=== PATIENT | female | born 1970 | race Caucasian/White ===

== ENCOUNTER 2019-01-13 19:22 | Observation (INO) | payer OTHER ==
--- OUTSIDE RECORDS SUMMARY | 2019-01-13 19:50 | XMS REPORT | Continuity of Care Document ---
:1970 Author Organization [facility] Address [address] [place] [address] Phone Unavailable Care Team Providers Name Role Phone KENNY DUPREE Primary Care Physician Insurance Providers Guarantor Gina Guevara Address [address] [address] Email [email or web address] Payer [facility] Policy Number [id number] Subscriber's Name Gina Guevara Relationship Self / Same As Patient Group Number NA Group Name NA Advance Directives Directive Response Recorded Date/Time Advance Directives No 06/20/15 3:05pm Advance Directive on File No 05/19/18 4:34am Directive to Physicians/Living Will No 06/20/15 3:05pm Health Care Proxy No 06/20/15 3:05pm Name of Surrogate/Decision Maker N/A 05/19/18 4:48am Organ Donor Yes 06/20/15 3:05pm Medical Power of Crisis Specialist No 06/20/15 3:05pm Patient/Family Given Education Material Y - SIGNED 05/19/18...AG 05/19/18 4 :48am R/T Directives? Chief Complaint and Reason for Visit Chief Complaint General Complaint Reason for Visit Muscle spasm Muscle spasm of both lower legs Chronic back pain Problems Medical Problem Onset Date Status Acute low back pain due to trauma Unknown Acute Acute pain of right shoulder Unknown Acute Anemia Unknown Chronic Anxiety Unknown Chronic Chronic back pain Unknown Acute Chronic low back pain Unknown Acute Contusion of knee Unknown Acute Fall at home Unknown Acute Headache Unknown Acute Hematuria Unknown Acute Influenza due to influenza A virus Unknown Acute Internal derangement of knee Unknown Acute Internal derangement of knee Unknown Acute Morbid obesity Unknown Chronic Nausea & vomiting Unknown Acute UTI (lower urinary tract infection) Unknown Acute Upper respiratory infection Unknown Acute Upper respiratory infection Unknown Acute Past Problems Medical Problem Onset Date Status Acute hyperglycemia Unknown Acute Acute pharyngitis Unknown Acute Chest wall pain Unknown Acute Contusion of right hip Unknown Acute Contusion of right knee Unknown Acute Contusion of right knee Unknown Acute Diabetes mellitus Unknown Acute Diarrhea Unknown Acute Fall Unknown Acute Gastroenteritis Unknown Acute Infectious diarrhea Unknown Acute Lumbar contusion Unknown Acute Malaise and fatigue Unknown Acute Microcytic hypochromic anemia Unknown Acute Mixed anxiety and depressive disorder Unknown Acute Muscle spasm Unknown Acute Muscle spasm of both lower legs Unknown Acute Myalgia Unknown Acute Obesity Unknown Acute Syncope Unknown Acute Tachycardia Unknown Acute Type II diabetes mellitus Unknown Acute URI (upper respiratory infection) Unknown Acute UTI (urinary tract infection) Unknown Acute Viral syndrome Unknown Acute Medications Current Home Medications Medication Dose Units Route Directions Days Qty Instructions Start Date Alprazolam 1 Tab ORAL Three Times 30 Days 30 Tablet 02/11/17 (Alprazolam*) 2 Daily As Mg Tab Needed as needed for Anxiety Butalbital/Aspir 1 Cap ORAL Twice A Day as in/Caff needed for 50/325/40 Mg * Headache (Fiorinal 50/325/40 *) Cap Carisoprodol 350 Mg ORAL Three Times A 30 Days 30 Tablet 02/11/17 (Soma 350 Mg*) Day for Muscle 350 Mg Tab Spasm Ferrous Sulfate 1 Tab ORAL Daily 30 Tablet (Kp Ferrous Sulfate 325 Mg) 325 Mg Tab Hydrocodone/Acet 1 Tab ORAL Every 4 Hrs As 30 Days 20 Tablet 02/11/17 aminophen 1 Tab Needed as Tab needed for Pain Protocol Ibuprofen 1 Tab ORAL Twice A Day 90 Tablet (Motrin *) 800 Mg Tab Omeprazole 40 Mg Daily 1 Cap (Bulk) (Omeprazole) Pow Ondansetron Hcl 1 Tab ORAL Every 6 Hours 5 Days 20 Tablet 03/23/18 (Zofran *) 4 Mg (4-10-16-22) Tab for Nausea Oxybutynin 5 Mg ORAL Twice A Day Chloride (Ditropan *) 5 Mg Tab Promethazine Hcl 50 Mg ORAL Twice A Day as 1 Tablet (Phenergan *) 25 needed for Mg Tab Nausea Tramadol/Apap * 1 Tab ORAL Every 4 Hours 30 Days 15 Tablet 03/23/18 (Ultracet As Needed for 37.5/325 Mg *) 1 Pain Tab Tab Past Home Medications Medication Directions Ordered Status Alprazolam (Alprazolam*) 2 Mg Three Times Daily As Needed as Discontinued Tab, 1 Tab Oral needed for Anxiety Alprazolam (Xanax 2 Mg*) 2 Mg Twice A Day Discontinued Tab, 2 Mg Oral Carisoprodol (Soma 350 Mg*) 350 Three Times A Day Discontinued Mg Tab, 350 Mg Oral Esomeprazole Mag * (Nexium 40 Mg Daily Discontinued *) 40 Mg Cap, 1 Cap Oral Ferrous Sulfate (Kp Ferrous Twice A Day for Iron 11/16/16 Discontinued Sulfate 325 Mg) 325 Mg Tab, 1 Tab Deficiency Oral Hydrocodone-Acetaminophen (Lorcet Three Times A Day Discontinued 10/650 Mg) 1 Tab Tab, 1 Tab Oral Hydrocodone-Acetaminophen Four Times Daily As Needed as Discontinued 10/325MG* ([place] 10/325 Mg *) 1 needed for Pain Scale 1-3 Tab Tab, 1 Tab Oral Morphine Sulfate (Morphine Three Times A Day Discontinued Sulfate Er 30 Mg) 30 Mg Cap, 1 Oral Morphine Sulfate (Morphine Three Times A Day for Pain Discontinued Sulfate 30 Mg) 30 Mg Sup, 30 Mg Scale 4-6 Oral Morphine Sulfate (Morphine Three Times A Day Discontinued Sulfate 15 Mg) 15 Mg Tab, 15 Mg Oral Omeprazole (Prilosec 40 Mg) 40 Mg Twice A Day Discontinued Cap, 40 Mg Oral Promethazine Hcl (Phenergan *) 25 Every 4 Hours As Needed Discontinued Mg Tab, 25 Mg Oral Social History Social History Problem Response Recorded Date/Time Onset Date Status Hx Physical Abuse No 05/19/2018 4:34am Not Applicable Not Applicable Smoking Status Start Date Stop Date Never smoker Hospital Discharge Instructions No hospital discharge instruction information available. Plan of Care Discharge Date 05/19/18 6:46am Instructions/Education Provided Muscle Cramps and Spasms Chronic Back Pain Forms Provided Prescription Opioid Use Portal Welcome Letter Prescriptions See Medication Section Referrals KENNY DUPREE Address: [address] [place] [address] [id number] Functional Status No functional status information available. Allergies, Adverse Reactions, Alerts Allergen Type Severity Reaction Status Last Updated Amoxicillin ([id number]) Allergy Severe rash Active 02/08/17 Codeine ([id number]) Allergy Unknown Hives Active 03/10/17 Immunizations No immunization information available. Vital Signs Acute Vital Signs Vital Response Date/Time Blood Pressure 150/55 mm Hg 05/19/2018 6:46am Pulse Pulse Rate (adult) 90 beats per minute (60 - 100) 05/19/2018 6:46am Respiratory Rate 20 breaths per minute (10 - 24) 05/19/2018 6:46am Temperature Source Oral 05/19/2018 6:46am Height 5 ft 7 in 05/19/2018 4:34am Weight 400 lb 05/19/2018 4:34am Body Mass Index 62.6 kg/m^2 05/19/2018 4:34am Results Laboratory Results Test Name Result Units Flags Reference Collection Result Comments Date/Time Date/Time White Blood Count 10.9 K/ul 4.0-11.5 03/22/2018 03/22/2018 11:26pm 11:38pm Red Blood Count 4.96 M/ul 3.80-5.20 03/22/2018 03/22/2018 11:26pm 11:38pm Hemoglobin 11.5 g/dl 10.5-15.7 03/22/2018 03/22/2018 11:26pm 11:38pm Hematocrit 37.9 % 34.0-50.0 03/22/2018 03/22/2018 11:26pm 11:38pm Mean Corpuscular 76.3 fl L 78-98 03/22/2018 03/22/2018 Volume 11:26pm 11:38pm Mean Corpuscular 23.1 pg L 26.2-33.4 03/22/2018 03/22/2018 Hemoglobin 11:26pm 11:38pm Mean Corpuscular 30.3 g/dl L 31.5-36.2 03/22/2018 03/22/2018 Hemoglobin Concent 11:26pm 11:38pm Red Cell 14.2 % 11.5-15.5 03/22/2018 03/22/2018 Distribution Width 11:26pm 11:38pm Platelet Count 362 K/ul H 137-338 03/22/2018 03/22/2018 11:26pm 11:38pm Mean Platelet 8.2 fl L 8.4-11.8 03/22/2018 03/22/2018 Volume 11:26pm 11:38pm Neutrophils (%) 72.4 % 44.4-80.1 03/22/2018 03/22/2018 (Auto) 11:26pm 11:38pm Lymphocytes (%) 20.2 % 10.0-50.0 03/22/2018 03/22/2018 (Auto) 11:26pm 11:38pm Monocytes (%) 5.9 % 3.6-12.04 03/22/2018 03/22/2018 (Auto) 11:26pm 11:38pm Eosinophils (%) 1.0 % 0.0-5.41 03/22/2018 03/22/2018 (Auto) 11:26pm 11:38pm Basophils (%) 0.6 % 0.0-0.79 03/22/2018 03/22/2018 (Auto) 11:26pm 11:38pm D-Dimer 607 ng/mL H* <500 03/22/2018 03/23/2018 Results have been broadcasted to patient's location and 12:00am 12:19am called to (LETTY). By HORTENSIA DE LA CRUZ 03/23/18 @0018 Urine Color YELLOW 03/22/2018 03/22/2018 10:50pm 11:11pm Urine Appearance CLEAR CLEAR 03/22/2018 03/22/2018 10:50pm 11:11pm Urine Glucose NEGATIVE NEGATIVE 03/22/2018 03/22/2018 10:50pm 11:11pm Urine Bilirubin NEGATIVE NEGATIVE 03/22/2018 03/22/2018 10:50pm 11:11pm Urine Ketones TRACE NEGATIVE 03/22/2018 03/22/2018 10:50pm 11:11pm Urine Specific 1.034 H 1.003-1.03 03/22/2018 03/22/2018 [place] 0 10:50pm 11:11pm Urine Blood NEGATIVE NEGATIVE 03/22/2018 03/22/2018 10:50pm 11:11pm Urine pH 6.000 5-9 03/22/2018 03/22/2018 10:50pm 11:11pm Urine Protein 1+ (30 H NEGATIVE 03/22/2018 03/22/2018 mg/dL) 10:50pm 11:11pm Urine Urobilinogen NORMAL mg/dL 0.2-1.0 03/22/2018 03/22/2018 10:50pm 11:11pm Urine Nitrate NEGATIVE NEGATIVE 03/22/2018 03/22/2018 10:50pm 11:11pm Urine Leukocyte NEGATIVE NEGATIVE 03/22/2018 03/22/2018 Esterase 10:50pm 11:11pm Urine RBC 1-5 /hpf 0-5 03/22/2018 03/22/2018 10:50pm 11:11pm Urine WBC 1-5 /hpf 0-5 03/22/2018 03/22/2018 10:50pm 11:11pm Urine Epithelial 6-10 /hpf 0-5 03/22/2018 03/22/2018 Cells 10:50pm 11:11pm Urine Bacteria SMALL(1+) /hpf None 03/22/2018 03/22/2018 Detect 10:50pm 11:11pm Urine Casts 2-5 /lpf None 03/22/2018 03/22/2018 Detect 10:50pm 11:11pm Urine Culture NO 03/22/2018 03/22/2018 Reflexed 10:50pm 11:11pm Lactic Acid Level 2.33 mmoL/L H 0.5-2.2 03/22/2018 03/22/2018 11:26pm 11:53pm Random Glucose 179 mg/dL H 74-106 03/22/2018 03/22/2018 11:26pm 11:53pm Blood Urea 23 mg/dL H 6-20 03/22/2018 03/22/2018 Nitrogen 11:26pm 11:53pm Serum Osmolality 286 280-300 03/22/2018 03/22/2018 11:26pm 11:53pm Creatinine 0.7 mg/dL 0.50-0.90 03/22/2018 03/22/2018 11:26pm 11:53pm Glomerular > 60.00 03/22/2018 03/22/2018 GFR RESULTS ARE REPORTED IN mL/min/1.73m2. Filtration Rate 11:26pm 11:53pm Calc Normal GFR: >60mL/min Moderately decreased GFR: 30-59 mL/min Severely decreased GFR: 15-29 mL/min Kidney Failure (or Dialysis): <15 mL/min The calculated eGFR is not valid for patients younger than 18 years or older than 75 years. BUN/Creatinine 32.9 H 12-20 03/22/2018 03/22/2018 Ratio 11:26pm 11:53pm Sodium Level 139 mmol/L 135-145 03/22/2018 03/22/2018 11:26pm 11:53pm Potassium Level 4.7 mmol/L 3.5-5.2 03/22/2018 03/22/2018 11:26pm 11:53pm Chloride Level 101 mmol/L 98-108 03/22/2018 03/22/2018 11:26pm 11:53pm Carbon Dioxide 23 mmol/L 21-32 03/22/2018 03/22/2018 Level 11:26pm 11:53pm Anion Gap 19.7 mEq/L 12-20 03/22/2018 03/22/2018 11:26pm 11:53pm Calcium Level 9.3 mg/dL 8.6-10.0 03/22/2018 03/22/2018 11:26pm 11:53pm Total Protein 7.8 g/dL 6.6-8.7 03/22/2018 03/22/2018 11:26pm 11:53pm Albumin 4.1 g/dL 3.5-5.2 03/22/2018 03/22/2018 11:26pm 11:53pm Globulin 3.7 gm/dL 03/22/2018 03/22/2018 11:26pm 11:53pm Albumin/Globulin 1.1 >1.0 03/22/2018 03/22/2018 Ratio 11:26pm 11:53pm Total Bilirubin < 0.3 mg/dL 0.0-1.2 03/22/2018 03/22/2018 11:26pm 11:53pm Aspartate Amino 13 U/L L 15-32 03/22/2018 03/22/2018 Transf (AST/SGOT) 11:26pm 11:53pm Alanine 16 U/L 0-33 03/22/2018 03/22/2018 Aminotransferase 11:26pm 11:53pm (ALT/SGPT) RA-Ebx-A-Type 79 pg/mL 0-125 03/22/2018 03/23/2018 Natriuretic 11:26pm 12:06am Peptide Total Alkaline 188 U/L H 35-105 03/22/2018 03/22/2018 Phosphatase 11:26pm 11:53pm Thyroid 2.81 uIU/mL 0.36-3.74 03/22/2018 03/23/2018 Stimulating 11:26pm 12:05am Hormone (TSH) Creatine Kinase 37 U/L 20-180 03/22/2018 03/22/2018 11:26pm 11:53pm Troponin I < 0.30 ng/mL 0.0-0.5 03/22/2018 03/23/2018 Published clinical studies have shown elevations of cTnI in 11:26pm 12:05am patients with myocardial injury, as seen in unstable angina pectoris, cardiac contusions, and heart transplants. Elevations have also been seen in patients with rhabdomyolysis and polymyositis. Elevated troponin levels point to myocardial injury, but are not necessarily indicative of an ischemic mechanism. The term AL should be used when there is evidence of cardiac damage, as detected by marker proteins in a clinical setting consistent with myocardial ischemia. If the clinical circumstance suggests that an ischemic mechanism is unlikely, other causes of cardiac injury should be considered. For diagnostic purposes, the results should always be assessed in conjunction with the patient's medical history, clinical examination and other findings. Creatine Kinase MB 1.2 ng/ml 0.0-3.6 03/22/2018 03/23/2018 11:26pm 12:06am DIAGNOSTIC CITERIA: CKMB CKMB RELATIVE INDEX SUGGESTIVE OF NON-AMI < or=5 N/A WEATHERS ZONE (INCONCLUSIVE) > 5 < or=4 SUGGESTIVE OF AMI >5 > 4 Procedures Procedure Status Date Provider(s) EMERGENCY DEPT VISIT Completed 03/22/18 THER/PROPH/DIAG INJ IV PUSH Completed 03/22/18 X-RAY EXAM CHEST 1 VIEW Completed 03/22/18 HYDRATE IV INFUSION ADD-ON Completed 03/22/18 COMPLETE CBC W/AUTO DIFF WBC Completed 03/22/18 CREATINE MB FRACTION Completed 03/22/18 ASSAY OF CK (CPK) Completed 03/22/18 ASSAY OF LACTIC ACID Completed 03/22/18 ASSAY THYROID STIM HORMONE Completed 03/22/18 URINALYSIS AUTO W/SCOPE Completed 03/22/18 ROUTINE VENIPUNCTURE Completed 03/22/18 ASSAY OF TROPONIN QUANT Completed 03/22/18 COMPREHEN METABOLIC PANEL Completed 03/22/18 FIBRIN DEGRADJ D-DIMER Completed 03/22/18 ASSAY OF NATRIURETIC PEPTIDE Completed 03/22/18 ELECTROCARDIOGRAM TRACING Completed 03/22/18 THER/PROPH/DIAG INJ SC/IM Completed 03/22/18 CT ANGIOGRAPHY CHEST Completed 03/22/18 ELECTROCARDIOGRAM TRACING Completed 03/22/18 X-ray of chest, single view Completed 03/22/18 KATHE GUEVARA MD Computed tomography angiography of chest for Completed 03/23/18 KATHE GUEVARA MD pulmonary embolism Encounters Encounter Location Arrival/Admit Date Discharge/Depart Date Attending Provider Departed [place] 05/19/18 4:34am 05/19/18 6:46am RHETT Emergency Room [facility] Departed [place] 03/22/18 9:30pm 03/23/18 3:04am KATHE GUEVARA Emergency [facility] Recent Diagnosis
--- OUTSIDE RECORDS SUMMARY | 2019-01-13 19:50 | XMS REPORT | Continuity of Care Document ---
:1970 Author Organization [facility] Address [address] [place] [address] Phone Unavailable Care Team Providers Name Role Phone KENNY DUPREE Primary Care Physician Insurance Providers Guarantor Gina Guevara Jessica Address [address] [address] Email [email or web address] [facility] Policy Number [id number] Subscriber's Name Gina Guevara Relationship Self / Same As Patient Group Number NA Group Name NA Advance Directives Directive Response Recorded Date/Time Advance Directives No 06/20/15 3:05pm Advance Directive on File No 03/22/18 9:40pm Directive to Physicians/Living Will No 06/20/15 3:05pm Health Care Proxy No 06/20/15 3:05pm Organ Donor Yes 06/20/15 3:05pm Medical Power of Spinning Bath Person No 06/20/15 3:05pm Patient/Family Given Education Material R/T Y - 03/22/18...MK 03/22/18 10: 23pm Directives? Chief Complaint and Reason for Visit Chief Complaint Extremity Pain/Injury Reason for Visit Diabetes mellitus Chest wall pain Problems Medical Problem Onset Date Status [...] Mixed anxiety and depressive disorder Unknown Acute Myalgia Unknown Acute Obesity Unknown [...] Times Daily As Needed as Discontinued 10/325MG* ([place] 10/325 Mg *) 1 needed for Pain [...] Onset Date Status Hx Physical Abuse No 03/22/2018 9:40pm Not Applicable Not Applicable Smoking Status Start Date Stop Date Never smoker Hospital Discharge Instructions No hospital discharge instruction information available. Plan of Care Discharge Date 03/23/18 3:04am Instructions/Education Provided Chest Wall Pain, Cmzi-[id number] Type 2 Diabetes Mellitus, Self Care, Adult, [id number] Prescriptions See Medication Section Referrals KENNY DUPREE Address: [address] [place] [phone] Additional Instructions/Education Recommend that you take the Ultracet as needed for pain, also take the Zofran 4 mg as needed for nausea. Follow up with your primary doctor in 2 days for re check of your condition, or otherwise return to the ED if your condition worsens. Functional Status No functional status information available. Allergies, Adverse Reactions, Alerts Allergen Type Severity Reaction Status Last Updated Amoxicillin ([id number]) Allergy Severe rash Active 02/08/17 Codeine ([id number]) Allergy Unknown Hives Active 03/10/17 Immunizations No immunization information available. Vital Signs Acute Vital Signs Vital Response Date/Time Blood Pressure 149/66 mm Hg 03/23/2018 3:03am Pulse Pulse Rate (adult) 92 beats per minute (60 - 100) 03/23/2018 3:03am Respiratory Rate 18 breaths per minute (10 - 24) 03/23/2018 3:03am Temperature Source Oral 03/22/2018 11:56pm Height 5 ft 7 in 03/22/2018 9:40pm Weight 380 lb 03/22/2018 9:40pm Body Mass Index 59.5 kg/m^2 03/22/2018 9:40pm Results Laboratory Results Test Name Result Units [...] Urine Specific 1.034 H 1.003-1.03 03/22/2018 03/22/2018 [employer] 0 10:50pm 11:11pm Urine Blood NEGATIVE NEGATIVE [...] 0-33 03/22/2018 03/22/2018 Aminotransferase 11:26pm 11:53pm (ALT/SGPT) OA-Yfh-Y-Type 79 pg/mL 0-125 03/22/2018 03/23/2018 Natriuretic 11:26pm [...] indicative of an ischemic mechanism. The term KS should be used when there is evidence [...] > 4 Procedures Procedure Status Date Provider(s) X-ray of chest, single view Completed 03/22/18 KATHE GUEVARA MD Computed tomography angiography of chest for Completed 03/23/18 KATHE GUEVARA MD pulmonary embolism Encounters Encounter Location Arrival/Admit Date Discharge/Depart Date Attending Provider Departed [place] 03/22/18 9:30pm 03/23/18 3:04am KATHE GUEVARA Emergency Room [facility] Recent Diagnosis
--- OUTSIDE RECORDS SUMMARY | 2019-01-13 19:50 | XMS REPORT | Continuity of Care Document ---
:1970 Author Organization [facility] Address [address] [place] [address] Phone Unavailable Care Team Providers Name Role Phone KENNY DUPREE Primary Care Physician Insurance Providers Guarantor Gina Guevara Address [address] [facility] [place] [facility] [address] [place] [address] Email [email or web address] [facility] Policy Number [id number] Subscriber's Name Gina Guevara Relationship Self / Same As Patient Group Number NA Group Name NA Advance Directives Directive Response Recorded Date/Time Advance Directives No 06/20/15 3:05pm Advance Directive on File No 06/06/18 11:30am Directive to Physicians/Living Will No 06/20/15 3:05pm Health Care Proxy No 06/20/15 3:05pm Organ Donor Yes 06/20/15 3:05pm Medical Power of Stile Ripsaw Operator No 06/20/15 3:05pm Patient/Family Given Education Material R/T Y - [id number]....SBM 06/06/18 12: 56pm Directives? Chief Complaint and Reason for Visit Chief Complaint Back Pain or Injury Reason for Visit Muscle strain Problems Medical Problem Onset Date Status Acute [...] spasm of both lower legs Unknown Acute Muscle strain Unknown Acute Myalgia Unknown Acute Obesity Unknown Acute Syncope Unknown Acute Tachycardia Unknown Acute Type II diabetes mellitus Unknown Acute URI (upper respiratory infection) Unknown Acute UTI (urinary tract infection) Unknown Acute Viral syndrome Unknown Acute Medications Current Home Medications Medication Dose Units Route Directions Days Qty Instructions Start Date Alprazolam 1 Tab ORAL Three Times 30 30 (Alprazolam*) 2 Mg Daily As Days Tablet 7 Tab Needed as needed for Anxiety Butalbital/Aspirin 1 Cap ORAL Twice A Day /Caff 50/325/40 Mg as needed for * (Fiorinal Headache 50/325/40 *) Cap Carisoprodol (Soma 350 Mg ORAL Three Times A 30 30 350 Mg*) 350 Mg Day for Days Tablet 7 Tab Muscle Spasm Cyclobenzaprine 1 Tab ORAL Three Times A 5 Days 15 Hcl (Flexeril *) Day for Tablet 9 10 Mg Tab Muscle Spasms Ferrous Sulfate 1 Tab ORAL Daily 30 ( Ferrous Tablet Sulfate 325 Mg) 325 Mg Tab Hydrocodone/Acetam 1 Tab ORAL Every 4 Hrs 30 20 inophen 1 Tab Tab As Needed as Days Tablet 7 needed for Pain Protocol Ibuprofen (Motrin 1 Tab ORAL Twice A Day 90 *) 800 Mg Tab Tablet Lidocaine 1 Patch TOPICAL Daily for 10 10 Patch may wear up to (Lidoderm) 1 Ea Pain Days 12 hours 9 Tdsy Omeprazole (Bulk) 40 Mg Daily 1 Cap (Omeprazole) Pow Ondansetron Hcl 1 Tab ORAL Every 6 Hours 5 Days 20 (Zofran *) 4 Mg (4-10-16-22) Tablet 9 Tab for Nausea Oxybutynin 5 Mg ORAL Twice A Day Chloride (Ditropan *) 5 Mg Tab Promethazine Hcl 50 Mg ORAL Twice A Day 1 Tablet (Phenergan *) 25 as needed for Mg Tab Nausea Tramadol/Apap * 1 Tab ORAL Every 4 Hours 30 15 (Ultracet 37.5/325 As Needed for Days Tablet 9 Mg *) 1 Tab Tab Pain Past Home Medications Medication Directions Ordered Status [...] Times Daily As Needed as Discontinued 10/325MG* ([place] 10/325 Mg *) 1 needed for Pain [...] Onset Date Status Hx Physical Abuse No 06/06/2018 11:30am Not Applicable Not Applicable Smoking Status Start Date Stop Date Never smoker Hospital Discharge Instructions No hospital discharge instruction information available. Plan of Care Discharge Date 06/06/18 2:10pm Instructions/Education Provided Muscle Strain, Ycxm-eq-Nooz Forms Provided Portal Welcome Letter Prescriptions See Medication Section Referrals KENNY DUPREE Address: [address] [place] [phone] Additional Instructions/Education CONTINUE WITH YOUR TRAMADOL DIRECTED MAY ALSO USE LIDODERM PATCH APPLY DIRECTED. FLEXERIL 10MG TAB 1 BY MOUTH EVERY 8 HOURS NEEDED FOR MUSCLE SPASMS #15. FOLLOW UP WITH YOUR PRIMARY CARE PROVIDER IN 2-3 DAYS RETURN TO THE ER IF YOUR SYMPTOMS WORSEN Functional Status No functional status information available. Allergies, Adverse Reactions, Alerts Allergen Type Severity Reaction Status Last Updated Amoxicillin ([id number]) Allergy Severe rash Active 02/08/17 Codeine ([id number]) Allergy Unknown Hives Active 03/10/17 Immunizations No immunization information available. Vital Signs Acute Vital Signs Vital Response Date/Time Blood Pressure 155/69 mm Hg 06/06/2018 2:13pm Pulse Pulse Rate (adult) 92 beats per minute (60 - 100) 06/06/2018 2:13pm Respiratory Rate 20 breaths per minute (10 - 24) 06/06/2018 2:13pm Temperature Source Oral 06/06/2018 11:30am Height 5 ft 7 in 06/06/2018 11:30am Weight 400 lb 06/06/2018 11:30am Body Mass Index 62.6 kg/m^2 06/06/2018 11:30am Results Laboratory Results Test Name Result Units Flags Reference Collection Result Comments Date/Time Date/Time Urine Color LIGHT 06/06/2018 06/06/2018 YELLOW 11:44am 12:07pm Urine Appearance CLEAR CLEAR 06/06/2018 06/06/2018 11:44am 12:07pm Urine Glucose NEGATIVE NEGATIVE 06/06/2018 06/06/2018 11:44am 12:07pm Urine Bilirubin NEGATIVE NEGATIVE 06/06/2018 06/06/2018 11:44am 12:07pm Urine Ketones NEGATIVE NEGATIVE 06/06/2018 06/06/2018 11:44am 12:07pm Urine Specific 1.026 1.003-1.030 06/06/2018 06/06/2018 [place] 11:44am 12:07pm Urine Blood NEGATIVE NEGATIVE 06/06/2018 06/06/2018 11:44am 12:07pm Urine pH 6.000 5-9 06/06/2018 06/06/2018 11:44am 12:07pm Urine Protein NEGATIVE NEGATIVE 06/06/2018 06/06/2018 11:44am 12:07pm Urine NORMAL mg/dL 0.2-1.0 06/06/2018 06/06/2018 Urobilinogen 11:44am 12:07pm Urine Nitrate NEGATIVE NEGATIVE 06/06/2018 06/06/2018 11:44am 12:07pm Urine Leukocyte NEGATIVE NEGATIVE 06/06/2018 06/06/2018 Esterase 11:44am 12:07pm Urine RBC <1 /hpf 0-5 06/06/2018 06/06/2018 11:44am 12:07pm Urine WBC 1-5 /hpf 0-5 06/06/2018 06/06/2018 11:44am 12:07pm Urine Epithelial 1-5 /hpf 0-5 06/06/2018 06/06/2018 Cells 11:44am 12:07pm Urine Bacteria TRACE /hpf None Detect 06/06/2018 06/06/2018 11:44am 12:07pm Urine Casts None /lpf None Detect 06/06/2018 06/06/2018 Detected 11:44am 12:07pm Urine Culture NO 06/06/2018 06/06/2018 Reflexed 11:44am 12:07pm Procedures Procedure Status Date Provider(s) EMERGENCY DEPT VISIT Completed 05/19/18 THER/PROPH/DIAG INJ SC/IM Completed 05/19/18 Encounters Encounter Location Arrival/Admit Date Discharge/Depart Date Attending Provider Departed [place] 06/06/18 11:26am 06/06/18 2:10pm ANDRES MENSAH MD Emergency Room [facility] Departed [place] 05/19/18 4:34am 05/19/18 6:46am RHETT Emergency Room [facility] Recent Diagnosis
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
--- OUTSIDE RECORDS SUMMARY | 2019-01-13 19:51 | XMS REPORT | Continuity of Care Document ---
:1970 Author Organization [facility] Address [address] [place] [address] Allergies, Adverse Reactions, Alerts Allergen Type Severity Reaction Last Updated Verified Status Amoxicillin Allergy Severe rash February 08, 2017 Yes Active ([id number]) Codeine ([id number]) Allergy Unknown Hives March 10, 2017 No Active Medications Medication Status Dose Units Route Sig Qty Days Start End Instructions Date Date Alprazolam Discontin 1 ORAL Three 30 January ued Times , Daily 2016 2017 As 2:07pm Needed as needed for Anxiet y Butalbital/Asp Active 1 ORAL Twice irin/Caff A Day 50/325/40 Mg * as needed for Headac he Carisoprodol Discontin 350 ORAL Three 30 January ued Times , A Day 2016 2017 for 2:07pm Muscle Spasm Clindamycin Discontin 300 ORAL Every August Hcl ued 8 30th, 6th, Hours 2018 2019 As 7:03pm Needed for Infect ion Cyclobenzaprin Discontin 1 ORAL Three 15 May e Hcl ued Times , A Day 2018 2018 for 1:40pm Muscle Spasms Diclofenac Discontin 1 ORAL Daily 10 November ued for r 24, 4th, Knee 2018 2018 Pain 1:45am Ferrous Active 1 ORAL Daily 30 Sulfate Hydrocodone/Ac Discontin 1 ORAL Every 20 January etaminophen ued 4 Hrs , , As 2016 2017 Needed 2:07pm as needed for Pain Protoc ol Ibuprofen Active 1 ORAL Twice 90 A Day Lidocaine Discontin 1 TOPICAL Daily May wear up ued for , , to 12 hours Pain 2018 2019 1:41pm Methylpredniso Discontin 1 ORAL As 1 FOLLOW INSTRUCTIONS ON THE PACK FOR EACH DAY. THE DOSEPAK IS FOR 6 lone ued Direct r 24, er ed for 2018 30, DAYS TOTAL. Knee 1:45am 2019 Arthri tis Naproxen Discontin 1 ORAL Twice 60 21 December Novembe ued A Day 5th, r 4th, for 2018 2018 Pain 10:09pm Omeprazole Active 40 Daily 1 (Bulk) Ondansetron Discontin 1 ORAL Every 20 Februaryuar Hcl ued 6 30th, y 4th, Hours 2018 2018 (4-10- 2:37am 16-22) for Nausea Oxybutynin Active 5 ORAL Twice Chloride A Day Promethazine Active 50 ORAL Twice 1 Hcl A Day as needed for Nausea Tramadol Hcl Discontin 1 ORAL Every 15 November ued 6 5th, 10th, Hours 2018 2018 As 10:09pm Needed as needed for Pain Tramadol/Apap Discontin 1 ORAL Every 15 February * ued 4 30th, 1st, Hours 2018 2018 As 2:37am Needed for Pain Tramadol/Apap Discontin 1 ORAL Every 15 30 November * ued 4 r 24th, 24th, Hours 2018 2018 As 1:45am Needed for Pain Alprazolam Discontin 1 ORAL Three 90 Decembe ued Times r , Daily 2016 As Needed as needed for Anxiet y Alprazolam Discontin 2 ORAL Twice Septemb ued A Day er 2016 Carisoprodol Discontin 350 ORAL Three Decembe ued Times r , A Day 2016 Esomeprazole Discontin 1 ORAL Daily 30 Decembe Mag * ued r , 2016 Ferrous Discontin 1 ORAL Twice 60 Septembe Decembe Sulfate ued A Day r , r 17th, for 2016 2016 Iron 4:20pm Defici ency Hydrocodone-Ac Discontin 1 ORAL Three Septemb etaminophen ued Times er A Day 2016 Hydrocodone-Ac Discontin 1 ORAL Four 120 Decembe etaminophen ued Times r 17, 10/325MG* Daily 2017 As Needed as needed for Pain Scale 1-3 Morphine Discontin 1 ORAL Three Decembe Sulfate ued Times r 17, A Day 2016 Morphine Discontin 30 ORAL Three Septemb Sulfate ued Times er A Day 24, for 2016 Pain Scale 4-6 Morphine Discontin 15 ORAL Three Septemb Sulfate ued Times er A Day 2013 Omeprazole Discontin 40 ORAL Twice Septemb ued A Day er , 2013 Promethazine Discontin 25 ORAL Every Decembe Hcl ued 4 r 17th, Hours 2016 As Needed Problems Active Problems Medical Problem Onset Date Status Acute low back pain due to trauma Active Acute pain of right shoulder Active Anemia Active Anxiety Active Chronic back pain Active Chronic low back pain Active Contusion of knee Active Fall at home Active Headache Active Hematuria Active Influenza due to influenza A virus Active 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 Morbid obesity Active Nausea & vomiting Active UTI (lower urinary tract infection) Active Upper respiratory infection Active Upper respiratory infection Active Inactive/Resolved Problems Medical Problem Onset Date Status Acute hyperglycemia Resolved Acute pain of left shoulder Resolved Acute pharyngitis Resolved Atypical chest pain Resolved Cervical radiculopathy Resolved Chest pain Resolved Chest wall pain Resolved Contusion of left knee Resolved Contusion of right hip Resolved Contusion of right knee Resolved Contusion of right knee Resolved Degenerative joint disease of knee, left Resolved Diabetes mellitus Resolved Diarrhea Resolved Fall Resolved Gastroenteritis Resolved Infectious diarrhea Resolved Lumbar contusion Resolved Malaise and fatigue Resolved Microcytic hypochromic anemia Resolved Mixed anxiety and depressive disorder Resolved Muscle spasm Resolved Muscle spasm of both lower legs Resolved Muscle strain Resolved Myalgia Resolved Obesity Resolved Pain, dental Resolved Syncope Resolved Tachycardia Resolved Type II diabetes mellitus Resolved URI (upper respiratory infection) Resolved UTI (urinary tract infection) Resolved Viral syndrome Resolved Procedures Procedure Date Performed Status ASSAY THYROID STIM HORMONE October 05, 2018 completed LIPID PANEL October 05, 2018 completed COMPREHEN METABOLIC PANEL October 05, 2018 completed GLYCOSYLATED HEMOGLOBIN TEST October 05, 2018 completed ASSAY OF FREE THYROXINE October 05, 2018 completed COMPLETE CBC W/AUTO DIFF WBC October 05, 2018 completed ROUTINE VENIPUNCTURE October 05, 2018 completed EMERGENCY DEPT VISIT November 14, 2018 completed X-RAY EXAM OF KNEE 1 OR 2 November 14, 2018 completed THER/PROPH/DIAG INJ SC/IM November 14, 2018 completed ELECTROCARDIOGRAM TRACING November 14, 2018 completed MORPHINE SULFATE INJECTION November 14, 2018 completed X-ray left knee, AP/lateral November 14, 2018 completed X-ray of chest, single view November 26, 2018 completed X-ray of left knee, three views November 26, 2018 completed Relevant Diagnostic Tests and/or Laboratory Data Laboratory Results Test Date/Time Result Interpretation Reference Result Comment Performing Range Site White Blood Count November 9.3 4.0-11.5 [facility], [facility] 2018 9:05pm [facility] [address] Red Blood Count November 4.74 3.80-5.20 [facility], [address] 2018 9:05pm [place] [address] Hemoglobin November 11.4 10.5-15.7 [facility], 104 2018 9:05pm [place] [address] Hematocrit October 39.4 34.0-50.0 [facility], 104 [facility] 2018 9:05pm [place] [address] Mean Corpuscular October 83.1 86-100 [facility], 104 [facility] Volume 2018 9:05pm [place] [address] Mean Corpuscular October 24.1 26.2-33.4 [facility], 104 [facility] Hemoglobin 2018 9:05pm [place] [address] Mean Corpuscular October 28.9 30-34 [facility], 104 [facility] Hemoglobin 2018 Concent 9:05pm [place] [address] Red Cell November 14.7 12.0-15.5 [facility], 104 [facility] Distribution 2018 Width 9:05pm [place] [address] Platelet Count November 330 165-450 [facility], 104 2018 9:05pm [place] [address] Mean Platelet November 10.4 9.4-12.6 [facility], 104 [facility] Volume 2018 9:05pm [place] [address] Neutrophils (%) November 70.4 44.4-80.1 [facility], 104 (Auto) 2018 9:05pm [place] [address] Immature November 0.4 0.0-0.4 [facility], 104 Granulocyte % 2018 (Auto) 9:05pm [place] [address] Lymphocytes (%) November 18.1 10.0-50.0 [facility], 104 (Auto) 2018 9:05pm [place] [address] Monocytes (%) November 9.0 3.6-12.0 [facility], 104 (Auto) 2018 9:05pm [place] [address] Eosinophils (%) November 1.6 0.0-5.4 [facility], 104 [facility] (Auto) 2018 9:05pm [place] [address] Basophils (%) November 0.5 0.1-1.2 [facility], 104 [facility] (Auto) 2018 9:05pm [place] [address] Neutrophils # November 6.51 1.56-6.13 [facility], 104 [facility] (Auto) 2018 9:05pm [facility] [address] Absolute Immature November 0.0 0.0-0.03 [facility], [address] [place] [address] Granulocyte (auto 2018 9:05pm [facility] [address] Lymphocytes # November 1.7 1.18-3.74 [facility], 104 [facility] (Auto) 2018 9:05pm [facility] [address] Monocytes # November 0.83 0.24-0.86 [facility], [address] [place] [address] (Auto) 2018 9:05pm [place] [address] Eosinophils # November 0.15 0.04-0.36 [facility], 104 [facility] (Auto) 2018 9:05pm [facility] [address] Basophils # November 0.05 0.01-0.08 [facility], [address] [place] [address] (Auto) 2018 9:05pm [facility] [address] Nucleated Red November 0 0-0.2 [facility], [address] [place] [address] Blood Cells % 2018 9:05pm [facility] [address] Nucleated Red October 0 0 [facility], [address] [place] [address] Blood Cells # 2018 9:05pm [facility] [address] Prothrombin Time November 10.4 10.3-12.3 THERAPEUTIC [facility], [address] [place] [address] 2018 LEVEL: 1.5 to 9:05pm 1.9 times [place] [address] normal range of PT Prothromb Time November 0.94 Recommended [facility], [address] [place] [address] International 2018 therapeutic Ratio 9:05pm range for [place] [address] patients receiving warfarin (coumadin) therapy: INR is 2.0 to 3.0Recommended range for patients with mechanical prosthetic heart valves: INR is 2.5 to 3.5 Activated Partial November 25.3 22.5-37.0 [facility], 104 [facility] Thromboplast Time 2018 9:05pm [facility] [address] Random Glucose November 157 74-106 [facility], [address] [place] [address] 2018 9:05pm [facility] [address] Blood Urea November 21 6-20 [facility], [address] [place] [address] Nitrogen 2018 9:05pm [place] [id number] Serum Osmolality November 293 280-300 [facility], [address] [place] [address] 2018 9:05pm [place] [id number] Creatinine November 0.7 0.50-0.90 [facility], 104 2018 9:05pm [facility] [address] Glomerular October > 60.00 GFR RESULTS ARE [facility], [facility] Filtration Rate 2018 REPORTED IN Calc 9:05pm mL/min/1.73m2.[place] [address] ormal GFR: >60mL/minModera tely decreased GFR: 30-59 mL/minSeverely decreased GFR: 15-29 mL/minKidney Failure (or Dialysis): <15 mL/minThe calculated eGFR is not valid for patients younger than 18 years or older than 75 years. BUN/Creatinine November 30.0 -20 [facility], 104 Ratio 2018 9:05pm [facility] [address] Sodium Level November 144 135-145 [facility], 104 2018 9:05pm [facility] [address] Potassium Level November 4.2 3.5-5.2 [facility], [facility] 2018 9:05pm [facility] [address] Chloride Level November 102 98-108 [facility], 2018 9:05pm [facility] [address] Carbon Dioxide December 22- [facility], 104 Level 2018 9:05pm [facility] [address] Anion Gap November 15.2 02-10 [facility], 104 2018 9:05pm [facility] [address] Calcium Level November 10.0 8.6-10.0 [facility], [facility] 2018 9:05pm [facility] [address] Total Protein November 7.5 6.6-8.7 [facility], 104 2018 9:05pm [facility] [address] Albumin November 4.0 3.5-5.2 [facility], [facility] 2018 9:05pm [facility] [address] Globulin October 3.5 [facility], 104 2018 9:05pm [facility] [address] Albumin/Globulin November 1.1 >1.0 [facility], [facility] Ratio 2018 9:05pm [facility] [address] Total Bilirubin November < 0.3 0.0-1.2 [facility], 104 2018 9:05pm [facility] [address] Aspartate Amino December 02 15-32 [facility], 104 Transf (AST/SGOT) 2018 9:05pm [facility] [address] Alanine December 12 0-33 [facility], 104 Aminotransferase 2018 (ALT/SGPT) 9:05pm [facility] [address] Hemoglobin A1c September 7.0 4.0-6.0 [facility], 104 [facility] 2018 9:21am [facility] [address] SJ-Sus-V-Type November 55 0-125 [facility], 104 Natriuretic 2018 Peptide 9:05pm [facility] [address] Total Alkaline November 206 35-105 [facility], 104 Phosphatase 2018 9:05pm [facility] [address] Cholesterol Level September 195 150-200 [facility], 104 [facility] 2018 9:21am [facility] [address] Triglycerides September 123 <150 [facility], 104 [facility] Level 2018 9:21am [facility] [address] HDL Cholesterol September 74 >65 HDL EXPECTED [facility], 104 [facility] 2018 VALUES:FEMALES: 9:21am >65 mg/dL NO [place] [id number] RISK 45-65 mg/dL MODERATE RISK <45 mg/dL HIGH RISKMALES: >55 mg/dL NO RISK 35-55 mg/dL MODERATE RISK <35 mg/dL HIGH RISK LDL Cholesterol September 116 <100 LDL Expected [facility], 104 2018 Values:Optimal 9:21am <100 mg/dLNear [facility] [address] optimal/above optimal 100-129 mg/dLBorderline high 130-159 mg/dLHigh 160-189 mg/dLVery high >190 mg/dL Coronary Heart September 2.635 [facility], 104 [facility] Disease Risk 2018 NATIONAL Ratio 9:21am CHOLESTEROL [facility] [address] GUIDELINES NATIONAL [facility] ([facility]) guidelines for classificaton, testing and management of cholesterol levels in adults over 20 years of age. This new classification creates three categories of risk for coronary heart disease, regardless of age or sex, according to total and LDL cholesterols levels: Based on total cholesterol levelDesirable <200 mg/dlBorderline -high 200-239 mg/dlHigh >=240 mg/dl Based on cholesterol ratioCHD RISK CHOL/HDL RATIO ----- MALE FEMALE0.5 x Average 3.4 3.31.0 x Average 5.0 4.42.0 x Average 9.6 7.13.0 x Average 13.5 11.0 Thyroid September 3.68 0.36-3.74 [facility], [address] [place] [address] 2018 Hormone (TSH) 9:21am [place] [id number] Free Thyroxine September 0.99 0.93-1.[address] 2018 9:21am [place] [id number] Creatine Kinase December 19 20-180 [place] [address] 2018 9:05pm [place] [address] Troponin I November < 0.30 0.0-0.5 Published [place] [address] 2018 clinical 9:05pm studies have [place] [address] shown elevations of cTnI in patients with myocardial injury, as seen in unstable angina pectoris, cardiac contusions, and heart transplants. Elevations have also been seen in patients with rhabdomyolysis and polymyositis.El evated troponin levels point to myocardial injury, but are not necessarily indicative of an ischemic mechanism. The term MN should be used when there is evidence of cardiac damage, as detected by marker proteins in a clinical setting consistent with myocardial ischemia. If the clinical circumstance suggests that an ischemic mechanism is unlikely, other causes of cardiac injury should be considered.For diagnostic purposes, the results should always be assessed in conjunction with the patient's medical history, clinical examination and other findings. Creatine Kinase November < 1.0 0.0-3.[address] 2018 CITERIA: 9:05pm [facility] [place] [address] [facility] RELATIVE INDEX -----SUGGESTIVE OF NON-AMI < or=5 N/AGRAY ZONE (INCONCLUSIVE) > 5 < or=4SUGGESTIVE OF AMI >5 > 4 Diagnostic Imaging Reports Report Dictated Date/Time Dictated By Status November 14, 2018 11:19pm NARENDRA ARANDA MD completed Patient: GINA GUEVARA MR#: [id number] : [address] KATHE GUEVARA MD Pt Status: REG ER Pt Location: [facility] Date/Time: 11/14/18 Primary Care Physician: KENNY DUPREE Technologist(s): PRECIOUS GARRISON Procedure(s): [id number] RAD/KNEE LEFT 2V Signed KNEE LEFT 2V - 2 views HISTORY: Pain COMPARISON: None available. FINDINGS: Bones: No acute displaced fracture. Osseous alignment is within normal limits. Joints: Loss of medial compartment joint space. Significant lateral and patellofemoral compartments joint joint space narrowing. Soft tissues: The soft tissues appear unremarkable. IMPRESSION: No acute fracture or dislocation. Severe tricompartmental degenerative changes. Signed by: Dr. Narendra Aranda MD on 11/14/2018 11:19 PM Transcribed By: [employer] SIGNED <electronically signed by NARENDRA ARANDA MD> 18 21 NARENDRA ARANDA MD November 16, 2018 4:55am MICHAELA HERNANDEZ MD completed Patient: GINA GUEVARA MR#: [id number] : 1970 Pt Location: [facility] Date/Time: 11/14/18 Primary Care Physician: KENNY DUPREE Signed [facility] Test Date: 2018-11-14 Pat Name: GINA GUEVARA Department: Room: Gender: F Utility Bill Complaints Investigator: GEORGES : 1970 Requested By: Order Number: Reading MD: Michaela Hernandez M.D. F.A.A.C Measurements Intervals [place] Rate: 102 P: 30 DE: 154 QRS: 4 QRSD: 101 T: 56 QT: 347 QTc: 453 Interpretive Statements Sinus tachycardia Probable left atrial enlargement Low voltage, precordial leads Electronically Signed On 11-16-2018 4:55:53 CDT by Michaela Hernandez M.D. F.A.A.C Transcribed By: [employer] SIGNED <electronically signed by MICHAELA HERNANDEZ MD> 4 MICHAELA HERNANDEZ MD Health Concerns No known health concerns documented Advance Directives Advance Directive Response Recorded Date/Time Advance Directives No June 20, 2015 3:05pm Advance Directive on File No November 26, 2018 8:49pm Directive to Physicians/Living Will No June 20, 2015 3:05pm Health Care Proxy No June 20, 2015 3:05pm Organ Donor Yes June 20, 2015 3:05pm Medical Power of Rn Ostomy No June 20, 2015 3:05pm Chief Complaint and Reason for Visit Chief Complaint Chest Pain Reason for Visit [id number] Encounters Encounter Location(s) Arrival/Admit Date Discharge/Depart Date Provider(s) Departed [place] November 26, 2018 November 26, 2018 KATHE GUEVARA Emergency Room [facility] 8:44pm 10:45pm [facility] Departed [place] November 14, November 15, 2018 KATHE GUEVARA [facility] 2019 9:02pm 2:20am [facility] Registered [place] October 05, 2018 [facility] 8:53am [facility] Assessments No Assessments Information Available Functional Status No Functional Status information available Goals No Goals Information Available Immunizations No Immunization Information Available Mental Status No Mental Status Information Available Medical Equipment No Medical Equipment Information available Insurance Providers Guarantor Gina Guevara Address [address] [facility] [address] [facility] [address] Contact Info. Home Phone: Payer Policy Id Coverage Id Subscriber's Subscriber Id Effective Expiration Name Date Date [place] [id number] Ismael [id number] Jody Lopez [place] Plan of Treatment ULTRAM 50MG 1 TAB. EVERY 6 HOURS NEEDED NAPROXEN 500MG 1 TAB. TWICE A DAY FOLLOW UP WITH PCP IN 2-3 DAYS Future Tests Future scheduled test information is unavailable Pending Tests Pending diagnostic test information is unavailable Future Visits Future appointment information is unavailable Referrals to Other Providers Reason for Referral Start Provider Provider Contact Provider Address Referral Date Information PHYSICIAN, NO Future Procedures Future procedure information is unavailable Future Medications Future medication information is unavailable Patient Instructions Nonspecific Chest Pain Contusion Social History Smoking Status Status Date of Observation Never smoked tobacco (finding) November 26, 2018 8:49pm Observation Status Observation Response Date of Response Hx Physical Abuse No November 26, 2018 8:49pm Assigned Sex Female Vital Signs Vital Reading Result Collection Date/Time
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
--- OUTSIDE RECORDS SUMMARY | 2019-01-13 19:52 | XMS REPORT | Continuity of Care Document ---
:1970 Author Organization [facility] Address [address] [place] [id number] Allergies, Adverse Reactions, Alerts Allergen Type Severity Reaction Last Updated Verified Status Amoxicillin Allergy Severe rash February 08, 2017 Yes Active ([id number]) Codeine ([id number]) Allergy Unknown Hives March 10, 2017 No [...] tis Naproxen Discontin 1 ORAL Twice 60 November ued A Day 5th, r 4th, for 2018 2018 Pain 10:09pm Omeprazole Active 40 Daily 1 (Bulk) Ondansetron Discontin 1 ORAL Every Februaryuar Hcl ued 6 30th, y 4th, [...] Pain Tramadol/Apap Discontin 1 ORAL Every 15 November * ued 4 29th, r 28th, Hours 2018 2018 As 3:46am Needed for Pain Alprazolam Discontin 1 ORAL Three 90 Decembe ued Times r , Daily 2016 As Needed as needed for Anxiet y Alprazolam Discontin 2 ORAL Twice Septemb ued A Day er , 2016 Carisoprodol Discontin 350 ORAL Three Decembe [...] ued Times er A Day 24, for 2017 Pain Scale 4-6 Morphine Discontin 15 ORAL Three Septemb Sulfate ued Times er A Day 2013 Omeprazole Discontin 40 ORAL Twice Septemb ued A Day er , 2013 Promethazine Discontin 25 ORAL Every Decembe Hcl ued 4 r 17th, Hours 2016 As Needed Tramadol/Apap Discontin 1 ORAL Every 15 30 Septembe October * ued 4 r 24th, 29th, Hours 2018 2018 As 1:45am Needed for Pain Problems Active Problems Medical Problem Onset Date [...] chest pain Resolved Cervical radiculopathy Resolved Chest discomfort Resolved Chest pain Resolved Chest wall pain Resolved Contusion of left knee Resolved Contusion of right hip Resolved Contusion of right knee Resolved Contusion of right knee Resolved Degenerative joint disease of knee, left Resolved Diabetes mellitus Resolved Diarrhea Resolved Elevated blood pressure reading Resolved Fall Resolved Gastroenteritis Resolved Infectious diarrhea Resolved Lumbar contusion Resolved Malaise and fatigue Resolved Microcytic hypochromic anemia Resolved Mixed anxiety and depressive disorder Resolved Muscle spasm Resolved Muscle spasm of both lower legs Resolved Muscle strain Resolved Myalgia Resolved Obesity Resolved Obesity Resolved Pain, dental Resolved Syncope Resolved Tachycardia Resolved Type II diabetes mellitus Resolved URI (upper respiratory infection) Resolved UTI (urinary tract infection) Resolved Viral syndrome Resolved Procedures Procedure Date Performed Status EMERGENCY DEPT VISIT November 14, 2018 completed X-RAY EXAM OF KNEE 1 OR 2 November 14, 2018 completed THER/PROPH/DIAG INJ SC/IM November 14, 2018 completed ELECTROCARDIOGRAM TRACING November 14, 2018 completed MORPHINE SULFATE INJECTION November 14, 2018 completed EMERGENCY DEPT VISIT November 26, 2018 completed X-RAY EXAM CHEST 1 VIEW November 26, 2018 completed COMPLETE CBC W/AUTO DIFF WBC November 26, 2018 completed CREATINE MB FRACTION November 26, 2018 completed ASSAY OF CK (CPK) November 26, 2018 completed PROTHROMBIN TIME November 26, 2018 completed THROMBOPLASTIN TIME PARTIAL November 26, 2018 completed ROUTINE VENIPUNCTURE November 26, 2018 completed ASSAY OF TROPONIN QUANT November 26, 2018 completed COMPREHEN METABOLIC PANEL November 26, 2018 completed ASSAY OF NATRIURETIC PEPTIDE November 26, 2018 completed X-RAY EXAM OF KNEE 3 November 26, 2018 completed ELECTROCARDIOGRAM TRACING November 26, 2018 completed X-ray left knee, AP/lateral November 14, 2018 completed X-ray of chest, single view November 26, 2018 completed X-ray of left knee, three views November 26, 2018 completed X-ray of chest, single view December 19, 2018 completed Relevant Diagnostic Tests and/or Laboratory Data Laboratory Results Test Date/Time Result Interpretation Reference Result Comment Performing Range Site White Blood Count November 9.0 4.0-11.5 [facility] [address] [facility] 2018 11:13pm [place] [address] Red Blood Count November 4.74 3.80-5.20 [facility] [address] [facility] 2018 11:13pm [place] [address] Hemoglobin November 11.4 10.5-15.7 [facility] [address] [facility] 2018 11:13pm [place] [address] Hematocrit November 39.6 34.0-50.0 [facility], [address] [facility] 2018 11:13pm [place] [address] Mean Corpuscular October 83.5 86-100 [facility] [address] [facility] Volume 2018 11:13pm [place] [address] Mean Corpuscular October 24.1 26.2-33.4 [facility] [address] [facility] Hemoglobin 2018 11:13pm [place] [address] Mean Corpuscular November 28.8 30-34 [facility] [address] [facility] Hemoglobin 2018 Concent 11:13pm [place] [address] Red Cell November 15.1 12.0-15.5 [facility] [address] [facility] Distribution 2018 Width 11:13pm [place] [address] Platelet Count November 358 165-450 [facility] [address] [facility] 2018 11:13pm [place] [address] Mean Platelet November 10.3 9.4-12.6 [facility] [address] [facility] Volume 2018 11:13pm [place] [address] Neutrophils (%) November 70.8 44.4-80.1 [facility], [address] [facility] (Auto) 2018 11:13pm [place] [address] Immature November 0.3 0.0-0.4 [facility], [address] [facility] Granulocyte % 2018 (Auto) 11:13pm [place] [address] Lymphocytes (%) November 18.2 10.0-50.0 [facility], [address] [facility] (Auto) 2018 11:13pm [place] [address] Monocytes (%) November 8.8 3.6-12.0 [facility], [address] [facility] (Auto) 2018 11:13pm [place] [address] Eosinophils (%) November 1.6 0.0-5.4 [facility], [address] [facility] (Auto) 2018 11:13pm [place] [address] Basophils (%) November 0.3 0.1-1.2 [facility] [address] [facility] (Auto) 2018 11:13pm [place] [address] Neutrophils # November 6.37 1.56-6.13 [facility], [address] [facility] (Auto) 2018 11:13pm [place] [address] Absolute Immature November 0.0 0.0-0.03 [facility], [address] [facility] Granulocyte (auto 2018 11:13pm [place] [address] Lymphocytes # November 1.6 1.18-3.74 [facility], [address] [facility] (Auto) 2018 11:13pm [place] [address] Monocytes # November 0.79 0.24-0.86 [facility] [address] [facility] (Auto) 2018 11:13pm [place] [address] Eosinophils # November 0.14 0.04-0.36 [facility], [address] [facility] (Auto) 2018 11:13pm [place] [address] Basophils # November 0.03 0.01-0.08 [facility], [address] [place] [address] (Auto) 2018 11:13pm [place] [address] Nucleated Red October 0 0-0.2 [facility], [address] [place] [address] Blood Cells % 2018 11:13pm [facility] [address] Nucleated Red October 0 0 [facility], [address] [place] [address] Blood Cells # 2018 11:13pm [place] [address] Prothrombin Time November 10.2 10.3-12.3 THERAPEUTIC [facility], [address] [place] [address] 2018 LEVEL: 1.5 to 11:13pm 1.9 times [place] [address] normal range of PT Prothromb Time November 0.94 Recommended [facility], [address] [place] [address] International 2018 therapeutic Ratio 11:13pm range for [place] [address] patients receiving warfarin (coumadin) therapy: INR is 2.0 to 3.0Recommended range for patients with mechanical prosthetic heart valves: INR is 2.5 to 3.5 Activated Partial November 28.1 22.5-37.0 [facility], [address] [facility] Thromboplast Time 2018 11:13pm [facility] [address] Random Glucose November 169 74-106 [facility], [address] [facility] 2018 11:13pm [facility] [address] Blood Urea November 20 6-20 [facility], [address] [facility] Nitrogen 2018 11:13pm [facility] [address] Serum Osmolality November 280 280-300 [facility], [address] [place] [address] 2018 11:13pm [facility] [address] Creatinine November 0.6 0.50-0.90 [facility], [address] [facility] 2018 11:13pm [facility] [address] Glomerular November > 60.00 GFR RESULTS ARE [address] Filtration Rate 2018 REPORTED IN Calc 11:13pm mL/min/1.73m2.N [facility] [address] ormal GFR: >60mL/minModera tely decreased GFR: 30-59 mL/minSeverely decreased GFR: 15-29 mL/minKidney Failure (or Dialysis): <15 mL/minThe calculated eGFR is not valid for patients younger than 18 years or older than 75 years. BUN/Creatinine November 33.3 - [facility], [address] [facility] Ratio 2018 11:13pm [facility] [address] Sodium Level November 137 135-145 [facility], [address] [place] [address] 2018 11:13pm [facility] [address] Potassium Level November 4.1 3.5-5.2 [facility], [address] [place] [address] 2018 11:13pm [facility] [address] Chloride Level November 96 98-108 [facility], [address] [place] [address] 2018 11:13pm [facility] [address] Carbon Dioxide November 29 21-32 [facility], [address] [facility] Level 2018 11:13pm [facility] [address] Anion Gap November 16.1 02-10 [facility], [address] [place] [address] 2018 11:13pm [facility] [address] Calcium Level November 10.2 8.6-10.0 [facility], [address] [place] [address] 2018 11:13pm [facility] [address] Total Protein November 8.0 6.6-8.7 [facility], [address] [place] [address] 2018 11:13pm [facility] [address] Albumin October 4.4 3.5-5.2 [facility] [address] [facility] 2018 11:13pm [facility] [address] Globulin October 3.6 [facility], [address] [facility] 2018 11:13pm [facility] [address] Albumin/Globulin October 1.2 >1.0 [facility], [address] Ratio 2018 11:13pm [facility] [address] Total Bilirubin October < 0.3 0.0-1.2 [facility], [address] [facility] 2018 11:13pm [facility] [address] Aspartate Amino November 13 15-32 [facility], [address] Transf (AST/SGOT) 2018 11:13pm [facility] [address] Alanine November 26 0-33 [facility], [address] [facility] [address] Aminotransferase 2018 (ALT/SGPT) 11:13pm [place] [id number] XM-Puj-M-Type November 33 0-125 [facility], [address] [facility] Natriuretic 2018 Peptide 11:13[place] [id number] Total Alkaline November 224 35-105 [facility], [address] [facility] Phosphatase 2018 11:13pm [place] [id number] Creatine Kinase November 36 20-180 [facility], [address] [facility] 2018 1:21am [place] [id number] Troponin I October < 0.30 0.0-0.5 Published [facility], [address] [facility] 2018 clinical 1:21am studies have [place] [address] shown elevations of cTnI in patients with myocardial injury, as seen in unstable angina pectoris, cardiac contusions, and heart transplants. Elevations have also been seen in patients with rhabdomyolysis and polymyositis.El evated troponin levels point to myocardial injury, but are not necessarily indicative of an ischemic mechanism. The term CA should be used when there is evidence [...] clinical examination and other findings. Creatine Kinase October 1.3 0.0-3.6 DIAGNOSTIC [facility], [address] [facility] MB 2018 CITERIA: 1:21am CK[facility] [place] [id number] CK RELATIVE INDEX -----SUGGESTIVE OF NON-AMI < or=5 N/AGRAY ZONE (INCONCLUSIVE) > 5 < or=4SUGGESTIVE OF AMI >5 > 4 Diagnostic Imaging Reports Report Dictated Date/Time Dictated By Status November 14, 2018 11:19pm NARENDRA ARANDA MD completed Patient: GINA GUEVARA MR#: [id number] : [address] KATHE GUEVARA MD Pt Status: [facility] Pt Location: [facility] Date/Time: 11/14/18 Primary Care Physician: KENNY DUPREE Technologist(s): PRECIOUS GARRISON Procedure(s): [id number] RAD/KNEE LEFT 2V Signed KNEE LEFT 2V [...] MD on 11/14/2018 11:19 PM Transcribed By: [employer] SIGNED <electronically signed by NARENDRA ARANDA MD> 18 [id number] NARENDRA ARANDA MD November 16, 2018 4:55am MICHAELA MOREIRA MD completed Patient: GINA GUEVARA MR#: [id number] : 1970 Pt Location: [facility] Date/Time: 11/14/18 Primary Care Physician: KENNY DUPREE Signed [facility] Test Date: 2018-11-14 Pat Name: GINA GUEVARA Department: Room: Gender: F Avionics Supervisor: GEORGES : 1970 Requested By: Order Number: [id number] MD: Jennifer Aguila Measurements Intervals [place] Rate: 102 P: 30 [place]: 154 QRS: 4 QRSD: 101 T: 56 QT: 347 QTc: 453 Interpretive Statements Sinus tachycardia Probable left atrial enlargement Low voltage, precordial leads Electronically Signed On 11-16-2018 4:55:53 CDT by Jennifer Aguila Transcribed By: [employer] SIGNED <electronically signed by MICHAELA MOREIRA MD> 4 4 MICHAELA MOREIRA MD November 26, 2018 9:46pm Aba Park DO completed Patient: GINA GUEVARA MR#: [id number] : [address] KATHE GUEVARA MD Pt Status: REG ER Pt Location: [facility] Date/Time: 11/26/182056 Primary Care Physician: . SONJA PHYSICIAN Technologist(s): ALTAGRACIA BUSTILLO Procedure(s): [id number] RAD/CHEST 1 VIEW Signed EXAMINATION: CHEST 1 VIEW INDICATION: Chest pain COMPARISON: chest radiograph 07/30/2018, chest CT 03/23/2018 FINDINGS: AP view Limited exam due to underexposure. TUBES and LINES: None. LUNGS: Lungs are well inflated. Lungs are clear. There is no evidence of pneumonia or pulmonary edema. Prominent central pulmonary vasculature. PLEURA: No pleural effusion or pneumothorax. HEART AND MEDIASTINUM: The cardiomediastinal silhouette is unremarkable. BONES AND SOFT TISSUES: No acute osseous lesion. Soft tissues are unremarkable. UPPER ABDOMEN: No free air under the diaphragm. IMPRESSION: Limited exam due to underexposure. Pulmonary vascular congestion. Signed by: Aba Park DO on 11/26/2018 9:46 PM Transcribed By: [employer] SIGNED <electronically signed by Aba Park DO> 45 48 Aba Park DO November 26, 2018 10:05pm Aba Park DO completed Patient: GINA GUEVARA MR#: [id number] : [address] KATHE GUEVARA MD Pt Status: REG ER Pt Location: [facility] Date/Time: 11/26/182116 Primary Care Physician: . NO PHYSICIAN Technologist(s): ALTAGRACIA BUSTILLO Procedure(s): [id number] RAD/KNEE LEFT 3V Signed X-ray left knee 3 views HISTORY: Pain. COMPARISON: X-ray left knee 11/14/2018 FINDINGS: Bones: No acute displaced fracture. Osseous alignment is within normal limits. Joints: Joint space narrowing in the medial tibiofemoral compartment. Tricompartmental osteophytes. Soft tissues: The soft tissues appear unremarkable. IMPRESSION: No acute radiographic osseous abnormality. Severe degenerative changes in the knee. Signed by: Aba Park DO on 11/26/2018 10:05 PM Transcribed By: [employer] SIGNED <electronically signed by Aba Park DO> 04 08 Aba Park DO November 28, 2018 9:57pm MICHAELA MOREIRA MD completed Patient: GINA GUEVARA MR#: [id number] : 1970 Pt Location: [facility] Date/Time: 11/26/182056 Primary Care Physician: . NO PHYSICIAN Signed [facility] Test Date: 2018-11-26 Pat Name: GINA GUEVARA Department: Room: Gender: Avionics Supervisor: : 1970 Requested By: Frankie GUEVARA MD Order Number: [id number] Reading MD: Jennifer Aguila.A.A.C Measurements Intervals [place] Rate: 93 P: 57 NJ: 190 QRS: 35 QRSD: 87 T: 60 QT: 353 QTc: 440 Interpretive Statements Sinus rhythm Low voltage, precordial leads Electronically Signed On 11-28-2018 21:57:09 CDT by Jennifer Aguila.A.A.C Transcribed By: [employer] SIGNED <electronically signed by MICHAELA MOREIRA MD> 56 56 MICHAELA MOREIRA MD Health Concerns No known health concerns documented Advance Directives Advance Directive Response Recorded Date/Time Advance Directives No June 20, 2015 3:05pm Advance Directive on File No December 19, 2018 10:30pm Directive to Physicians/Living Will No June 20, 2015 3:05pm Health Care Proxy No June 20, 2015 3:05pm Organ Donor Yes June 20, 2015 3:05pm Medical Power of [place] No June 20, 2015 3:05pm Chief Complaint and Reason for Visit Chief Complaint Chest Pain Reason for Visit [id number] Encounters Encounter Location(s) Arrival/Admit Date Discharge/Depart Date Provider(s) Departed Lena December 19, 2018 December 20, 2018 MARIAMA GUNTER MD Emergency Room [facility] 10:25pm 4:03am Ctr Departed Lena November 26, 2018 November 26, 2018 KATHE GUEVARA Emergency Room [facility] 8:44pm 10:45pm Ctr Departed Lena November 14, November 15, 2018 KATHE GUEVARA Emergency Room [facility] 2018 9:02pm 2:20am Ctr Assessments No Assessments Information Available Functional Status No Functional Status information available Goals No Goals Information Available Immunizations No Immunization Information Available Mental Status No Mental Status Information Available Medical Equipment No Medical Equipment Information available Insurance Providers Guarantor Gina Guevara Address [address] [facility] [address] Contact Info. Home Phone: Payer Policy Id Coverage Id Subscriber's Subscriber Id Effective Expiration Name Date Date [place] [id number] Ismael [id number] Jody Lopez [place] Plan of Treatment Future Tests Future scheduled test information is unavailable Pending Tests Pending diagnostic test information is unavailable Future Visits Future appointment information is unavailable Referrals to Other Providers Reason for Referral Start Provider Provider Contact Provider Address Referral Date Information PHYSICIAN, NO Future Procedures Future procedure information is unavailable Future Medications Future medication information is unavailable Patient Instructions How to Take Your Blood Pressure Social History Smoking Status Status Date of Observation Never smoked tobacco (finding) December 19, 2018 10:30pm Observation Status Observation Response Date of Response Hx Physical Abuse No December 19, 2018 10:30pm Assigned Sex Female Vital Signs Vital Reading Result Collection Date/Time
--- OUTSIDE RECORDS SUMMARY | 2019-01-13 19:52 | XMS REPORT | Continuity of Care Document ---
:1970 Author Organization [facility] Address [address] [place] [address] Allergies, Adverse Reactions, Alerts Allergen Type Severity Reaction Last Updated Verified Status Amoxicillin Allergy Severe rash February 08, 2017 Yes Active ([id number]) Codeine ([id number]) Allergy Unknown Hives March 10, 2017 No Active Medications Medication Status Dose Units Route Sig Qty Days Start End Instructions Date Date Alprazolam Discontin 1 ORAL Three 30 January ued Times , Daily 2016 2018 As 2:07pm Needed as needed for Anxiet y Butalbital/Asp Active 1 ORAL Twice irin/Caff A Day 50/325/40 Mg * as needed for Headac he Carisoprodol Discontin 350 ORAL Three January ued Times , A Day 2016 2017 for 2:07pm Muscle Spasm Cephalexin * Discontin 500 ORAL Twice December Dece ued A Day , r , for 2018 2019 Infect 8:35pm ion Clindamycin Discontin 300 ORAL Every August Hcl ued 8 30th, 6th, Hours 2018 2019 As 7:03pm Needed for Infect ion Cyclobenzaprin Discontin 1 ORAL Three 15 May e Hcl ued Times , A Day 2018 2019 for 1:40pm Muscle Spasms Diclofenac Discontin 1 ORAL Daily November ued for r 24th, 4th, Knee 2018 2019 Pain 1:45am Ferrous Active 1 ORAL Daily 30 Sulfate Hydrocodone/Ac Discontin 1 ORAL Every January etaminophen ued 4 Hrs , As 2016 2017 Needed 2:07pm as needed for Pain Protoc ol Ibuprofen Active 1 ORAL Twice 90 A Day Lidocaine Discontin 1 TOPICAL Daily May wear up ued for 15th, 25th, to 12 hours Pain 2018 2018 1:41pm Methylpredniso Discontin 1 ORAL As 1 FOLLOW INSTRUCTIONS ON THE PACK FOR EACH DAY. THE DOSEPAK IS FOR 6 lone ued Direct r 24th, er ed for 2018 30, DAYS TOTAL. Knee 1:45am 2018 Arthri tis Naproxen Discontin 1 ORAL Twice [...] ORAL Every 15 November * ued 4 , r 28th, Hours 2018 2018 As 3:46am [...] Sulfate ued A Day r , r 17, for 2016 2016 Iron 4:20pm Defici ency Hydrocodone-Ac Discontin 1 ORAL Three Septemb etaminophen ued Times er A Day 2016 Hydrocodone-Ac Discontin 1 ORAL Four 120 Decembe etaminophen ued Times r 17, 10/325MG* Daily 2016 As Needed as needed for Pain Scale 1-3 Morphine Discontin 1 ORAL Three Decembe Sulfate ued Times r 17, A Day 2016 Morphine Discontin 30 ORAL Three Septemb Sulfate ued Times er A Day , for 2016 Pain Scale 4-6 Morphine Discontin 15 ORAL Three Septemb Sulfate ued Times er A Day 2013 Omeprazole Discontin 40 ORAL Twice Septemb ued A Day er 2013 Promethazine Discontin 25 ORAL Every Decembe Hcl ued 4 r 17th, Hours 2016 As Needed Tramadol/Apap Discontin 1 ORAL Every 15 30 November ued 4 r 24th, 29th, Hours 2018 2018 As 1:45am Needed for Pain Problems Active Problems Medical Problem Onset Date Status Acute low back pain due to trauma Active Acute pain of right shoulder Active Acute sinusitis Active Anemia Active Anxiety Active Chronic back pain Active Chronic low back pain Active Contusion of knee Active Fall at home Active Headache Active Hematuria Active Hypertension Active Influenza due to influenza A virus [...] completed ELECTROCARDIOGRAM TRACING November 26, 2018 completed EMERGENCY DEPT VISIT December 19, 2018 completed X-RAY EXAM CHEST 1 VIEW December 19, 2018 completed COMPLETE CBC W/AUTO DIFF WBC December 19, 2018 completed CREATINE MB FRACTION December 19, 2018 completed ASSAY OF CK (CPK) December 19, 2018 completed PROTHROMBIN TIME December 19, 2018 completed THROMBOPLASTIN TIME PARTIAL December 19, 2018 completed ROUTINE VENIPUNCTURE December 19, 2018 completed ASSAY OF TROPONIN QUANT December 19, 2018 completed COMPREHEN METABOLIC PANEL December 19, 2018 completed ASSAY OF NATRIURETIC PEPTIDE December 19, 2018 completed THER/PROPH/DIAG INJ SC/IM December 19, 2018 completed ELECTROCARDIOGRAM TRACING December 19, 2018 completed ELECTROCARDIOGRAM TRACING December 19, 2018 completed CREATINE MB FRACTION December 19, 2018 completed ASSAY OF CK (CPK) December 19, 2018 completed ROUTINE VENIPUNCTURE December 19, 2018 completed ASSAY OF TROPONIN QUANT December 19, 2018 completed MORPHINE SULFATE INJECTION December 19, 2018 completed X-ray left knee, AP/lateral November 14, 2018 completed X-ray of chest, single view November 26, 2018 completed X-ray of left knee, three views November 26, 2018 completed X-ray of chest, single view December 19, 2018 completed X-ray of chest, single view January 12, 2019 completed Relevant Diagnostic Tests and/or Laboratory Data Laboratory Results Test Date/Time Result Interpretation Reference Result Comment Performing Range Site White Blood December 8.3 4.0-11.5 --- 01/12/19 [facility], [facility] 2018 ---WBC 7:26pm previously [facility] [id number] reported as: 8.1 K/ul Red Blood Count December 4.34 3.80-5.20 --- 01/12/19 [place] [address] 2018 ---RBC 7:26pm [facility] [address] reported as: 4.33 M/ul Hemoglobin December 10.4 10.5-15.7 --- 01/12/19 [facility], [facility] 2018 ---HGB 7:26pm previously [facility] [address] reported as: 10.5 g/dL Hematocrit December 36.5 34.0-50.0 [place] [address] 2018 7:26pm [place] [address] Mean December 84.1 86-100 --- 01/12/19 [facility], [address] Corpuscular 2018 ---MCV Volume 7:26pm previously [facility] [address] reported as: 84.3 L fl Mean December 24.0 26.2-33.4 --- 01/12/19 [facility], [address] Corpuscular 2018 ---MCH Hemoglobin 7:26pm previously [place] [id number] reported as: 24.2 L pg Mean December 28.5 30-34 --- 01/12/19 [facility], [address] Corpuscular 2018 ---MCHC Hemoglobin 7:26pm previously [place] [address] Concent reported as: 28.8 L g/dL Red Cell December 15.1 12.0-15.5 [facility], [address] [facility] Distribution 2018 Width 7:26pm [place] [address] Platelet Count December 320 165-450 --- 01/12/19 [facility], [address] [facility] 2018 7:26pm ---PLATELET [place] [address] COUNT previously reported as: 322 K/uL Mean Platelet December 9.6 9.4-12.6 --- 01/12/19 [facility], [address] Volume 2018 ---MPV 7:26pm previously [place] [address] reported as: 9.7 fL Neutrophils (%) December 74.6 44.4-80.1 --- 01/12/19 [facility], [address] (Auto) 2018 ---NE% 7:26pm previously [place] [address] reported as: 74.9 % Immature December 0.4 0.0-0.4 --- 01/12/19 [facility], [address] Granulocyte % 2018 ---IG% (Auto) 7:26pm previously [place] [address] reported as: 0.5 H % Lymphocytes (%) December 13.4 10.0-50.0 --- 01/12/19 [facility], [address] (Auto) 2018 ---LY% 7:26pm previously [place] [address] reported as: 13.5 % Monocytes (%) December 9.2 3.6-12.0 --- 01/12/19 [facility], [address] [facility] (Auto) 2018 194 ---MO% 7:26pm previously [facility] [address] reported as: 8.6 % Eosinophils (%) December 1.8 0.0-5.4 --- 01/12/19 [facility], [address] [facility] (Auto) 2018 ---EO% 7:26pm previously [place] [id number] reported as: 2.0 % Basophils (%) December 0.6 0.1-1.2 --- 01/12/19 [facility], [address] [facility] (Auto) 2018 ---BA% 7:26pm previously [place] [id number] reported as: 0.5 % Neutrophils # December 6.17 1.56-6.13 --- 01/12/19 [facility], [address] [place] [address] (Auto) 2018 ---NE# 7:26pm previously [place] [id number] reported as: 6.10 K/uL Absolute December 0.0 0.0-0.03 [facility], [address] [place] [address] Immature 2018 Granulocyte 7:26pm [place] [address] (auto Lymphocytes # December 1.1 1.18-3.74 [facility], [address] [place] [address] (Auto) 2018 7:26pm [place] [id number] Monocytes # December 0.76 0.24-0.86 --- 01/12/19 [facility], [address] [place] [address] (Auto) 2018 ---MO# 7:26pm previously [place] [id number] reported as: 0.70 K/uL Eosinophils # December 0.15 0.04-0.36 --- 01/12/19 [facility], [address] [facility] (Auto) 2018 ---EO# 7:26pm previously [facility] [address] reported as: 0.16 K/uL Basophils # December 0.05 0.01-0.08 --- 01/12/19 [facility], [address] [facility] (Auto) 2018 ---BA# 7:26pm previously [place] [id number] reported as: 0.04 K/uL Nucleated Red December 0 0-0.2 [facility], [address] [place] [address] Blood Cells % 2018 7:26pm [facility] [address] Nucleated Red November 0 0 [facility], [address] [place] [address] Blood Cells # 2018 7:26pm [facility] [address] Prothrombin December 10.3 10.3-12.3 THERAPEUTIC [facility], [address] [place] [address] Time 2018 LEVEL: 1.5 to 7:26pm 1.9 times [place] [address] normal range of PT Prothromb Time December 0.95 Recommended [facility], [address] [place] [address] International 2018 therapeutic Ratio 7:26pm range for [place] [address] patients receiving warfarin (coumadin) therapy: INR is 2.0 to 3.0Recommended range for patients with mechanical prosthetic heart valves: INR is 2.5 to 3.5 Activated December 28.5 22.5-37.0 [facility], [address] [place] [address] Partial 2018 Thromboplast 7:26pm [place] [address] Time Urine Color December YELLOW [facility], [facility] 2018 6:41pm [place] [id number] Urine November CLEAR CLEAR [facility], [address] [place] [address] Appearance 2018 6:41pm [facility] [address] Urine Glucose November NEGATIVE NEGATIVE [facility], [address] [place] [address] (UA) 2018 6:41pm [facility] [address] Urine Bilirubin November NEGATIVE NEGATIVE [facility], [facility] 2018 6:41pm [facility] [address] Urine Ketones December NEGATIVE NEGATIVE [facility] 2018 6:41pm [facility] [address] Urine Specific November 1.010 1.003-1.03 [facility], [address] [place] [address] [place] 2018 0 6:41pm [facility] [address] Urine Blood December NEGATIVE NEGATIVE [facility] 2018 6:41pm [facility] [address] Urine pH November 6.000 5-9 [facility] 2018 6:41pm [facility] [address] Urine Protein December NEGATIVE NEGATIVE [facility] 2018 6:41pm [facility] [address] Urine November 0.2 0.2-1.0 [facility], [address] [place] [address] Urobilinogen 2018 6:41pm [facility] [address] Urine Nitrate December NEGATIVE NEGATIVE [facility], [facility] 2018 6:41pm [facility] [address] Urine Leukocyte December NEGATIVE NEGATIVE [facility], [address] Esterase 2018 6:41pm [facility] [address] Urine RBC December 0-3 0-5 [facility], [address] 2018 6:41pm [place] [address] Urine WBC December 3-4 0-5 [facility], [address] 2018 6:41pm [place] [address] Urine December 11- 0-5 [facility], [address] Epithelial 2018 Cells 6:41pm [facility] [address] Urine Bacteria December None None [facility], [address] 2018 Detected Detect 6:41pm [facility] [address] Urine Culture December NO [facility], [address] [place] [address] Reflexed 2018 6:41pm [facility] [address] Random Glucose December 170 74-106 [facility] 2018 7:26pm [facility] [address] Blood Urea December 15 6-20 [facility], [address] Nitrogen 2018 7:26pm [facility] [address] Serum December 284 280-300 [facility] Osmolality 2018 7:26pm [facility] [address] Creatinine December 0.6 0.50-0.90 [facility] 2018 7:26pm [facility] [address] Glomerular December > 60.00 GFR RESULTS ARE [facility] Filtration Rate 2018 REPORTED IN Calc 7:26pm mL/min/1.73m2.N [facility] [address] ormal GFR: >60mL/minModera tely decreased GFR: 30-59 mL/minSeverely decreased GFR: 15-29 mL/minKidney Failure (or Dialysis): <15 mL/minThe calculated eGFR is not valid for patients younger than 18 years or older than 75 years. BUN/Creatinine December 25.0 12-20 [facility], [address] Ratio 2018 7:26pm [facility] [address] Sodium Level December 140 135-145 [facility], [address] 2018 7:26pm [facility] [address] Potassium Level December 3.9 3.5-5.2 [facility], [address] 2018 7:26pm [facility] [address] Chloride Level December 99 98-108 [facility], [address] 2018 7:26pm [facility] [address] Carbon Dioxide January 20-32 [facility] Level 2018 7:26pm [facility] [address] Anion Gap December 15.9 12-20 [facility], [address] [facility] 2018 7:26pm [facility] [address] Calcium Level December 9.6 8.6-10.0 [facility], [address] [facility] 2018 7:26pm [facility] [address] Total Protein December 7.9 6.6-8.7 [facility], [address] [facility] 2018 7:26pm [place] [id number] Albumin November 4.3 3.5-5.2 [facility], [address] [facility] 2018 7:26pm [facility] [address] Globulin November 3.6 [facility], [address] [facility] 2018 7:26pm [facility] [address] Albumin/Globuli November 1.2 >1.0 [facility], [address] [place] [address] n Ratio 2018 7:26[place] [id number] Total Bilirubin December < 0.3 0.0-1.2 [facility], [address] [place] [address] 2018 7:26[place] [id number] Aspartate Amino December 16 15-32 [facility], [address] [facility] Transf 2018 (AST/SGOT) 7:26[place] [id number] Alanine December 21 0-33 [facility], [address] [facility] Aminotransferas 2018 e (ALT/SGPT) 7:26[place] [id number] OI-Lfl-L-Type December 114 0-125 [facility], [address] [facility] Natriuretic 2018 Peptide 7:26[place] [id number] Total Alkaline December 199 35-105 [facility], [address] [facility] Phosphatase 2018 7:26[place] [id number] Creatine Kinase December 48 20-180 [facility], [address] [facility] 2018 7:26pm [place] [id number] Troponin I November < 0.30 0.0-0.5 Published [facility], [address] [facility] 2018 clinical 7:26pm studies have [place] [id number] shown elevations of cTnI in patients with [...] clinical examination and other findings. Creatine Kinase December 1.8 0.0-3.6 DIAGNOSTIC [facility], [address] MB 2018 CITERIA: 7:26pm CKMB [facility] [address] CKMB RELATIVE INDEX -----SUGGESTIVE OF NON-AMI < or=5 N/AGRAY ZONE (INCONCLUSIVE) > 5 < or=4SUGGESTIVE OF AMI >5 > 4 Diagnostic Imaging Reports Report Dictated Date/Time Dictated By Status November 14, 2018 11:19pm NARENDRA ARANDA MD completed Patient: GINA GUEVARA MR#: [id number] : 1970 Ordering DrSeth: KATHE GUEVARA MD Pt Status: REG Pt Location: [facility] Date/Time: 11/14/18 Primary Care Physician: KENNY DUPREE Technologist(s): PRECIOUS GARRISON Procedure(s): [id number] RAD/KNEE LEFT 2V Signed KNEE LEFT 2V [...] MD on 11/14/2018 11:19 PM Transcribed By: [employer] SIGNED <electronically signed by NARENDRA ARANDA MD> [id number] NARENDRA ARANDA MD November 16, 2018 4:55am MCIHAELA HERNANDEZ MD completed Patient: GINA GUEVARA MR#: [id number] : 1970 Pt Location: [facility] Date/Time: 11/14/18 Primary Care Physician: KENNY DUPREE Signed [facility] Test Date: 2018-11-14 Pat Name: GINA GUEVARA Department: Room: Gender: F [employer] Dr[employer]: GEORGES : 1970 Requested By: Order Number: Reading MD: Jennifer Aguila Measurements Intervals [place]cy Rate: 102 P: 30 LA: 154 QRS: 4 QRSD: 101 T: 56 QT: 347 QTc: 453 Interpretive Statements Sinus tachycardia Probable left atrial enlargement Low voltage, precordial leads Electronically Signed On 11-16-2018 4:55:53 CDT by Jennifer Aguila Transcribed By: [employer] SIGNED <electronically signed by MICHAELA HERNANDEZ MD> 4 4 MICHAELA HERNANDEZ MD November 26, 2018 9:46pm Aba Park DO completed Patient: GINA GUEVARA MR#: [id number] : 1970 Order[address] DrSeth: KATHE GUEVARA MD Pt Status: REG ER Pt Location: [facility] Date/Time: 11/26/182056 Primary Care Physician: Seth CASILLAS PHYSICIAN Technologist(s): ALTAGRACIA BUSTILLO Procedure(s): [id number] RAD/CHEST 1 VIEW Signed EXAMINATION: CHEST 1 [...] DO on 11/26/2018 9:46 PM Transcribed By: [employer] SIGNED <electronically signed by Aba Park DO> 45 48 Aba Park DO November 26, 2018 10:05pm Aba Park DO completed Patient: GINA GUEVARA MR#: [id number] : 1970 Order[address] DrSeth: KATHE GUEVARA MD Pt Status: REG ER Pt Location: [facility] Date/Time: 11/26/182116 Primary Care Physician: . NO PHYSICIAN Technologist(s): ALTAGRACIA BUSTILLO Procedure(s): [id number] RAD/KNEE LEFT 3V Signed X-ray left knee [...] DO on 11/26/2018 10:05 PM Transcribed By: [employer] SIGNED <electronically signed by Aba Park DO> 04 08 Aba Park DO November 28, 2018 9:57pm MICHAELA HERNANDEZ MD completed Patient: GINA GUEVARA MR#: [id number] : 1970 Pt Location: [facility] Date/Time: 11/26/182056 Primary Care Physician: . NO PHYSICIAN Signed [facility] Test Date: 2018-11-26 Pat Name: GINA GUEVARA Department: Room: Gender: F [employer] Dr[employer]: ESTHELA : 1970 Requested By: Frankei GUEVARA MD Order Number: [id number] Reading MD: Michaela Hernandez M.D. F.A.A.C Measurements Intervals Percy Rate: 93 P: 57 LA: 190 QRS: 35 QRSD: 87 T: 60 QT: 353 QTc: 440 Interpretive Statements Sinus rhythm Low voltage, precordial leads Electronically Signed On 11-28-2018 21:57:09 CDT by Jennifer Aguila Transcribed By: [employer] SIGNED <electronically signed by MICHAELA HERNANDEZ MD> 56 56 MICHAELA HERNANDEZ MD December 19, 2018 11:28pm Aba Park DO completed Patient: GINA GUEVARA MR#: [id number] : [address] MARIAMA GUNTER MD Pt Status: REG ER Pt Location: [facility] Date/Time: 12/19/182256 Primary Care Physician: . NO PHYSICIAN Technologist(s): MARKO HAYES Procedure(s): [id number] RAD/CHEST 1 VIEW Signed EXAMINATION: CHEST 1 VIEW INDICATION: Chest pain COMPARISON: Chest radiograph 11/26/2018 FINDINGS: AP view TUBES and LINES: None. LUNGS: Lungs are well inflated. No consolidations. Prominent central pulmonary vasculature. PLEURA: No pleural effusion or pneumothorax. HEART AND MEDIASTINUM: The cardiomediastinal silhouette is mildly enlarged. BONES AND SOFT TISSUES: No acute osseous lesion. Soft tissues are unremarkable. Degenerative changes in the spine. UPPER ABDOMEN: No free air under the diaphragm. IMPRESSION: Mild cardiomegaly and pulmonary vascular congestion. Signed by: Aba Park DO on 12/19/2018 11:28 PM Transcribed By: [employer] SIGNED <electronically signed by Aba Park DO> 27 30 Aba Park DO December 22, 2018 1:26am MICHAELA HERNANDEZ MD completed Patient: GINA GUEVARA MR#: [id number] : 1970 Pt Location: [facility] Date/Time: 12/19/18 Primary Care Physician: . NO PHYSICIAN Signed [facility] Test Date: 2018-12-20 Pat Name: GINA GUEVARA Department: Room: Gender: Female [employer]: GEORGES : 1970 Requested By: MD GUNTER Order Number: [id number] Mikal MD: Jennifer AguilaASethC Measurements Intervals Percy Rate: 104 P: 56 LA: 168 QRS: 51 QRSD: 104 T: 69 QT: 345 QTc: 454 Interpretive Statements Sinus tachycardia LAE, consider biatrial enlargement Electronically Signed On 12-22-2018 1:26:05 CDT by Jennifer AguilaA.C Transcribed By: [employer] SIGNED <electronically signed by MICHAELA HERNANDEZ MD> 5 5 MICHAELA HERNANDEZ MD December 22, 2018 1:27am MICHAELA HERNANDEZ MD completed Patient: GINA GUEVARA MR#: [id number] : 1970 Pt Location: [facility] Date/Time: 12/19/18 Primary Care Physician: . NO PHYSICIAN Signed [facility] Test Date: 2018-12-19 Pat Name: GINA GUEVARA Department: Room: Gender: Female [employer] Dr[employer]: GEORGES : 1970 Requested By: MD GUNTER Order Number: [id number] Reading MD: Jennifer Aguila.ASethC Measurements Intervals Percy Rate: 97 P: 52 LA: 161 QRS: 25 QRSD: 111 T: 57 QT: 368 QTc: 468 Interpretive Statements Sinus rhythm Atrial premature complex Low voltage, precordial leads Electronically Signed On 12-22-2018 1:27:45 CDT by Jennifer Aguila.A.C Transcribed By: [employer] SIGNED <electronically signed by MICHAELA HERNANDEZ MD> 6 6 MICHAELA HERNANDEZ MD Health Concerns No known health concerns documented Advance Directives Advance Directive Response Recorded Date/Time Advance Directives No June 20, 2015 3:05pm Advance Directive on File No January 12, 2019 6:36pm Directive to Physicians/Living Will No June 20, 2015 3:05pm Health Care Proxy No June 20, 2015 3:05pm Organ Donor Yes June 20, 2015 3:05pm Medical Power of Interactive Designer No June 20, 2015 3:05pm Chief Complaint and Reason for Visit Chief Complaint Influenza Reason for Visit [id number] Encounters Encounter Location(s) Arrival/Admit Date Discharge/Depart Date Provider(s) Registered Kathy January 12, JAIME DURAN [facility] 2018 6:26pm Ctr Departed [place] December 19, 2018 December 20, 2018 MARIAMA GUNTER MD Emergency [facility] 10:25pm 4:03am Ctr Departed [place] November 26, 2018 November 26, 2018 KATHE GUEVARA [facility] 8:44pm 10:45pm E Ctr Departed [place] November 14November 15, 2018 KATEH GUEVARA [facility] 2018 9:02pm 2:20am E Ctr Assessments No Assessments Information Available Functional Status No Functional Status information available Goals No Goals Information Available Immunizations No Immunization Information Available Mental Status No Mental Status Information Available Medical Equipment No Medical Equipment Information available Insurance Providers Guarantor Gina Guevara Address [address] [facility] [address] [facility] [address] [facility] [address] Contact Info. Home Phone: Payer Policy Id Coverage Id Subscriber's Subscriber Id Effective Expiration Name Date Date Garibaldi [id number] Ismael [id number] Jody Lopez [place] Plan of Treatment Keflex 500 mg every 12 hours x7 days Take your home prescription at Tylenol #4 for pain Claritin or Latia pvin-hkd-iczlmhs Flonase sfyd-rvo-tdwxyco Warm steamy showers and saline nasal spray Tea with honey follow up with your primary care physician in 3 days if no improvement in symptoms return for new or worsening of symptoms Future Tests Future scheduled test information is unavailable Pending Tests Pending diagnostic test information is unavailable Future Visits Future appointment information is unavailable Referrals to Other Providers Reason for Referral Start Provider Provider Contact Provider Address Referral Date Information PHYSICIAN, NO Future Procedures Future procedure information is unavailable Future Medications Future medication information is unavailable Patient Instructions Sinusitis, Adult Hypertension, Adult Social History Smoking Status Status Date of Observation Never smoked tobacco (finding) January 12, 2019 6:36pm Observation Status Observation Response Date of Response Hx Physical Abuse No January 12, 2019 6:36pm Assigned Sex Female Vital Signs Vital Reading Result Collection Date/Time
[2019-01-13] MEDS ORDERED: NA CHLORIDE 0.9% 1,000 ML ONE (20:28)
[2019-01-13 20:49] LABS: Absolute Lymphocytes (CBC) 1.1 K/uL (0.7-4.9); Basophils % 0.6 % (0-1.3); Lymphocytes % 12.7 % (15.3-44.8); MPV 8.9 fL (7.6-11.3); RBC Red Blood Cell Count 4.13 M/uL (3.86-4.86)
[2019-01-13 20:54] LABS: Protime INR 1.04
[2019-01-13] MEDS ORDERED: ONDANSETRON 4 MG/2 ML VIAL ONE (20:58)
--- NOTE | 2019-01-13 21:01 | RAD REPORT ---
EXAM DESCRIPTION: RAD - Chest Single View - 01/13/2019 8:45 pm CLINICAL HISTORY: Chest pain COMPARISON: None. TECHNIQUE: AP portable chest image was obtained 2036 hours . FINDINGS: Exam is very limited on a large body habitus, rotation and shallow inspiration. As imaged, no peripheral mass or consolidation. Mild failure or volume overload are possible. Cardiac silhouett e is enlarged. No measurable pleural effusion and no pneumothorax. No acute bony abnormality seen. No acute aortic findings suspected. IMPRESSION: Very limited portable imaging. Mild failure or volume overload not excluded.
[2019-01-13] MEDS ORDERED: MORPHINE 4 MG/ML SYR ONE (21:06)
[2019-01-13 21:21] LABS: ALT/SGPT 29 U/L (12-78); AST/SGOT 13 U/L (15-37); Albumin 3.4 g/dL (3.4-5.0); Alkaline Phosphatase 189 U/L (45-117); BUN Blood Urea Nitrogen 15 mg/dL (7-18); Bicarbonate 30 mmol/L (21-32); Bilirubin Direct 0.2 mg/dL (0-0.2); Bilirubin Total 0.3 mg/dL (0.2-1.0); Glucose Level 139 mg/dL (74-106); Lipase 35 U/L (73-393); Magnesium 1.5 mg/dL (1.8-2.4); NT PRO-BNP 202 pg/mL (<125); Potassium 3.8 mmol/L (3.5-5.1); Protein, Total 7.5 g/dL (6.4-8.2); Sodium Level 141 mmol/L (136-145); Troponin (Emerg Dept Use Only) < 0.02 ng/mL (0.0-0.045)
--- NOTE | 2019-01-13 21:40 | ER ---
Nurse's Notes [facility] Name: Deanna Guevara Age: 48 yrs Sex: Female : 1970 Arrival Date: 01/13/2019 Time: 19:30 Bed 30 Private MD: Diagnosis: Chest pain, unspecified;Hypomagnesemia;Obesity, unspecified-morbid;Essential (primary) hypertension;Tachycardia, unspecified Presentation: 01/13 19:49 Presenting complaint: Patient states: Reports she has been having chest pain, chills ea and anxiety for the past two days, reports she has had symptoms like this in the past but this time it feels worse. Transition of care: patient was not received from another setting of care. Onset of symptoms was January 13, 2019. Risk Assessment: Do you want to hurt yourself or someone else? Patient reports no desire to harm self or others. Initial Sepsis Screen: Does the patient meet any 2 criteria? HR > 90 bpm. Does the patient have a suspected source of infection? No. Patient's initial sepsis screen is negative. Care prior to arrival: None. 19:49 Method Of Arrival: Wheelchair ea 19:49 Acuity: STEPH 3 ea [employer] PULP: 20:55 lmp unknown mg2 Historical: - Allergies: 19:52 Amoxicillin; ea - Immunization history:: Flu vaccine status is unknown. - Ebola Screening: : No symptoms or risks identified at this time. - Family history:: not pertinent. - Social history:: Smoking status: unknown. Screenin:51 Abuse screen: Denies threats or abuse. Nutritional screening: No deficits noted. ea Tuberculosis screening: No symptoms or risk factors identified. Fall Risk Gait- Impaired (20 pts.). Assessment: 20:53 General: Appears in no apparent distress. uncomfortable, Behavior is cooperative, mg2 anxious. Pain: Complains of pain in chest Pain does not radiate. Quality of pain is described as aching, Pain began gradually, Is intermittent. Neuro: Level of Consciousness is awake, alert, obeys commands, Oriented to person, place, time, situation. Cardiovascular: Capillary refill < 3 seconds Patient's skin is warm and dry. Respiratory: Airway is patent Respiratory effort is even, unlabored, Respiratory pattern is regular, symmetrical. GI: No signs and/or symptoms were reported involving the gastrointestinal system. : EENT: No signs and/or symptoms were reported regarding the EENT system. Derm: Skin is intact, is healthy with good turgor, Skin is pink, warm \T\ dry. normal. Musculoskeletal: Circulation, motion, and sensation intact. Capillary refill < 3 seconds. Vital Signs: 19:50 BP 194 / 102; Pulse 114; Resp 20; Temp 98.7; Pulse Ox 94% on R/A; Weight 190.51 kg; ea Height 5 ft. 7 in. (170.18 cm); 21:03 BP 170 / 102; Pulse 108; Resp 18; Pulse Ox 98% on R/A; mg2 23:20 BP 187 / 102; Pulse 112; Resp 18; Temp 98.7; Pulse Ox 100% on 3 lpm NC; mg2 23:39 BP 175 / 87; Pulse 97; Resp 18; Temp 98.7; Pulse Ox 100% on 3 lpm NC; mg2 19:50 Body Mass Index 65.78 (190.51 kg, 170.18 cm) ea ED Course: 19:30 Patient arrived in ED. cf2 19:44 Markos Duffy MD is Attending Physician. candelario 19:50 Triage completed. ea 19:51 Arm band placed on right wrist. Patient placed in an exam room, in a wheelchair, on ea pulse oximetry. 19:51 Patient maintains SpO2 saturation greater than 95% on room air. ea 20:01 Noam Koroma, RN is Primary Nurse. mg2 20:38 Noam Koroma, RN is Primary Nurse. mg2 20:46 XRAY Chest (1 view) In Process Unspecified. EDMS 20:55 Patient has correct armband on for positive identification. Pulse ox on. NIBP on. mg2 20:55 No provider procedures requiring assistance completed. Inserted saline lock: 22 gauge mg2 in left forearm, using aseptic technique. Blood collected. 21:01 Notified ED physician of a critical lab result(s). D Dimer 536. tr5 21:38 Gopal Shankar MD is Hospitalizing Provider. candelario 22:13 CT Aorta for Dissection In Process Unspecified. EDMS 22:47 US Extremity Venous W Compression Vincent In Process Unspecified. EDMS 23:20 Patient admitted, IV remains in place. mg2 Administered Medications: 20:39 Drug: NS 0.9% 500 ml Route: IV; Rate: bolus; Site: left forearm; mg2 23:10 Follow up: Response: No adverse reaction; IV Status: Completed infusion; IV Intake: mg2 500ml 21:02 Drug: Zofran 4 mg Route: IVP; Site: left forearm; mg2 23:09 Follow up: Response: No adverse reaction mg2 21:17 Drug: NS 0.9% 1000 ml Route: IV; Rate: 125 ml/hr; Site: left antecubital; tr5 23:11 Follow up: Response: No adverse reaction; IV Status: Infusion continued upon admission; mg2 IV Intake: 250ml 21:18 Drug: morphine 4 mg {Note: RASS:0.} Route: IVP; Site: right antecubital; tr5 23:10 Follow up: Response: No adverse reaction; Marked relief of symptoms; RASS: Alert and mg2 Calm (0) 23:07 Drug: Lovenox 100 mg Route: Sub-Q; Site: right lower abdomen; mg2 23:09 Follow up: Response: No adverse reaction mg2 23:08 Drug: Aspirin 162 mg Route: PO; mg2 23:10 Follow up: Response: No adverse reaction mg2 23:08 Drug: Pepcid 20 mg Route: IVP; Site: left forearm; mg2 23:09 Follow up: Response: No adverse reaction mg2 23:08 Drug: Rocephin 2 grams Route: IV; Rate: per protocol; Site: left forearm; mg2 23:09 Follow up: Response: No adverse reaction; IV Status: Completed infusion mg2 23:09 Drug: Magnesium Sulfate 2 grams Route: IVPB; Infused Over: 2 hrs; Site: left forearm; mg2 23:10 Follow up: Response: No adverse reaction; IV Status: Infusion continued upon admission mg2 23:28 Drug: Lopressor 5 mg Route: IVP; Site: left forearm; mg2 23:30 Follow up: Response: No adverse reaction mg2 23:28 Drug: Lopressor (metoprolol TARTRATE) 50 mg Route: PO; mg2 23:30 Follow up: Response: No adverse reaction mg2 Intake: 23:10 IV: 500ml; Total: 500ml. mg2 23:11 IV: 250ml; Total: 750ml. mg2 Outcome: 21:39 Decision to Hospitalize by Provider. candelario 23:19 Admitted to [facility] accompanied by tech, via stretcher, room 413, with oxygen, with chart, mg2 Report called to YOHANA Thompson 23:19 Condition: stable 23:19 Instructed on the need for admit, Demonstrated understanding of instructions. 23:39 Patient left the ED. mg2 Signatures: Dispatcher [employer] Markos Hicks MD MD cha Antunez, Elena RN Noam Neely ea, RN RN mg2 Joseph Moore RN RN tr5 Nik Kiser [facility]
--- NOTE | 2019-01-13 21:41 | EDPHYS ---
Physician Documentation [facility] Name: Deanna Guevara Age: 48 yrs Sex: Female : 1970 Arrival Date: 01/13/2019 Time: 19:30 Bed 30 Private MD: ED Physician Markos Duffy HPI: 01/13 19:58 This 48 yrs old Female presents to ER via Wheelchair with complaints of Chest candelario Pain, Anxiety, Fever. 19:58 The patient or guardian reports chest pain that is located primarily in the substernal candelario area, anterior chest wall, bilaterally. Onset: today. The pain does not radiate. Associated signs and symptoms: Pertinent positives: dizziness, nausea. The chest pain is described as a pressure. Modifying factors: The symptoms are alleviated by nothing. the symptoms are aggravated by nothing. Severity of pain: At its worst the pain was mild. 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 - Ebola Screening: : No symptoms or risks identified at this time. - Family history:: not pertinent. - Social history:: Smoking status: unknown. ROS: 19:58 Constitutional: Negative for fever, chills, and weight loss, Eyes: Negative for injury, candelario pain, redness, and discharge, ENT: Negative for injury, pain, and discharge, Neck: Negative for injury, pain, and swelling, Abdomen/GI: Negative for abdominal pain, nausea, vomiting, diarrhea, and constipation, Back: Negative for injury and pain, : Negative for injury, bleeding, discharge, and swelling, MS/Extremity: Negative for injury and deformity, Skin: Negative for injury, rash, and discoloration, Neuro: Negative for headache, weakness, numbness, tingling, and seizure, Psych: Negative for depression, anxiety, suicide ideation, homicidal ideation, and hallucinations, Allergy/Immunology: Negative for hives, rash, and allergies, Endocrine: Negative for neck swelling, polydipsia, polyuria, polyphagia, and marked weight changes, Hematologic/Lymphatic: Negative for swollen nodes, abnormal bleeding, and unusual bruising. 19:58 Cardiovascular: Positive for chest pain. 19:58 Respiratory: Positive for cough, shortness of breath, at rest. Exam: 19:58 Constitutional: This is a well developed, well nourished patient who is awake, alert, candelario and in no acute distress. Head/Face: Normocephalic, atraumatic. Eyes: Pupils equal round and reactive to light, extra-ocular motions intact. Lids and lashes normal. Conjunctiva and sclera are non-icteric and not injected. Cornea within normal limits. Periorbital areas with no swelling, redness, or edema. ENT: Nares patent. No nasal discharge, no septal abnormalities noted. Tympanic membranes are normal and external auditory canals are clear. Oropharynx with no redness, swelling, or masses, exudates, or evidence of obstruction, uvula midline. Mucous membranes moist. Neck: Trachea midline, no thyromegaly or masses palpated, and no cervical lymphadenopathy. Supple, full range of motion without nuchal rigidity, or vertebral point tenderness. No Meningismus. Chest/axilla: Normal chest wall appearance and motion. Nontender with no deformity. No lesions are appreciated. Respiratory: Lungs have equal breath sounds bilaterally, clear to auscultation and percussion. No rales, rhonchi or wheezes noted. No increased work of breathing, no retractions or nasal flaring. Abdomen/GI: Soft, non-tender, with normal bowel sounds. No distension or tympany. No guarding or rebound. No evidence of tenderness throughout. Back: No spinal tenderness. No costovertebral tenderness. Full range of motion. Skin: Warm, dry with normal turgor. Normal color with no rashes, no lesions, and no evidence of cellulitis. MS/ Extremity: Pulses equal, no cyanosis. Neurovascular intact. Full, normal range of motion. Neuro: Awake and alert, GCS 15, oriented to person, place, time, and situation. Cranial nerves II-XII grossly intact. Motor strength 5/5 in all extremities. Sensory grossly intact. Cerebellar exam normal. Normal gait. Psych: Awake, alert, with orientation to person, place and time. Behavior, mood, and affect are within normal limits. 19:58 Cardiovascular: Rate: tachycardic, Rhythm: regular, Pulses: Pulses are 4+ in bilateral radial, brachial, femoral, popliteal, posterior tibial and and dorsalis pedis arteries.. Heart sounds: normal, Edema: is not appreciated, JVD: is not appreciated. Vital Signs: 19:50 BP 194 / 102; Pulse 114; Resp 20; Temp 98.7; Pulse Ox 94% on R/A; Weight 190.51 kg; ea Height 5 ft. 7 in. (170.18 cm); 21:03 BP 170 / 102; Pulse 108; Resp 18; Pulse Ox 98% on R/A; mg2 23:20 BP 187 / 102; Pulse 112; Resp 18; Temp 98.7; Pulse Ox 100% on 3 lpm NC; mg2 23:39 BP 175 / 87; Pulse 97; Resp 18; Temp 98.7; Pulse Ox 100% on 3 lpm NC; mg2 19:50 Body Mass Index 65.78 (190.51 kg, 170.18 cm) ea MDM: 19:44 Patient medically screened. [facility] 20:01 Data reviewed: vital signs, nurses notes, lab test result(s), EKG, radiologic studies, candelario plain films. 01/13 19:58 Order name: Basic Metabolic Panel; Complete Time: 21:28 [facility] 01/13 19:58 Order name: CBC with Diff; Complete Time: 21:28 [facility] 01/13 19:58 Order name: LFT's; Complete Time: 21:28 [facility] 01/13 19:58 Order name: Magnesium; Complete Time: 21:28 [facility] 01/13 19:58 Order name: NT PRO-BNP; Complete Time: 21:28 [facility] 01/13 19:58 Order name: PT-INR; Complete Time: 21:28 [facility] 01/13 19:58 Order name: Troponin (emerg Dept Use Only); Complete Time: 21:28 [facility] 01/13 19:58 Order name: D-Dimer; Complete Time: 21:28 [facility] 01/13 19:58 Order name: Blood Culture Adult (2) [facility] 01/13 19:58 Order name: Lipase; Complete Time: 21:28 [facility] 01/13 19:58 Order name: Urine Culture [facility] 01/13 20:24 Order name: Urine Dipstick--Ancillary (enter results) [facility] 01/13 20:24 Order name: Urine --Ancillary (enter results) [facility] 01/13 22:11 Order name: Lipid Profile [facility] 01/13 19:58 Order name: XRAY Chest (1 view); Complete Time: 21:28 [facility] 01/13 21:31 Order name: CT Aorta for Dissection [facility] 01/13 21:31 Order name: US Extremity Venous W Compression Vincent [facility] 01/13 22:11 Order name: Lipid Profile [facility] 01/13 22:11 Order name: Troponin I [facility] 01/13 22:11 Order name: Troponin I [facility] 01/13 22:11 Order name: Troponin I [facility] 01/13 19:58 Order name: EKG; Complete Time: 19:59 [facility] 01/13 19:58 Order name: Cardiac monitoring; Complete Time: 21:17 [facility] 01/13 19:58 Order name: EKG - Nurse/Tech; Complete Time: 21:17 [facility] 01/13 19:58 Order name: IV Saline Lock; Complete Time: 20:29 [facility] 01/13 19:58 Order name: Labs collected and sent; Complete Time: 20:29 [facility] 01/13 19:58 Order name: O2 Per Protocol; Complete Time: 20:28 [facility] 01/13 19:58 Order name: O2 Sat Monitoring; Complete Time: 20:28 [facility] 01/13 19:58 Order name: Urine Dipstick-Ancillary (obtain specimen); Complete Time: 21:46 [facility] 01/13 19:58 Order name: Urine Test (obtain specimen); Complete Time: 21:46 [facility] 01/13 22:11 Order name: CONS Physician Consult [facility] 01/13 22:11 Order name: Heart Healthy [facility] 01/13 22:11 Order name: EKG Electrocardiogram [facility] 01/13 22:11 Order name: EKG Electrocardiogram [facility] Administered Medications: 20:39 Drug: NS 0.9% 500 ml Route: IV; Rate: bolus; Site: left forearm; mg2 23:10 Follow up: Response: No adverse reaction; IV Status: Completed infusion; IV Intake: mg2 500ml 21:02 Drug: Zofran 4 mg Route: IVP; Site: left forearm; mg2 23:09 Follow up: Response: No adverse reaction mg2 21:17 Drug: NS 0.9% 1000 ml Route: IV; Rate: 125 ml/hr; Site: left antecubital; tr5 23:11 Follow up: Response: No adverse reaction; IV Status: Infusion continued upon admission; mg2 IV Intake: 250ml 21:18 Drug: morphine 4 mg {Note: RASS:0.} Route: IVP; Site: right antecubital; tr5 23:10 Follow up: Response: No adverse reaction; Marked relief of symptoms; RASS: Alert and mg2 Calm (0) 23:07 Drug: Lovenox 100 mg Route: Sub-Q; Site: right lower abdomen; mg2 23:09 Follow up: Response: No adverse reaction mg2 23:08 Drug: Aspirin 162 mg Route: PO; mg2 23:10 Follow up: Response: No adverse reaction mg2 23:08 Drug: Pepcid 20 mg Route: IVP; Site: left forearm; mg2 23:09 Follow up: Response: No adverse reaction mg2 23:08 Drug: Rocephin 2 grams Route: IV; Rate: per protocol; Site: left forearm; mg2 23:09 Follow up: Response: No adverse reaction; IV Status: Completed infusion mg2 23:09 Drug: Magnesium Sulfate 2 grams Route: IVPB; Infused Over: 2 hrs; Site: left forearm; mg2 23:10 Follow up: Response: No adverse reaction; IV Status: Infusion continued upon admission mg2 23:28 Drug: Lopressor 5 mg Route: IVP; Site: left forearm; mg2 23:30 Follow up: Response: No adverse reaction mg2 23:28 Drug: Lopressor (metoprolol TARTRATE) 50 mg Route: PO; mg2 23:30 Follow up: Response: No adverse reaction mg2 Disposition: 01/13/19 21:39 Hospitalization ordered by Gopal Shankar for Observation. Preliminary diagnosis are Chest pain, unspecified, Hypomagnesemia, Obesity, unspecified - morbid, Essential (primary) hypertension, Tachycardia, unspecified. - Bed requested for Telemetry/MedSurg (observation). - Status is Observation. mg2 - Condition is Fair. - Problem is new. - Symptoms have improved. UTI on Admission? No Signatures: Dispatcher [employer] EDMS Kaila Caballero RN RN Markos Duffy MD MD cha Antunez, Elena, RN RN ea [place], Michele, RN RN mg2 Joseph Moore RN RN tr5 Corrections: (The following items were deleted from the chart) 22:15 21:39 Hospitalization Ordered by Gopal Shankar MD for Observation. Preliminary diagnosis is Chest pain, unspecified; Hypomagnesemia; Obesity, unspecified - morbid; Essential (primary) hypertension. Bed requested for Telemetry/MedSurg (observation). Status is Observation. Condition is Fair. Problem is new. Symptoms have improved. UTI on Admission? No. candelario 23:21 22:15 01/13/2019 21:39 Hospitalization Ordered by Gopal Shankar MD for Observation. candelario Preliminary diagnosis is Chest pain, unspecified; Hypomagnesemia; Obesity, unspecified - morbid; Essential (primary) hypertension. Bed requested for Telemetry/MedSurg (observation). Status is Observation. Condition is Fair. Problem is new. Symptoms have improved. UTI on Admission? No. mw 23:39 23:21 01/13/2019 21:39 Hospitalization Ordered by Gopal Shankar MD for Observation. mg2 Preliminary diagnosis is Chest pain, unspecified; Hypomagnesemia; Obesity, unspecified - morbid; Essential (primary) hypertension; Tachycardia, unspecified. Bed requested for Telemetry/MedSurg (observation). Status is Observation. Condition is Fair. Problem is new. Symptoms have improved. UTI on Admission? No. candelario
[2019-01-13] MEDS ORDERED: ALPRAZOLAM 0.25 MG TABLET PO PRN (22:08)
[2019-01-13 22:09] LABS: Urine Blood NEGATIVE (NEG); Urine Glucose NEGATIVE (NEG); Urine Protein TRACE (NEG)
[2019-01-13] MEDS ORDERED: FAMOTIDINE 20 MG/2 ML VIAL IV ONE (22:37)
[2019-01-13] MEDS ORDERED: CEFTRIAXONE/SWI 1gm 2 GM/20 ML SYR ONE (22:37)
[2019-01-13] MEDS ORDERED: ENOXAPARIN 100 MG/ML SYR SQ ONE (22:37)
[2019-01-13] MEDS ORDERED: Magnesium Sulfate 2gm IVPB 2 G/50 ML BAG IV ONE (22:38)
[2019-01-13] MEDS ORDERED: METOPROLOL TARTRATE 5 MG/5 ML INJ IV ONE (23:23)
[2019-01-13] MEDS ORDERED: METOPROLOL TAR 25 MG TAB ONE (23:23)
[2019-01-14] MEDS: METOPROLOL TARTRATE 5 MG/5 ML INJ IV SCH ×2 (01:28→01:45)
[2019-01-14] MEDS: MORPHINE 4 MG/ML SYR IV PRN ×3 (02:10→11:08)
[2019-01-14 05:24] VITALS: BMI 72.4
[2019-01-14] MEDS: METOPROLOL TAR 50 MG TAB PO SCH ×3 (05:45→20:12)
[2019-01-14] MEDS: ONDANSETRON 4 MG/2 ML VIAL IV PRN ×2 (06:31→11:10)
[2019-01-14 08:36] LABS: HDL Cholesterol 60 mg/dL (40-60); LDL Cholesterol, Calculated 91 (<130); Troponin I < 0.02 ng/mL (0.0-0.045)
[2019-01-14] MEDS ORDERED: METOPROLOL TAR 50 MG TAB PO SCH (09:00)
[2019-01-14] MEDS: ASPIRIN EC 81 MG TAB PO SCH (09:11)
[2019-01-14] MEDS: ENOXAPARIN 40 MG/0.4 ML SQ SCH (09:12)
--- NOTE | 2019-01-14 09:32 | RAD REPORT ---
EXAM DESCRIPTION: US - Extrem Venous W Compress Vincent - 01/13/2019 10:47 pm CLINICAL HISTORY: PAIN Bilateral leg edema and swelling. COMPARISON: <Comparisons> TECHNIQUE: Real-time sonographic interrogation of the left and right lower extremity deep venous sys tems was performed. FINDINGS: Normal compressibility, flow augmentation, phasic flow and spontaneous flow is identified in both the left and right lower extremity deep venous systems. IMPRESSION: No sonographic evidence of left or right lower extremity deep venous thrombosis.
--- NOTE | 2019-01-14 10:10 | P.HP ---
Certification for Inpatient Patient admitted to: Observation With expected LOS: <2 Midnights Patient will require the following post-hospital care: None Practitioner: I am a practitioner with admitting privileges, knowledge of patient current condition, hospital course, and medical plan of care. Services: Services provided to patient in accordance with Admission requirements found in Title 42 Section 412.3 of the Code of Federal Regulations Patient History Date of Service: 01/14/19 Reason for admission: CHEST PAIN RULE OUT ACUTE CORONARY SYNDROME History of Present Illness: Patient is a 48-year-old female comes to the hospital with uncontrolled hypertension and tachycardia. Her pain was mainly in the sternal area. She was a little short of breath. Patient is morbidly obese with a BMI greater than 70. She only has high blood pressure and has been told in the past she had diabetes but she says well with her diet. Otherwise she also has chronic back pain. She came into the hospital because of the high blood pressure and chest discomfort. She was admitted for rule out for acute coronary syndrome. She will need outpatient cardiac workup if her workup is negative. Allergies amoxicillin Allergy (Verified 01/14/19 00:09) Anaphylaxis Home Medications: Acetaminophen with Codeine [Tylenol with Codeine #4 Tablet] 1 each PO TIDP PRN 01/14/19 Alprazolam 2 mg PO TID 01/14/19 Butalb/Acetaminophen/Caffeine [Ooqqwa-Qpebafxz-Fvjo 50-325-40] 1 each PO BEDTIME 01/14/19 Gabapentin 400 mg PO TID 01/14/19 Loratadine [Claritin] 10 mg PO DAILY 01/14/19 Losartan Potassium [Cozaar] 100 mg PO DAILY #30 tablet 01/14/19 Metformin HCl [Glucophage] 500 mg PO BIDWM 01/14/19 Metoprolol Tartrate [Lopressor*] 50 mg PO BID #60 tab 01/14/19 Montelukast Sodium [Singulair] 10 mg PO DAILY 01/14/19 Promethazine HCl 25 mg PO BIDP PRN 01/14/19 Tizanidine [Zanaflex] 4 mg PO QID 01/14/19 - Past Medical/Surgical History Has patient received pneumonia vaccine in the past: No Diabetic: Yes -: HTN -: NIDDM -: GERD -: Obesity -: fibromyalgia -: chronic back pain -: anxiety -: pneumonia in 2006 -: migraines -: claustrophobia -: seasonal allergies -: muscle spasms -: laminectomy -: tubal ligation - Family History Mother Medical History: Other (see notes) Notes: anxiety. fibromyalgia Father Medical History: Diabetes - Social History Smoking Status: Never smoker Alcohol use: No CD- Drugs: No Caffeine use: Yes Place of Residence: Home Physical Examination - Vital Signs Temperature: 97.7 F Blood Pressure: 163/82 Pulse: 76 Respirations: 20 Pulse Ox (%): 96 - Physical Exam General: Alert, In no apparent distress, Oriented x3 HEENT: Atraumatic, Normocephalic Neck: Supple, 2+ carotid pulse no bruit Respiratory: Clear to auscultation bilaterally, Normal air movement Cardiovascular: No edema, Normal pulses, Regular rate/rhythm, Normal S1 S2, No murmurs Gastrointestinal: Normal bowel sounds, Soft and benign, Non-distended, No tenderness Musculoskeletal: No clubbing, No swelling Integumentary: No rashes Neurological: Normal gait, Normal speech, Normal strength at 5/5 x4 extr, Normal tone, Sensation intact, Cranial nerves 3-12 intact Lymphatics: No axilla or inguinal lymphadenopathy - Studies Laboratory Data (last 24 hrs) 01/13/19 20:25: PT 12.2, INR 1.04 01/13/19 20:25: WBC 8.6, Hgb 10.3 L, Hct 33.0 L, Plt Count 325 01/13/19 20:25: Sodium 141, Potassium 3.8, BUN 15, Creatinine 0.62, Glucose 139 H, Magnesium 1.5 L, Total Bilirubin 0.3, AST 13 L, ALT 29, Alkaline Phosphatase 189 H, Lipase 35 L Assessment & Plan - Problems (Diagnosis) (1) Chest pain, rule out acute myocardial infarction Current Visit: Yes Status: Acute (2) Uncontrolled hypertension Current Visit: Yes Status: Acute (3) Chronic pain syndrome Current Visit: Yes Status: Acute (4) Morbid obesity with BMI of 70 and over, adult Current Visit: Yes Status: Acute - Plan 1. Serial troponins and EKG 2. Cardiology consultation 3. Echocardiogram and stress test as outpatient 4. Anti-platelet therapy, anti coagulation, beta-jenny, statin, and O2 as needed 5. IV morphine for pain 6. Nitro p.r.n. 7. Pain and anxiety control 8. GI and DVT prophylax Discharge Plan: Home Plan to discharge in: Greater than 2 days - Advance Directives Does patient have a Living Will: No Does patient have a Durable POA for Healthcare: No - Code Status/Comfort Care Code Status Assessed: Yes Code Status: Full Code Critical Care: No Time Spent Managing PTS Care (In Minutes): 45 Home Medications: Acetaminophen with Codeine [Tylenol with Codeine #4 Tablet] 1 each PO TIDP PRN 01/14/19 Alprazolam 2 mg PO TID 01/14/19 Butalb/Acetaminophen/Caffeine [Pzoivl-Qikdgwxt-Xorq 50-325-40] 1 each PO BEDTIME 01/14/19 Gabapentin 400 mg PO TID 01/14/19 Loratadine [Claritin] 10 mg PO DAILY 01/14/19 Losartan Potassium [Cozaar] 100 mg PO DAILY #30 tablet 01/14/19 Metformin HCl [Glucophage] 500 mg PO BIDWM 01/14/19 Metoprolol Tartrate [Lopressor*] 50 mg PO BID #60 tab 01/14/19 Montelukast Sodium [Singulair] 10 mg PO DAILY 01/14/19 Promethazine HCl 25 mg PO BIDP PRN 01/14/19 Tizanidine [Zanaflex] 4 mg PO QID 01/14/19 Patient Discharge Instructions: OK TO DC IV AND DC HOME if okay with Cardiology. FOLLOW-UP WITH PRIMARY CARE PROVIDER IN 1-2 WEEKS. FOLLOW-UP WITH CARDIOLOGY IN 1-2 WEEKS to arrange for outpatient echocardiogram and stress testing. RETURN TO THE ER IF symptoms worsen. CALL or TEXT DR. CONKLIN AT IF ANY QUESTIONS REGARDING HOSPITAL STAY. PLEASE CALL THE FLOOR AT IF ANY MEDICATION OR NURSING QUESTIONS. Diet: AHA Activity: Fall precautions Time spent managing pt's care (in minutes): 45
--- NOTE | 2019-01-14 14:21 | EKG ---
Test Date: 2019-01-13 Test Time: 20:02:08 Manager Hvac: SCOTTY MEASUREMENT RESULTS: Intervals: Rate: 97 MA: 184 QRSD: 102 QT: 354 QTc: 449 [place]: P: 64 MA: 184 QRS: 65 T: 70 INTERPRETIVE STATEMENTS: Normal sinus rhythm Normal ECG No previous ECG available for comparison Electronically Signed On 01-14-19 14:19:21 SUPERVISOR TRANSFERRING AND BOXING by Jalen Saenz
[2019-01-14 16:11] VITALS: O2SAT 92
[2019-01-14] MEDS ORDERED: INFLUENZA VACCINE (for 3y+) 0.5 ML DOSE IMVAC ONE (17:00)
[2019-01-14 17:31] LABS: Arterial Blood Carboxyhemoglob 1.5 % (0-1.5); Blood Gas Oxyhemoglobin 86.1 % (94-97); Blood O2 Saturation 88.4 % (92-98.5)
[2019-01-14 17:35] LABS: Absolute Lymphocytes (CBC) 1.2 K/uL (0.7-4.9); Basophils % 0.6 % (0-1.3); Hematocrit 31.9 % (36.0-45.0); Lymphocytes % 13.5 % (15.3-44.8); MPV 8.8 fL (7.6-11.3); RBC Red Blood Cell Count 3.99 M/uL (3.86-4.86)
[2019-01-14 17:50] LABS: Albumin 3.5 g/dL (3.4-5.0); Bilirubin Total 0.3 mg/dL (0.2-1.0); Potassium 4.5 mmol/L (3.5-5.1); Protein, Total 7.6 g/dL (6.4-8.2)
--- NOTE | 2019-01-14 17:50 | RAD REPORT ---
EXAM DESCRIPTION: RAD - Chest Single View - 01/14/2019 5:43 pm CLINICAL HISTORY: desaturation on room air Chest pain. COMPARISON: Chest Single View dated 01/13/2019 FINDINGS: Portable technique limits examination quality. Study is limited by soft tissue artifact. Haziness in the right and left lung base could be from smal l effusions. The heart is quite prominent in size. Mild interstitial pulmonary edema suspected.
[2019-01-14] MEDS: ACETAMINOPHEN 500 MG TAB PO PRN (20:49)
[2019-01-14] MEDS: HYDRALAZINE HCL 20 MG/ML VIAL IV PRN (22:03)
[2019-01-14] MEDS ORDERED: cloNIDine HCL 0.1 MG TAB PO ONE (23:25)
--- NOTE | 2019-01-15 00:07 | CON ---
Date of Consultation: 01/14/[address] Key on 01/13/2019. I saw the patient on 01/14/2019. Reason For Consultation: Chest pain. History Of Present Illness: Ms. Guevara is 48. She weighs 462 pounds, has really no previous cardia c history, but she does have a history of hypertension, morbid obesity, diabetes. She takes Cozaar, Glucophage, metoprolol, and insulin. Came in with chest pain that is all over her chest with no naus ea, vomiting, diaphoresis, PND, orthopnea, pedal edema, palpitations, or syncope, felt very tired and fatigued. Her hemoglobin was 10. Her D-dimer was 536. EKG was unremarkable. She had an elevated D-dimer with an unremarkable EKG. Her EKG was normal. Her chest x-ray was very limited secondary to her weight. Her troponin was negative. Her BNP was negative. I think her symptoms are very atypic al. There is a CT dissection report that is still pending. She had a venous Doppler, which was nega tive. I think her symptoms are more likely to be anxiety related or musculoskeletal and not cardiac. Her weight will not allow us to do a stress test on her. I am comfortable with her going home when ever it is okay with Dr. Key, and she will follow up with Dr. Brown's office with Jose ESTRADA. MISA/FORREST Voice ID: [id number] Report ID: [id number]
[2019-01-15 06:34] LABS: Barbiturates POSITIVE (NEGATIVE); Benzodiazepines POSITIVE (NEGATIVE); Cocaine NEGATIVE (NEGATIVE); METHAMPHETAM NEGATIVE (NEGATIVE); Methadone NEGATIVE (NEGATIVE); Opiates NEGATIVE (NEGATIVE); Phencyclidine NEGATIVE (NEGATIVE); THC Cannibis NEGATIVE (NEGATIVE)
[2019-01-15] MEDS: METOPROLOL TAR 50 MG TAB PO SCH (08:42)
[2019-01-15] MEDS: ASPIRIN EC 81 MG TAB PO SCH (08:43)
[2019-01-15] MEDS: ENOXAPARIN 40 MG/0.4 ML SQ SCH (08:43)
[2019-01-15] MEDS: HYDRALAZINE HCL 20 MG/ML VIAL IV PRN (08:43)
[2019-01-15] MEDS: ACETAMINOPHEN 500 MG TAB PO PRN (08:45)
[2019-01-15 09:11] VITALS: TEMP 97.8
[2019-01-15 10:26] VITALS: BP 140/76
--- NOTE | 2019-01-15 14:14 | EKG ---
Test Date: 2019-01-14 Test Time: 16:58:00 Ear Machine Operator: MARCELLE MEASUREMENT RESULTS: Intervals: Rate: 72 ND: 170 QRSD: 100 QT: 392 QTc: 429 [place]: P: 51 ND: 170 QRS: 33 T: 53 INTERPRETIVE STATEMENTS: Normal sinus rhythm Low voltage QRS Borderline ECG Compared to ECG 01/13/2019 20:02:08 Low QRS voltage now present Electronically Signed On 01-15-19 14:13:43 MANUFACTURING COORDINATOR by Jalen Saenz
--- NOTE | 2019-01-16 14:43 | RAD REPORT ---
EXAM DESCRIPTION: Angio Aorta For Dissection CLINICAL HISTORY: Chest pain, chills, anxiety TECHNIQUE: Contiguous axial images obtained through the chest during angiographic phase following th e uneventful administration of IV contrast. Sagittal and coronal reformatted images were provided. This exam was performed according to our departmental dose-optimization program, which includes autom ated exposure control, adjustment of the mA and/or kV according to patient size and/or use of iterati ve reconstruction technique. COMPARISON: No prior exams provided for comparison. FINDINGS: Diagnostic quality: There is good opacification of the pulmonary arterial tree. Motion art ifact degrades image quality and limits evaluation of segmental and subsegmental vessels. Image degra dation secondary to body habitus. Lungs: No focal consolidation. Airways are patent. Pleura: No effusion. No pneumothorax. Heart and pericardium: The heart is enlarged. No pericardial effusion. Mediastinum and dean: No pathologically enlarged lymph nodes. Lower neck and chest wall: Unremarkable Vessels: No pulmonary arterial filling defects. No thoracic aortic dissection. The ascending aorta me asures 3.5 cm in maximum diameter. Bones: Multilevel spondylosis. No acute fracture. IMPRESSION: 1. Technically limited secondary to body habitus and motion. No identifiable thoracic aortic dissection. 2. Motion artifact degrades image quality and limits evaluation of segmental and subsegmental vesse ls. No central pulmonary embolic disease. EXAM DESCRIPTION: Angio Aorta For Dissection CLINICAL HISTORY: Chest pain, chills, anxiety TECHNIQUE: Contiguous axial images obtained through the abdomen and pelvis during angiographic phase following the uneventful administration of IV contrast. Sagittal and coronal reformatted images were provided. This exam was performed according to our departmental dose-optimization program, which includes autom ated exposure control, adjustment of the mA and/or kV according to patient size and/or use of iterati ve reconstruction technique. COMPARISON: None available for comparison. FINDINGS: Diagnostic quality: Image degradation secondary to body habitus. Abdominal aorta: No aneurysm. No dissection. Celiac trunk: No significant stenosis or occlusion. SMA: No significant stenosis or occlusion. ADELINE: No significant stenosis or occlusion. Renal arteries: No significant stenosis or occlusion. Iliac arteries: No significant stenosis or occlusion. CONTACT LENS EDGE BUFFER: No significant stenosis or occlusion. Liver: Unremarkable Gallbladder and biliary system: Unremarkable Pancreas: Diffuse fatty replacement of the pancreas. Spleen: Unremarkable Adrenal: Unremarkable Kidneys: Normal renal cortical enhancement. No calculi. No hydronephrosis. Bowel: Moderate stool. No obstruction. No appreciable mucosal thickening. Appendix: Normal caliber appendix. No findings to suggest acute appendicitis. Urinary bladder: Unremarkable Reproductive: Unremarkable as visualized Lymph nodes: No pathologically enlarged lymph nodes. Peritoneum: No focal fluid collection. No free air. Abdominal wall: Skin thickening and infiltrative changes at the mid to lower ventral abdominal wall. Small fat-containing periumbilical hernia. Bones: Multilevel spondylosis. Prior left hemilaminectomy at L5. No acute fracture. IMPRESSION: 1. No evidence for abdominal aortic aneurysm or dissection. 2. Skin thickening and infiltrative changes at the mid to lower ventral abdominal wall. Please fernando elate clinically for signs of infection. 3. Other findings as above. Electronically signed by: Arun Wang MD 01/13/2019 11:22 PM SCREEN DOOR MAKER Due to temporary technical issues with the PACS/Fluency reporting system, reports are being signed by the in house radiologist as a courtesy to ensure prompt reporting. The interpreting radiologist is f ully responsible for the content of the report.
== END 2019-01-15 10:18 | disposition home or self-care (01) ==
LOC: ER 19:22 → 4TH 23:24
PROVIDERS: ADMIT Internal Medicine; ATTEND Hospitalist
DX: R07.9 Chest pain, unspecified (principal); I10 Essential (primary) hypertension; E66.01 Morbid (severe) obesity due to excess calories; Z68.45 Body mass index [BMI] 70 or greater, adult; E11.9 Type 2 diabetes mellitus without complications; K21.9 Gastro-esophageal reflux disease without esophagitis; G89.4 Chronic pain syndrome; Z23 Encounter for immunization; Z88.0 Allergy status to penicillin
CPT/HCPCS: 93005 ×2; 87040 ×2; 87088; 85025 ×2; 87086; 80048; 36415; 82140; 83735; 81025; 85610; 80061; 85379 ×2; 80076; 80307 ×8; 81003; 84484 ×3; 83690; 80053; 83880; 71275; 74175; 71045 ×2; 90471; 93970; 82805; 96372; 99285; Q9967; J0360 ×2; Q2035; J1650 ×2; J3475; J0696; J7030; J2405 ×3; G0378 ×3

== ENCOUNTER 2020-08-01 18:46 | Emergency (ER) | payer OTHER ==
--- OUTSIDE RECORDS SUMMARY | 2020-08-01 18:49 | XMS REPORT | Continuity of Care Document ---
:1970 Author Organization [facility] t Address [address] [place] [address] Support Name Relationship Address Phone Jaye Mother [address] [phone] [place] [address] ISMAEL LAGUERRE, E Emergency Provider [address] [facility] [address] [place] [address] DUPREE Primary Care Physician [address] [facility] [address] [place] [address] JAYE Next of Kin [address] [place] [address] DUPREE Primary Care Physician [address] [facility] [address] [place] [address] RHETT LAGUERRE, O Emergency Provider [address] [place] [address] MAKENNA LAGUERRE MD A Emergency Provider [address] [place] [address] Robles ESCALERA Emergency Provider [address] [place] [address] MAYRA NEGRETE Primary Care Physician [address] [facility] [address] [place] [address] KRISTIAN LAGUERRE, L Emergency Provider [address] [employer] [facility] [place] [address] DUPREE Primary Care Physician [address] [place] [address] MD CARMINA S Emergency Provider [address] [place] [address] MD RIANA G Primary Care Physician [address] [place] [address] MD MATTHEW Emergency Provider Unavailable Unavailable MD KRISTIAN L Emergency Provider [address] [phone] 58 [place] [address] MD AIDEN Emergency Provider [address] WANDA [email or web address] [address] MD ANITA Emergency Provider [address] [phone] [place] [address] Care Team Providers Name Role Phone Cesar LAGUERRE Attending Clinician Problems Condition Condition Condition Status Onset Resolution Last Treating Co mments Source Name Details Category Date Date Treatment Clinician Date Anxiety Anxiety Problem Active 2019-02 [facility] disorder Disorder 03-09 [facility] 00:00: [facility] Allergies, Adverse Reactions, Alerts This patient has no known allergies or adverse reactions. Medications Ordered Filled Start Stop Current Ordering Indication Dosage Frequency Signature Comments Components Source Medication Medication Date Date Medication? Clinician (SIG) Name Name furosemide furosemide No furosemide [facility] 20 mg 20 mg 20 mg da tablet TAKE tablet TAKE tablet [facility] 1 TABLET BY 1 TABLET BY TAKE 1 al MOUTH MOUTH TABLET BY Health EVERYDAY AT EVERYDAY AT MOUTH Outreac BEDTIME BEDTIME EVERYDAY h AT BEDTIME Program gabapentin gabapentin No gabapentin [facility] 400 mg 400 mg 400 mg da capsule capsule capsule [facility] gabapentin gabapentin No gabapentin [facility] 600 mg 600 mg 600 mg da tablet TAKE tablet TAKE tablet [facility] 1 TABLET 3 1 TABLET 3 TAKE 1 a l TIMES A DAY TIMES A DAY TABLET 3 Health BY ORAL BY ORAL TIMES A Outrea c ROUTE FOR ROUTE FOR DAY BY h 30 DAYS. 30 DAYS. ORAL ROUTE P rogram FOR 30 DAYS. glyburide 5 glyburide 5 No glyburide [facility] mg tablet mg tablet 5 mg da TAKE 1 TAKE 1 tablet [facility] TABLET BY TABLET BY TAKE 1 al MOUTH TWICE MOUTH TWICE TABLET BY Health A DAY A DAY MOUTH Outreac BEFORE BEFORE TWICE A h MEALS , NO MEALS , NO DAY BEFORE Program MEALS NO MEALS NO MEALS , NO TABLETS TABLETS MEALS NO TABLETS hydrochloro hydrochloro No hydrochlor [facility] thiazide thiazide othiazide da 12.5 mg 12.5 mg 12.5 mg [facility] tablet TAKE tablet TAKE tablet al 1 TABLET BY 1 TABLET BY TAKE 1 Health MOUTH EVERY MOUTH EVERY TABLET BY Outreac MORNING MORNING MOUTH h EVERY Program MORNING hydrochloro hydrochloro No hydrochlor [facility] thiazide 25 thiazide 25 othiazide da mg tablet mg tablet 25 mg [facility] copy coordinator TAKE 1 TAKE 1 tablet al TABLET TABLET TAKE 1 Health EVERY DAY EVERY DAY TABLET Out reac BY ORAL BY ORAL EVERY DAY h ROUTE FOR ROUTE FOR BY ORAL Pr ogram 30 DAYS. 30 DAYS. ROUTE FOR 30 DAYS. ibuprofen ibuprofen No ibuprofen [facility] 600 mg 600 mg 600 mg da tablet tablet tablet [facility] ibuprofen ibuprofen No ibuprofen [facility] 800 mg 800 mg 800 mg da tablet tablet tablet [facility] ketorolac ketorolac No ketorolac [facility] 10 mg 10 mg 10 mg da tablet tablet tablet [facility] Klor-Con 10 Klor-Con 10 No Klor-Con [facility] mEq mEq 10 mEq da tablet,exte tablet,exte tablet,ext [facility] nded nded ended al release release release Health Outreac [facility] Program loratadine loratadine No loratadine [facility] 10 mg 10 mg 10 mg da tablet TAKE tablet TAKE tablet [facility] 1 TABLET BY 1 TABLET BY TAKE 1 al MOUTH EVERY MOUTH EVERY TABLET BY Health DAY DAY MOUTH Outreac EVERY DAY h Program losartan losartan No losartan [facility] 100 mg 100 mg 100 mg da tablet TAKE tablet TAKE tablet [facility] 1 TABLET 1 TABLET TAKE 1 al EVERY DAY EVERY DAY TABLET Hea lth BY ORAL BY ORAL EVERY DAY Outr eac ROUTE FOR ROUTE FOR BY ORAL h 30 DAYS. 30 DAYS. ROUTE FOR Pr ogram 30 DAYS. losartan 25 losartan 25 No losartan [facility] mg tablet mg tablet 25 mg da TAKE 1 TAKE 1 tablet [facility] TABLET BY TABLET BY TAKE 1 al MOUTH EVERY MOUTH EVERY TABLET BY Health DAY DAY MOUTH Outreac EVERY DAY h Program losartan 50 losartan 50 No losartan [facility] mg tablet mg tablet 50 mg da TAKE 1 TAKE 1 tablet [facility] TABLET BY TABLET BY TAKE 1 al MOUTH EVERY MOUTH EVERY TABLET BY Health DAY DAY MOUTH Outreac EVERY DAY h Program metformin metformin No metformin [facility] 1,000 mg 1,000 mg 1,000 mg da tablet TAKE tablet TAKE tablet [facility] 1 TABLET BY 1 TABLET BY TAKE 1 al MOUTH TWICE MOUTH TWICE TABLET BY Health A DAY A DAY MOUTH Outreac TWICE A h DAY Program metformin metformin No metformin [facility] 500 mg 500 mg 500 mg da tablet TAKE tablet TAKE tablet [facility] 1 TABLET BY 1 TABLET BY TAKE 1 al MOUTH TWICE MOUTH TWICE TABLET BY Health A DAY A DAY MOUTH Outreac TWICE A h DAY Program methocarbam methocarbam No methocarba [facility] ol 750 mg ol 750 mg mol 750 mg da tablet tablet tablet [facility] methylpredn methylpredn No methylpred [facility] isolone 4 isolone 4 nisolone 4 da mg tablets mg tablets mg tablets [facility] in a dose in a dose in a dose al pack pack pack Health DIRECTED DIRECTED DIRECTED Out reac h Program metoclopram metoclopram No metoclopra [facility] tacho 10 mg tacho 10 mg mide 10 mg da tablet TAKE tablet TAKE tablet [facility] 1 TABLET 3 1 TABLET 3 TAKE 1 a l TIMES A DAY TIMES A DAY TABLET 3 Health BY ORAL BY ORAL TIMES A Outrea c ROUTE. ROUTE. DAY BY h ORAL Program ROUTE. metoprolol metoprolol No metoprolol [facility] tartrate 50 tartrate 50 tartrate da mg tablet mg tablet 50 mg [facility] copy coordinator tablet al Health Outreac h Program metronidazo metronidazo No metronidaz [facility] le 500 mg le 500 mg ole 500 mg da tablet tablet tablet [facility] montelukast montelukast No montelukas [facility] 10 mg 10 mg t 10 mg da tablet TAKE tablet TAKE tablet [facility] 1 TABLET BY 1 TABLET BY TAKE 1 al MOUTH EVERY MOUTH EVERY TABLET BY Health DAY IN THE DAY IN THE MOUTH Ou treac EVENING EVENING EVERY DAY h IN THE Program EVENING Myrbetriq Myrbetriq No Myrbetriq [facility] 50 mg 50 mg 50 mg da tablet,exte tablet,exte tablet,ext [facility] nded nded ended al release release release Health TAKE 1 TAKE 1 TAKE 1 Outreac TABLET BY TABLET BY TABLET BY h MOUTH EVERY MOUTH EVERY MOUTH Program DAY DAY EVERY DAY nitrofurant nitrofurant No nitrofuran [facility] oin oin toin da monohydrate monohydrate monohydrat [facility] /macrocryst /macrocryst e/macrocry al als 100 mg als 100 mg stals 100 Health capsule capsule mg capsule Out reac h Program nystatin nystatin No nystatin [facility] 100,000 100,000 100,000 da unit/gram unit/gram unit/gram [facility] topical topical topical al cream cream cream Health Outreac h Program omeprazole omeprazole No omeprazole [facility] 20 mg 20 mg 20 mg da capsule,del capsule,del capsule,de [facility] ayed ayed layed al release release release Health Outreac h Program omeprazole omeprazole No omeprazole [facility] 40 mg 40 mg 40 mg da capsule,del capsule,del capsule,de [facility] ayed ayed layed al release release release Health TAKE 1 TAKE 1 TAKE 1 Outreac CAPSULE BY CAPSULE BY CAPSULE BY h MOUTH EVERY MOUTH EVERY MOUTH Program DAY DAY EVERY DAY ondansetron ondansetron No ondansetro [facility] 4 mg 4 mg n 4 mg da disintegrat disintegrat disintegra [facility] ing tablet ing tablet ting al tablet Health Outreac h Program oxybutynin oxybutynin No oxybutynin [facility] chloride ER chloride ER chloride da 10 mg 10 mg ER 10 mg [facility] tablet,exte tablet,exte tablet,ext al nded nded ended Health release 24 release 24 release 24 Outreac hr TAKE 1 hr TAKE 1 hr TAKE 1 h TABLET BY TABLET BY TABLET BY Program MOUTH EVERY MOUTH EVERY MOUTH DAY DAY EVERY DAY oxybutynin oxybutynin No oxybutynin [facility] chloride ER chloride ER chloride da 5 mg 5 mg ER 5 mg [facility] tablet,exte tablet,exte tablet,ext al nded nded ended Health release 24 release 24 release 24 Outreac hr TAKE 1 hr TAKE 1 hr TAKE 1 h TABLET BY TABLET BY TABLET BY Program MOUTH TWICE MOUTH TWICE MOUTH DAILY DAILY TWICE DAILY promethazin promethazin No promethazi [facility] e 25 mg e 25 mg ne 25 mg da tablet TAKE tablet TAKE tablet [facility] 1 TABLET BY 1 TABLET BY TAKE 1 al MOUTH EVERY MOUTH EVERY TABLET BY Health 12 HOURS 12 HOURS MOUTH Outreac NEEDED NEEDED EVERY 12 h HOURS Program NEEDED promethazin promethazin No promethazi [facility] e 50 mg e 50 mg ne 50 mg da tablet TAKE tablet TAKE tablet [facility] 1 TABLET 1 TABLET TAKE 1 al EVERY 12 EVERY 12 TABLET Healt h HOURS BY HOURS BY EVERY 12 Out reac ORAL ROUTE ORAL ROUTE HOURS BY h NEEDED NEEDED ORAL ROUTE Program FOR 15 FOR 15 NEEDED DAYS. DAYS. FOR 15 DAYS. ropinirole ropinirole No ropinirole [facility] 0.5 mg 0.5 mg 0.5 mg da tablet TAKE tablet TAKE tablet [facility] 1 TABLET 1 TABLET TAKE 1 al TWICE A DAY TWICE A DAY TABLET Health BY ORAL BY ORAL TWICE A Outrea c ROUTE FOR ROUTE FOR DAY BY h 30 DAYS. 30 DAYS. ORAL ROUTE P rogram FOR 30 DAYS. sucralfate sucralfate No sucralfate [facility] 1 gram 1 gram 1 gram da tablet tablet tablet [facility] sucralfate sucralfate No sucralfate [facility] 100 mg/mL 100 mg/mL 100 mg/mL da oral oral oral [facility] suspension suspension suspension al Health Outreac h Program tizanidine tizanidine No tizanidine [facility] 4 mg tablet 4 mg tablet 4 mg d a TAKE 1 TAKE 1 tablet [facility] TABLET BY TABLET BY TAKE 1 al MOUTH EVERY MOUTH EVERY TABLET BY [facility] 6 HOURS 6 HOURS MOUTH Outreac EVERY 6 h HOURS Program tramadol tramadol No tramadol [facility] 37.5 37.5 37.5 da mg-acetamin mg-acetamin mg-acetami [facility] ophen 325 ophen 325 nophen 325 al mg tablet mg tablet mg tablet Health TAKE ONE TAKE ONE TAKE ONE Out reac TABLET BY TABLET BY TABLET BY h MOUTH EVERY MOUTH EVERY MOUTH Program FOUR HOURS FOUR HOURS EVERY FOUR NEEDED NEEDED HOURS FOR PAIN FOR PAIN NEEDED FOR PAIN tramadol 50 tramadol 50 No tramadol [facility] mg tablet mg tablet 50 mg da TAKE 1 TAKE 1 tablet [facility] TABLET BY TABLET BY TAKE 1 al MOUTH EVERY MOUTH EVERY TABLET BY [facility] 6 HOURS 6 HOURS MOUTH Outreac EVERY 6 h HOURS Program acetaminoph acetaminoph No acetaminop [facility] en 300 en 300 hen 300 da mg-codeine mg-codeine mg-codeine [facility] 30 mg 30 mg 30 mg al tablet tablet tablet Health Outreac h Program acetaminoph acetaminoph No acetaminop [facility] en 300 en 300 hen 300 da mg-codeine mg-codeine mg-codeine [facility] 60 mg 60 mg 60 mg al tablet TAKE tablet TAKE tablet Health 1 TABLET BY 1 TABLET BY TAKE 1 Outreac MOUTH EVERY MOUTH EVERY TABLET BY h 8 HOURS 8 HOURS MOUTH Pr ogram NEEDED FOR NEEDED FOR EVERY 8 30 DAYS 30 DAYS HOURS NEEDED FOR 30 DAYS acyclovir acyclovir No acyclovir [facility] 400 mg 400 mg 400 mg da tablet TAKE tablet TAKE tablet [facility] 1 TABLET BY 1 TABLET BY TAKE 1 al MOUTH 3 MOUTH 3 TABLET BY Heal th TIMES A DAY TIMES A DAY MOUTH 3 Outreac UNTIL UNTIL TIMES A h FINISHED FINISHED DAY UNTIL Pr ogram FINISHED alprazolam alprazolam No alprazolam [facility] 1 mg tablet 1 mg tablet 1 mg d a tablet [facility] alprazolam alprazolam No alprazolam [facility] 2 mg tablet 2 mg tablet 2 mg d a TAKE 1 TAKE 1 tablet [facility] TABLET 3 TABLET 3 TAKE 1 al TIMES A DAY TIMES A DAY TABLET 3 Health BY ORAL BY ORAL TIMES A Outrea c ROUTE FOR ROUTE FOR DAY BY h 30 DAYS. 30 DAYS. ORAL ROUTE P rogram FOR 30 DAYS. amoxicillin amoxicillin No amoxicilli [facility] 500 mg 500 mg n 500 mg da capsule capsule capsule [facility] amoxicillin amoxicillin No amoxicilli [facility] [phone] 875 da mg-potassiu mg-potassiu mg-potassi [facility] m m um al clavulanate clavulanate clavulanat Health 125 mg 125 mg e 125 mg Outreac tablet tablet tablet h Program azelastine azelastine No azelastine [facility] 0.05 % eye 0.05 % eye 0.05 % eye da drops drops drops [facility] INSTILL 1 INSTILL 1 INSTILL 1 al DROP INTO DROP INTO DROP INTO Health AFFECTED AFFECTED AFFECTED Out reac EYE TWICE A EYE TWICE A EYE TWICE h DAY DAY A DAY Program butalbital- butalbital- No butalbital [facility] acetaminoph acetaminoph -acetamino da en-caffeine en-caffeine phen-caffe [facility] 50 mg-300 50 mg-300 ine 50 al mg-40 mg mg-40 mg mg-300 Healt h capsule capsule mg-40 mg Outre ac capsule h Program butalbital- butalbital- No butalbital [facility] acetaminoph acetaminoph -acetamino da en-caffeine en-caffeine phen-caffe [facility] 50 mg-325 50 mg-325 ine 50 al mg-40 mg mg-40 mg mg-325 Healt h tablet TAKE tablet TAKE mg-40 mg Outreac 1 TABLET 3 1 TABLET 3 tablet h TIMES A DAY TIMES A DAY TAKE 1 Program BY ORAL BY ORAL TABLET 3 ROUTE ROUTE TIMES A NEEDED FOR NEEDED FOR DAY BY 30 DAYS. 30 DAYS. ORAL ROUTE NEEDED FOR 30 DAYS. cefuroxime cefuroxime No cefuroxime [facility] axetil 500 axetil 500 axetil 500 da mg tablet mg tablet mg tablet [facility] cephalexin cephalexin No cephalexin [facility] 500 mg 500 mg 500 mg da capsule capsule capsule [facility] Ciprodex Ciprodex No Ciprodex [facility] 0.3 %-0.1 % 0.3 %-0.1 % 0.3 %-0.1 da ear ear % ear [facility] drops,suspe drops,suspe drops,susp al nsion nsion ension Health INSTILL 4 INSTILL 4 INSTILL 4 Outreac DROPS INTO DROPS INTO DROPS INTO h AFFECTED AFFECTED AFFECTED Pro gram EAR TWICE A EAR TWICE A EAR TWICE DAY FOR 5 DAY FOR 5 A DAY FOR DAYS DAYS 5 DAYS clindamycin clindamycin No clindamyci [facility] HCl 150 mg HCl 150 mg n HCl 150 da capsule capsule mg capsule [facility] clindamycin clindamycin No clindamyci [facility] HCl 300 mg HCl 300 mg n HCl 300 da capsule TK capsule TK mg capsule [facility] 1 C PO Q 8 1 C PO Q 8 TK 1 C PO al H H Q 8 H Health Outreac h Program cromolyn 4 cromolyn 4 No cromolyn 4 [facility] % eye drops % eye drops % eye da INSTILL 1 INSTILL 1 drops [facility] copy coordinator DROP INTO DROP INTO INSTILL 1 al AFFECTED AFFECTED DROP INTO He alth EYE(S) 4 EYE(S) 4 AFFECTED Out reac TIMES A DAY TIMES A DAY EYE(S) 4 h TIMES A Program DAY Dexilant 60 Dexilant 60 No Dexilant [facility] mg capsule, mg capsule, 60 mg da delayed delayed capsule, [facility] release release delayed al TAKE 1 TAKE 1 release Health CAPSULE BY CAPSULE BY TAKE 1 O utreac MOUTH EVERY MOUTH EVERY CAPSULE BY h DAY DAY MOUTH Program EVERY DAY diclofenac diclofenac No diclofenac [facility] 1 % topical 1 % topical 1 % d a gel APPLY gel APPLY topical [facility] SMALL SMALL gel APPLY al AMOUNT TO AMOUNT TO SMALL Heal th AFFECTED AFFECTED AMOUNT TO Ou treac AREA TWICE AREA TWICE AFFECTED h A DAY A DAY AREA TWICE Program A DAY diphenoxyla diphenoxyla No diphenoxyl [facility] te-atropine te-atropine ate-atropi da 2.5 2.5 ne 2.5 [facility] mg-0.025 mg mg-0.025 mg mg-0.025 al tablet tablet mg tablet Health Outreac h Program xiga 10 Farxiga 10 No ga 10 [facility] mg tablet mg tablet mg tablet da TAKE 1 TAKE 1 TAKE 1 [facility] TABLET BY TABLET BY TABLET BY al MOUTH EVERY MOUTH EVERY MOUTH Health DAY DAY EVERY DAY Outreac h Program Procedures This patient has no known procedures. Encounters Start End Encounter Admission Attending Care Care Encounter Source Date/Time Date/Time Type Type Clinicians Facility Department ID 2020-07-29 2020-07-29 June [place] - [id number] [facility] 00:00:00 00:00:00 Bucky Chavez da Valeriy, Sabianist [facility] SLAG EXPANDER: 1700 HOP - JUSTIN Mccullough [facility] [id number] Progr am , Ph. ([phone]) --20072020-07-26 2020-07-26 June [place] - [id number] [facility] 00:00:00 00:00:00 Bucky Kelsey, Sabianist [facility] SLAG EXPANDER: 1700 HOP - [place] [address] Progr am , Ph. ([phone]) --20072020-07-19 2020-07-19 June [place] - [id number] M [facility] 00:00:00 00:00:00 Bucky Kelsey, Sabianist [facility] SLAG EXPANDER: 1700 GERARD[place] - JUSTIN [facility] [place] [phone] Progr am , Ph. ([phone]) --20072020-07-15 2020-07-15 June [place] - [id number] M [facility] 00:00:00 00:00:00 Bucky Chavez da Valeriy, Sabianist [facility] SLAG EXPANDER: 1700 HOP - JUSTIN [facility] [place] [address] Progr am , Ph. ([phone]) --20072020-07-122020-062020-07-12 June [place] - [id number] M [facility] 00:00:00 00:00:00 Lawlervanita VillanuevaMahaska da Valeriy, Sabianist [facility] SLAG EXPANDER: 1700 HOP - HOP al Cornejo [facility] [place] [phone] Progr am , Ph. ([phone]) --20072020-07-08 2020-07-08 June [place] - [id number] M [facility] 00:00:00 00:00:00 Bucky Villanuevaagorda da Valeriy, Sabianist [facility] SLAG EXPANDER: 1700 HOP - JUSTIN murdock Cornejo [facility] [place] [phone] Progr am , Ph. ([phone]) --20072020-07-05 2020-07-05 June [place] - [id number] M [facility] 00:00:00 00:00:00 Lawler Mahaska da Valeriy, Sabianist [facility] SLAG EXPANDER: 1700 HOP - HOP al Cornejo [facility] [place] [address] Progr am , Ph. ([phone]) --20072020-07-01 2020-07-01 June [place] - [id number] M [facility] 00:00:00 00:00:00 Bucky Chavez da Valeriy, Sabianist [facility] SLAG EXPANDER: 1700 GERARDO - JUSTIN Mccullough [facility] [place] [address] Progr am , Ph. ([phone]) --20072020-06-28 2020-06-28 June [place] - [id number] M [facility] 00:00:00 00:00:00 Lawler Mahaska da Valeriy, Sabianist [facility] SLAG EXPANDER: 1700 HOP - HOP mathieu Cornejo [facility] [place] [phone] Progr am , Ph. ([phone]) --20072020-06-21 2020-06-21 June [place] - [id number] M [facility] 00:00:00 00:00:00 Lawlervanita Glassrda da Vaelriy, Sabianist [facility] SLAG EXPANDER: 1700 HOP - MEHOP al Cornejo [facility] [place] [address] Progr am , Ph. ([phone]) -20072020-06-17 2020-06-17 June [place] - [id number] M [facility] 00:00:00 00:00:00 Bucky Glassrda da Valeriy, Sabianist [facility] SLAG EXPANDER: 1700 HOP - MEHOP al Cornejo [facility] [place] [address] Progr am , Ph. ([phone]) -20072020-06-14 2020-06-14 June [place] - [id number] M [facility] 00:00:00 00:00:00 Lawlervanita Glassrda da Valeriy, Sabianist [facility] SLAG EXPANDER: 1700 HOP - TXHOP pa Cornejo [facility] [place] [phone] Progr am , Ph. ([phone]) --20072020-06-10 2020-06-10 June [place] - [id number] M [facility] 00:00:00 00:00:00 Bucky Glassrda da Valeriy, Sabianist [facility] SLAG EXPANDER: 1700 HOP - JUSTIN pa Cornejo [facility] [place] [address] Progr am , Ph. ([phone]) -20072020-05-20 2020-05-20 June [place] - [id number] M [facility] 00:00:00 00:00:00 Bucky Glassrda da Valeriy, Sabianist [facility] SLAG EXPANDER: 1700 HOP - TXHOP pa Cornejo [facility] [place] [address] Progr am , Ph. ([phone]) -20072020-05-03 2020-05-03 June [place] - [id number] M [facility] 00:00:00 00:00:00 Lawler Mahaska da Valeriy, Sabianist [facility] SLAG EXPANDER: 1700 HOP - MEHOP al Cornejo [facility] [place] [address] Progr am , Ph. ([phone]) --20072020-04-19 2020-04-19 June [place] - [id number] M [facility] 00:00:00 00:00:00 Bucky Chavez da Valeriy, Sabianist [facility] SLAG EXPANDER: 1700 HOP - MEHOP al Cornejo [facility] [place] [address] Progr am , Ph. ([phone]) --20072020-04-12 2020-04-12 June [place] - [id number] M [facility] 00:00:00 00:00:00 Bucky Chavez da Valeriy, Sabianist [facility] SLAG EXPANDER: 1700 HOP - MEHOP al [facility] [address] Progr am , Ph. ([phone]) --20072020-04-05 2020-04-05 June [place] - [id number] M [facility] 00:00:00 00:00:00 Bucky Chavez da Valeriy, Sabianist [facility] SLAG EXPANDER: 1700 HOP - MEHOP al Cornejo [facility] [place] [address] Progr am , Ph. ([phone]) --20072020-03-29 2020-03-29 June [place] - [id number] M [facility] 00:00:00 00:00:00 Bucky Chavez da Valeriy, Sabianist [facility] SLAG EXPANDER: 1700 HOP - MEHOP al Cornejo [facility] [place] [phone] Progr am , Ph. ([phone]) -20072020-03-22 2020-03-22 June [place] - [id number] M [facility] 00:00:00 00:00:00 Bucky Chavez da Valeriy, Sabianist [facility] SLAG EXPANDER: 1700 HOP - MEHOP al Cornejo [facility] [address], [facility] [place] [phone] Progr am , Ph. ([phone]) -2020-03-15 2020-03-15 June [place] - [id number] M [facility] 00:00:00 00:00:00 Lawlervanita VillanuevaMahaska da Valeriy, Sabianist [facility] SLAG EXPANDER: 1700 HOP - HOP [facility] [phone] Progr am , Ph. ([phone]) --20072020-03-11 2020-03-11 June [place] - [id number] M [facility] 00:00:00 00:00:00 Lawler Mahaska da Valeriy, Sabianist [facility] SLAG EXPANDER: 1700 HOP - HOP [facility] B.[facility] [place] [address] Progr am , Ph. ([phone]) -20072020-02-09 2020-02-09 June [place] - [id number] M [facility] 00:00:00 00:00:00 Lawler Mahaska da Valeriy, Sabianist [facility] SLAG EXPANDER: 1700 HOP - TXHOP [facility] [phone] Progr am , Ph. ([phone]) 2020-01-08 2020-01-08 June [place] - [id number] M [facility] 00:00:00 00:00:00 Lawler Mahaska da Valeriy, Sabianist [facility] SLAG EXPANDER: 1700 HOP - TXHOP [facility] [place] [address] Progr am , Ph. ([phone]) 2019-10-24 2019-10-24 Emergency [facility] [id number] 19:10:00 21:01:00 Wilbur [place] [id number] [place] [id number] [place] [phone] [id number] Results This patient has no known results.
[2020-08-01 20:05] LABS: Absolute Lymphocytes (CBC) 1.4 K/uL (0.7-4.9); Basophils % 0.4 % (0-1.3); Hematocrit 38.8 % (36.0-45.0); Lymphocytes % 10.3 % (15.3-44.8); MPV 8.5 fL (7.6-11.3); RBC Red Blood Cell Count 4.73 M/uL (3.86-4.86)
[2020-08-01] MEDS ORDERED: NA CHLORIDE 0.9% 1,000 ML ONE (20:07)
[2020-08-01] MEDS ORDERED: ONDANSETRON 4 MG/2 ML VIAL ONE (20:07)
[2020-08-01] MEDS ORDERED: FAMOTIDINE 20 MG/2 ML VIAL IV ONE (20:07)
[2020-08-01] MEDS ORDERED: MORPHINE 4 MG/ML SYR ONE (20:07)
[2020-08-01 20:18] LABS: Protime INR 1.02
[2020-08-01 20:33] LABS: ALT/SGPT 36 U/L (12-78); AST/SGOT 15 U/L (15-37); Albumin 3.5 g/dL (3.4-5.0); Alkaline Phosphatase 214 U/L (45-117); BUN Blood Urea Nitrogen 33 mg/dL (7-18); Bicarbonate 27 mmol/L (21-32); Bilirubin Direct 0.1 mg/dL (0-0.2); Bilirubin Total 0.3 mg/dL (0.2-1.0); Glucose Level 147 mg/dL (74-106); Lipase 40 U/L (73-393); Magnesium 1.9 mg/dL (1.8-2.4); NT PRO-BNP 27 pg/mL (<125); Potassium 3.9 mmol/L (3.5-5.1); Protein, Total 8.1 g/dL (6.4-8.2); Sodium Level 141 mmol/L (136-145); Troponin (Emerg Dept Use Only) < 0.02 ng/mL (0.0-0.045)
[2020-08-01 20:43] LABS: Urine Blood Negative (Negative); Urine Glucose Negative (Negative); Urine Protein Trace (Negative); Urine pH 5.5 (5.0-7.0)
--- NOTE | 2020-08-01 21:01 | RAD REPORT ---
EXAM DESCRIPTION: Shari Single View08/01/2020 8:07 pm CLINICAL HISTORY: Abdominal pain COMPARISON: 2018 FINDINGS: The lungs appear clear of acute infiltrate. The heart is mildly enlarged IMPRESSION: No acute abnormalities displayed
--- NOTE | 2020-08-01 21:01 | RAD REPORT ---
EXAM DESCRIPTION: CT - Abdomen Pelvis W Contrast - 08/01/2020 8:47 pm CLINICAL HISTORY: Abdominal pain COMPARISON: none. TECHNIQUE: Computed axial tomography of the abdomen pelvis was obtained. 100 cc Isovue-300 was admin istered intravenously. Oral contrast was not requested which limits evaluation of bowel. All CT scans are performed using dose optimization technique as appropriate and may include automated exposure control or mA/KV adjustment according to patient size. FINDINGS: The liver, spleen, adrenal and kidneys appear unremarkable. The pancreas is atrophic There is no evidence of diverticulitis. No adnexal mass. A small umbilical hernia. Postsurgical changes involving L5. Vacuum phenomena present IMPRESSION: No acute abnormality is displayed.
--- NOTE | 2020-08-01 21:10 | ER ---
Nurse's Notes [facility] Name: Deanna Guevara Age: 50 yrs Sex: Female : 1970 Arrival Date: 08/01/2020 Time: 18:50 Bed 8 Private MD: Diagnosis: Abdominal tenderness;Functional dyspepsia;Obesity, unspecified Presentation: 08/01 18:59 Chief complaint: Patient states: about 2 hours ago i woke up and i was in the bathroom tw2 and my stomach started hurting, i went to the bathroon and threw up, i have chills, i took my temperature and it was 98.9. Coronavirus screen: nausea, Client presents with at least one sign or symptom that may indicate coronavirus-19. Standard/surgical mask placed on the client. Provider contacted for isolation considerations. Ebola Screen: Patient denies travel to an Ebola-affected area in the 21 days before illness onset. Initial Sepsis Screen: Does the patient meet any 2 criteria? No. Patient's initial sepsis screen is negative. Does the patient have a suspected source of infection? No. Patient's initial sepsis screen is negative. Risk Assessment: Do you want to hurt yourself or someone else? Patient reports no desire to harm self or others. Onset of symptoms was August 01, 2020. 18:59 Method Of Arrival: Wheelchair tw2 18:59 Acuity: STEPH 3 tw2 Triage Assessment: 19:05 General: Appears obese, Behavior is calm, cooperative, appropriate for age. Pain: tw2 Complains of pain in abdomen. GI: Reports lower abdominal pain, upper abdominal pain, nausea, vomiting. 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 - Social history:: Smoking status: . - Family history:: not pertinent. Screenin:03 Abuse screen: Denies threats or abuse. Denies injuries from another. Nutritional rr5 screening: No deficits noted. Tuberculosis screening: No symptoms or risk factors identified. Fall Risk IV access (20 points). Total Conner Fall Scale indicates No Risk (0-24 pts). Assessment: 20:00 General: Appears in no apparent distress. uncomfortable, Behavior is calm, cooperative, rr5 appropriate for age. Pain: Complains of pain in abdomen Pain radiates to back Pain currently is 8 out of 10 on a pain scale. Quality of pain is described as aching, Pain began gradually, Is intermittent. Neuro: Level of Consciousness is awake, alert, Oriented to person, place, time. Cardiovascular: Capillary refill < 3 seconds Patient's skin is warm and dry. Respiratory: Airway is patent Respiratory effort is even, unlabored, Respiratory pattern is regular, symmetrical. GI: Abdomen is round obese, Abd is soft Reports lower abdominal pain, upper abdominal pain, nausea, vomiting. 20:00 : No signs and/or symptoms were reported regarding the genitourinary system. EENT: No rr5 signs and/or symptoms were reported regarding the EENT system. Derm: Skin is intact, is healthy with good turgor, Skin temperature is warm. Musculoskeletal: Capillary refill < 3 seconds. 20:34 Reassessment: assisted patient to restroom VIA wheelchair to obtain urine specimen. ss 20:40 Reassessment: Patient appears in no apparent distress at this time. Patient is alert, rr5 oriented x 3, equal unlabored respirations, skin warm/dry/pink. went to CT scan assisted by CT staff via wheelchair. 20:54 Reassessment: BAck from CT. General:. ss 21:25 Reassessment: Patient appears in no apparent distress at this time. Patient is alert, rr5 oriented x 3, equal unlabored respirations, skin warm/dry/pink. discharge instruction given and explained without complaints made Patient states symptoms have improved. Vital Signs: 18:59 BP 158 / 56; Pulse 84; Resp 17; Temp 98.5(TE); Pulse Ox 99% on R/A; Weight 174.63 kg tw2 (R); Height 5 ft. 7 in. (170.18 cm) (R); Pain 9/10; 20:06 BP 147 / 89; Pulse 80; Resp 16; Pulse Ox 98% ; rr5 20:39 Weight 191.87 kg; rr5 21:12 BP 128 / 54; Pulse 106; Resp 18; Pulse Ox 98% on R/A; ss 20:39 Body Mass Index 66.25 (191.87 kg, 170.18 cm) rr5 ED Course: 18:50 Patient arrived in ED. mr 19:01 Triage completed. tw2 19:04 Arm band placed on. tw2 19:21 Narendra Higginbotham, YOHANA is Primary Nurse. rr5 19:23 Markos Duffy MD is Attending Physician. candelario 19:35 Patient has correct armband on for positive identification. Bed in low position. Call rr5 light in reach. Side rails up X2. Pulse ox on. NIBP on. 19:49 Inserted saline lock: 20 gauge in right wrist, using aseptic technique. Blood collected.rr5 20:03 EKG done, by ED staff, reviewed by Markos Duffy MD. rr5 20:07 XRAY Chest (1 view) In Process Unspecified. EDMS 20:40 Urine collected: clean catch specimen, clear. rr5 20:46 CT Abd/Pelvis - IV Contrast Only In Process Unspecified. EDMS 21:09 Junior Gauthier MD is Referral Physician. candelario 21:24 No provider procedures requiring assistance completed. IV discontinued, intact, rr5 bleeding controlled, No redness/swelling at site. Pressure dressing applied. Administered Medications: 19:50 Drug: NS 0.9% 1000 ml Route: IV; Rate: 1 bolus; Site: right wrist; rr5 20:50 Follow up: Response: No adverse reaction; IV Status: Completed infusion; IV Intake: rr5 1000ml 19:50 Drug: Zofran (Ondansetron) 4 mg Route: IVP; Site: right wrist; rr5 20:50 Follow up: Response: No adverse reaction rr5 19:53 Drug: Pepcid (famotidine) 20 mg Route: IVP; Site: right wrist; rr5 20:55 Follow up: Response: No adverse reaction rr5 19:55 Drug: morphine 4 mg {Note: rass 0.} Route: IVP; Site: right wrist; rr5 20:55 Follow up: Response: No adverse reaction rr5 20:55 Follow up: Response: RASS: Alert and Calm (0) rr5 Intake: 20:50 IV: 1000ml; Total: 1000ml. rr5 Outcome: 21:09 Discharge ordered by . candelario 21:24 Discharged to home via wheelchair, with friend. rr5 21:24 Condition: stable 21:24 Discharge instructions given to patient, Instructed on discharge instructions, follow up and referral plans. medication usage, Demonstrated understanding of instructions, follow-up care, medications, Prescriptions given X 2. 21:27 Patient left the ED. rr5 Signatures: Dispatcher [employer] EDMS Markos Duffy MD MD cha Rivera, Therese Thornton, RN RN Anitra Harris RN RN tw2 Narendra Higginbotham RN RN rr5
--- NOTE | 2020-08-01 21:10 | EDPHYS ---
Physician Documentation [facility] Name: Deanna Guevara Age: 50 yrs Sex: Female : 1970 Arrival Date: 08/01/2020 Time: 18:50 Bed 8 Private MD: GLORIA Physician Markos Duffy HPI: 08/01 21:02 This 50 yrs old Female presents to ER via Wheelchair with complaints of candelario Abdominal Pain. 21:02 The patient presents with abdominal pain abdominal distention in the upper abdomen, in candelario the lower abdomen. Onset: The symptoms/episode began/occurred today. The symptoms radiate to right back. Associated signs and symptoms: none. The symptoms are described as sharp. Modifying factors: The symptoms are alleviated by nothing, the symptoms are aggravated by nothing. Severity of pain: At its worst the pain was mild moderate in the emergency department the pain is unchanged. The patient has experienced similar episodes in the past, a few times. 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 - Social history:: Smoking status: . - Family history:: not pertinent. ROS: 21:02 Constitutional: Negative for fever, chills, and weight loss, Eyes: Negative for injury, candelario pain, redness, and discharge, ENT: Negative for injury, pain, and discharge, Neck: Negative for injury, pain, and swelling, Cardiovascular: Negative for chest pain, palpitations, and edema, Respiratory: Negative for shortness of breath, cough, wheezing, and pleuritic chest pain, Back: Negative for injury and pain, : Negative for injury, bleeding, discharge, and swelling, MS/Extremity: Negative for injury and deformity, Skin: Negative for injury, rash, and discoloration, Neuro: Negative for headache, weakness, numbness, tingling, and seizure, Psych: Negative for depression, anxiety, suicide ideation, homicidal ideation, and hallucinations, Allergy/Immunology: Negative for hives, rash, and allergies, Endocrine: Negative for neck swelling, polydipsia, polyuria, polyphagia, and marked weight changes, Hematologic/Lymphatic: Negative for swollen nodes, abnormal bleeding, and unusual bruising. 21:02 Abdomen/GI: Positive for abdominal pain, of the posterior aspect of right lateral abdomen, anterior aspect of right lateral abdomen, right upper quadrant and right lower quadrant. Exam: 21:02 Constitutional: This is a well developed, well nourished patient who is awake, alert, candelario and in no acute distress. Head/Face: Normocephalic, atraumatic. Eyes: Pupils equal round and reactive to light, extra-ocular motions intact. Lids and lashes normal. Conjunctiva and sclera are non-icteric and not injected. Cornea within normal limits. Periorbital areas with no swelling, redness, or edema. ENT: Nares patent. No nasal discharge, no septal abnormalities noted. Tympanic membranes are normal and external auditory canals are clear. Oropharynx with no redness, swelling, or masses, exudates, or evidence of obstruction, uvula midline. Mucous membranes moist. Neck: Trachea midline, no thyromegaly or masses palpated, and no cervical lymphadenopathy. Supple, full range of motion without nuchal rigidity, or vertebral point tenderness. No Meningismus. Chest/axilla: Normal chest wall appearance and motion. Nontender with no deformity. No lesions are appreciated. Cardiovascular: Regular rate and rhythm with a normal S1 and S2. No gallops, murmurs, or rubs. Normal PMI, no JVD. No pulse deficits. Respiratory: Lungs have equal breath sounds bilaterally, clear to auscultation and percussion. No rales, rhonchi or wheezes noted. No increased work of breathing, no retractions or nasal flaring. Back: No spinal tenderness. No costovertebral tenderness. Full range of motion. Skin: Warm, dry with normal turgor. Normal color with no rashes, no lesions, and no evidence of cellulitis. MS/ Extremity: Pulses equal, no cyanosis. Neurovascular intact. Full, normal range of motion. Neuro: Awake and alert, GCS 15, oriented to person, place, time, and situation. Cranial nerves II-XII grossly intact. Motor strength 5/5 in all extremities. Sensory grossly intact. Cerebellar exam normal. Normal gait. Psych: Awake, alert, with orientation to person, place and time. Behavior, mood, and affect are within normal limits. 21:02 Abdomen/GI: Inspection: distension, that is moderate, Bowel sounds: active, Palpation: mild abdominal tenderness, in the epigastric area, posterior aspect of right lateral abdomen, anterior aspect of right lateral abdomen, right upper quadrant and left upper quadrant. 21:10 ECG was reviewed by the Attending Physician. [facility] Vital Signs: 18:59 BP 158 / 56; Pulse 84; Resp 17; Temp 98.5(TE); Pulse Ox 99% on R/A; Weight 174.63 kg tw2 (R); Height 5 ft. 7 in. (170.18 cm) (R); Pain 9/10; 20:06 BP 147 / 89; Pulse 80; Resp 16; Pulse Ox 98% ; rr5 20:39 Weight 191.87 kg; rr5 21:12 BP 128 / 54; Pulse 106; Resp 18; Pulse Ox 98% on R/A; ss 20:39 Body Mass Index 66.25 (191.87 kg, 170.18 cm) rr5 MDM: 19:23 Patient medically screened. candelario 21:05 Differential diagnosis: bowel obstruction, cholecystitis, Cholelithiasis, candelario diverticulitis, gastritis, gastroesophageal reflux disease, Hepatitis, Irritable bowel syndrome, non-specific abd pain, Pyelonephritis. Data reviewed: vital signs, nurses notes, lab test result(s), EKG, radiologic studies, CT scan, plain films. 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 Test interpretation: by ED physician or midlevel provider: ECG, plain radiologic studies. Counseling: I had a detailed discussion with the patient and/or guardian regarding: the historical points, exam findings, and any diagnostic results supporting the discharge/admit diagnosis, lab results, radiology results. 08/01 19:33 Order name: Basic Metabolic Panel; Complete Time: 20:54 [facility] 08/01 19:33 Order name: CBC with Diff; Complete Time: 20:54 [facility] 08/01 19:33 Order name: Hepatic Function; Complete Time: 20:54 [facility] 08/01 19:33 Order name: Lipase; Complete Time: 20:54 [facility] 08/01 19:33 Order name: Basic Metabolic Panel [facility] 08/01 19:33 Order name: CBC with Diff [facility] 08/01 19:33 Order name: LFT's [facility] 08/01 19:33 Order name: Magnesium; Complete Time: 20:54 [facility] 08/01 19:33 Order name: NT PRO-BNP; Complete Time: 20:54 [facility] 08/01 19:33 Order name: PT-INR; Complete Time: 20:54 [facility] 08/01 19:33 Order name: Troponin (emerg Dept Use Only); Complete Time: 20:54 [facility] 08/01 19:33 Order name: Urine Culture [facility] 08/01 19:33 Order name: IV Saline Lock; Complete Time: 20:04 [facility] 08/01 19:33 Order name: Labs collected and sent; Complete Time: 20:04 [facility] 08/01 19:33 Order name: XRAY Chest (1 view); Complete Time: 21:07 [facility] 08/01 19:33 Order name: EKG; Complete Time: 19:34 [facility] 08/01 19:33 Order name: Cardiac monitoring; Complete Time: 20:02 [facility] 08/01 19:33 Order name: EKG - Nurse/Tech; Complete Time: 20:02 [facility] 08/01 19:33 Order name: IV Saline Lock; Complete Time: 20:02 [facility] 08/01 19:33 Order name: Labs collected and sent; Complete Time: 20:02 [facility] 08/01 19:33 Order name: CT Abd/Pelvis - IV Contrast Only; Complete Time: 21:07 [facility] 08/01 20:43 Order name: Urine Dipstick-Ancillary; Complete Time: 20:54 [facility] 08/01 19:33 Order name: O2 Per Protocol; Complete Time: 20:02 [facility] 08/01 19:33 Order name: O2 Sat Monitoring; Complete Time: 20:02 [facility] 08/01 19:33 Order name: Urine Dipstick-Ancillary (obtain specimen); Complete Time: 20:39 [facility] EC:10 Rate is 110 beats/min. Rhythm is regular. QRS [place] is Normal. CA interval is normal. candelario QRS interval is normal. QT interval is normal. No Q waves. T waves are Normal. No ST changes noted. Clinical impression: Sinus tachycardia and No evidence of ischemia. Interpreted by me. Reviewed by me. Administered Medications: 19:50 Drug: NS 0.9% 1000 ml Route: IV; Rate: 1 bolus; Site: right wrist; rr5 20:50 Follow up: Response: No adverse reaction; IV Status: Completed infusion; IV Intake: rr5 1000ml 19:50 Drug: Zofran (Ondansetron) 4 mg Route: IVP; Site: right wrist; rr5 20:50 Follow up: Response: No adverse reaction rr5 19:53 Drug: Pepcid (famotidine) 20 mg Route: IVP; Site: right wrist; rr5 20:55 Follow up: Response: No adverse reaction rr5 19:55 Drug: morphine 4 mg {Note: rass 0.} Route: IVP; Site: right wrist; rr5 20:55 Follow up: Response: No adverse reaction rr5 20:55 Follow up: Response: RASS: Alert and Calm (0) rr5 Disposition: 08/01/20 21:09 Discharged to Home. Impression: Abdominal tenderness, Functional dyspepsia, Obesity, unspecified. - Condition is Stable. - Discharge Instructions: Abdominal Pain, Adult, Obesity, Adult, Abdominal Pain, Adult, [id number]. - Prescriptions for Bentyl 20 mg Oral Tablet - take 1 tablet by ORAL route every 6 hours As needed; 20 tablet. Pepcid 20 mg Oral Tablet - take 1 tablet by ORAL route every 12 hours for 10 days; 20 tablet. Zofran 4 mg Oral Tablet - take 1 tablet by ORAL route every 12 hours As needed; 20 tablet. - Medication Reconciliation Form, Thank You Letter, Antibiotic Education, Prescription Opioid Use form. - Follow up: Private Physician; When: 2 - 3 days; Reason: Recheck today's complaints, Continuance of care, Re-evaluation by your physician. Follow up: Jnuior Gauthier MD; When: 2 - 3 days; Reason: Recheck today's complaints, Re-evaluation by your physician. - Problem is new. - Symptoms have improved. Signatures: Dispatcher [employer] EDMarkos Winkler MD MD cha Wise, Tara RN RN tw2 Narendra Higginbotham, RN RN rr5 Corrections: (The following items were deleted from the chart) 19:34 19:33 Basic Metabolic Panel ordered. [facility] 19:34 19:33 CBC with Automated Diff ordered. [facility] 19:34 19:33 Liver (Hepatic) Function ordered. [facility] 19:34 19:33 LIPASE+C.LAB.BRZ ordered. [facility] 21:27 21:09 08/01/2020 21:09 Discharged to Home. Impression: Abdominal tenderness; Functional rr5 dyspepsia; Obesity, unspecified. Condition is Stable. Forms are Medication Reconciliation Form, Thank You Letter, Antibiotic Education, Prescription Opioid Use. Follow up: Private Physician; When: 2 - 3 days; Reason: Recheck today's complaints, Continuance of care, Re-evaluation by your physician. Follow up: Junior Gauthier; When: 2 - 3 days; Reason: Recheck today's complaints, Re-evaluation by your physician. Problem is new. Symptoms have improved. candelario
[2020-08-01 21:37] VITALS: TEMP 98.5
[2020-08-01 21:39] VITALS: O2SAT 98
[2020-08-01 21:41] VITALS: BP 128/54
== END 2020-08-01 21:27 | disposition home or self-care (01) ==
LOC: ER 18:46
DX: K30 Functional dyspepsia (principal); E66.9 Obesity, unspecified; I10 Essential (primary) hypertension; E11.9 Type 2 diabetes mellitus without complications
CPT/HCPCS: 96361; 93005; 87088; 85025; 87086; 80048; 36415; 83735; 85610; 80076; 81003; 84484; 83690; 83880; 74177; 71045; 96375; 96374; 99284; Q9967; J7030; J2405

== ENCOUNTER 2020-09-01 22:10 | Emergency (ER) | payer OTHER ==
--- OUTSIDE RECORDS SUMMARY | 2020-09-01 22:13 | XMS REPORT | Continuity of Care Document ---
:1970 Author Organization [facility] t Address [address] [place] [address] Support Name Relationship Address Phone Jaye Mother [address] [facility], [facility] [address] [phone] [place] [address] ISMAEL LAGUERRE, E Emergency Provider [address] [facility] [address] [place] [address] DUPREE Primary Care Physician [address] [facility] [address] [place] [address] JAYE Next of Kin [address] [place] [address] DUPREE Primary Care Physician 201 [facility] [address] [place] [address] RHETT LAGUERRE, O Emergency Provider [address] [place] [address] MAKENNA LAGUERRE MD A Emergency Provider [address] [facility] [place] [address] Robles ESCALERA Emergency Provider [address] [place] [address] MAYRA NEGRETE Primary Care Physician [address] [facility] [address] [place] [address] KRISTIAN LAGUERRE, L Emergency Provider [address] [facility] [place] [address] DUPREE Primary Care Physician [address] [facility] [place] [address] MD CARMINA S Emergency Provider [address] [place] [address] MD RIANA G Primary Care Physician [address] [phone] [place] [address] MD MATTHEW Emergency Provider Unavailable Unavailable MD KRISTIAN L Emergency Provider [address] [place] [address] MD AIDEN Emergency Provider [address] WANDA [email or web address] [address] MD ANITA Emergency Provider [address] [place] [address] MONISHA DUFFY MD E Admitting Provider [address] [place] [address] MD Robles MIKE Emergency Provider [facility] [place] [address] [facility] Unavailable [address] [place] [address] Care Team Providers Name Role Phone Cesar [...] Date Date Medication? Clinician (SIG) Name Name acetaminoph acetaminoph No acetaminop [place] en 300 [...] ORAL ROUTE P rogram FOR 30 DAYS. amitriptyli amitriptyli No amitriptyl [place] ne 25 mg ne 25 mg ine 25 mg da tablet TAKE tablet TAKE tablet [facility] 1 TABLET BY 1 TABLET BY TAKE 1 al MOUTH EVERY MOUTH EVERY TABLET BY Health DAY DAY MOUTH [facility] EVERY DAY h Program amoxicillin amoxicillin No amoxicilli [place] 500 mg [...] TWICE h DAY DAY A DAY Program azithromyci azithromyci No azithromyc [place] n 250 mg n 250 mg in 250 mg da tablet tablet tablet [facility] Program bromphenira bromphenira No bromphenir [place] mine-pseudo mine-pseudo amine-pseu da ephedrine-D ephedrine-D doephedrin [facility] M 2 mg-30 M 2 mg-30 e-DM 2 al mg-10 mg/5 mg-10 mg/5 mg-30 He alth mL oral mL oral mg-10 mg/5 Out reac syrup syrup mL oral h syrup Program butalbital- butalbital- No butalbital [place] acetaminoph [...] da INSTILL 1 INSTILL 1 drops 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 1 al [...] A DAY AREA TWICE Program A DAY dicyclomine dicyclomine No dicyclomin [place] 20 mg 20 mg e 20 mg da tablet tablet tablet [facility] diphenoxyla diphenoxyla No diphenoxyl [place] te-atropine te-atropine ate-atropi da 2.5 2.5 ne 2.5 [facility] mg-0.025 mg mg-0.025 mg mg-0.025 al tablet tablet mg tablet Health Outreac h Program doxycycline doxycycline No doxycyclin [place] hyclate 100 hyclate 100 e hyclate da mg capsule mg capsule 100 mg E piscop capsule al Health Outreac h Program Farxiga 10 Farxiga 10 No Farxiga 10 [place] mg tablet mg tablet mg tablet da TAKE 1 TAKE 1 TAKE 1 [facility] TABLET BY TABLET BY TABLET BY al MOUTH EVERY MOUTH EVERY MOUTH Health DAY DAY EVERY DAY Outreac h Program furosemide furosemide No furosemide [place] 20 mg [...] DAY TIMES A DAY MOUTH 3 Outre[facility] FOR 30 DAYS FOR 30 DAYS TIMES A h DAY FOR 30 Program DAYS glyburide 5 glyburide 5 No glyburide [place] [...] mg tablet mg tablet 25 mg Ep[facility] 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 30 DAYS. ROUTE FOR 30 DAYS. 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 tablet al Health Outre[facility] h Program metronidazo metronidazo No metronidaz [place] le 500 mg le 500 mg ole 500 mg da tablet tablet tablet [facility] Program minocycline minocycline No minocyclin [place] 100 mg 100 mg e 100 mg da capsule capsule capsule [facility] p al Health Outre[facility] h Program montelukast montelukast [...] EVERY MOUTH Program DAY DAY EVERY DAY neomycin neomycin No neomycin [facility] 3.5 3.5 3.5 da mg/g-polymy mg/g-polymy mg/g-polym [facility] winston B winston B yxin B al 10,000 10,000 10,000 Health unit/g-dexa unit/g-dexa unit/g-dex Outre[facility] meth 0.1 % meth 0.1 % ameth 0.1 h eye oint eye oint % eye oint P rogram nitrofurant nitrofurant No nitrofuran [place] oin oin [...] al MOUTH EVERY MOUTH EVERY TABLET BY [facility] 12 HOURS 12 HOURS MOUTH Outre[facility] NEEDED [...] suspension suspension al Health Outre[facility] h Program sulfamethox sulfamethox No sulfametho [place] azole 800 azole 800 xazole 800 da mg-trimetho mg-trimetho mg-trimeth [facility] prim 160 mg prim 160 mg oprim 160 al tablet tablet mg tablet Health Outreac h Program tizanidine tizanidine No tizanidine [place] 4 mg tablet 4 mg tablet 4 mg d a TAKE 1 TAKE 1 tablet [facility] TABLET BY TABLET BY TAKE 1 al MOUTH EVERY MOUTH EVERY TABLET BY [facility] 6 HOURS 6 HOURS MOUTH Outre[facility] [...] MOUTH EVERY MOUTH EVERY TABLET BY Health 6 HOURS 6 HOURS MOUTH Out[facility] EVERY 6 h HOURS Program Procedures This patient has no known procedures. Encounters Start End Encounter Admission Attending Care Care Encounter Source Date/Time Date/Time Type Type Clinicians Facility Department ID 2020-08-28 2020-08-28 June [place] - [id number] [facility] 00:00:00 00:00:00 Bucky Kelsey, [facility] ECD: [address] [place] [address] Progr am , Ph. ([phone]) --20072020-08-19 2020-08-19 June [place] - [id number] [facility] 00:00:00 00:00:00 Bucky Kelsey, [facility] ECD: [address] [place] [address] Progr am , Ph. ([phone]) --20072020-08-16 2020-08-16 June [place] - [id number] [facility] 00:00:00 00:00:00 Bucky Kelsey, [facility] ECD: [address] [place] [address] Progr am , Ph. ([phone]) --20072020-08-12 2020-08-12 June [place] - [id number] [facility] 00:00:00 00:00:00 Bucky Glassrda da Valeriy, [facility] ECD: 1700 HOP - [facility]HOP [facility] [place] [address] Progr am , Ph. ([phone]) --20072020-08-09 2020-08-09 June [place] - [id number] M at[facility]or 00:00:00 00:00:00 Bucky Glassrda da Valeriy, [facility] ECD: 1700 HOP - [facility] [place] [place] [address] Progr am , Ph. ([phone]) --20072020-08-05 2020-08-05 June [place] - [id number] M [facility] 00:00:00 00:00:00 Bucky Glassrda da Valeriy, [facility] ECD: 1700 HOP - [facility] [place] [place] [address] Progr am , Ph. ([phone]) --20072020-08-02 2020-08-02 June [place] - [id number] M [place] 00:00:00 00:00:00 Bucky Wana da Valeriy, [facility] ECD: 1700 HOP - MEHOP [place] [facility] [place] [place] [address] Progr am , Ph. ([phone]) --20072020-07-29 2020-07-29 June [place] - [id number] M [facility] 00:00:00 00:00:00 Bucky Glassrda da Valeriy, [facility] ECD: 1700 HOP - [facility]HOP [facility] [place] [place] [address] Progr am , Ph. ([phone]) --20072020-07-26 2020-07-26 [place] - [id number] M [facility] 00:00:00 00:00:00 Lawlervanita Glassrda da Valeriy, [facility] ECD: 1700 HOP - [facility]HOP [place] [facility] [facility] [place] [address] Progr am , Ph. ([phone]) --20072020-07-19 2020-07-19 June [place] - [id number] M [facility] 00:00:00 00:00:00 Bucky Wana da Valeriy, [facility] ECD: 1700 HOP - MEHOP [place] [facility] [place] [address] Progr am , Ph. ([phone]) --20072020-07-15 2020-07-15 June [place] - [id number] M at[place] 00:00:00 00:00:00 Bucky Wana da Valeriy, [facility] ECD: 1700 [facility] - [facility] [address] Progr am , Ph. ([phone]) --20072020-07-12 2020-07-12 June [place] - [id number] M [facility] 00:00:00 00:00:00 Bucky Chavez da Valeriy, [facility] ECD: 1700 HOP - [facility]HOP al [facility] [address] Progr am , Ph. ([phone]) --20072020-07-08 2020-07-08 June [place] - [id number] M at[facility]or 00:00:00 00:00:00 Bucky Chavez da Valeriy, [facility] ECD: 1700 HOP - MEHOP [place] [facility] [place] [address] Progr am , Ph. ([phone]) --20072020-07-05 2020-07-05 June [place] - [id number] M at[place]or 00:00:00 00:00:00 Bucky Wana da Valeriy, [facility] ECD: 1700 HOP - MEHOP [place] [facility] [place] [address] Progr am , Ph. ([phone]) --20072020-07-01 2020-07-01 June [place] - [id number] M [facility] 00:00:00 00:00:00 Bucky Glassrda da Valeriy, [facility] ECD: 1700 HOP - MEHOP al [facility] [place] [place] [address] Progr am , Ph. ([phone]) --20072020-06-28 2020-06-28 June [place] - [id number] M [facility] 00:00:00 00:00:00 Bucky Glassrda da Valeriy, [facility] ECD: 1700 HOP - MEHOP [place] [facility] [place] [address] Progr am , Ph. ([phone]) --20072020-06-21 2020-06-21 [place] - [id number] M [facility] 00:00:00 00:00:00 Bucky Glassrda da Valeriy, [facility] ECD: 1700 HOP - MEHOP al [facility] [place] [place] [address] Progr am , Ph. ([phone]) -20072020-06-17 2020-06-17 June [place] - [id number] M [facility] 00:00:00 00:00:00 Bucky Villanuevaagorda da Valeriy, [facility] ECD: 1700 HOP - MEHOP [place] [facility] [place] [address] Progr am , Ph. ([phone]) --20072020-06-14 2020-06-14 June [place] - [id number] M [facility] 00:00:00 00:00:00 Bucky Glassrda da Valeriy, [facility] ECD: 1700 HOP - MEHOP al [facility] [place] [place] [address] Progr am , Ph. ([phone]) --20072020-06-10 2020-06-10 June [place] - [id number] M at[place] 00:00:00 00:00:00 Lawler Eaton da Valeriy, [facility] ECD: 1700 HOP - MEHOP al [facility] [place] [place] [address] Progr am , Ph. ([phone]) --20072020-05-20 2020-05-20 June [place] - [id number] M [facility] 00:00:00 00:00:00 Lawler Eaton da Valeriy, [facility] ECD: 1700 HOP - [facility] [address] Progr am , Ph. ([phone]) --20072020-05-03 2020-05-03 June [place] - [id number] M [facility] 00:00:00 00:00:00 Lawler Eaton da Valeriy, [facility] ECD: 1700 HOP - MEHOP al [facility] [place] [place] [address] Progr am , Ph. ([phone]) --20072020-04-19 2020-04-19 June [place] - [id number] M [facility] 00:00:00 00:00:00 Bucky Chavez da Valeriy, [facility] ECD: 1700 HOP - MEHOP al [facility] [place] [address] Progr am , Ph. ([phone]) --20072020-04-12 2020-04-12 June [place] - [id number] M [facility] 00:00:00 00:00:00 Lawler Eaton da Valeriy, [facility] ECD: 1700 HOP - MEHOP al [facility] [facility] [place] [place] [address] Progr am , Ph. ([phone]) --20072020-04-05 2020-04-05 June [place] - [id number] M [facility] 00:00:00 00:00:00 Bucky Villanuevaagorda da Valeriy, [facility] ECD: 1700 HOP - MEHOP al [facility] [facility] [place] [address] Progr am , Ph. ([phone]) --20072020-03-29 2020-03-29 June [place] - [id number] M [facility] 00:00:00 00:00:00 Bucyk Glassrda da Valeriy, [facility] ECD: 1700 HOP - MEHOP al [facility] [facility] [place] [address] Progr am , Ph. ([phone]) --20072020-03-22 2020-03-22 [place] - [id number] M [facility] 00:00:00 00:00:00 Lawler Eaton da Valeriy, [facility] ECD: 1700 HOP - UTHOP [place] [facility] [address] Progr am , Ph. ([phone]) --20072020-03-15 2020-03-15 June [place] - [id number] M [facility] 00:00:00 00:00:00 Bucky Glassrda da Valeriy, [facility] p ECD: 1700 HOP - U[facility]OP [facility] [address] Progr am , Ph. ([phone]) -20072020-03-11 2020-03-11 June [place] - [id number] M [facility] 00:00:00 00:00:00 Lawler Eaton da Valeriy, [facility] ECD: 1700 HOP - MEHOP al [facility] [place] [place] [address] Progr am , Ph. ([phone]) -20072020-02-09 2020-02-09 June [place] - [id number] M [facility] 00:00:00 00:00:00 Bucky Kelsey, [facility] [address] [facility] [address] Yolanda ognzalez , Ph. ([phone]) --20072020-01-08 2020-01-08 June [place] - [id number] M [place] 00:00:00 00:00:00 Bucky Kelsey, [facility]CD: [address] [facility] [address] [facility] lisa , Ph. ([phone]) --20072019-10-24 2019-10-24 Emergency [facility] [phone] [id number] 19:10:00 21:01:00 [place]bur [place] [id number] [place] [id number] [place] [phone] Results This patient has no known results.
[2020-09-01] MEDS ORDERED: HYDROCODONE/APAP 10/325 TAB ONE (23:28)
[2020-09-02] MEDS ORDERED: ONDANSETRON 4 MG/2 ML VIAL ONE (01:06)
[2020-09-02] MEDS ORDERED: MORPHINE 4 MG/ML SYR ONE (01:06)
[2020-09-02 01:20] LABS: Absolute Lymphocytes (CBC) 1.5 K/uL (0.7-4.9); Basophils % 0.8 % (0-1.3); Hematocrit 36.3 % (36.0-45.0); Lymphocytes % 23.7 % (15.3-44.8); MPV 9.1 fL (7.6-11.3); RBC Red Blood Cell Count 4.41 M/uL (3.86-4.86)
[2020-09-02 02:07] LABS: Albumin 3.3 g/dL (3.4-5.0); Bilirubin Total 0.2 mg/dL (0.2-1.0); Potassium 3.7 mmol/L (3.5-5.1)
--- NOTE | 2020-09-02 02:11 | EDPHYS ---
Physician Documentation [facility] Name: Deanna Guveara Age: 50 yrs Sex: Female : 1970 Arrival Date: 09/01/2020 Time: 22:11 Bed 20 Private MD: ED Physician Jah Ellison HPI: 09/01 23:09 This 50 yrs old Female presents to ER via Wheelchair with complaints of Fall pm1 Injury. 23:09 Details of fall: The patient fell from an upright position, while walking. Onset: The pm1 symptoms/episode began/occurred today. Associated injuries: The patient sustained right knee and left knee and left arm. Severity of symptoms: in the emergency department the symptoms are unchanged. The patient has not experienced similar symptoms in the past. The patient has not recently seen a physician. Patient was walking and tripped on a basket on the floor, landed on both knees and the hit her left arm on a floor fan. Negative for head injury, headache, neck pain, LOC. Historical: - Allergies: 22:24 No Known Allergies; em - Home Meds: 22:30 gabapentin 600 mg Oral tab 1 tab 3 times per day [Active]; losartan 100 mg Oral tab 1 ak2 tab once daily [Active]; metformin 500 mg Oral Tb24 1 tab 2 times per day [Active]; omeprazole 40 mg Oral cpDR 1 cap once daily [Active]; Tylenol-Codeine #4 300-60 mg Oral tab 1 tab every 4-6 hours [Active]; Xanax 1 mg Oral tab 1 tab 3 times per day [Active]; Zanaflex 4 mg Oral tab 1 tab every 8 hours [Active]; - PMHx: 22:24 Diabetes - NIDDM; Hypertension; em - PSHx: 22:24 tubal; em - Immunization history:: Adult Immunizations up to date. - Immunization history: Last tetanus immunization: - up to date. - Social history:: Smoking status: Patient denies any tobacco usage or history of. ROS: 23:09 Constitutional: Negative for fever, chills, and weight loss. pm1 23:09 Neck: Negative for injury, pain, and swelling, Cardiovascular: Negative for chest pain, palpitations, and edema, Respiratory: Negative for shortness of breath, cough, wheezing, and pleuritic chest pain, Abdomen/GI: Negative for abdominal pain, nausea, vomiting, diarrhea, and constipation, Back: Negative for injury and pain. 23:09 MS/extremity: Positive for pain, of the left arm and right knee and left knee, Negative for decreased range of motion, deformity. 23:09 All other systems are negative. Exam: 23:09 Constitutional: This is a well developed, well nourished patient who is awake, alert, pm1 and in no acute distress. Head/Face: Normocephalic, atraumatic. 23:09 Neck: Trachea midline, no thyromegaly or masses palpated, and no cervical lymphadenopathy. Supple, full range of motion without nuchal rigidity, or vertebral point tenderness. No Meningismus. Chest/axilla: Normal chest wall appearance and motion. Nontender with no deformity. No lesions are appreciated. 23:09 Back: No spinal tenderness. No costovertebral tenderness. Full range of motion. 23:09 Skin: Warm, dry with normal turgor. Normal color with no rashes, no lesions, and no evidence of cellulitis. 23:09 Eyes: Exam is negative for acute changes, Periorbital structures: appear normal, Pupils: no acute changes, Extraocular movements: no acute changes. 23:09 ENT: Exam is negative for acute changes, Mouth: Lips: normal, Oral mucosa: normal, pink and intact, moist. 23:09 Cardiovascular: Exam negative for acute changes, Rate: normal, Rhythm: regular, Pulses: no pulse deficits are appreciated. 23:09 Respiratory: Exam negative for acute changes, respiratory distress, shortness of breath. 23:09 Abdomen/GI: Inspection: obese Palpation: abdomen is soft and non-tender, in all quadrants. 23:09 Musculoskeletal/extremity: Extremities: grossly normal except: noted in the right knee and left knee: tenderness, There is no evidence of decreased ROM, deformity, noted in the anterior aspect of left shoulder, left antecubital area and left wrist: tenderness, no evidence of decreased ROM, deformity, swelling, ROM: intact in all extremities, Circulation is intact in all extremities. 23:09 Neuro: Orientation: is normal, Mentation: is normal, Motor: is normal, moves all fours. Vital Signs: 22:21 BP 139 / 78; Pulse 81; Resp 16; Temp 97.3; Pulse Ox 99% on R/A; Weight 176.9 kg; Height em 5 ft. 7 in. (170.18 cm); Pain 10/10; 09/02 00:40 BP 146 / 84; Pulse 86; Resp 20; Pulse Ox 98% on R/A; ak2 02:21 BP 137 / 74; Pulse 80; Resp 20; Pulse Ox 98% on R/A; ak2 09/01 22:21 Body Mass Index 61.08 (176.90 kg, 170.18 cm) em [place] Coma Score: 09/01 22:21 Eye Response: spontaneous(4). Verbal Response: oriented(5). Motor Response: obeys em commands(6). Total: 15. Trauma Score (Adult): 22:21 Eye Response: spontaneous(1); Verbal Response: oriented(1); Motor Response: obeys em commands(2); Systolic BP: > 89 mm Hg(4); Respiratory Rate: 10 to 29 per min(4); [place] Score: 15; Trauma Score: 12 MDM: 23:02 Patient medically screened. pm1 09/02 00:41 ED course: Patient with mechanical fall after tripping on basket on the floor. pm1 Patient's friend noticed that right leg is swollen and patient would like the leg to be evaluated further for possible cellulitis. 01:49 Data reviewed: vital signs. Data interpreted: Pulse oximetry: on room air is 98 %. pm1 Interpretation: normal. 01:49 ED course: U/S negative for DVT. pm1 02:08 Counseling: I had a detailed discussion with the patient and/or guardian regarding: the pm1 historical points, exam findings, and any diagnostic results supporting the discharge/admit diagnosis, lab results, radiology results, the need for outpatient follow up, to return to the emergency department if symptoms worsen or persist or if there are any questions or concerns that arise at home. 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 pm1 02:18 ED course: Right leg swelling appears to be early development of lymphedema. No white pm1 count, erythema, pain. I don not feel that cellulitis is present. 09/02 00:41 Order name: CBC with Diff; Complete Time: 01:28 pm1 09/02 00:41 Order name: CMP; Complete Time: 02:07 pm1 09/01 23:01 Order name: Wrist Left (3 View) XRAY; Complete Time: 13:45 pm1 09/01 23:01 Order name: Elbow Left 3 View XRAY; Complete Time: 13:45 pm1 09/01 23:01 Order name: Shoulder Left (2 View) XRAY; Complete Time: 13:45 pm1 09/01 23:01 Order name: Knee Left 3 View XRAY; Complete Time: 13:45 pm1 09/01 23:01 Order name: Knee Right 3 View XRAY; Complete Time: 13:45 pm1 09/02 00:41 Order name: Extremity Venous Uni Ltd US; Complete Time: 13:45 pm1 09/02 00:41 Order name: IV Saline Lock pm1 Administered Medications: 09/01 23:13 Drug: Orma (HYDROcodone-acetaminophen) 10 mg-325 mg 1 tabs Route: PO; ak2 09/02 00:41 Follow up: Response: Pain is decreased ak2 01:07 Drug: morphine 4 mg Route: IVP; Site: left antecubital; ak2 01:07 Drug: Zofran (Ondansetron) 4 mg Route: IVP; Site: left antecubital; ak2 Disposition: 06:09 Co-signature as Attending Physician, Jah Ellison MD. [email or web address] Disposition Summary: 09/02/20 02:10 Discharge Ordered Location: Home pm1 Problem: new pm1 Symptoms: have improved pm1 Condition: Stable pm1 Diagnosis - Fall on same level from slipping, tripping and stumbling with subsequent striking pm1 against furniture, initial encounter - Contusion of left knee pm1 - Contusion of right knee pm1 - Strain of other muscles, fascia and tendons at shoulder and upper arm level, left pm1 arm Followup: pm1 - With: Emergency Department - When: As needed - Reason: Worsening of condition Followup: pm1 - With: Private Physician - When: 2 - 3 days - Reason: Recheck today's complaints, Continuance of care, Re-evaluation by your physician Discharge Instructions: - Discharge Summary Sheet pm1 - Contusion pm1 - Fall Prevention in the Home, Adult pm1 - Muscle Strain pm1 Forms: - Medication Reconciliation Form pm1 - Thank You Letter pm1 - Antibiotic Education pm1 - Prescription Opioid Use pm1 Prescriptions: - Bactrim DS 800-160 mg Oral Tablet - take 1 tablet by ORAL route every 12 hours for 10 days; 20 tablet; Refills: 0, pm1 Product Selection Permitted Signatures: Dispatcher [employer] Geraldo Mejia, RN RN em Andrea Muñoz, BATCH MIXER OPERATOR BATCH MIXER OPERATOR pm1 Jah Ellison MD MD 7 Ishaan Sweet2 Corrections: (The following items were deleted from the chart) 09/01 22:25 22:24 Allergies: Amoxicillin; em em
--- NOTE | 2020-09-02 02:11 | ER ---
Nurse's Notes [facility] Name: Deanna Guevara Age: 50 yrs Sex: Female : 1970 Arrival Date: 09/01/2020 Time: 22:11 Bed 20 Private MD: Diagnosis: Fall on same level from slipping, tripping and stumbling with subsequent striking against furniture, initial encounter;Contusion of left knee;Contusion of right knee;Strain of other muscles, fascia and tendons at shoulder and upper arm level, left arm Presentation: 09/01 22:21 Chief complaint: Patient states: had a mechanical fall after tripping, reports left em shoulder, left wrist, left knee, and sergio. ankles, denies hitting head. Care prior to arrival: None. Mechanism of Injury: Fall from standing position. Trauma event details: Injury occurred in the [facility]. 22:21 Acuity: STEPH 4 em 22:21 Method Of Arrival: Wheelchair em 22:29 Risk Assessment: Do you want to hurt yourself or someone else? Patient reports no ak2 desire to harm self or others. 22:30 Coronavirus screen: Client denies travel out of the [place] in the last 14 days. At this ak2 time, the client does not indicate any symptoms associated with coronavirus-19. Ebola Screen: Patient negative for fever greater than or equal to 101.5 degrees Fahrenheit, and additional compatible Ebola Virus Disease symptoms Patient denies exposure to infectious person. Patient denies travel to an Ebola-affected area in the 21 days before illness onset. No symptoms or risks identified at this time. Initial Sepsis Screen: Does the patient meet any 2 criteria? No. Patient's initial sepsis screen is negative. Does the patient have a suspected source of infection? No. Patient's initial sepsis screen is negative. Onset of symptoms was September 01, 2020. Trauma Activation: Not Applicable Physician: ED Physician; Name: ; Notified At: ; Arrived At: Physician: General Surgeon; Name: ; Notified At: ; Arrived At: Physician: Radiology; Name: ; Notified At: ; Arrived At: Physician: Respiratory; Name: ; Notified At: ; Arrived At: Physician: Lab; Name: ; Notified At: ; Arrived At: Historical: - Allergies: 22:24 No Known Allergies; em - Home Meds: 22:30 gabapentin 600 mg Oral tab 1 tab 3 times per day [Active]; losartan 100 mg Oral tab 1 ak2 tab once daily [Active]; metformin 500 mg Oral Tb24 1 tab 2 times per day [Active]; omeprazole 40 mg Oral cpDR 1 cap once daily [Active]; Tylenol-Codeine #4 300-60 mg Oral tab 1 tab every 4-6 hours [Active]; Xanax 1 mg Oral tab 1 tab 3 times per day [Active]; Zanaflex 4 mg Oral tab 1 tab every 8 hours [Active]; - PMHx: 22:24 Diabetes - NIDDM; Hypertension; em - PSHx: 22:24 tubal; em - Immunization history:: Adult Immunizations up to date. - Immunization history: Last tetanus immunization: - up to date. - Social history:: Smoking status: Patient denies any tobacco usage or history of. Screenin:21 Abuse screen: Denies threats or abuse. Tuberculosis screening: No symptoms or risk em factors identified. 22:30 Nutritional screening: No deficits noted. ak2 Primary Survey: 22:21 NO uncontrolled hemorrhage observed. A: The patient is alert. Airway: patent. em Breathing/Chest: Respiratory pattern:. Circulation: Skin color: pink, Skin temperature: dry. Disability Alert. Exposure/Environment: All clothing and personal items were removed. Forensic evidence collection is not deemed to be indicated at this time. Items placed in patient belonging bag. 22:28 Reassessment Breathing/Chest Respiratory pattern Regular. ak2 Assessment: 22:28 General: Appears in no apparent distress. Behavior is calm, cooperative. Pain: ak2 Complains of pain in left hand, right foot, left foot, left arm and left leg. Neuro: No deficits noted. Cardiovascular: No deficits noted. Respiratory: No deficits noted. 09/02 00:40 Reassessment: Patient and/or family updated on plan of care and expected duration. Pain ak2 level reassessed. Vital Signs: 09/01 22:21 BP 139 / 78; Pulse 81; Resp 16; Temp 97.3; Pulse Ox 99% on R/A; Weight 176.9 kg; Height em 5 ft. 7 in. (170.18 cm); Pain 10/10; 09/02 00:40 BP 146 / 84; Pulse 86; Resp 20; Pulse Ox 98% on R/A; ak2 02:21 BP 137 / 74; Pulse 80; Resp 20; Pulse Ox 98% on R/A; ak2 09/01 22:21 Body Mass Index 61.08 (176.90 kg, 170.18 cm) em [place] Coma Score: 07 22:21 Eye Response: spontaneous(4). Verbal Response: oriented(5). Motor Response: obeys em commands(6). Total: 15. Trauma Score (Adult): 22:21 Eye Response: spontaneous(1); Verbal Response: oriented(1); Motor Response: obeys em commands(2); Systolic BP: > 89 mm Hg(4); Respiratory Rate: 10 to 29 per min(4); Andra Score: 15; Trauma Score: 12 ED Course: 22:11 Patient arrived in ED. am4 22:21 Patient has correct armband on for positive identification. em 22:21 Patient maintains SpO2 saturation greater than 95% on room air. em 22:23 Triage completed. em 22:24 Arm band placed on. em 22:27 Ishaan Sweet is Primary Nurse. ak2 22:29 No provider procedures requiring assistance completed. Patient did not have IV access ak2 during this emergency room visit. 22:31 Thermoregulation: warm blanket given to patient. ak2 22:42 Andrea Muñoz NP is PHCP. pm1 22:42 Jah Ellison MD is Attending Physician. pm1 07/12 00:59 Wrist Left (3 View) XRAY In Process Unspecified. EDMS 00:59 Elbow Left 3 View XRAY In Process Unspecified. EDMS 00:59 Shoulder Left (2 View) XRAY In Process Unspecified. EDMS 00:59 Knee Left 3 View XRAY In Process Unspecified. EDMS 00:59 Knee Right 3 View XRAY In Process Unspecified. EDMS 01:50 Extremity Venous Uni Ltd US In Process Unspecified. EDMS Administered Medications: 09/01 23:13 Drug: [place] (HYDROcodone-acetaminophen) 10 mg-325 mg 1 tabs Route: PO; ak2 09/02 00:41 Follow up: Response: Pain is decreased ak2 01:07 Drug: morphine 4 mg Route: IVP; Site: left antecubital; ak2 01:07 Drug: Zofran (Ondansetron) 4 mg Route: IVP; Site: left antecubital; ak2 Outcome: 02:10 Discharge ordered by . pm1 02:22 Discharged to home ambulatory. ak2 02:22 Condition: good 02:22 Discharge instructions given to patient, Prescriptions given X 02:22 Patient left the ED. ak2 Signatures: Dispatcher [employer] Geraldo Mejia RN RN em Andrea Muñoz NP SALES [employer]RESPONDENCE CLERK pm1 Kirsten Sifuentes [facility] Ishaan Sweet ak2 Corrections: (The following items were deleted from the chart) 09/01 22:25 22:24 Allergies: Amoxicillin; em em
--- NOTE | 2020-09-02 08:27 | RAD REPORT ---
EXAM DESCRIPTION: US - Extremity Venous Uni Ltd - 09/02/2020 1:50 am CLINICAL HISTORY: SWELLING Leg swelling and edema. COMPARISON: Extrem Venous W Compress Vincent dated 01/13/2019 FINDINGS: Right lower extremity venous system was interrogated with Doppler technique. Normal flow, compressibility and augmentation was noted. There is no DVT present. IMPRESSION: No evidence of right lower extremity deep venous thrombosis.
--- NOTE | 2020-09-02 08:39 | RAD REPORT ---
EXAM DESCRIPTION: RAD - Knee Right 3 View - 09/02/2020 12:59 am CLINICAL HISTORY: PAIN Pain and swelling COMPARISON: No comparisons FINDINGS: Tricompartmental osteoarthritis is present. [id number] configuration is noted. No fractu re, dislocation seen. Small joint effusion.
--- NOTE | 2020-09-02 08:40 | RAD REPORT ---
EXAM DESCRIPTION: RAD - Knee Left 3 View - 09/02/2020 12:59 am CLINICAL HISTORY: PAIN Pain and swelling COMPARISON: No comparisons FINDINGS: Advanced tricompartmental osteoarthritis is present. No fracture or dislocation seen. No s ignificant joint effusion.
--- NOTE | 2020-09-02 08:41 | RAD REPORT ---
EXAM DESCRIPTION: RAD - Shoulder Left 2 View - 09/02/2020 12:59 am CLINICAL HISTORY: PAIN COMPARISON: No comparisons FINDINGS: Soft tissue artifact limits bone detail. No acute fracture or dislocation is identified. I f pain persists, recommend CT or MR imaging of the left shoulder for further assessment.
--- NOTE | 2020-09-02 08:43 | RAD REPORT ---
EXAM DESCRIPTION: RAD - Elbow Left 3 View - 09/02/2020 12:59 am CLINICAL HISTORY: PAIN COMPARISON: No comparisons FINDINGS: No acute fracture or dislocation is seen. Small olecranon spur.
--- NOTE | 2020-09-02 08:46 | RAD REPORT ---
EXAM DESCRIPTION: RAD - Wrist Left 3 View - 09/02/2020 12:59 am CLINICAL HISTORY: PAIN Pain COMPARISON: No comparisons FINDINGS: Mild arthritic changes present involving the first carpal/metacarpal joint. No acute frac ture or dislocation seen.
== END 2020-09-02 02:22 | disposition home or self-care (01) ==
LOC: ER 22:10
DX: S46.912A Strain of unspecified muscle, fascia and tendon at shoulder and upper arm level, left arm, initial encounter (principal); S80.02XA Contusion of left knee, initial encounter; S80.01XA Contusion of right knee, initial encounter; W01.190A Fall on same level from slipping, tripping and stumbling with subsequent striking against furniture, initial encounter; I10 Essential (primary) hypertension; E11.9 Type 2 diabetes mellitus without complications
CPT/HCPCS: 85025; 36415; 80053; 73080; 73030; 73110; 73562 ×2; 93971; 96375; 96374; 99284; J2405

== ENCOUNTER 2021-03-25 20:33 | Observation (INO) | payer OTHER ==
--- OUTSIDE RECORDS SUMMARY | 2021-03-25 20:37 | XMS REPORT | Continuity of Care Document ---
:1970 Author Organization [facility] t Address [address] [place] [address] Support Name Relationship Address Phone Jaye Mother [address] [phone] [place] [address] ISMAEL LAGUERRE, E Emergency Provider [address] [facility] [address] [place] [address] DUPREE Primary Care Physician [address] [facility] [address] [place] [address] [facility] Next of Kin [address] [place] [address] DUPREE Primary Care Physician [address] [facility] [address] [place] [address] RHETT LAGUERRE, O Emergency Provider [address] [place] [address] MAKENNA LAGUERRE MD A Emergency Provider [address] [address] Robles ESCALERA Emergency Provider [address] [place] [address] MAYRA NEGRETE Primary Care Physician [address] [facility] [address] [place] [address] KRISTIAN LAGUERRE, L Emergency Provider [address] [place] [address] DUPREE Primary Care Physician [address] [facility] [phone] [place] [address] MD CARMINA S Emergency Provider [address] [phone] 49 [place] [address] MD RIANA G Primary Care Physician [address] [place] [address] MD MATTHEW Emergency Provider Unavailable Unavailable MD KRISTIAN L Emergency Provider [address] [phone] [place] [address] MD AIDEN Emergency Provider [email or web address] [email or web address] [address] MD ANITA Emergency Provider [address] [phone] [place] [address] MONISHA DUFFY MD E Admitting Provider [address] [phone] 49 [place] [address] MD RASHID A Emergency Provider [facility] [phone] [place] [address] JAYE Unavailable [address] [place] [address] MD AMANDA Emergency Provider [address] [place] [address] MD KATERIN MONISHA Admitting Provider [address] [place] [address] Care Team Providers Name Role Phone GRACE Attending Clinician Unavailable Cesar LAGUERRE Attending Clinician CESAR Attending Clinician Unavailable GRACE Admitting Clinician Unavailable Payers Payer Name Policy Type Policy Number Effective Date Expiration Date [facility] [id number] 2019 [facility] 00:00:00 (MEDICAID HMO) Problems Condition Condition Condition Status Onset Resolution Last Treating Co mments Source Name Details Category Date Date Treatment Clinician Date Anxiety Anxiety Problem Active 2019-02 [place] disorder Disorder 1-16 da 00:00: [facility] Allergies, Adverse Reactions, Alerts Allergy Allergy Status Severity Reaction(s) Onset Inactive Treating Comm ents Source Name Type Date Date Clinician Amoxicil Propensi Active Swelling Univ ers [facility] ty to 10-20 ity of adverse 00:00: [place] reaction 00 Medical s Branch AMOXICIL DRUG Active High Swelling Univer s DUKE INGREDI 10-20 ity of 00:00: [place] 00 Medical Branch Social History Social Habit Start Date Stop Date Quantity Comments Source Sex Assigned At [facility] Exposure to Not sure [facility] SARS-CoV-2 (event) Medica l Branch Alcohol intake 2012-04-13 2012-04-13 [facility] 00:00:00 00:00:00 Medical Branch Smoking Status Start Date Stop Date Source Never smoker [facility] Branch Medications Ordered Filled Start Stop Current Ordering Indication Dosage Frequency Signature Comments Components Source Medication Medication Date Date Medication? Clinician (SIG) Name Name ketorolac 2019- No 30mg 30 mg, Unive rs (TORADOL) 10-24 Intramuscu ity of injection 02:45: 01:53 lar, ONCE, [place] 30 mg 00 :00 1 dose, Medical 10/24/19 Branch at 2145, YUAN
Fa culty member approving Restricted medication : DAY GUERRERO HYDROcodone 2020- No 2{tbl} 2 tablet, Univers -acetaminop 10-24 Oral, ity of hen (NORCO 01:30: 00:29 ONCE, 1 Alpesh as 5) 5-325 mg 00 :00 dose, Tue Med ical tablet 2 10/24/19 at [place] tablet 2030, YUAN Diclofenac Yes Apply to sandra Sodium 2-20 area(s) 2 ity of (VOLTAREN) 00:00: (two) [place] 1 % Gel 00 times Medical daily. [place] ibuprofen Yes 800mg Take 1 Tab U nivers (MOTRIN) 2-20 by mouth 3 ity o f 800 mg 00:00: (three) [place] tablet 00 times Medical daily with [place] meals. acetaminoph acetaminoph No acetaminop [place] en 300 en 300 hen 300 da mg-codeine mg-codeine mg-codeine [facility] 30 mg 30 mg 30 mg al tablet tablet tablet Health Outreac h Program acetaminoph acetaminoph No acetaminop [place] en 300 en 300 hen 300 da mg-codeine mg-codeine mg-codeine [facility] 60 mg 60 mg 60 mg al tablet TAKE tablet TAKE tablet Health 1 TABLET 1 TABLET TAKE 1 Outre ac EVERY 8 EVERY 8 TABLET h HOURS BY HOURS BY EVERY 8 Prog rashaad ORAL ROUTE ORAL ROUTE HOURS BY NEEDED NEEDED ORAL ROUTE FOR 30 FOR 30 NEEDED DAYS. DAYS. FOR 30 DAYS. acyclovir acyclovir No acyclovir [place] 400 mg [...] BY TABLET BY TAKE 1 al MOUTH THREE MOUTH THREE TABLET BY Health TIMES A DAY TIMES A DAY MOUTH Outreac THREE h TIMES A Program DAY amitriptyli amitriptyli No amitriptyl [place] ne 25 mg ne 25 mg ine 25 mg da tablet TAKE tablet TAKE tablet [facility] 1 TABLET BY 1 TABLET BY TAKE 1 al MOUTH EVERY MOUTH EVERY TABLET BY Health DAY DAY MOUTH Outreac EVERY DAY h Program amitriptyli amitriptyli No amitriptyl [place] ne 50 mg ne 50 mg ine 50 mg da tablet tablet tablet [facility] amlodipine amlodipine No amlodipine [place] 5 mg tablet 5 mg tablet 5 mg d a TAKE 1 TAKE 1 tablet [facility] TABLET TABLET TAKE 1 al EVERY DAY EVERY DAY TABLET Hea lth BY ORAL BY ORAL EVERY DAY Outr eac ROUTE FOR ROUTE FOR BY ORAL h 30 DAYS. 30 DAYS. ROUTE FOR Pr ogram 30 DAYS. 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 TAKE 1 TAKE 1 tablet al [...] 600 mg da tablet tablet tablet [facility] ibuprofen ibuprofen No ibuprofen [place] 800 mg 800 mg 800 mg da tablet tablet tablet [facility] ketorolac ketorolac No ketorolac [place] 10 mg 10 mg 10 mg da tablet tablet tablet [facility] Outre[facility] Program Klor-Con 10 Klor-Con 10 No Klor-Con [place] mEq mEq 10 mEq da tablet,exte tablet,exte tablet,ext [facility] nded nded ended al release release release Health TAKE 1 TAKE 1 TAKE 1 Outreac TABLET BY TABLET BY TABLET BY h MOUTH EVERY MOUTH EVERY MOUTH Program DAY DAY EVERY DAY loratadine loratadine No loratadine [place] 10 mg [...] MOUTH Outreac EVERY DAY h Program losartan 25 losartan 25 No losartan [place] [...] tablet mg tablet 50 mg 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 tablet al Health Outreac h Program metronidazo metronidazo No metronidaz [place] le 500 mg le 500 mg ole 500 mg da tablet tablet tablet [facility] minocycline minocycline No minocyclin [place] 100 mg 100 mg e 100 mg da capsule capsule capsule [facility] p TAKE ONE TAKE ONE TAKE ONE al CAPSULE BY CAPSULE BY CAPSULE BY Health MOUTH TWICE MOUTH TWICE MOUTH Outreac DAILY FOR DAILY FOR TWICE h CELLULITUS CELLULITUS DAILY FOR Program CELLULITUS montelukast montelukast No montelukas [place] 10 mg [...] Health capsule capsule mg capsule Out reac TAKE 1 TAKE 1 TAKE 1 h CAPSULE BY CAPSULE BY CAPSULE BY Program MOUTH EVERY MOUTH EVERY MOUTH 12 HOURS 12 HOURS EVERY 12 FOR 7 DAYS FOR 7 DAYS HOURS FOR 7 DAYS nystatin nystatin No nystatin [place] 100,000 [...] BY CAPSULE BY CAPSULE BY h MOUTH TWICE MOUTH TWICE MOUTH Program A DAY A DAY TWICE A DAY omeprazole omeprazole No omeprazole [place] 40 mg [...] MOUTH Outreac TWICE A h DAY Program sucralfate sucralfate No sucralfate [place] 1 gram 1 gram 1 gram da tablet tablet tablet [facility] sucralfate sucralfate No sucralfate [place] 100 mg/mL 100 mg/mL 100 mg/mL da oral oral oral [facility] suspension suspension suspension al TAKE 10 ML TAKE 10 ML TAKE 10 ML Health BY MOUTH 4 BY MOUTH 4 BY MOUTH 4 Outreac TIMES A DAY TIMES A DAY TIMES A h DAY Program sulfamethox sulfamethox No sulfametho [place] azole 800 azole 800 xazole 800 da mg-trimetho mg-trimetho mg-trimeth [facility] prim 160 mg prim 160 mg oprim 160 al tablet tablet mg tablet Health Outreac h Program tizanidine tizanidine No tizanidine [place] 4 mg tablet 4 mg tablet 4 mg d a TAKE 1 2 TAKE 1 2 tablet Ep[facility] TABLETS 3X TABLETS 3X TAKE 1 2 al DAILY NOT DAILY NOT TABLETS 3X Health TO EXCEED 6 TO EXCEED 6 DAILY NOT Outreac TABLETS TABLETS TO EXCEED h DAILY DAILY 6 TABLETS Program DAILY tramadol tramadol No tramadol [place] 37.5 [...] MOUTH Outreac EVERY 6 h HOURS Program Vital Signs Vital Name Observation Time Observation Value Comments Source Systolic blood 2019-10-25 00:06:00 121 [facility] Diastolic blood 2019-10-25 00:06:00 76 mm[Hg] [facility] [place] Heart rate 2019-10-25 00:06:00 95 /min [facility] Body temperature 2019-10-25 00:06:00 36.56 [place] Respiratory rate 2019-10-25 00:06:00 20 /min [facility] Body height 2019-10-25 00:06:00 170.2 cm [facility] Body weight 2019-10-25 00:06:00 181.892 kg [facility] BMI 2019-10-25 00:06:00 62.81 kg/m2 [facility] Oxygen saturation in 2019-10-25 00:06:00 100 /min [facility] of Arterial blood by [facility] [place] [facility] Pulse oximetry Branch Systolic blood 2019-10-25 00:06:00 121 mm[Hg] [facility]ity [facility] pressure [facility] Diastolic blood 2019-10-25 00:06:00 76 mm[Hg] Unive rsity of pressure [facility] Heart rate 2019-10-25 00:06:00 95 /min [facility] [place] [facility] Body temperature 2019-10-25 00:06:00 36.56 [facility] Respiratory rate 2019-10-25 00:06:00 20 /min [facility] [place] [facility] [place] Body height 2019-10-25 00:06:00 170.2 cm [facility] Body weight 2019-10-25 00:06:00 181.892 kg [facility] BMI 2019-10-25 00:06:00 62.81 kg/m2 [facility] Oxygen saturation in 2019-10-25 00:06:00 100 /min [facility] of Arterial blood by [facility] [place] [facility] Pulse oximetry Branch Procedures Procedure Date / Time Performed Performing Clinician Sourc e CT CERVICAL SPINE WO 2019-10-25 01:10:21 Day Guerrero [facility] CONTRAST Medical Branch CT LUMBAR SPINE WO 2019-10-25 01:10:21 Day Guerrero [facility] CONTRAST Medical Branch CT THORACIC SPINE WO 2019-10-25 01:10:21 Day Guerrero [facility] CONTRAST Medical Branch NOTICE OF PRIVACY 2019-10-25 00:15:43 Doctor Unassigned, No Univ ersity [facility] Name Medical Branch CONSENT/REFUSAL FOR 2019-10-25 00:15:10 Doctor Unassigned, No [facility] DIAGNOSIS AND Name Medical Branch TREATMENT NOTICE OF PRIVACY 2019-10-24 23:59:03 Doctor Unassigned, No [facility] [place] [facility] Name Medical Branch CONSENT/REFUSAL FOR 2019-10-24 23:57:36 Doctor Unassigned, No Un [facility] DIAGNOSIS AND Name Medical Branch TREATMENT Encounters Start End Encounter Admission Attending Care Care Encounter Source Date/Time Date/Time Type Type Clinicians Facility Department ID 2020-10-18 2020-10-18 Outpatient AMBREEN_FAR [facility] [id number] [place] 01:12:00 01:12:00 HANA 0827 da [facility] 2020-10-18 2020-10-18 June ANDERSON [place] - [id number] M atagor 00:00:00 00:00:00 Bucky Chavez da Valeriy, Hoahaoism [facility] p HOME INSPECTOR: [address] [facility] ga Clemente B.[facility] [address] Progr am , Ph. ([phone]) --20072020-09-18 2020-09-18 Outpatient AMBREEN_FAR [place] [id number] [place] 04:48:00 04:48:00 DARSHAN 0728 da [facility] 2020-09-18 2020-09-18 June MYRICKGERARDO [place] - [id number] M atagor 00:00:00 00:00:00 Bucky Chavez da Valeriy, Hoahaoism [facility] HOME INSPECTOR: [address] [facility] Mccullough B.[facility] [address] Progr am , Ph. ([phone]) --20072020-09-13 2020-09-13 Outpatient AMBREEN_FAR [place] [id number] [place] 11:12:00 11:12:00 HANA 0723 da [facility] 2020-09-13 2020-09-13 June MEGERARDO [place] - [id number] M atagor 00:00:00 00:00:00 Bucky Chavez da Valeriy, Hoahaoism [facility] HOME INSPECTOR: [address] [facility] ga Clemente B.[facility] [address] Progr am , Ph. ([phone]) --20072020-09-05 2020-09-05 Outpatient [facility]BREEN_[facility]AR [facility] [id number] [place] 11:30:00 11:30:00 HANA 0715 da [facility] 2020-09-05 2020-09-05 June ANDERSON [place] - [id number] at[place]or 00:00:00 00:00:00 Bucky Chavez da Valeriy, Hoahaoism [facility] HOME INSPECTOR: [address] [facility] ED Clemente B.[facility] [address] Yolanda am , Ph. ([phone]) --20072020-08-28 2020-08-28 Outpatient AMBREEN_FAR [facility] 91 [place] 03:39:00 03:39:00 HANA 0707 da [facility] 2020-08-28 2020-08-28 June ANDERSON [place] - [id number] [place] 00:00:00 00:00:00 Bucky Chavez da Valeriy, Hoahaoism [facility] HOME INSPECTOR: [address] [facility] ED Clemente B.[facility] [address] Yolanda am , Ph. ([phone]) --20072020-08-22 2020-08-22 Outpatient AMBREEN_FAR [facility] 91 [place] 01:06:00 01:06:00 HANA 0701 da [facility] 2020-08-21 2020-08-21 Outpatient [facility]EN_[facility]AR [facility] 91 [place] 10:33:00 10:33:00 HANA 0630 da [facility] 2020-08-19 2020-08-19 Outpatient AMBREEN_FAR [facility] 91 [place] 05:37:00 05:37:00 HANA 0628 da [facility] 2020-08-19 2020-08-19 June ANDERSON [place] - [id number] M at[place]or 00:00:00 00:00:00 [place] da Valeriy, Hoahaoism [facility] HOME INSPECTOR: [address] [facility] ED Clemente Stewart.[facility] [address] [facility] am , Ph. ([phone]) --20072020-08-16 2020-08-16 Outpatient AMBREEN_FAR [place] [id number] [place] 11:46:00 11:46:00 HANA 0625 da [facility] 2020-08-16 2020-08-16 June ANDERSON [place] - [id number] [place]or 00:00:00 00:00:00 Bucky Chavez da Valeriy, Hoahaoism [facility] HOME INSPECTOR: [address] [facility] [place].[facility] [address] [facility] am , Ph. ([phone]) --20072020-08-13 2020-08-13 Outpatient AMBREEN_FAR [place] [id number] [place] 02:54:00 02:54:00 HANA 0622 da [facility] 2020-08-12 2020-08-12 Outpatient AMBREEN_FAR [place] [id number] [place] 05:25:00 05:25:00 HANA 0621 da [facility] 2020-08-12 2020-08-12 June ANDERSON [place] - [id number] [place]or 00:00:00 00:00:00 Bucky Chavez da Valeriy, Hoahaoism [facility] HOME INSPECTOR: [address] [facility] ED Clemente B.[facility] [address] Progr am , Ph. ([phone]) --20072020-08-09 2020-08-09 Outpatient AMBREEN_FAR [place] [id number] [place] 12:50:00 12:50:00 HANA 0618 da [facility] 2020-08-09 2020-08-09 June ANDERSON [place] [id number] M at[place]or 00:00:00 00:00:00 [place] da Valeriy, Hoahaoism [facility] HOME INSPECTOR: [address] [facility]anes[facility] [address] Progr am , Ph. ([phone]) --20072020-08-05 2020-08-05 Outpatient AMBREEN_FAR [place] [id number] [place] 03:47:00 03:47:00 HANA 0614 da [facility] 2020-08-05 2020-08-05 June ANDERSON [facility] [id number] [place]or 00:00:00 00:00:00 Bucky Chavez da Valeriy, Hoahaoism [facility] HOME INSPECTOR: [address] [facility] MagallanesO[facility] [place] [address] [facility] am , Ph. ([phone]) --20072020-08-03 2020-08-03 Outpatient AMBREEN_FAR [place] [id number] [place] 11:12:00 11:12:00 HANA 0612 da [facility] 2020-08-02 2020-08-02 Outpatient AMBREEN_FAR [place] [id number] [place] 04:07:00 04:07:00 HANA 0611 da [facility] 2020-08-02 2020-08-02 June ANDERSON [place] - [id number] [place] 00:00:00 00:00:00 Bucky Chavez da Valeriy, Hoahaoism [facility] HOME INSPECTOR: [address] [facility] ga Clemente Stewart.[facility] [address] Progr am , Ph. ([phone]) --20072020-07-29 2020-07-29 Outpatient AMBREEN_FAR [place] [id number] [place] 02:43:00 02:43:00 HANA 0607 da [facility] 2020-07-29 2020-07-29 June ANDERSON [place] [id number] M at[place] 00:00:00 00:00:00 Bucky Chavez da Valeriy, Hoahaoism [facility] HOME INSPECTOR: 17[address] GERARDO Escoto [facility] [address] [facility] am , Ph. ([phone]) --20072020-07-26 2020-07-26 Outpatient AMBREEN_FAR [place] [id number] [place] 01:45:00 01:45:00 HANA 0604 da [facility] 2020-07-26 2020-07-26 June ANDERSON [place] - [id number] [place]or 00:00:00 00:00:00 Bucky Chavez da Valeriy, Hoahaoism [facility] HOME INSPECTOR: [address] [facility] [address] [facility] , Ph. ([phone]) -2020-07-25 2020-07-25 Outpatient AMBREEN_FAR [facility] [id number] [place] 11:44:00 11:44:00 HANA 0603 da [facility] 2020-07-24 2020-07-24 Outpatient AMBREEN_FAR [place] [id number] [place] 09:15:00 09:15:00 HANA 0602 da [facility] 2020-07-19 2020-07-19 Outpatient AMBREEN_FAR [place] [id number] [place] 12:50:00 12:50:00 HANA 0528 da [facility] 2020-07-19 2020-07-19 June ANDERSON [place] - [id number] [place]or 00:00:00 00:00:00 Bucky Chavez da Valeriy, Hoahaoism [facility] HOME INSPECTOR: [address] [facility] [address] [facility] , Ph. ([phone]) -20072020-07-17 2020-07-17 Outpatient AMBREEN_FAR [facility] [id number] [place] 10:01:00 10:01:00 HANA 0526 da [facility] 2020-07-16 2020-07-16 Outpatient AMBREEN_FAR MEHOP [facility] [id number] [place] 03:32:00 03:32:00 HANA 0525 da [facility] 2020-07-15 2020-07-15 Outpatient AMBREEN_FAR [facility]OP [facility] [id number] [place] 12:03:00 12:03:00 HANA 0524 da [facility] 2020-07-15 2020-07-15 June ANDERSON [place] - [id number] M [place] 00:00:00 00:00:00 Bucky Chavez da Valeriy, Hoahaoism [facility] HOME INSPECTOR: 1700 HOP - MAGERARDO Mccullough B.[facility] [address] Yolanda am , Ph. ([phone]) --20072020-07-12 2020-07-12 Outpatient AMBREEN_FAR MEHOP MA[facility] [id number] [place] 02:59:00 02:59:00 HANA 0521 da [facility] 2020-07-12 2020-07-12 June ANDERSON [place] - [id number] [place] 00:00:00 00:00:00 Bucky Chavez da Valeriy, Hoahaoism [facility] HOME INSPECTOR: [address] [facility] - MAG[facility]O Mccullough BSethO[facility] [address] Yolanda am , Ph. ([phone]) --20072020-07-08 2020-07-08 Outpatient AMBREEN_FAR MEHOP MA[facility]OP [id number] [place] 03:49:00 03:49:00 HANA 0517 da [facility] 2020-07-08 2020-07-08 June ANDERSON [place] - [id number] M at[place] 00:00:00 00:00:00 Bucky Chavez da Valeriy, Hoahaoism [facility] HOME INSPECTOR: 1700 [facility]OP - [facility] mathieu Cornejo B.[facility] [address] Progr am , Ph. ([phone]) --20072020-07-05 2020-07-05 Outpatient AMBREEN_FAR [facility] [place] [id number] [place] 12:31:00 12:31:00 HANA 0514 da [facility] 2020-07-05 2020-07-05 June ANDERSON [place] - [id number] [place]or 00:00:00 00:00:00 Bucky Wana da Valeriy, Hoahaoism [facility] HOME INSPECTOR: 17[address] [facility] B.[facility] [address] Progr am , Ph. ([phone]) --20072020-07-01 2020-07-01 Outpatient AMBREEN_FAR [facility] [place] [id number] [place] 03:25:00 03:25:00 HANA 0510 da [facility] 2020-07-01 2020-07-01 June ANDERSON [place] - [id number] at[place]or 00:00:00 00:00:00 Bucky Chavez da Valeriy, Hoahaoism [facility] HOME INSPECTOR: [address] [facility] ED Cornejo B.[facility] [address] Progr am , Ph. ([phone]) 2020-06-28 2020-06-28 Outpatient AM[facility]EN_FAR [place] [id number] [place] 04:23:00 04:23:00 HANA 0507 da [facility] 2020-06-28 2020-06-28 June ANDERSON [place] - [id number] [place]or 00:00:00 00:00:00 Bucky Chavez da Valeriy, Hoahaoism [facility] HOME INSPECTOR: 1700 [facility] B.[facility] [address] Progr am , Ph. ([phone]) --20072020-06-21 2020-06-21 Outpatient AMBREEN_FAR [place] [id number] [place] 11:42:00 11:42:00 HANA 0430 da [facility] 2020-06-21 2020-06-21 June ANDERSON [place] - [id number] M at[place] 00:00:00 00:00:00 Bucky Chavez da Valeriy, Hoahaoism [facility] HOME INSPECTOR: [address] [facility] ED Cronejo B.[facility] [address] Progr am , Ph. ([phone]) --20072020-06-17 2020-06-17 Outpatient AMBREEN_FAR [place] [id number] [place] 11:56:00 11:56:00 HANA 0426 da [facility] 2020-06-17 2020-06-17 Outpatient AMBREEN_FAR [place] [id number] [place] 11:56:00 11:56:00 HANA 0429 [facility] 2020-06-17 2020-06-17 June ANDERSON [place] - [id number] M [place] 00:00:00 00:00:00 Bcuky Chavez da Valeriy, Hoahaoism [facility] HOME INSPECTOR: 17[address] [facility] ED Cornejo B.[facility] [address] Progr am , Ph. ([phone]) -20072020-06-14 2020-06-14 Outpatient AM[facility]EN_FAR [place] [id number] [place] 04:12:00 04:12:00 HANA 0423 [facility] 2020-06-14 2020-06-14 June ANDERSON [place] - [id number] M [place] 00:00:00 00:00:00 Bucky Chavez da Valeriy, Hoahaoism [facility] HOME INSPECTOR: [address] [facility] B.[facility] [address] Progr am , Ph. ([phone]) --20072020-06-10 2020-06-10 Outpatient AMBREEN_FAR [place] [id number] [place] 12:04:00 12:04:00 HANA 0419 [facility] 2020-06-10 2020-06-10 June ANDERSON [place] - [id number] M [place] 00:00:00 00:00:00 Bucky Chavez da Valeriy, Hoahaoism [facility] HOME INSPECTOR: [address] [facility] ED Clemente B.[facility] [address] Progr am , Ph. ([phone]) --20072020-05-20 2020-05-20 Outpatient AMBREEN_FAR MEH[facility] 91 [place] 12:20:00 12:20:00 HANA 0329 da [facility] 2020-05-20 2020-05-20 June ANDERSON [place] - [id number] M [place] 00:00:00 00:00:00 Bucky Chavez da Valeriy, Hoahaoism Episco p HOME INSPECTOR: 1700 [facility] mathieu Cornejo B.[facility] [address] Progr am , Ph. [phone] --20072020-05-03 2020-05-03 Outpatient AMBREEN_FAR MEHOP MAHOP 91 [place] 12:58:00 12:58:00 HANA 0312 [facility] 2020-05-03 2020-05-03 Outpatient AMBREEN_FAR MAHOP MAHOP 91 [place] 12:58:00 12:58:00 HANA 0318 [facility] 2020-05-03 2020-05-03 June [place] - [id number] M [place] 00:00:00 00:00:00 Bucky Chavez da Valeriy, Hoahaoism Episco p HOME INSPECTOR: 1700 [facility] ED Clemente B.[facility] [address] Progr am , Ph. [phone]) --[phone] 2020-04-19 Outpatient AMBREEN_FAR MEHOP MAHOP 91 [place] 02:21:00 02:21:00 HANA 0226 [facility] 2020-04-19 2020-04-19 June [place] - [id number] [place] 00:00:00 00:00:00 Bucky Chavez da Valeriy, Hoahaoism Episco p HOME INSPECTOR: 1700 [facility] ED Cornejo B.[facility] [address] Progr am , Ph. [phone] --[phone] 2020-04-12 Outpatient AMBREEN_FAR [place] [id number] [place] 02:06:00 02:06:00 HANA 0219 [facility] 2020-04-12 2020-04-12 June [place] - [id number] M [place] 00:00:00 00:00:00 Bucky Chavez da Valeriy, Hoahaoism Episco p HOME INSPECTOR: 1700 [facility] ED Cornejo B.[facility] [address] Progr am , Ph. [phone] --[phone] 2020-04-05 Outpatient AMBREEN_FAR [place] [id number] [place] 02:37:00 02:37:00 HANA 0212 [facility] 2020-04-05 2020-04-05 June [place] - [id number] [place] 00:00:00 00:00:00 Bucky Chavez da Valeriy, Hoahaoism Episco p HOME INSPECTOR: 1700 [facility] ED Cornejo B.[facility] [address] Progr am , Ph. [phone]) --[phone] 2020-03-29 Outpatient AMBREEN_FAR [place] [id number] [place] 03:40:00 03:40:00 HANA 0205 [facility] 2020-03-29 2020-03-29 June [place] - [id number] M [place] 00:00:00 00:00:00 [place] da Valeriy, Hoahaoism Episco p HOME INSPECTOR: 1700 [facility] - [place] Cornejo B.[facility] [address] Progr am , Ph. ([phone]) -2020-03-22 2020-03-22 Outpatient AMBREEN_FAR MAHOP [place] [id number] [place] 12:52:00 12:52:00 HANA 0129 da [facility] 2020-03-22 2020-03-22 June [place] - [id number] M [place] 00:00:00 00:00:00 Bucky Chavez da Valeriy, Hoahaoism Episco p HOME INSPECTOR: 1700 H[facility] - [place] Cornejo B.[facility] [address] Progr am , Ph. ([phone]) 2020-03-15 2020-03-15 Outpatient AMBREEN_FAR [place] [id number] [place] 04:34:00 04:34:00 HANA 0122 da [facility] 2020-03-15 2020-03-15 June [place] - [id number] M [place] 00:00:00 00:00:00 Bucky Chavez da Valeriy, Hoahaoism Episco p HOME INSPECTOR: 1700 [facility] [place] Cornejo B.[facility] [address] Progr am , Ph. ([phone]) 2020-03-11 2020-03-11 Outpatient AMBREEN_FAR [place] [id number] [place] 05:50:00 05:50:00 HANA 0118 da [facility] 2020-03-11 2020-03-11 June [place] - [id number] M [place] 00:00:00 00:00:00 Bucky Chavez da Valeriy, Hoahaoism Episco p HOME INSPECTOR: 1700 [facility] Cornejo B.[facility] [address] Progr am , Ph. [phone] 2020-02-13 Outpatient AMBREEN_FAR MEHOP [facility] 914 [place] 04:45:00 04:45:00 HANA 1222 [facility] 2020-02-09 2020-02-09 Outpatient AMBREEN_FAR MEHOP MAHOP 914 [place] 02:37:00 02:37:00 HANA 1218 [facility] 2020-02-09 2020-02-09 June [place] - [id number] M [place] 00:00:00 00:00:00 Bucky Chavez da Valeriy, Hoahaoism Episco p HOME INSPECTOR: 1700 [place] [address] [facility] , Ph. [phone]) --[phone] 2020-01-08 Outpatient AMBREEN_FAR MAHOP [facility] 914 [place] 03:29:00 03:29:00 HANA 1116 [facility] 2020-01-08 2020-01-08 June [place] - [id number] M [place] 00:00:00 00:00:00 Bucky Kelsey, Hoahaoism Episco p HOME INSPECTOR: 1700 [facility] [place] [address] [facility] , Ph. ([phone]) --[phone] 2019-10-24 Emergency [facility] [id number] [facility] 19:10:00 21:01:00 [place] [id number] i ty of [place] [id number] [facility] [id number] [facility] [address] [place] 2019-10-24 2019-10-24 Emergency [facility] [id number] 19:10:00 21:01:00 Day [place] [id number] [place] [id number] [place] [id number] 2019-10-24 2019-10-24 Emergency X [facility] [id number] 01 [facility] 19:10:00 19:10:00 DAY raygoza [facility] 2019-08-29 2019-08-29 Outpatient AMBREEN_ABHIJIT [place] 4 [place] 03:18:00 03:18:00 DARSHAN 0707 [facility] Program Results This patient has no known results.
--- NOTE | 2021-03-25 21:31 | RAD REPORT ---
EXAM DESCRIPTION: RAD - Chest Single View - 03/25/2021 9:00 pm CLINICAL HISTORY: CHEST PAIN Chest pain. COMPARISON: Chest Single View dated 08/01/2020; Chest Single View dated 01/14/2019; Chest Single View dated 01/13/2019 FINDINGS: Portable technique limits examination quality. Mild bilateral pulmonary opacities are present likely indicating pulmonary edema. The heart is mildly enlarged. No displaced fractures. IMPRESSION: Mild CHF.
[2021-03-25] MEDS ORDERED: MORPHINE 2 MG/ML SYR ONE (21:39)
[2021-03-25] MEDS ORDERED: ONDANSETRON 4 MG/2 ML VIAL ONE (21:40)
[2021-03-25 22:54] LABS: Protime INR 1.01
[2021-03-25 23:14] LABS: Absolute Lymphocytes (CBC) 2.7 K/uL (0.7-4.9); Hematocrit 42.2 % (36.0-45.0); Lymphocytes % 23.3 % (15.3-44.8); MPV 7.9 fL (7.6-11.3); RBC Red Blood Cell Count 5.06 M/uL (3.86-4.86)
[2021-03-25 23:46] LABS: Albumin 3.9 g/dL (3.4-5.0); Bilirubin Direct 0.1 mg/dL (0-0.2); Bilirubin Total 0.3 mg/dL (0.2-1.0); Potassium 3.9 mmol/L (3.5-5.1); Protein, Total 8.4 g/dL (6.4-8.2); Troponin High Sensitivity 9.2 pg/mL (<58.9)
[2021-03-26] MEDS ORDERED: ACETAMINOPHEN 325 MG TABLET ONE ×2 (00:13→00:15)
--- NOTE | 2021-03-26 01:28 | EDPHYS ---
Physician Documentation [facility] Name: Deanna Guevara Age: 50 yrs Sex: Female : 1970 Arrival Date: 03/25/2021 Time: 20:42 Bed 28 Private MD: ED Physician Darrell Ribera HPI: 03/25 21:22 This 50 yrs old Female presents to ER via Wheelchair with complaints of Chest Pain. jmm 21:22 The patient or guardian reports chest pain that is located primarily in the substernal [facility] area. Onset: this morning. The pain radiates to back. Associated signs and symptoms: Pertinent negatives: abdominal pain, cough, shortness of breath, vomiting. The chest pain is described as aching. This is a 50-year-old female with history of morbid obesity, diabetes mellitus, asthma, hypertension the presents emerged part with substernal chest pain beginning this morning. Episodes of pain will last around 30 to 45 minutes per patient. Will occasionally radiate to the back. Denies radiation to the neck or the arm. Patient states that last week she failed a stress test. Patient was advised by cardiology if she did develop chest pain to go to the ER and take a 81 mg aspirin.. 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 - Social history:: Smoking status: Patient denies any tobacco usage or history of. Patient/guardian denies using alcohol. ROS: 21:22 Constitutional: Negative for fever, chills, and weight loss. jmm 21:22 Cardiovascular: Positive for chest pain. 21:22 Back: Positive for radiated pain. 21:22 All other systems are negative. Exam: 21:22 Constitutional: This is a well developed, well nourished patient who is awake, alert, jmm and in no acute distress. Head/Face: atraumatic. Eyes: EOMI, no conjunctival erythema appreciated ENT: Moist Mucus Membranes Neck: Trachea midline, Supple Chest/axilla: Normal chest wall appearance and motion. Cardiovascular: Regular rate and rhythm. No edema appreciated Respiratory: Normal respirations, no respiratory distress appreciated Abdomen/GI: Non distended, soft 21:22 Back: pain, is absent, ROM is normal. 21:22 Musculoskeletal/extremity: ROM: intact in all extremities. 21:22 Skin: Appearance: Color: normal in color. 21:22 Neuro: Orientation: is normal, Mentation: is normal, Memory: is normal. 21:22 Psych: Behavior/mood is pleasant, cooperative. Vital Signs: 20:42 BP 183 / 95; Pulse 84; Resp 20; Temp 98.6(O); Pulse Ox 100% on R/A; Weight 183.7 kg; ld1 Height 5 ft. 7 in. (170.18 cm); Pain 9/10; 21:45 BP 193 / 103; Pulse 87; Resp 18; Pulse Ox 98% on R/A; mk 22:45 Pulse 93; Resp 18; Pulse Ox 97% on R/A; mk 23:30 BP 159 / 68; Pulse 91; Resp 17; Pulse Ox 98% on R/A; sm5 23:30 BP 174 / 66; Pulse 93; Resp 16; Pulse Ox 98% on R/A; sm5 20:42 Body Mass Index 63.43 (183.70 kg, 170.18 cm) ld1 Alton Coma Score: 21:45 Eye Response: spontaneous(4). Verbal Response: oriented(5). Motor Response: obeys mk commands(6). Total: 15. 22:45 Eye Response: spontaneous(4). Verbal Response: oriented(5). Motor Response: obeys mk commands(6). Total: 15. MDM: 21:16 Patient medically [facility]. [facility] 03/26 01:25 The patient was not given aspirin in the Emergency Department. Patient reports taking [facility] aspirin within the past 24 hours. Data reviewed: vital signs, nurses notes. Counseling: I had a detailed discussion with the patient and/or guardian regarding: the historical points, exam findings, and any diagnostic results supporting the discharge/admit diagnosis, lab results, radiology results, the need for further work-up and treatment in the hospital. ED course: I discussed the patient with Serafin Higgins whom accepted the patient to Dr. Gates's service. . 03/25 20:46 Order name: Basic Metabolic Panel; Complete Time: 15:10 ld1 03/25 20:46 Order name: CBC with Diff; Complete Time: 23:21 ld1 03/25 20:46 Order name: LFT's; Complete Time: 15:10 ld1 03/25 20:46 Order name: Magnesium; Complete Time: 15:10 ld1 03/25 20:46 Order name: NT PRO-BNP; Complete Time: 15:10 ld1 03/25 20:46 Order name: PT-INR; Complete Time: 23:01 ld03/25 20:46 Order name: Troponin HS; Complete Time: 15:10 ld1 03/25 23:02 Order name: COVID-19/FLU A+B (Document "Date of Onset" if Symptomatic); Complete Time: jm 15:10 03/26 05:54 Order name: Troponin High Sensitivity; Complete Time: 15:10 EDMS 03/26 05:54 Order name: Lipid Profile; Complete Time: 15:10 EDMS 03/26 05:54 Order name: T4 Free; Complete Time: 15:10 EDMS 03/26 05:54 Order name: Thyroid Stimulating Hormone; Complete Time: 15:10 EDMS 03/26 09:39 Order name: Glucose, Ancillary Testing; Complete Time: 15:10 EDMS 03/26 11:30 Order name: Glucose, Ancillary Testing; Complete Time: 15:10 EDMS 03/25 20:46 Order name: XRAY Chest (1 view); Complete Time: 21:36 ld03/25 20:46 Order name: EKG; Complete Time: 20:46 ld03/25 20:46 Order name: Cardiac monitoring; Complete Time: 21:33 ld03/25 20:46 Order name: EKG - Nurse/Tech; Complete Time: 20:51 ld03/25 20:46 Order name: IV Saline Lock; Complete Time: 20:51 ld03/25 20:46 Order name: Labs collected and sent; Complete Time: 21:33 ld03/25 20:46 Order name: O2 Per Protocol; Complete Time: 21:17 ld03/25 20:46 Order name: O2 Sat Monitoring; Complete Time: 21:17 ld03/25 22:23 Order name: Labs - recollect needed: all labs needed; Complete Time: 22:57 2 03/26 11:43 Order name: Troponin High Sensitivity; Complete Time: 15:10 EDMS Administered Medications: 03/25 22:13 Drug: Zofran (Ondansetron) 4 mg Route: IVP; Site: right antecubital; 22:14 Drug: morphine 2 mg Route: IVP; Site: right antecubital; mk 03/26 00:14 Drug: Tylenol 650 mg Route: PO; sm5 Disposition: 02:18 Co-signature as Attending Physician, Darrell Ribera MD. pkl Disposition Summary: 03/26/21 01:27 Hospitalization Ordered Hospitalization Status: Observation [facility] Provider: Narendra Gates Condition: Stable jmm Problem: new jmm Symptoms: are unchanged jmm Bed/Room Type: Standard [facility] Location: Telemetry/MedSurg (Inpatient)(03/26/21 13:07) Room Assignment: [facility](03/26/21 13:07) iw Diagnosis - Chest pain, unspecified [facility] Forms: - Medication Reconciliation Form jmm - SBAR form jm Signatures: Dispatcher [employer] EDMS Kaila Caballero, RN Darrell Bales MD MD pkl Alfredo Carias PA PA jmm Lori Beckwith, RN RN iw Pedro Munoz mw2 Elinor He RN RN ld1 Geno Grande RN RN 5 Jen Hernández RN RN mk Corrections: (The following items were deleted from the chart) 01:31 01:27 Telemetry/MedSurg (observation) [facility] 01:31 01:27 [facility] 13: 01:31 [facility] ER HOLD [facility] 13:07 01:31 ERHOLD- [facility]
--- NOTE | 2021-03-26 01:28 | ER ---
Nurse's Notes [facility] Name: Deanna Guevara Age: 50 yrs Sex: Female : 1970 Arrival Date: 03/25/2021 Time: 20:42 Bed 28 Private MD: Diagnosis: Chest pain, unspecified Presentation: 03/25 20:42 Chief complaint: Patient states: Stress test failed last Wednesday - chest pain on and off ld1 all day radiates into back. Coronavirus screen: At this time, the client does not indicate any symptoms associated with coronavirus-19. Ebola Screen: No symptoms or risks identified at this time. Initial Sepsis Screen: Does the patient meet any 2 criteria? No. Patient's initial sepsis screen is negative. Does the patient have a suspected source of infection? No. Patient's initial sepsis screen is negative. Risk Assessment: Do you want to hurt yourself or someone else? Patient reports no desire to harm self or others. Onset of symptoms was March 25, 2021. 20:42 Method Of Arrival: Wheelchair ld1 20:42 Acuity: STEPH 3 ld1 Triage Assessment: 20:44 General: Appears in no apparent distress. comfortable, Behavior is cooperative, ld1 appropriate for age, anxious. Pain: Complains of pain in chest Pain radiates to back Pain currently is 7 out of 10 on a pain scale. Neuro: Level of Consciousness is awake, alert, obeys commands, Oriented to person, place, time, situation. Cardiovascular: Capillary refill < 3 seconds Patient's skin is warm and dry. Respiratory: Airway is patent Respiratory effort is even, unlabored. GI: Abdomen is round non-distended, obese. 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 - Social history:: Smoking status: Patient denies any tobacco usage or history of. Patient/guardian denies using alcohol. Screenin/02 00:01 Abuse screen: Denies threats or abuse. Denies injuries from another. Nutritional sm5 screening: No deficits noted. Tuberculosis screening: No symptoms or risk factors identified. Fall Risk IV access (20 points). Total Conner Fall Scale indicates No Risk (0-24 pts). Assessment: 03/25 23:04 General: Appears in no apparent distress. Pain: Complains of pain in chest Pain does mk not radiate. Pain currently is 9 out of 10 on a pain scale. Quality of pain is described as Pain began gradually, since last time at the hospital Is continuous, Alleviated by medications, rest. Neuro: Level of Consciousness is awake, alert, obeys commands, Oriented to person, place, time, situation, Fourth Hand are equal bilaterally Gait is steady, Speech is normal. Cardiovascular: Reports chest pain, Heart tones S1 S2 present Capillary refill < 3 seconds in bilateral fingers toes Clubbing of nail beds is absent JVD is absent Patient's skin is warm and dry. Rhythm is sinus rhythm. Respiratory: Airway is patent Trachea midline Respiratory effort is even, unlabored, Respiratory pattern is regular, symmetrical, Breath sounds are clear. GI: Abdomen is obese, Bowel sounds present X 4 quads. Derm: Skin is intact, is healthy with good turgor, Skin temperature is warm. Musculoskeletal: Capillary refill < 3 seconds, in bilateral fingers. toes. Range of motion: intact in all extremities. 03/26 00:02 Reassessment: pt complaining of a headache. NATALIE Fuentes made aware. 5 Vital Signs: 03/25 20:42 BP 183 / 95; Pulse 84; Resp 20; Temp 98.6(O); Pulse Ox 100% on R/A; Weight 183.7 kg; ld1 Height 5 ft. 7 in. (170.18 cm); Pain 9/10; 21:45 BP 193 / 103; Pulse 87; Resp 18; Pulse Ox 98% on R/A; mk 22:45 Pulse 93; Resp 18; Pulse Ox 97% on R/A; mk 23:30 BP 159 / 68; Pulse 91; Resp 17; Pulse Ox 98% on R/A; sm5 23:30 BP 174 / 66; Pulse 93; Resp 16; Pulse Ox 98% on R/A; sm5 20:42 Body Mass Index 63.43 (183.70 kg, 170.18 cm) ld1 Andra Coma Score: 21:45 Eye Response: spontaneous(4). Verbal Response: oriented(5). Motor Response: obeys mk commands(6). Total: 15. 22:45 Eye Response: spontaneous(4). Verbal Response: oriented(5). Motor Response: obeys mk commands(6). Total: 15. ED Course: 20:42 Patient arrived in ED. ja2 20:44 Triage completed. ld1 20:44 Arm band placed on right wrist. ld1 20:51 Inserted saline lock: 20 gauge in left wrist, using aseptic technique. ld1 20:57 Geno Grande, RN is Primary Nurse. sm5 20:58 Alfredo Carias PA is PHCP. jmm 20:58 Darrell Ribera MD is Attending Physician. [facility] 21:00 XRAY Chest (1 view) In Process Unspecified. EDMD 21:33 Basic Metabolic Panel Sent. mk 21:33 CBC with Diff Sent. mk 21:33 LFT's Sent. mk 21:33 Magnesium Sent. mk 21:33 NT PRO-BNP Sent. mk 21:33 PT-INR Sent. 21:33 Troponin HS Sent. 03/26 00:02 Patient has correct armband on for positive identification. Placed in gown. Bed in low sm5 position. Call light in reach. Side rails up X2. compliance monitor on. Pulse ox on. Sitter at bedside. 00:02 No provider procedures requiring assistance completed. Patient maintains SpO2 sm5 saturation greater than 95% on room air. 01:26 Narendra Gates MD is Hospitalizing Provider. [facility] Administered Medications: 03/25 22:13 Drug: Zofran (Ondansetron) 4 mg Route: IVP; Site: right antecubital; 22:14 Drug: morphine 2 mg Route: IVP; Site: right antecubital; 03/26 00:14 Drug: Tylenol 650 mg Route: PO; sm5 Outcome: 01:27 Decision to Hospitalize by Provider. [facility] 15:11 Patient left the ED. iw Signatures: Dispatcher [employer] EDMS Alfredo Carias PA PA jmm Williams, Irene, RN RN Elinor He RN RN ld1 Mike Maribel [facility] Harjinder, Geno, RN RN sm5 Kotarski, Jen, RN RN mk
--- NOTE | 2021-03-26 01:56 | P.HP ---
Certification for Inpatient Patient admitted to: Observation With expected LOS: <2 Midnights Patient will require the following post-hospital care: None Practitioner: I am a practitioner with admitting privileges, knowledge of patient current condition, hospital course, and medical plan of care. Services: Services provided to patient in accordance with Admission requirements found in Title 42 Section 412.3 of the Code of Federal Regulations <RonaldoSerafin Segal - Last Filed: 03/26/21 01:53> Patient History Date of Service: 03/26/21 Reason for admission: Chest pain History of Present Illness: 50-year-old female with history of diabetes most type VKitd-omdgrzq-abvjyxiuq, hypertension, asthma presents emergency department for chest pain. Patient reports that she was recently seen at [facility] and had a stress test which she "failed". Patient follow-up with her primary care doctor who recommended she urgency see a rail switch operator. Patient was seen by cardiology in the office and was informed that if her chest pain was to return she should report to the emergency department for further evaluation. Patient was evaluated in the emergency department labs were significant for white blood cell count 11.5 high-sensitivity troponin 9.[address] elevation. Given recent failed stress test and recommendation from cardiology ED provider wishes to admit under observation for ACS rule out. - Past Medical/Surgical History Diabetic: Yes -: HTN -: NIDDM -: GERD -: Obesity -: fibromyalgia -: chronic back pain -: anxiety -: migraines -: claustrophobia -: laminectomy -: tubal ligation Psychosocial/ Personal History: Patient is disabled, lives at home with her children - Family History Mother -: Other (see notes) Notes: anxiety. fibromyalgia Father -: Diabetes - Social History Smoking Status: Never smoker Alcohol use: No CD- Drugs: No Caffeine use: Yes Place of Residence: Home <Serafin Higgins - Last Filed: 03/26/21 01:53> Date of Service: 03/26/21 <Narendra Gates - Last Filed: 03/26/21 12:29> Allergies amoxicillin Allergy (Verified 01/14/19 00:09) Anaphylaxis Home Medications: Alprazolam 2 mg PO TID 01/14/19 Butalb/Acetaminophen/Caffeine [Jnyjlv-Zrastazz-Qztf 50-325-40] 1 each PO PRN 01/14/19 Gabapentin 800 mg PO TID 01/14/19 Losartan Potassium [Cozaar] 100 mg PO DAILY #30 tablet 01/14/19 Metformin HCl [Glucophage] 500 mg PO PRN 01/14/19 Promethazine HCl 25 mg PO BIDP PRN 01/14/19 Tizanidine [Zanaflex] 8 mg PO TID 01/14/19 Dapagliflozin Propanediol [Farxiga] 03/26/21 Furosemide [Lasix] 03/26/21 Hydrocodone Bit/Acetaminophen [[place] 10-325 Tablet] 10 mg TID 03/26/21 Semaglutide [Ozempic] 03/26/21 Review of Systems 10-point ROS is otherwise unremarkable Cardiovascular: Chest Pain, As per HPI <Serafin Higgins - Last Filed: 03/26/21 01:53> Physical Examination - Physical Exam General: Alert, In no apparent distress, Oriented x3, Obese HEENT: Atraumatic, PERRLA, Mucous membr. moist/pink, EOMI, Sclerae nonicteric Neck: Supple, 2+ carotid pulse no bruit, No LAD, Without JVD or thyroid abnormality Respiratory: Clear to auscultation bilaterally, Normal air movement Cardiovascular: Regular rate/rhythm, Normal S1 S2 Capillary refill: <2 Seconds Gastrointestinal: Normal bowel sounds, No tenderness Musculoskeletal: No tenderness Integumentary: No rashes Neurological: Normal speech, Normal strength at 5/5 x4 extr, Normal tone, Normal affect Lymphatics: No axilla or inguinal lymphadenopathy - Studies Laboratory Data (last 24 hrs) 03/25/21 22:29: PT 11.6, INR 1.01 03/25/21 22:29: WBC 11.50 H, Hgb 13.1, Hct 42.2, Plt Count 332 03/25/21 22:29: Sodium 141, Potassium 3.9, BUN 23 H, Creatinine 0.81, Glucose 92, Total Bilirubin 0.3, AST 13 L, ALT 31, Alkaline Phosphatase 169 H <Serafin Higgins - Last Filed: 03/26/21 01:53> - Studies Laboratory Data (last 24 hrs) 03/25/21 22:29: PT 11.6, INR 1.01 03/25/21 22:29: WBC 11.50 H, Hgb 13.1, Hct 42.2, Plt Count 332 03/25/21 22:29: Sodium 141, Potassium 3.9, BUN 23 H, Creatinine 0.81, Glucose 92, Magnesium 1.9, Total Bilirubin 0.3, AST 13 L, ALT 31, Alkaline Phosphatase 169 H <Narendra Gates - Last Filed: 03/26/21 12:29> Assessment and Plan - Plan Assessment: Chest pain rule out ACS Diabetes type 2not insulin-dependent Hypertension Plan: Chest pain rule out ACS: Trend troponins, monitor on telemetry, cardiology consulted. Patient reports that she failed a stress test at [facility] recently. N.p.o. in anticipation of possible heart catheterization. Diabetes type 2not insulin-dependent: [facility] Accu-Chek, sliding scale insulin. Hypertension: Obtain and continue medications. DVT PPX: SCD Code status: Full Discharge Plan: Home Plan to discharge in: 24 Hours - Advance Directives Does patient have a Living Will: No Does patient have a Durable POA for Healthcare: No - Code Status/Comfort Care Code Status Assessed: Yes (Full code) Critical Care: No Time Spent Managing Pts Care (In Minutes): 55 <Serafin Higgins - Last Filed: 03/26/21 01:53> - Plan Patient seen and examined on rounds this morning. Reports some improvement in her chest pain, no new symptoms Troponin remains negative. Discussed with cardiology, patient with recent positive stress test at outside hospital, now with recurrent chest pain Plan for cardiac catheterization tomorrow Confirm/restart home medications, n.p.o. after midnight <Narendra Gates - Last Filed: 03/26/21 12:29>
[2021-03-26] MEDS ORDERED: MORPHINE 2 MG/ML SYR ONE ×2 (03:17→07:47)
[2021-03-26] MEDS: MORPHINE 2 MG/ML SYR IV PRN ×4 (03:31→20:39)
[2021-03-26 05:00] LABS: Thyroid Stimulating Hormone 2.12 uIU/mL (0.360-3.740); Troponin High Sensitivity 11.4 pg/mL (<58.9)
[2021-03-26 05:32] LABS: SARS-COV-2 RT PCR NEGATIVE (NEGATIVE)
[2021-03-26] MEDS: INSULIN -REGULAR HUMAN 50 UNIT/0.5 ML ML SQ SCH ×4 (07:30→21:00)
[2021-03-26] MEDS ORDERED: ONDANSETRON 4 MG/2 ML VIAL ONE (07:47)
[2021-03-26] MEDS: ONDANSETRON 4 MG/2 ML VIAL IV PRN ×2 (07:54→21:57)
[2021-03-26] MEDS ORDERED: INFLUENZA VACCINE (for 6+ mo) 0.5 ML DOSE IMVAC ONE (08:00)
[2021-03-26] MEDS: METOPROLOL TAR 25 MG TAB PO SCH ×2 (08:45→17:30)
[2021-03-26] MEDS ORDERED: ASPIRIN EC 81 MG TAB PO ONE (08:54)
[2021-03-26] MEDS ORDERED: METOPROLOL TAR 25 MG TAB ONE (08:55)
[2021-03-26] MEDS: ASPIRIN EC 81 MG TAB PO SCH (09:00)
[2021-03-26 12:16] LABS: Magnesium 1.9
[2021-03-26] MEDS ORDERED: PROMETHAZINE 25 MG TABLET PO PRN (12:27)
--- NOTE | 2021-03-26 13:04 | EKG ---
Test Date: 2021-03-25 Test Time: 20:46:17 Respiratory Care Instructor: LORNE MEASUREMENT RESULTS: Intervals: Rate: 83 ME: 170 QRSD: 92 QT: 364 QTc: 427 Daggett: P: 45 ME: 170 QRS: 21 T: 25 INTERPRETIVE STATEMENTS: Normal sinus rhythm Normal ECG Compared to ECG 08/01/2020 19:59:40 Sinus tachycardia no longer present Atrial premature complex(es) no longer present Electronically Signed On 03-26-21 13:02:58 VISUAL COORDINATOR by Jalen Saenz
[2021-03-26] MEDS: GABAPENTIN 400 MG CAP PO SCH ×2 (14:00→20:38)
[2021-03-26 16:33] VITALS: BMI 64.2
[2021-03-26] MEDS ORDERED: ATORVASTATIN 40 MG TAB PO SCH (21:00)
[2021-03-27] MEDS: MORPHINE 2 MG/ML SYR IV PRN ×2 (00:42→08:50)
[2021-03-27] MEDS: METOPROLOL TAR 25 MG TAB PO SCH (05:32)
[2021-03-27] MEDS ORDERED: ACETAMINOPHEN 325 MG TABLET PO PRN (05:40)
[2021-03-27 06:05] LABS: Absolute Lymphocytes (CBC) 1.8 K/uL (0.7-4.9); Hematocrit 37.3 % (36.0-45.0); MPV 8.1 fL (7.6-11.3); RBC Red Blood Cell Count 4.49 M/uL (3.86-4.86)
[2021-03-27 06:13] LABS: Albumin 3.1 g/dL (3.4-5.0); Bilirubin Total 0.4 mg/dL (0.2-1.0); Potassium 4.1 mmol/L (3.5-5.1); Protein, Total 7.1 g/dL (6.4-8.2)
--- NOTE | 2021-03-27 06:29 | P.PN ---
Date of Service: 03/27/21
[2021-03-27] MEDS: INSULIN -REGULAR HUMAN 50 UNIT/0.5 ML ML SQ SCH ×2 (07:30→11:30)
[2021-03-27] MEDS: ASPIRIN EC 81 MG TAB PO SCH (08:51)
[2021-03-27] MEDS: GABAPENTIN 400 MG CAP PO SCH ×2 (08:51→14:00)
[2021-03-27] MEDS: ONDANSETRON 4 MG/2 ML VIAL IV PRN (08:58)
[2021-03-27] MEDS ORDERED: NA CHLORIDE 0.9% 500 ML ONE (12:30)
[2021-03-27] MEDS ORDERED: FENTANYL CITR 100 MCG/2 ML ONE (13:08)
[2021-03-27] MEDS ORDERED: HEPA 1000U/500MLS 2,000 UNIT/1,000 ML BAG IV ONE (13:08)
[2021-03-27] MEDS ORDERED: HEPARIN 5000 UNIT/ML 1 ML VIAL ONE (13:09)
[2021-03-27] MEDS ORDERED: LIDOCAINE 1% 20 ML MDV ONE (13:09)
[2021-03-27] MEDS ORDERED: MIDAZOLAM HCL 2 MG/2 ML INJ ONE (13:09)
[2021-03-27] MEDS ORDERED: VERAPAMIL HCL 10 MG/4 ML VIAL IV ONE (13:11)
[2021-03-27] MEDS ORDERED: NITROGLYCERIN 100 MCG/ML SYR (for cath lab use only) IV ONE ×2 (13:11→13:12)
[2021-03-27] MEDS ORDERED: ATROPINE SULF 1 MG/10 ML SYR IV ONE (13:11)
--- NOTE | 2021-03-27 14:41 | P.DS ---
Admission Date: 03/26/21 Discharge Date: 03/27/21 Disposition: ROUTINE DISCHARGE Discharge Condition: GOOD Reason for Admission: Chest pain Consultations: Cardiology - Dr. Cottrell Procedures: Cardiac catheterization (03/27) by Dr. Cottrell - reportedly no significant stenosis / abnormal findings. Problem list Chest pain rule out ACS Diabetes type 2not insulin-dependent Hypertension Brief History of Present Illness: 50-year-old female with history of diabetes most type [id number], hypertension, asthma presents emergency department for chest pain. Patient reports that she was recently seen at [facility] and had a stress test which she "failed". Patient follow-up with her primary care doctor who recommended she urgency see a clin application specialist. Patient was seen by cardiology in the office and was informed that if her chest pain was to return she should report to the emergency department for further evaluation. Patient was evaluated in the emergency department labs were significant for white blood cell count 11.5 high-sensitivity troponin 9.[address] elevation. Given recent failed stress test and recommendation from cardiology ED provider wishes to admit under observation for ACS rule out. Hospital Course: Patient was evaluated by Cardiology and take to cardiac chemical lab supervisor on 03/27. Coronary arteries were found to be normal, no evidence of atherosclerotic disease. Patient was deemed stable for discharge home. Follow up with PCP in ~1 week. Followup with Cardiology in a few weeks. No change in medications. Vital Signs/Physical Exam: Temp Pulse Resp BP Pulse Ox 97.4 F 72 20 168/85 H 96 03/27/21 12:00 03/27/21 12:00 03/27/21 12:00 03/27/21 12:00 03/27/21 12:00 General: Alert, In no apparent distress, Oriented x3, Obese HEENT: Mucous membr. moist/pink, Sclerae nonicteric Respiratory: Clear to auscultation bilaterally, Normal air movement Cardiovascular: No edema, Regular rate/rhythm Gastrointestinal: Soft and benign, Non-distended, No tenderness Musculoskeletal: No tenderness Integumentary: No rashes, No significant lesion Neurological: Normal speech, Normal affect Laboratory Data at Discharge: WBC 7.00 K/uL (4.3-10.9) D 03/27/21 05:32 Hgb 11.4 g/dL (12.0-15.0) L 03/27/21 05:32 Hct 37.3 % (36.0-45.0) 03/27/21 05:32 Plt Count 263 K/uL (152-406) D 03/27/21 05:32 PT 11.6 SECONDS (9.5-12.5) 03/25/21 22:29 INR 1.01 03/25/21 22:29 Sodium 139 mmol/L (136-145) 03/27/21 05:32 Potassium 4.1 mmol/L (3.5-5.1) 03/27/21 05:32 BUN 25 mg/dL (7-18) H 03/27/21 05:32 Creatinine 0.83 mg/dL (0.55-1.3) 03/27/21 05:32 Glucose 126 mg/dL (74-106) H 03/27/21 05:32 Magnesium 1.9 03/25/21 22:29 Total Bilirubin 0.4 mg/dL (0.2-1.0) 03/27/21 05:32 AST 12 U/L (15-37) L 03/27/21 05:32 ALT 30 U/L (12-78) 03/27/21 05:32 Alkaline Phosphatase 148 U/L (45-117) H 03/27/21 05:32 Triglycerides 107 mg/dL (<150) 03/26/21 04:10 Cholesterol 149 mg/dL (<200) 03/26/21 04:10 HDL Cholesterol 41 mg/dL (40-60) 03/26/21 04:10 Cholesterol/HDL Ratio 3.63 03/26/21 04:10 Home Medications: Alprazolam 2 mg PO TID 01/14/19 Butalb/Acetaminophen/Caffeine [Nntsqb-Mduapfpi-Wkkk 50-325-40] 1 each PO PRN 01/14/19 Gabapentin 800 mg PO TID 01/14/19 Losartan Potassium [Cozaar] 100 mg PO DAILY #30 tablet 01/14/19 Metformin HCl [Glucophage*] 500 mg PO PRN 01/14/19 Promethazine HCl 25 mg PO BIDP PRN 01/14/19 Tizanidine [Zanaflex*] 8 mg PO TID 01/14/19 Dapagliflozin Propanediol [Farxiga] 03/26/21 Furosemide [Lasix] 03/26/21 Hydrocodone Bit/Acetaminophen [[place] 10-325 Tablet] 10 mg TID 03/26/21 Semaglutide [Ozempic] 03/26/21 Physician Discharge Instructions: Patient was evaluated by Cardiology and take to cardiac chemical lab supervisor on 03/27. Coronary arteries were found to be normal, no evidence of atherosclerotic disease. Patient was deemed stable for discharge home. Follow up with PCP in ~1 week. Followup with Cardiology in a few weeks. No change in medications. Diet: AHA Activity: Ad rupesh Followup: Deni Simons MD [Primary Care Provider] - Donovan Cottrell MD [ACTIVE - CAN ADMIT] - Time spent managing pt's care (in minutes): 45
[2021-03-27 15:30] VITALS: O2SAT 96
[2021-03-27] MEDS ORDERED: HYDRALAZINE HCL 20 MG/ML VIAL ONE (15:34)
[2021-03-27] MEDS ORDERED: HYDRALAZINE HCL 20 MG/ML VIAL IV ONE (15:37)
[2021-03-27 17:03] VITALS: BP 163/75; TEMP 98.7
--- NOTE | 2021-03-27 23:30 | OP ---
Date of Procedure: 03/27/2021 Surgeon: LOIS HAGEN Procedure Performed: Selective coronary angiogram. Indication: Unstable angina. Access: Right radial artery 6-Burmese closed with TR band. Complications: None. Bleeding: Less than 10 mL. Description Of Procedure: After risks, benefits, and alternatives were explained, patient agreed to the procedure and signed informed consent. The patient was brought into the cardiac catheterization laboratory, prepped and draped in usual sterile fashion. Procedure was done without sedation due to severe obesity and hypoventilation syndrome and hypoxia. I used lidocaine for local anesthesia and o btained access right radial artery using pediatric micropuncture kit and ultrasound guidance with a 6 -Burmese slender sheath and took a 5-Burmese Crenshaw 4.0 catheter into aortic root over a J-wire, engaged left main and right coronary artery, took standard views. Then, we removed the catheter and the she ath, placed TR band with good hemostasis. Findings: 1.Left main: Large, long, and normal. 2.LAD: Large and normal. Normal diagonal branches. 3.Circ: Small and normal. 4.RCA: Large dominant and normal. Conclusion: Normal coronary arteries, noncardiac chest pain. Recommendation: Evaluate for other causes of chest pain other than coronary artery disease. SR/MODL Voice ID: [id number] Report ID: [id number]
--- NOTE | 2021-03-29 19:55 | CON ---
Date of Consultation: 03/26/2021 Reason For Consultation: Unstable angina. History Of Present Illness: Ms. Guevara is a 50-year-old woman who has been seen by Dr. Cottrell in th e past. Had an abnormal stress test in the [place] by Dr. Hernandez, has a history of diabetes, hyperte nsion, asthma, morbid obesity, comes in with substernal chest pain radiating to the back with exertio n, shortness of breath, diaphoresis. Denied any nausea or vomiting. No PND, orthopnea, pedal edema, palpitation, or syncope. Allergies: SHE IS ALLERGIC TO NO MEDICATION. Past Medical History: As stated above. Review of Systems: Negative. Social History: Negative. Family History: Noncontributory. Physical Examination: Vital Signs: Stable, afebrile. HEENT: Negative. Neck: Supple. No bruit. Chest: Clear to auscultation and percussion. Cardiac: Exam revealed a regular rhythm and rate. No murmurs, gallops, or rubs. Abdomen: Obese, but benign. Extremities: Revealed no clubbing, cyanosis, or edema. Diagnostic Data: All within normal limit. Impression And Plan: Morbid obesity. Chest pain consistent with unstable angina, positive stress te st. History of hypertension. We will plan for a left heart catheterization with the wrist approach by Dr. Cottrell in the morning. The patient understands the risk and the benefits of the procedure, an d she agrees to proceed. We will see what the catheterization shows before making further decisions. MISA/FORREST Voice ID: [id number] Report ID: [id number]
== END 2021-03-27 17:41 | disposition home or self-care (01) ==
LOC: ER 20:33 → ERHOLD 03-26 01:50 → 2ND 03-26 15:25
PROVIDERS: ADMIT Hospitalist; ATTEND Hospitalist
PROC: B201YZZ Plain Radiography of Multiple Coronary Arteries using Other Contrast (ICD-10-PCS; principal; 2021-03-26)
DX: R07.9 Chest pain, unspecified (principal); I10 Essential (primary) hypertension; E11.9 Type 2 diabetes mellitus without complications; J45.909 Unspecified asthma, uncomplicated; K21.9 Gastro-esophageal reflux disease without esophagitis; M79.7 Fibromyalgia; G89.29 Other chronic pain; M54.9 Dorsalgia, unspecified; F41.9 Anxiety disorder, unspecified; G43.909 Migraine, unspecified, not intractable, without status migrainosus; F40.240 Claustrophobia; E66.01 Morbid (severe) obesity due to excess calories; Z68.44 Body mass index [BMI] 60.0-69.9, adult; Z88.0 Allergy status to penicillin; Z98.51 Tubal ligation status; Z20.822 Contact with and (suspected) exposure to COVID-19; Z83.3 Family history of diabetes mellitus
CPT/HCPCS: 93005; 85025 ×2; 80048; 36415 ×2; 83735; 85610; 80061; 82947 ×9; 80076; 84443; 84484 ×3; 84439; 80053; 83880; 0240U; 71045; 93454 ×2; 96375; 96374; 99285; C1893; J0360; J1644 ×2; J2270 ×7; G0378 ×4; J7040; J2405 ×4; J2250; J3010

== ENCOUNTER 2022-09-02 20:58 | Inpatient (IN) | payer OTHER ==
--- OUTSIDE RECORDS SUMMARY | 2022-09-02 21:04 | XMS REPORT | Continuity of Care Document ---
:1970 Author Organization [facility] t Address [address] [place] [address] Support Name Relationship Address Phone CHIO CEE [address] [phone] [place] [address] CHIO CEE [address] [place] [address] ISMAEL LAGUERRE, KATHE David Emergency Provider [address] [facility] [address] [place] [address] KENNY DUPREE Primary Care Physician [address] [facility] [address] [place] [address] CHIO CEE Next of Kin [address] [place] [address] KENNY DUPREE Primary Care Physician [address] [facility] [address] [place] [address] RHETT LAGUERRE, KELLY Emergency Provider [address] [phone] [place] [address] MD ANDRES MENSAH MD Emergency Provider [address] [place] [address] MONISHA ESCALERA Emergency Provider [address] [phone] [place] [address] DONNELL NEGRETE PA-C Primary Care Physician [address] [facility] [address] [place] [address] RILEY TOWNSEND MD Emergency Provider [address] [place] [address] KENNY DUPREE Primary Care Physician [address] [facility] [place] [address] MD MAXIMILIAN GREWAL Emergency Provider [address] [place] [address] MD TOMMY MAYERS Primary Care Physician [address] [place] [address] MD SHASHA CASTRO Emergency Provider Unavailable Unavailable MD RILEY TOWNSEND Emergency Provider [address] [place] [address] MD EMEKA WOLFENETH Emergency Provider [email or web address] [address] MD LEN HOWARD Emergency Provider [address] [phone] [place] [address] MD CRIS BEARDEN JR Admitting Provider [address] [place] [address] MD RASHID WASKARLA A Emergency Provider [facility] [place] [address] CHIO CEE Unavailable [address] [place] [place] [address] MD SCOTT PATEL Emergency Provider [address] [place] [address] MD [facility] Ad[facility] Provider [address] [phone] [place] [address] MD TAY HERNANDEZ Emergency Provider [address] [place] [address] MD LOIS HAGEN Other Provider [address] [phone] [place] [address] MD SADI MORTON Emergency Provider [address] [place] [address] Care Team Providers Name Role Phone TOMYM MAYERS Primary Care Physician Unavailable CAMILO CLAY Attending Clinician Unavailable ARACELI YOON Attending Clinician Unavailable BOLIVAR SNYDER Attending Clinician Unavailable DAILY GARNETT Attending Clinician Unavailable DAILY GARNETT Attending Clinician Unavailable SOFY LEE Attending Clinician Unavailable LUIZ ALMAZAN Attending Clinician Unavailable Doctor Unassigned, Valeria Attending Clinician Unavailable Leslie Attending Clinician Unavailable SCOTT PATEL Attending Clinician Unavailable Manuel LAGUERRE, Heladio Montaño Attending Clinician CRIS BEARDEN Attending Clinician Unavailable KIA VILLARREAL Attending Clinician Unavailable MAG Attending Clinician Unavailable GRACE Attending Clinician Unavailable Day Guerrero MD Attending Clinician DAY GUERRERO Attending Clinician Unavailable Leslie Admitting Clinician Unavailable HELADIO HESS Admitting Clinician Unavailable CRIS BEARDEN Admitting Clinician Unavailable MAG Admitting Clinician Unavailable GRACE Admitting Clinician Unavailable Payers Payer Name Policy Type Policy Number Effective Date Expiration Date S annamaria [facility] STAR PLUS [id number] 2019 00:00:00 [facility] [id number] 2022 [place]00 STAR[place]PLUS (MEDICAID REPLACEMENT - HMO) [facility] [id number] 2019 [facility] [place] 00:00:00 (MEDICAID HMO) Problems Condition Condition Condition Status Onset Resolution Last Treating Co mments Source Name Details Category Date Date Treatment Clinician Date Acute Acute Disease Active Method[facility] cholecysti cholecysti [address] [facility] t[facility] tis 00:[facility] Hospita 00 l Anxiety Anxiety Problem Active 2019-02 [place] disorder Disorder [facility] Allergies, Adverse Reactions, Alerts Allergy Allergy Status Severity Reaction(s) Onset Inactive Treating Comm ents Source Name Type Date Date Clinician Amoxicil Propensi Active Swelling [facility]y [facility] adverse 00:00: [place] reaction 00 Medical s Branch AMOXICIL DRUG Active High Swelling Univer s [facility] 8 ity of 00:00: [place] [facility] NO KNOWN Drug Active Univers ALLERGIE Class ity of S [facility] Social History Social Habit Start Date Stop Date Quantity Comments Source Exposure to Not sure University of SARS-CoV-2 (event) [facility] Sexual orientation [facility] History of Social 2022-06-10 2022-06-[address] function 00:00:00 00:00:00 Hospital Tobacco use and 2022-06-06 2022-06-06 Smokeless Denominational exposure 00:00:00 00:00:00 tobacco non-user Hospital Alcohol intake 2012-04-13 2012-04-13 [facility] 00:00:00 00:00:00 [facility] Sex Ass[birth year] At [birth year] [facility] 00:00[facility]00 Hospital Smoking Status Start Date Stop Date Source Never smoked tobacco [facility] Medications Ordered Filled Start Stop Current Ordering Indication Dosage Frequency Signature Comments Components Source Medication Medication Date Date Medication? Clinician (SIG) Name Name omeprazole 3-0 Yes 40mg QD Take 1 Metho di (PriLOSEC) 4-[address] 40 MG 13:12: (40 mg Hospita capsule 03 total) by l mouth daily. HYDROcodone 3-0 Yes [id number] 1{tbl} Q6H Take 1 M ethodi -acetaminop 4-[address] hen (NORCO) 13:12: mouth Hospi ta 10-325 mg 03 every 6 l per tablet (six) hours as needed for moderate pain .acute pain. Max Daily Amount: 4 tablets tiZANidine 3-0 Yes 4mg Q8H Take 1 Metho di (ZANAFLEX) 4-20 tablet (4 st 4 MG tablet 13:12: mg total) H ospita 03 by mouth l every 8 (eight) hours as needed for muscle spasms. glipiZIDE 2023-0 Yes 5mg Q.5D Take 1 Method i (GLUCOTROL) 4-20 tablet (5 st 5 MG tablet 13:12: mg total) H ospita 03 by mouth 2 l (two) times a day before meals. losartan 2023-0 Yes 100mg QD Take 1 Method i (COZAAR) 4-[address] 100 MG 13:12: (100 mg Hospita tablet 03 total) by l mouth daily. dapaglifloz 2023-0 Yes 10mg QD Take 2 Meth sanchez in 4-[address] (FARXIGA) 5 13:12: (10 mg Hosp riddhi mg tablet 03 total) by l mouth daily. metoclopram 2023-0 Yes 10mg Q.[id number] Take 1 Methodi tacho 4-20 [id number] tablet (10 st (REGLAN) 10 13:12: 3D mg total) H ospita MG tablet 03 by mouth 3 l (three) times a day. omeprazole 2023-0 Yes 40mg QD Take 1 Metho di (PriLOSEC) 4-[address] 40 MG 13:12: (40 mg Hospita capsule 03 total) by l mouth daily. HYDROcodone 2023-0 Yes [id number] 1{tbl} Q6H Take 1 M ethodi -acetaminop 4-[address] hen ([employer]) 13:12: mouth Hospi ta 10-325 mg 03 every 6 l per tablet (six) hours as needed for moderate pain .acute pain. Max Daily Amount: 4 tablets tiZANidine 2023-0 Yes 4mg Q8H Take 1 Metho di (ZANAFLEX) 4-20 tablet (4 st 4 MG tablet 13:12: mg total) H ospita 03 by mouth l every 8 (eight) hours as needed for muscle spasms. glipiZIDE 2023-0 Yes 5mg Q.5D Take 1 Method i (GLUCOTROL) 4-20 tablet (5 st 5 MG tablet 13:12: mg total) H ospita 03 by mouth 2 l (two) times a day before meals. losartan 2023-0 Yes 100mg QD Take 1 Method i (COZAAR) 4-[address] 100 MG 13:12: (100 mg Hospita tablet 03 total) by l mouth daily. dapaglifloz 2023-0 Yes 10mg QD Take 2 Meth sanchez in 4-[address] (FARXIGA) 5 13:12: (10 mg Hosp r[facility]hi mg tablet 03 total) by l mouth daily. metoclopram 2023-0 Yes 10mg Q.[id number] Take 1 Methodi tacho 4-20 [id number] tablet (10 st (REGLAN) 10 13:12: 3D mg total) H ospita MG tablet 03 by mouth 3 l (three) times a day. omeprazole 2023-0 Yes 40mg QD Take 1 Metho di (PriLOSEC) 4-[address] 40 MG 13:12: (40 mg Hospita capsule 03 total) by l mouth daily. HYDROcodone 2023-0 Yes [id number] 1{tbl} Q6H Take 1 M ethodi -acetaminop 4-[address] hen ([employer]) 13:12: mouth Hospi ta 10-325 mg 03 every 6 l per tablet (six) hours as needed for moderate pain .acute pain. Max Daily Amount: 4 tablets tiZANidine 2023-0 Yes 4mg Q8H Take 1 Metho di (ZANAFLEX) 4-20 tablet (4 st 4 MG tablet 13:12: mg total) H ospita 03 by mouth l every 8 (eight) hours as needed for muscle spasms. glipiZIDE 2023-0 Yes 5mg Q.5D Take 1 Method i (GLUCOTROL) 4-20 tablet (5 st 5 MG tablet 13:12: mg total) H ospita 03 by mouth 2 l (two) times a day before meals. losartan 2023-0 Yes 100mg QD Take 1 Method i (COZAAR) 4-[address] 100 MG 13:12: (100 mg Hospita tablet 03 total) by l mouth daily. dapaglifloz 2023-0 Yes 10mg QD Take 2 Meth sanchez in 4-[address] (FARXIGA) 5 13:12: (10 mg Hosp riddhi mg tablet 03 total) by l mouth daily. metoclopram 2023-0 Yes 10mg Q.[id number] Take 1 Methodi tacho 4-20 [id number] tablet (10 st (REGLAN) 10 13:12: 3D mg total) H ospita MG tablet 03 by mouth 3 l (three) times a day. omeprazole 2023-0 Yes 40mg QD Take 1 Metho di (PriLOSEC) 4-[address] 40 MG 13:12: (40 mg Hospita capsule 03 total) by l mouth daily. HYDROcodone 2023-0 Yes [id number] 1{tbl} Q6H Take 1 M ethodi -acetaminop 4-[address] hen (NORCO) 13:12: mouth Hospi ta 10-325 mg 03 every 6 l per tablet (six) hours as needed for moderate pain .acute pain. Max Daily Amount: 4 tablets tiZANidine 2023-0 Yes 4mg Q8H Take 1 Metho di (ZANAFLEX) 4-20 tablet (4 st 4 MG tablet 13:12: mg total) H ospita 03 by mouth l every 8 (eight) hours as needed for muscle spasms. glipiZIDE 2023-0 Yes 5mg Q.5D Take 1 Method i (GLUCOTROL) 4-20 tablet (5 st 5 MG tablet 13:12: mg total) H ospita 03 by mouth 2 l (two) times a day before meals. losartan 2023-0 Yes 100mg QD Take 1 Method i (COZAAR) 4-[address] 100 MG 13:12: (100 mg Hospita tablet 03 total) by l mouth daily. dapaglifloz 2023-0 Yes 10mg QD Take 2 Meth sanchez in 4-[address] ([facility]) 5 13:12: (10 mg Hosp r[facility]hi mg tablet 03 total) by l mouth daily. metoclopram 2023-0 Yes 10mg Q.[id number] Take 1 Methodi tacho 4-20 [id number] tablet (10 st (REGLAN) 10 13:12: 3D mg total) H ospita MG tablet 03 by mouth 3 l (three) times a day. omeprazole 2023-0 Yes 40mg QD Take 1 Metho di (PriLOSEC) 4-[address] 40 MG 13:12: (40 mg Hospita capsule 03 total) by l mouth daily. HYDROcodone 2023-0 Yes [id number] 1{tbl} Q6H Take 1 M ethodi -acetaminop 4-[address] hen (NORCO) 13:12: mouth Hospi ta 10-325 mg 03 every 6 l per tablet (six) hours as needed for moderate pain .acute pain. Max Daily Amount: 4 tablets tiZANidine 2023-0 Yes 4mg Q8H Take 1 Metho di (ZANAFLEX) 4-20 tablet (4 st 4 MG tablet 13:12: mg total) H ospita 03 by mouth l every 8 (eight) hours as needed for muscle spasms. glipiZIDE 2023-0 Yes 5mg Q.5D Take 1 Method i (GLUCOTROL) 4-20 tablet (5 st 5 MG tablet 13:12: mg total) H ospita 03 by mouth 2 l (two) times a day before meals. losartan 2023-0 Yes 100mg QD Take 1 Method i (COZAAR) 4-[address] 100 MG 13:12: (100 mg Hospita tablet 03 total) by l mouth daily. dapaglifloz 2023-0 Yes 10mg QD Take 2 Meth sanchez in 4-[address] () 5 13:12: (10 mg [facility]osp [facility] mg tablet 03 total) by l mouth daily. metoclopram 2023-0 Yes 10mg Q.[id number] Take 1 Methodi tacho 4-20 [id number] tablet (10 st (REGLAN) 10 13:12: 3D mg total) H ospita MG tablet 03 by mouth 3 l (three) times a day. omeprazole 2023-0 Yes 40mg QD Take 1 Metho di (PriLOSEC) 4-[address] 40 MG 13:12: (40 mg Hospita capsule 03 total) by l mouth daily. HYDROcodone 2023-0 Yes [id number] 1{tbl} Q6H Take 1 M ethodi -acetaminop 4-[address] hen (NORCO) 13:12: mouth Hospi ta 10-325 mg 03 every 6 l per tablet (six) hours as needed for moderate pain .acute pain. Max Daily Amount: 4 tablets tiZANidine 2023-0 Yes 4mg Q8H Take 1 Metho di (ZANAFLEX) 4-20 tablet (4 st 4 MG tablet 13:12: mg total) H ospita 03 by mouth l every 8 (eight) hours as needed for muscle spasms. glipiZIDE 2023-0 Yes 5mg Q.5D Take 1 Method i (GLUCOTROL) 4-20 tablet (5 st 5 MG tablet 13:12: mg total) H ospita 03 by mouth 2 l (two) times a day before meals. losartan 2023-0 Yes 100mg QD Take 1 Method i (COZAAR) 4-[address] 100 MG 13:12: (100 mg Hospita tablet 03 total) by l mouth daily. dapaglifloz 2023-0 Yes 10mg QD Take 2 Meth sanchez in 4-[address] (FARXIGA) 5 13:12: (10 mg [facility]osp [facility] mg tablet 03 total) by l mouth daily. metoclopram 2023-0 Yes 10mg Q.[id number] Take 1 Methodi tacho 4-20 [id number] tablet (10 st (REGLAN) 10 13:12: 3D mg total) H ospita MG tablet 03 by mouth 3 l (three) times a day. omeprazole 2023-0 Yes 40mg QD Take 1 Metho di (PriLOSEC) 4-[address] 40 MG 13:12: (40 mg Hospita capsule 03 total) by l mouth daily. HYDROcodone 2023-0 Yes [id number] 1{tbl} Q6H Take 1 M ethodi -acetaminop 4-[address] hen ([employer]) 13:12: mouth Hospi ta 10-325 mg 03 every 6 l per tablet (six) hours as needed for moderate pain .acute pain. Max Daily Amount: 4 tablets tiZANidine 2023-0 Yes 4mg Q8H Take 1 Metho di (ZANAFLEX) 4-20 tablet (4 st 4 MG tablet 13:12: mg total) H ospita 03 by mouth l every 8 (eight) hours as needed for muscle spasms. glipiZIDE 2023-0 Yes 5mg Q.5D Take 1 Method i (GLUCOTROL) 4-20 tablet (5 st 5 MG tablet 13:12: mg total) H ospita 03 by mouth 2 l (two) times a day before meals. losartan 2023-0 Yes 100mg QD Take 1 Method i (COZAAR) 4-[address] 100 MG 13:12: (100 mg Hospita tablet 03 total) by l mouth daily. dapaglifloz 2023-0 Yes 10mg QD Take 2 Meth sanchez in 4-[address] (FARXIGA) 5 13:12: (10 mg [facility]osp [facility] mg tablet 03 total) by l mouth daily. metoclopram 2023-0 Yes 10mg Q.[id number] Take 1 Methodi tacho 4-20 [id number] tablet (10 st (REGLAN) 10 13:12: 3D mg total) H ospita MG tablet 03 by mouth 3 l (three) times a day. omeprazole 2023-0 Yes 40mg QD Take 1 Metho di (PriLOSEC) 4-[address] 40 MG 13:12: (40 mg Hospita capsule 03 total) by l mouth daily. HYDROcodone 2023-0 Yes [id number] 1{tbl} Q6H Take 1 M ethodi -acetaminop 4-[address] hen ([employer]) 13:12: mouth Hospi ta 10-325 mg 03 every 6 l per tablet (six) hours as needed for moderate pain .acute pain. Max Daily Amount: 4 tablets tiZANidine 2023-0 Yes 4mg Q8H Take 1 Metho di (ZANAFLEX) 4-20 tablet (4 st 4 MG tablet 13:12: mg total) H ospita 03 by mouth l every 8 (eight) hours as needed for muscle spasms. glipiZIDE 2023-0 Yes 5mg Q.5D Take 1 Method i (GLUCOTROL) 4-20 tablet (5 st 5 MG tablet 13:12: mg total) H ospita 03 by mouth 2 l (two) times a day before meals. losartan 2023-0 Yes 100mg QD Take 1 Method i (COZAAR) 4-[address] 100 MG 13:12: (100 mg Hospita tablet 03 total) by l mouth daily. dapaglifloz 2023-0 Yes 10mg QD Take 2 Meth sanchez in 4-[address] (FARXIGA) 5 13:12: (10 mg [facility]osp [facility] mg tablet 03 total) by l mouth daily. metoclopram 2023-0 Yes 10mg Q.[id number] Take 1 Methodi tacho 4-20 [id number] tablet (10 st (REGLAN) 10 13:12: 3D mg total) H ospita MG tablet 03 by mouth 3 l (three) times a day. omeprazole 2023-0 Yes 40mg QD Take 1 Metho di (PriLOSEC) 4-[address] 40 MG 13:12: (40 mg Hospita capsule 03 total) by l mouth daily. HYDROcodone 2023-0 Yes [id number] 1{tbl} Q6H Take 1 M ethodi -acetaminop 4-[address] hen (NORCO) 13:12: mouth Hospi ta 10-325 mg 03 every 6 l per tablet (six) hours as needed for moderate pain .acute pain. Max Daily Amount: 4 tablets tiZANidine 2023-0 Yes 4mg Q8H Take 1 Metho di (ZANAFLEX) 4-20 tablet (4 st 4 MG tablet 13:12: mg total) H ospita 03 by mouth l every 8 (eight) hours as needed for muscle spasms. glipiZIDE 2023-0 Yes 5mg Q.5D Take 1 Method i (GLUCOTROL) 4-20 tablet (5 st 5 MG tablet 13:12: mg total) H ospita 03 by mouth 2 l (two) times a day before meals. losartan 2023-0 Yes 100mg QD Take 1 Method i (COZAAR) 4-[address] 100 MG 13:12: (100 mg Hospita tablet 03 total) by l mouth daily. dapaglifloz 2023-0 Yes 10mg QD Take 2 Meth sanchez in 4-[address] ([facility]) 5 13:12: (10 mg Hosp r[facility]hi mg tablet 03 total) by l mouth daily. metoclopram 2023-0 Yes 10mg Q.[id number] Take 1 Methodi tacho 4-20 [id number] tablet (10 st (REGLAN) 10 13:12: 3D mg total) H ospita MG tablet 03 by mouth 3 l (three) times a day. omeprazole 2023-0 Yes 40mg QD Take 1 Metho di (PriLOSEC) 4-[address] 40 MG 13:12: (40 mg Hospita capsule 03 total) by l mouth daily. HYDROcodone 2023-0 Yes [id number] 1{tbl} Q6H Take 1 M ethodi -acetaminop 4-[address] hen (NORCO) 13:12: mouth Hospi ta 10-325 mg 03 every 6 l per tablet (six) hours as needed for moderate pain .acute pain. Max Daily Amount: 4 tablets tiZANidine 2023-0 Yes 4mg Q8H Take 1 Metho di (ZANAFLEX) 4-20 tablet (4 st 4 MG tablet 13:12: mg total) H ospita 03 by mouth l every 8 (eight) hours as needed for muscle spasms. glipiZIDE 2023-0 Yes 5mg Q.5D Take 1 Method i (GLUCOTROL) 4-20 tablet (5 st 5 MG tablet 13:12: mg total) H ospita 03 by mouth 2 l (two) times a day before meals. losartan 2023-0 Yes 100mg QD Take 1 Method i (COZAAR) 4-[address] 100 MG 13:12: (100 mg Hospita tablet 03 total) by l mouth daily. dapaglifloz 2023-0 Yes 10mg QD Take 2 Meth sanchez in 4-[address] ([facility]) 5 13:12: (10 mg Hosp [facility] mg tablet 03 total) by l mouth daily. metoclopram 2023-0 Yes 10mg Q.[id number] Take 1 Methodi tacho 4-20 [id number] tablet (10 st (REGLAN) 10 13:12: 3D mg total) H ospita MG tablet 03 by mouth 3 l (three) times a day. omeprazole 2023-0 Yes 40mg QD Take 1 Metho di (PriLOSEC) 4-[address] 40 MG 13:12: (40 mg Hospita capsule 03 total) by l mouth daily. HYDROcodone 2023-0 Yes [id number] 1{tbl} Q6H Take 1 M ethodi -acetaminop 4-[address] hen ([facility]CO) 13:12: mouth Hospi ta 10-325 mg 03 every 6 l per tablet (six) hours as needed for moderate pain .acute pain. Max Daily Amount: 4 tablets tiZANidine 2023-0 Yes 4mg Q8H Take 1 Metho di (ZANAFLEX) 4-20 tablet (4 st 4 MG tablet 13:12: mg total) H ospita 03 by mouth l every 8 (eight) hours as needed for muscle spasms. glipiZIDE 2023-0 Yes 5mg Q.5D Take 1 Method i (GLUCOTROL) 4-20 tablet (5 st 5 MG tablet 13:12: mg total) H ospita 03 by mouth 2 l (two) times a day before meals. losartan 2023-0 Yes 100mg QD Take 1 Method i (COZAAR) 4-[address] 100 MG 13:12: (100 mg Hospita tablet 03 total) by l mouth daily. dapaglifloz 2023-0 Yes 10mg QD Take 2 Meth sanchez in 4-[address] (FARXIGA) 5 13:12: (10 mg [facility]osp [facility] mg tablet 03 total) by l mouth daily. metoclopram 2023-0 Yes 10mg Q.[id number] Take 1 Methodi tacho 4-20 [id number] tablet (10 st (REGLAN) 10 13:12: 3D mg total) H ospita MG tablet 03 by mouth 3 l (three) times a day. losartan 2023-0 Yes 100mg QD Take 1 Method i (COZAAR) 4-[address] 100 MG 13:12: (100 mg Hospita tablet 03 total) by l mouth daily. dapaglifloz 2023-0 Yes 10mg QD Take 2 Meth sanchez in 4-[address] (FARXIGA) 5 13:12: (10 mg Hosp [facility] mg tablet 03 total) by l mouth daily. metoclopram 2023-0 Yes 10mg Q.[id number] Take 1 Methodi tacho 4-20 [id number] tablet (10 st (REGLAN) 10 13:12: 3D mg total) H ospita MG tablet 03 by mouth 3 l (three) times a day. omeprazole 3-0 Yes 40mg QD Take 1 Metho di (PriLOSEC) 4-[address] 40 MG 13:12: (40 mg Hospita capsule 03 total) by l mouth daily. HYDROcodone 3-0 Yes [id number] 1{tbl} Q6H Take 1 M ethodi -acetaminop 4-[address] hen (NORCO) 13:12: mouth Hospi ta 10-325 mg 03 every 6 l per tablet (six) hours as needed for moderate pain .acute pain. Max Daily Amount: 4 tablets tiZANidine 2022-0 Yes 4mg Q8H Take 1 Metho di (ZANAFLEX) 4-20 tablet (4 st 4 MG tablet 13:12: mg total) H ospita 03 by mouth l every 8 (eight) hours as needed for muscle spasms. glipiZIDE 3-0 Yes 5mg Q.5D Take 1 Method i (GLUCOTROL) 4-20 tablet (5 st 5 MG tablet 13:12: mg total) H ospita 03 by mouth 2 l (two) times a day before meals. ALPRAZolam 2023-0 2023- No 2mg Take 1 Meth sanchez (XANAX) 2 4-20 04-17 tablet (2 st MG tablet 13:12: 00:00 mg total) Ho spita 03 :00 by mouth l as needed for anxiety. ALPRAZolam 2023-0 2023- No 2mg Take 1 Meth sanchez (XANAX) 2 4-20 04-17 tablet (2 st MG tablet 13:12: 00:00 mg total) Ho spita 03 :00 by mouth l as needed for anxiety. ALPRAZolam 2023-0 2023- No 2mg Take 1 Meth sanchez (XANAX) 2 4-20 04-17 tablet (2 st MG tablet 13:12: 00:00 mg total) Ho spita 03 :00 by mouth l as needed for anxiety. ALPRAZolam 2022-0 2022- No 2mg Take 1 Meth sanchez (XANAX) 2 4-20 04-17 tablet (2 st MG tablet 13:12: 00:00 mg total) Ho spita 03 :00 by mouth l as needed for anxiety. ALPRAZolam 2022-0 2022- No 2mg Take 1 Meth sanchez (XANAX) 2 4-20 04-17 tablet (2 st MG tablet 13:12: 00:00 mg total) Ho spita 03 :00 by mouth l as needed for anxiety. ALPRAZolam 2022-2022- No 2mg Take 1 Meth sanchez (XANAX) 2 4-20 -17 tablet (2 st MG tablet 13:12: 00:00 mg total) Ho spita 03 :00 by mouth l as needed for anxiety. ALPRAZolam 2022- No 2mg Take 1 Meth sanchez (XANAX) 2 20 -17 tablet (2 st MG tablet 13:12: 00:00 mg total) Ho spita 03 :00 by mouth l as needed for anxiety. ALPRAZolam 2022-0 2022- No 2mg Take 1 Meth sanchez (XANAX) 2 -20 -17 tablet (2 st MG tablet 13:12: 00:00 mg total) Ho spita 03 :00 by mouth l as needed for anxiety. ALPRAZolam 0 2022- No 2mg Take 1 Meth sanchez (XANAX) 2 -20 -17 tablet (2 st MG tablet 13:12: 00:00 mg total) Ho spita 03 :00 by mouth l as needed for anxiety. ALPRAZolam 2022-0 2022- No 2mg Take 1 Meth sanchez (XANAX) 2 4-20 04-17 tablet (2 st MG tablet 13:12: 00:00 mg total) Ho spita 03 :00 by mouth l as needed for anxiety. ALPRAZolam 2022-0 3- No 2mg Take 1 Meth sanchez (XANAX) 2 4-20 04-17 tablet (2 st MG tablet 13:12: 00:00 mg total) Ho spita 03 :00 by mouth l as needed for anxiety. ALPRAZolam 2022- No 2mg Take 1 Meth sanchez (XANAX) 2 4-20 04-17 tablet (2 st MG tablet 13:12: 00:00 mg total) Ho spita 03 :00 by mouth l as needed for anxiety. ketorolac 2019- No 30mg 30 mg, Unive rs (TORADOL) 10-24 Intramuscu ity of injection 02:45: 01:53 [place], ONCE, [place] 30 mg 00 :00 1 dose, Medical 10/24/19 Branch at 2145, YUAN
Fa culty member approving Restricted medication : DAY GUERRERO HYDROcodone 2019- No 2{tbl} 2 tablet, Univers -acetaminop 10-24 Oral, ity of hen (NORCO 01:30: 00:29 ONCE, 1 Alpesh as 5) 5-325 mg 00 :00 dose, Tue Med ical tablet 2 10/24/19 at Branch tablet 2030, YUAN Diclofenac Yes Apply to Uni vers Sodium 2-20 area(s) 2 ity of (VOLTAREN) 00:00: (two) [place] 1 % Gel 00 times Medical daily. Branch ibuprofen Yes 800mg Take 1 Tab U nivers (MOTRIN) 2-20 by mouth 3 ity o f 800 mg 00:00: (three) [place] tablet 00 times Medical daily with Branch meals. Diclofenac Yes Apply to Uni vers Sodium 2-20 area(s) 2 ity of (VOLTAREN) 00:00: (two) [place] 1 % Gel 00 times Medical daily. Branch ibuprofen Yes 800mg Take 1 Tab U nivers (MOTRIN) 2-20 by mouth 3 ity o f 800 mg 00:00: (three) [place] tablet 00 times Medical daily with Branch meals. acetaminoph acetaminoph No acetaminop [place] [...] al MOUTH EVERY MOUTH EVERY TABLET BY DAY MOUTH Outreac EVERY DAY h Program losartan losartan No losartan [place] 100 mg 100 mg 100 mg da tablet TAKE tablet TAKE tablet [facility] 1 TABLET BY 1 TABLET BY TAKE 1 al MOUTH EVERY MOUTH EVERY TABLET BY DAY MOUTH Outreac EVERY DAY h Program losartan 25 losartan 25 No losartan [place] mg tablet mg tablet 25 mg da TAKE 1 TAKE 1 tablet [facility] TABLET BY TABLET BY TAKE 1 al MOUTH EVERY MOUTH EVERY TABLET BY DAY MOUTH Outreac EVERY DAY h Program losartan 50 losartan 50 No losartan [place] mg tablet mg tablet 50 mg da TAKE 1 TAKE 1 tablet [facility] TABLET BY TABLET BY TAKE 1 al MOUTH EVERY MOUTH EVERY TABLET BY DAY MOUTH Outreac EVERY DAY h Program [...] Source Systolic blood 2019-10-25 00:06:00 121 mm[Hg] [facility]ity [facility] [place] [facility] Diastolic blood 2019-10-25 00:06:00 76 mm[Hg] Unive rsity of pressure [place] [facility] Heart rate 2019-10-25 00:06:00 95 /min [facility] [place] [facility] [place] Body temperature 2019-10-25 00:06:00 36.56 [place] [facility] Respiratory rate 2019-10-25 00:06:00 20 /min [facility] [place] [facility] Body height 2019-10-25 00:06:00 170.2 cm [facility] [place] [facility] Body weight 2019-10-25 00:06:00 181.892 kg [facility] [place] [facility] Branch BMI 2019-10-25 00:06:00 62.81 kg/m2 [facility] [place] [facility] [place] Oxygen saturation in 2019-10-25 00:06:00 100 /min [facility] Arterial blood by [place] [facility] [facility] Pulse oximetry Branch Systolic blood 2019-10-25 00:06:00 121 mm[Hg] [facility] [place] [facility] Diastolic blood 2019-10-25 00:06:00 76 mm[Hg] [facility] [place] [facility] Heart rate 2019-10-25 00:06:00 95 /min [facility] [place] [facility] Body temperature 2019-10-25 00:06:00 36.56 [place] [facility] Respiratory rate 2019-10-25 00:06:00 20 /min [facility] [place] [facility] [place] Body height 2019-10-25 00:06:00 170.2 cm [facility] [place] [facility] Body weight 2019-10-25 00:06:00 181.892 kg [facility] [place] [facility] BMI 2019-10-25 00:06:00 62.81 kg/m2 [facility] [place] [facility] Oxygen saturation in 2019-10-25 00:06:00 100 /min [facility] Arterial blood by [place] [facility] [facility] Pulse oximetry Branch Systolic blood 2022-06-10 16:23:28 105 mm[Hg] [facility] pressure Diastolic blood 2022-06-10 16:23:28 60 mm[Hg] [facility] pressure Heart rate 2022-06-10 16:23:28 76 /min [facility] Body temperature 2022-06-10 16:23:28 37.06 [place] [facility] Respiratory rate 2022-06-10 16:23:28 20 /min [facility] Oxygen saturation in 2022-06-10 16:23:28 97 /min [facility] Arterial blood by Pulse oximetry Body weight 2022-06-10 10:00:00 182.664 kg [facility] BMI 2022-06-10 10:00:00 63.07 kg/m2 [facility] Body height 2022-06-06 15:30:00 170.2 cm [facility] Procedures Procedure Date / Time Performing Clinician Source Performed REFERRAL- 2022-08-02 05:01:00 Doctor Unassigned, Veronica Olivo [facility] REQUEST/RESPONSE Name Medical Branch POC GLUCOSE 2022-06-10 16:22:00 [facility] POC GLUCOSE 2022-06-10 13:07:00 [facility] POC GLUCOSE 2022-06-10 01:48:00 [facility] POC GLUCOSE 2022-06-09 22:03:00 [facility] POC GLUCOSE 2022-06-09 12:48:00 [facility] POC GLUCOSE 2022-06-09 01:17:00 [facility] BASIC METABOLIC PANEL 2022-06-08 10:25:00 Jorge Alberto [facility] CBC WITH PLATELET AND 2022-06-08 10:25:00 [facility] DIFFERENTIAL ESTIMATED GFR 2022-06-08 10:25:00 [facility] CBC WITH PLATELET AND 2022-06-07 09:28:00 Jorge Alberto [facility] DIFFERENTIAL BASIC METABOLIC PANEL 2022-06-07 09:28:00 Jorge Alberto [facility] ESTIMATED GFR 2022-06-07 09:28:00 [facility] POC GLUCOSE 2022-06-07 03:44[facility]00 [facility] 2022-06-07 02:31:47 Celsa Barahonaherine [facility] [place] CBC WITH PLATELET AND 2022-06-06 20:57:00 Marilou Barahona [facility] DIFFERENTIAL [place] COMPREHENSIVE METABOLIC 2022-06-06 20:57:00 Marilou Barahona [facility] PANEL [place] ESTIMATED GFR 2022-06-06 20:57:[facility] WO 2019-10-25 01:10:21 Day Guerrero [facility] CONTRAST Medical Branch CT LUMBAR SPINE WO 2019-10-25 01:10:21 Day Guerrero [facility] CONTRAST Medical Branch CT THORACIC SPINE WO 2019-10-25 01:10:21 Cesar Day [facility] CONTRAST Medical Branch NOTICE OF PRIVACY 2019-10-25 00:15:43 Doctor Unassigned, No Univ ersity [facility] PRACTICES Name Medical Branch CONSENT/REFUSAL FOR 2019-10-25 00:15:10 Doctor Unassigned, No [facility] [place] [facility] Name Medical Branch NOTICE OF PRIVACY 2019-10-24 23:59:03 Doctor Unassigned, No [facility] [place] [facility] Name Medical Branch CONSENT/REFUSAL FOR 2019-10-24 23:57:36 Doctor Unassigned, No [facility] [place] [facility] Name Medical Branch Plan of Care Planned Activity Planned Date Details Comments Source Future Scheduled 2022-08-13 Screening for [facility] Test 10:13:25 malignant neoplasm of colon (procedure) [code = 087691071] Future Scheduled 2022-08-13 Screening for [facility] Test 10:13:25 malignant neoplasm of colon (procedure) [code = 342604173] Future Scheduled 2022-08-13 HEPATITIS B VACCINES [facility] Test 10:13:25 (1 of 3 - 3-dose series) [code = HEPATITIS B VACCINES (1 of 3 - 3-dose series)] Future Scheduled 2022-08-13 Screening for [facility] Test 10:13:25 malignant neoplasm of colon (procedure) [code = 152664302] Future Scheduled 2022-08-13 COVID-19 VACCINE (#1) [facility] Test 10:13:25 [code = COVID-19 VACCINE (#1)] Future Scheduled 2022-08-13 Pneumococcal Vaccine: [facility] Test 10:13:25 Pediatrics (0 to 5 Years) and At-Risk Patients (6 to 64 Years) (1 - PCV) [code = Pneumococcal Vaccine: Pediatrics (0 to 5 Years) and At-Risk Patients (6 to 64 Years) (1 - PCV)] Future Scheduled 2022-08-13 Hepatitis C screening [facility] Test 10:13:25 (procedure) [code = 988282900] Future Scheduled 2022-08-13 Screening for [facility] Test 10:13:25 malignant neoplasm of cervix (procedure) [code = 518006665] Future Scheduled 2022-08-13 BREAST CANCER [facility] Test 10:13:25 SCREENING [code = BREAST CANCER SCREENING] Future Scheduled 2022-08-13 Screening for [facility] Test 10:13:25 malignant neoplasm of colon (procedure) [code = 921382553] Future Scheduled 2022-08-13 Screening for [facility] Test 10:13:25 malignant neoplasm of colon (procedure) [code = 272854124] Future Scheduled 2022-08-13 SHINGLES VACCINES (1 Met [facility] Test 10:13:25 of 2) [code = SHINGLES VACCINES (1 of 2)] Future Scheduled 2022-08-13 INFLUENZA VACCINE Method [facility] Test 10:13:25 [code = INFLUENZA VACCINE] Future Scheduled 2022-08-13 Screening for [facility] Test 10:13:25 malignant neoplasm of colon (procedure) [code = 463151871] Future Scheduled 2022-08-13 Screening for [facility] Test 10:13:25 malignant neoplasm of colon (procedure) [code = 971247627] Future Scheduled 2022-08-13 HEPATITIS B VACCINES Met [facility] Test 10:13:25 (1 of 3 - 3-dose series) [code = HEPATITIS B VACCINES (1 of 3 - 3-dose series)] Future Scheduled 2022-08-13 Screening for [facility] Test 10:13:25 malignant neoplasm of colon (procedure) [code = 825151888] Future Scheduled 2022-08-13 COVID-19 VACCINE (#1) [facility] Test 10:13:25 [code = COVID-19 VACCINE (#1)] Future Scheduled 2022-08-13 Pneumococcal Vaccine: [facility] Test 10:13:25 Pediatrics (0 to 5 Years) and At-Risk Patients (6 to 64 Years) (1 - PCV) [code = Pneumococcal Vaccine: Pediatrics (0 to 5 Years) and At-Risk Patients (6 to 64 Years) (1 - PCV)] Future Scheduled 2022-08-13 Hepatitis C screening [facility] Test 10:13:25 (procedure) [code = 100675768] Future Scheduled 2022-08-13 Screening for [facility] Test 10:13:25 malignant neoplasm of cervix (procedure) [code = 190634592] Future Scheduled 2022-08-13 BREAST CANCER [facility] Test 10:13:25 SCREENING [code = BREAST CANCER SCREENING] Future Scheduled 2022-08-13 Screening for [facility] Test 10:13:25 malignant neoplasm of colon (procedure) [code = 142505759] Future Scheduled 2022-08-13 Screening for [facility] Test 10:13:25 malignant neoplasm of colon (procedure) [code = 467676796] Future Scheduled 2022-08-13 SHINGLES VACCINES (1 Met [facility] Test 10:13:25 of 2) [code = SHINGLES VACCINES (1 of 2)] Future Scheduled 2022-08-13 INFLUENZA VACCINE Method [facility] Test 10:13:25 [code = INFLUENZA VACCINE] Future Scheduled 2022-08-13 Screening for [facility] Test 10:13:25 malignant neoplasm of colon (procedure) [code = 823898731] Future Scheduled 2022-08-13 Screening for [facility] Test 10:13:25 malignant neoplasm of colon (procedure) [code = 708897989] Future Scheduled 2022-08-13 HEPATITIS B VACCINES Met [facility] Test 10:13:25 (1 of 3 - 3-dose series) [code = HEPATITIS B VACCINES (1 of 3 - 3-dose series)] Future Scheduled 2022-08-13 Screening for [facility] Test 10:13:25 malignant neoplasm of colon (procedure) [code = 451517859] Future Scheduled 2022-08-13 COVID-19 VACCINE (#1) [facility] Test 10:13:25 [code = COVID-19 VACCINE (#1)] Future Scheduled 2022-08-13 Pneumococcal Vaccine: [facility] Test 10:13:25 Pediatrics (0 to 5 Years) and At-Risk Patients (6 to 64 Years) (1 - PCV) [code = Pneumococcal Vaccine: Pediatrics (0 to 5 Years) and At-Risk Patients (6 to 64 Years) (1 - PCV)] Future Scheduled 2022-08-13 Hepatitis C screening [facility] Test 10:13:25 (procedure) [code = 435827151] Future Scheduled 2022-08-13 [facility] Test 10:13:25 malignant neoplasm of cervix (procedure) [code = 004334423] Future Scheduled 2022-08-13 BREAST CANCER [facility] Test 10:13:25 SCREENING [code = BREAST CANCER SCREENING] Future Scheduled 2022-08-13 Screening for [facility] Test 10:13:25 malignant neoplasm of colon (procedure) [code = 523135550] Future Scheduled 2022-08-13 Screening for [facility] Test 10:13:25 malignant neoplasm of colon (procedure) [code = 032789940] Future Scheduled 2022-08-13 SHINGLES VACCINES (1 Met [facility] Test 10:13:25 of 2) [code = SHINGLES VACCINES (1 of 2)] Future Scheduled 2022-08-13 INFLUENZA VACCINE Method [facility] Test 10:13:25 [code = INFLUENZA VACCINE] Future Scheduled 2022-07-29 Screening for [facility] Test 23:11:36 malignant neoplasm of colon (procedure) [code = 559480887] Future Scheduled 2022-07-29 Screening for [facility] Test 23:11:36 malignant neoplasm of colon (procedure) [code = 393069130] Future Scheduled 2022-07-29 HEPATITIS B VACCINES Met [facility] Test 23:11:36 (1 of 3 - 3-dose series) [code = HEPATITIS B VACCINES (1 of 3 - 3-dose series)] Future Scheduled 2022-07-29 Screening for [facility] Test 23:11:36 malignant neoplasm of colon (procedure) [code = 217358583] Future Scheduled 2022-07-29 COVID-19 VACCINE (#1) [facility] Test 23:11:36 [code = COVID-19 VACCINE (#1)] Future Scheduled 2022-07-29 Pneumococcal Vaccine: [facility] Test 23:11:36 Pediatrics (0 to 5 Years) and At-Risk Patients (6 to 64 Years) (1 - PCV) [code = Pneumococcal Vaccine: Pediatrics (0 to 5 Years) and At-Risk Patients (6 to 64 Years) (1 - PCV)] Future Scheduled 2022-07-29 Hepatitis C screening [facility] Test 23:11:36 (procedure) [code = 692249558] Future Scheduled 2022-07-29 Screening for [facility] Test 23:11:36 malignant neoplasm of cervix (procedure) [code = 827106618] Future Scheduled 2022-07-29 BREAST CANCER [facility] Test 23:11:36 SCREENING [code = BREAST CANCER SCREENING] Future Scheduled 2022-07-29 Screening for [facility] Test 23:11:36 malignant neoplasm of colon (procedure) [code = 838814611] Future Scheduled 2022-07-29 Screening for [facility] Test 23:11:36 malignant neoplasm of colon (procedure) [code = 760273008] Future Scheduled 2022-07-29 SHINGLES VACCINES (1 Met [facility] Test 23:11:36 of 2) [code = SHINGLES VACCINES (1 of 2)] Future Scheduled 2022-07-29 INFLUENZA VACCINE Method [facility] Test 23:11:36 [code = INFLUENZA VACCINE] Future Scheduled 2022-07-29 Screening for [facility] Test 23:11:36 malignant neoplasm of colon (procedure) [code = 424647180] Future Scheduled 2022-07-29 Screening for [facility] Test 23:11:36 malignant neoplasm of colon (procedure) [code = 350730266] Future Scheduled 2022-07-29 HEPATITIS B VACCINES Met [facility] Test 23:11:36 (1 of 3 - 3-dose series) [code = HEPATITIS B VACCINES (1 of 3 - 3-dose series)] Future Scheduled 2022-07-29 Screening for [facility] Test 23:11:36 malignant neoplasm of colon (procedure) [code = 835223460] Future Scheduled 2022-07-29 COVID-19 VACCINE (#1) [facility] Test 23:11:36 [code = COVID-19 VACCINE (#1)] Future Scheduled 2022-07-29 Pneumococcal Vaccine: [facility] Test 23:11:36 Pediatrics (0 to 5 Years) and At-Risk Patients (6 to 64 Years) (1 - PCV) [code = Pneumococcal Vaccine: Pediatrics (0 to 5 Years) and At-Risk Patients (6 to 64 Years) (1 - PCV)] Future Scheduled 2022-07-29 Hepatitis C screening [facility] Test 23:11:36 (procedure) [code = 972921401] Future Scheduled 2022-07-29 Screening for [facility] Test 23:11:36 malignant neoplasm of cervix (procedure) [code = 075035347] Future Scheduled 2022-07-29 BREAST CANCER [facility] Test 23:11:36 SCREENING [code = BREAST CANCER SCREENING] Future Scheduled 2022-07-29 Screening for [facility] Test 23:11:36 malignant neoplasm of colon (procedure) [code = 255392180] Future Scheduled 2022-07-29 Screening for [facility] Test 23:11:36 malignant neoplasm of colon (procedure) [code = 500299363] Future Scheduled 2022-07-29 SHINGLES VACCINES (1 Met [facility] Test 23:11:36 of 2) [code = SHINGLES VACCINES (1 of 2)] Future Scheduled 2022-07-29 INFLUENZA VACCINE [facility] Test 23:11:36 [code = INFLUENZA VACCINE] Future Scheduled 2022-07-29 Screening for [facility] Test 23:11:36 malignant neoplasm of colon (procedure) [code = 393350337] Future Scheduled 2022-07-29 Screening for [facility] Test 23:11:36 malignant neoplasm of colon (procedure) [code = 031242658] Future Scheduled 2022-07-29 HEPATITIS B VACCINES Met [facility] Test 23:11:36 (1 of 3 - 3-dose series) [code = HEPATITIS B VACCINES (1 of 3 - 3-dose series)] Future Scheduled 2022-07-29 Screening for [facility] Test 23:11:36 malignant neoplasm of colon (procedure) [code = 877416368] Future Scheduled 2022-07-29 COVID-19 VACCINE (#1) [facility] Test 23:11:36 [code = COVID-19 VACCINE (#1)] Future Scheduled 2022-07-29 Pneumococcal Vaccine: [facility] Test 23:11:36 Pediatrics (0 to 5 Years) and At-Risk Patients (6 to 64 Years) (1 - PCV) [code = Pneumococcal Vaccine: Pediatrics (0 to 5 Years) and At-Risk Patients (6 to 64 Years) (1 - PCV)] Future Scheduled 2022-07-29 Hepatitis C screening [facility] Test 23:11:36 (procedure) [code = 379932341] Future Scheduled 2022-07-29 Screening for [facility] Test 23:11:36 malignant neoplasm of cervix (procedure) [code = 197089897] Future Scheduled 2022-07-29 BREAST CANCER [facility] Test 23:11:36 SCREENING [code = BREAST CANCER SCREENING] Future Scheduled 2022-07-29 Screening for [facility] Test 23:11:36 malignant neoplasm of colon (procedure) [code = 754092508] Future Scheduled 2022-07-29 Screening for [facility] Test 23:11:36 malignant neoplasm of colon (procedure) [code = 124882043] Future Scheduled 2022-07-29 SHINGLES VACCINES (1 Met [facility] Test 23:11:36 of 2) [code = SHINGLES VACCINES (1 of 2)] Future Scheduled 2022-07-29 INFLUENZA VACCINE Method [facility] Test 23:11:36 [code = INFLUENZA VACCINE] Future Scheduled 2022-07-29 Screening for [facility] Test 23:11:36 malignant neoplasm of colon (procedure) [code = 320199201] Future Scheduled 2022-07-29 Screening for [facility] Test 23:11:36 malignant neoplasm of colon (procedure) [code = 910585915] Future Scheduled 2022-07-29 HEPATITIS B VACCINES Met [facility] Test 23:11:36 (1 of 3 - 3-dose series) [code = HEPATITIS B VACCINES (1 of 3 - 3-dose series)] Future Scheduled 2022-07-29 Screening for [facility] Test 23:11:36 malignant neoplasm of colon (procedure) [code = 890376172] Future Scheduled 2022-07-29 COVID-19 VACCINE (#1) [facility] Test 23:11:36 [code = COVID-19 VACCINE (#1)] Future Scheduled 2022-07-29 Pneumococcal Vaccine: [facility] Test 23:11:36 Pediatrics (0 to 5 Years) and At-Risk Patients (6 to 64 Years) (1 - PCV) [code = Pneumococcal Vaccine: Pediatrics (0 to 5 Years) and At-Risk Patients (6 to 64 Years) (1 - PCV)] Future Scheduled 2022-07-29 Hepatitis C screening [facility] Test 23:11:36 (procedure) [code = 797622562] Future Scheduled 2022-07-29 Screening for [facility] Test 23:11:36 malignant neoplasm of cervix (procedure) [code = 873387124] Future Scheduled 2022-07-29 BREAST CANCER [facility] Test 23:11:36 SCREENING [code = BREAST CANCER SCREENING] Future Scheduled 2022-07-29 Screening for [facility] Test 23:11:36 malignant neoplasm of colon (procedure) [code = 426349970] Future Scheduled 2022-07-29 Screening for [facility] Test 23:11:36 malignant neoplasm of colon (procedure) [code = 254751705] Future Scheduled 2022-07-29 SHINGLES VACCINES (1 Met [facility] Test 23:11:36 of 2) [code = SHINGLES VACCINES (1 of 2)] Future Scheduled 2022-07-29 INFLUENZA VACCINE Method [facility] Test 23:11:36 [code = INFLUENZA VACCINE] Future Scheduled 2022-07-07 HEPATITIS B VACCINES [facility] Test 11:17:55 (1 of 3 - 3-dose series) [code = HEPATITIS B VACCINES (1 of 3 - 3-dose series)] Future Scheduled 2022-07-07 COVID-19 VACCINE (#1) [facility] Test 11:17:55 [code = COVID-19 VACCINE (#1)] Future Scheduled 2022-07-07 Pneumococcal Vaccine: [facility] Test 11:17:55 Pediatrics (0 to 5 Years) and At-Risk Patients (6 to 64 Years) (1 - PCV) [code = Pneumococcal Vaccine: Pediatrics (0 to 5 Years) and At-Risk Patients (6 to 64 Years) (1 - PCV)] Future Scheduled 2022-07-07 Hepatitis C screening [facility] Test 11:17:55 (procedure) [code = 929450542] Future Scheduled 2022-07-07 Screening for [facility] Test 11:17:55 malignant neoplasm of cervix (procedure) [code = 394839759] Future Scheduled 2022-07-07 BREAST CANCER [facility] Test 11:17:55 SCREENING [code = BREAST CANCER SCREENING] Future Scheduled 2022-07-07 COLONOSCOPY SCREENING [facility] Test 11:17:55 [code = COLONOSCOPY SCREENING] Future Scheduled 2022-07-07 SHINGLES VACCINES (1 Met [facility] Test 11:17:55 of 2) [code = SHINGLES VACCINES (1 of 2)] Future Scheduled 2022-07-07 INFLUENZA VACCINE Method [facility] Test 11:17:55 [code = INFLUENZA VACCINE] Future Scheduled 2022-07-07 HEPATITIS B VACCINES Met [facility] Test 11:17:55 (1 of 3 - 3-dose series) [code = HEPATITIS B VACCINES (1 of 3 - 3-dose series)] Future Scheduled 2022-07-07 COVID-19 VACCINE (#1) [facility] Test 11:17:55 [code = COVID-19 VACCINE (#1)] Future Scheduled 2022-07-07 Pneumococcal Vaccine: [facility] Test 11:17:55 Pediatrics (0 to 5 Years) and At-Risk Patients (6 to 64 Years) (1 - PCV) [code = Pneumococcal Vaccine: Pediatrics (0 to 5 Years) and At-Risk Patients (6 to 64 Years) (1 - PCV)] Future Scheduled 2022-07-07 Hepatitis C screening [facility] Test 11:17:55 (procedure) [code = 951570173] Future Scheduled 2022-07-07 Screening for [facility] Test 11:17:55 malignant neoplasm of cervix (procedure) [code = 565809221] Future Scheduled 2022-07-07 BREAST CANCER [facility] Test 11:17:55 SCREENING [code = BREAST CANCER SCREENING] Future Scheduled 2022-07-07 COLONOSCOPY SCREENING [facility] Test 11:17:55 [code = COLONOSCOPY SCREENING] Future Scheduled 2022-07-07 SHINGLES VACCINES (1 Met [facility] Test 11:17:55 of 2) [code = SHINGLES VACCINES (1 of 2)] Future Scheduled 2022-07-07 INFLUENZA VACCINE Method [facility] Test 11:17:55 [code = INFLUENZA VACCINE] Future Scheduled 2022-06-15 HEPATITIS B VACCINES Met [facility] Test 17:11:07 (1 of 3 - 3-dose series) [code = HEPATITIS B VACCINES (1 of 3 - 3-dose series)] Future Scheduled 2022-06-15 COVID-19 VACCINE (#1) [facility] Test 17:11:07 [code = COVID-19 VACCINE (#1)] Future Scheduled 2022-06-15 Pneumococcal Vaccine: [facility] Test 17:11:07 Pediatrics (0 to 5 Years) and At-Risk Patients (6 to 64 Years) (1 - PCV) [code = Pneumococcal Vaccine: Pediatrics (0 to 5 Years) and At-Risk Patients (6 to 64 Years) (1 - PCV)] Future Scheduled 2022-06-15 Hepatitis C screening [facility] Test 17:11:07 (procedure) [code = 093043150] Future Scheduled 2022-06-15 Screening for [facility] Test 17:11:07 malignant neoplasm of cervix (procedure) [code = 193012062] Future Scheduled 2022-06-15 BREAST CANCER [facility] Test 17:11:07 SCREENING [code = BREAST CANCER SCREENING] Future Scheduled 2022-06-15 COLONOSCOPY SCREENING [facility] Test 17:11:07 [code = COLONOSCOPY SCREENING] Future Scheduled 2022-06-15 SHINGLES VACCINES (1 Met [facility] Test 17:11:07 of 2) [code = SHINGLES VACCINES (1 of 2)] Future Scheduled 2022-06-15 INFLUENZA VACCINE Method [facility] Test 17:11:07 [code = INFLUENZA VACCINE] Future Scheduled 2022-06-15 HEPATITIS B VACCINES Met [facility] Test 17:11:07 (1 of 3 - 3-dose series) [code = HEPATITIS B VACCINES (1 of 3 - 3-dose series)] Future Scheduled 2022-06-15 COVID-19 VACCINE (#1) [facility] Test 17:11:07 [code = COVID-19 VACCINE (#1)] Future Scheduled 2022-06-15 Pneumococcal Vaccine: [facility] Test 17:11:07 Pediatrics (0 to 5 Years) and At-Risk Patients (6 to 64 Years) (1 - PCV) [code = Pneumococcal Vaccine: Pediatrics (0 to 5 Years) and At-Risk Patients (6 to 64 Years) (1 - PCV)] Future Scheduled 2022-06-15 Hepatitis C screening [facility] Test 17:11:07 (procedure) [code = 660382193] Future Scheduled 2022-06-15 Screening for [facility] Test 17:11:07 malignant neoplasm of cervix (procedure) [code = 789451006] Future Scheduled 2022-06-15 BREAST CANCER [facility] Test 17:11:07 SCREENING [code = BREAST CANCER SCREENING] Future Scheduled 2022-06-15 COLONOSCOPY SCREENING [facility] Test 17:11:07 [code = COLONOSCOPY SCREENING] Future Scheduled 2022-06-15 SHINGLES VACCINES (1 Met [facility] Test 17:11:07 of 2) [code = SHINGLES VACCINES (1 of 2)] Future Scheduled 2022-06-15 INFLUENZA VACCINE Method [facility] Test 17:11:07 [code = INFLUENZA VACCINE] Future Scheduled 2022-06-15 HEPATITIS B VACCINES Met [facility] Test 17:11:07 (1 of 3 - 3-dose series) [code = HEPATITIS B VACCINES (1 of 3 - 3-dose series)] Future Scheduled 2022-06-15 COVID-19 VACCINE (#1) [facility] Test 17:11:07 [code = COVID-19 VACCINE (#1)] Future Scheduled 2022-06-15 Pneumococcal Vaccine: [facility] [facility] Test 17:11:07 Pediatrics (0 to 5 Years) and At-Risk Patients (6 to 64 Years) (1 - PCV) [code = Pneumococcal Vaccine: Pediatrics (0 to 5 Years) and At-Risk Patients (6 to 64 Years) (1 - PCV)] Future Scheduled 2022-06-15 Hepatitis C screening [facility] Test 17:11:07 (procedure) [code = 001960532] Future Scheduled 2022-06-15 Screening for [facility] Test 17:11:07 malignant neoplasm of cervix (procedure) [code = 312798269] Future Scheduled 2022-06-15 BREAST CANCER [facility] Test 17:11:07 SCREENING [code = BREAST CANCER SCREENING] Future Scheduled 2022-06-15 COLONOSCOPY SCREENING [facility] Test 17:11:07 [code = COLONOSCOPY SCREENING] Future Scheduled 2022-06-15 SHINGLES VACCINES (1 Met [facility] Test 17:11:07 of 2) [code = SHINGLES VACCINES (1 of 2)] Future Scheduled 2022-06-15 INFLUENZA VACCINE Method [facility] Test 17:11:07 [code = INFLUENZA VACCINE] Encounters Start End Encounter Admission Attending Care Care Encounter Source Date/Time Date/Time Type Type Clinicians Facility Department ID 2022-07-21 Outpatient CBRIDGE CBRIDGE [id number] CareBri 09:58:09 .[id number] dge [id number] 2022-06-19 Inpatient JANELL CLAY [facility] [id number] [place] 10:30:00 , CAMILO -[id number] Count includes the [facility] 2022-08-19 2022-08-20 Emergency ER CATANESCU, [facility] [id number] [place] 21:48:00 01:26:00 BOLIVAR -[id number] Count includes the [facility] 2022-08-12 2022-08-12 Outpatient DAILY NICKERSON [facility] [id number] [facility] 14:15:00 14:54:00 DAILY GARNETT [facility] 2022-08-11 2022-08-12 Emergency ER LEE, [facility] [id number] [place] 19:54:00 01:08:00 SOFY -[id number] Count includes the [facility] 2022-08-07 2022-08-07 Emergency ER [facility], [facility] [id number] [place] 15:47:00 21:46:00 LUIZ -[id number] Count includes the [facility] 2022-08-02 2022-08-02 Orders Doctor MING [id number] Univers 00:00:00 00:00:00 Only Unassigned, DARIELA 350.1.13.10 [facility] 4.2.7.2.686 Alpesh as [id number] [place] [address] [place] 2022-07-30 2022-07-30 Outpatient Young_J MMG MMG [id number] [place] 00:00:00 00:00:00 [facility] 2022-07-27 2022-07-27 Outpatient JANELL CLAY [facility] [id number] [place] 08:13:00 08:13:00 , CAMILO -[id number] Count includes the [facility] 2022-07-22 2022-07-23 Emergency ER CATANESCU, [facility] [id number] [place] 19:42:00 03:33:00 BOLIVAR -[id number] Count includes the [facility] 2022-06-26 2022-06-26 Emergency ER AMANDA, [facility] [id number] [place] 09:55:00 16:08:00 SCOTT -[id number] Count includes the [facility] 2022-06-18 2022-06-19 Emergency ER PAULCU, [facility] [id number] [place] 20:15:00 01:27:00 BOLIVAR -[id number] Count includes the [facility] 2022-06-06 2022-06-[address] [facility] 1.2.840.1 [id number] Methodi 10:06:00 13:12:00 Encounter Siraj 38265.1.[address] 3.430.2.7 Hospit a .3.911806 l .8 2022-06-06 2022-06-10 [facility] 1.2.840.1 [id number] Methodi 10:06:00 13:12:00 Encounter Siraj [id number] 3.430.2.7 Hospit a .3.061313 l .8 2022-06-05 2022-06-06 Emergency ER JESUS, [facility] [id number] [place] 20:54:00 08:16:00 SOFY [id number] Count includes the [facility] 2022-06-06 2022-06-06 Travel 1.2.840.1 [id number] [id number] Methodi 00:00:00 00:00:[address] 3.430.2.7 0.2.7.3.698 Ho spita .3.093788 084.8 l .8 2022-06-06 2022-06-06 Travel 1.2.840.1 1.2.938.353 [id number] Methodi 00:00:00 00:00:[address] 3.430.2.7 0.2.7.3.698 Ho spita .3.163437 084.8 l .8 2022-05-27 2022-05-27 Inpatient ER MONISHA, [facility] [id number] [place] 00:24:00 12:46:00 CRIS -[id number] Count includes the [facility] 2022-05-26 2022-05-26 Emergency ER AMANDA, [facility] [id number] [place] 16:31:00 16:31:00 SCOTT -[id number] Count includes the [facility] 2022-02-28 2022-02-28 Emergency ER Langhorn, [facility] [id number] [place] 14:24:00 19:09:00 Luiz -[id number] Count includes the [facility] 2022-02-02 2022-02-02 Outpatient EL PHIL, [facility] [id number] [place] 19:29:00 19:29:00 KIA -[id number] Count includes the [facility] 2022-01-16 2022-01-17 Emergency ER CATANESCU, [facility] [id number] [place] 21:11:00 03:47:00 BOLIVAR -[id number] Count includes the [facility] 2022-01-01 2022-01-01 Emergency ER LANGHORN, [facility] [id number] [place] 07:59:00 10:45:00 LUIZ -[id number] Count includes the [facility] 2021-07-01 2021-07-01 Outpatient SAGLIME_KELY [facility] [id number] [place] 10:51:00 10:51:00 N 0510 [facility] 2020-10-18 2020-10-18 Outpatient AMBREEN_ABHIJIT [facility] 914 [place] 01:12:00 01:12:00 HANA 0827 [facility] 2020-10-18 2020-10-18 June [facility] [place] - [id number] M atagor 00:00:00 00:00:00 Bucyk Chavez da Valeriy, Protestant Episco p SULFUR CHLORIDE OPERATOR: 1700 HOP - NCGERARDO ia Clemente B.[facility] [address] Progr am , Ph. ([phone]) --20072020-09-18 2020-09-18 Outpatient AMBREEN_FAR NCHOP [facility] 91 [place] 04:48:00 04:48:00 HANA 0728 [facility] 2020-09-18 2020-09-18 June [place] - [id number] M at[place]or 00:00:00 00:00:00 Bucky Chavez da Valeriy, Protestant Episco p SULFUR CHLORIDE OPERATOR: 1700 HOP [facility] Mccullough [facility] [address] Progr am , Ph. ([phone]) 2020-09-13 2020-09-13 Outpatient AMBREEN_FAR [place] [id number] [place] 11:12:00 11:12:00 HANA 0723 [facility] Program 2020-09-13 2020-09-13 June [place] - [id number] M at[place]or 00:00:00 00:00:00 Bucky Chavez da Valeriy, Protestant Episco p SULFUR CHLORIDE OPERATOR: 1700 [facility] ia Cornejo B.[facility] [address] Progr am , Ph. ([phone]) 2020-09-05 2020-09-05 Outpatient AMBREEN_FAR NCHOP [place] [id number] [place] 11:30:00 11:30:00 HANA 0715 [facility] 2020-09-05 2020-09-05 June [place] - [id number] M [place] 00:00:00 00:00:00 Bucky Chavez da Valeriy, Protestant Ep[employer] p SULFUR CHLORIDE OPERATOR: 1700 HOP [facility] ia Clemente B.[facility], [facility] [address] Progr am , Ph. ([phone]) 2020-08-28 2020-08-28 Outpatient AMBREEN_FAR MEHOP [place] [id number] [place] 03:39:00 03:39:00 HANA 0707 [facility] 2020-08-28 2020-08-28 June [place] - [id number] atagor 00:00:00 00:00:00 Bucky Chavez da Valeriy, Protestant Ep[employer] p SULFUR CHLORIDE OPERATOR: 1700 [facility] [address] [facility] , Ph. ([phone]) --20072020-08-22 2020-08-22 Outpatient AMBREEN_FAR MEHOP [place] [id number] [place] 01:06:00 01:06:00 HANA 0701 [facility] 2020-08-21 2020-08-21 Outpatient AMBREEN_FAR NCHOP [place] [id number] [place] 10:33:00 10:33:00 HANA 0630 [facility] 2020-08-19 2020-08-19 Outpatient AMBREEN_FAR NCHOP [place] [id number] [place] 05:37:00 05:37:00 HANA 0628 [facility] 2020-08-19 2020-08-19 June [place] - [id number] [place] 00:00:00 00:00:00 Bucky Chavez da Valeriy, Protestant Ep[employer] p SULFUR CHLORIDE OPERATOR: 1700 [facility] [address] [facility] , Ph. (740) -20072020-08-16 2020-08-16 Outpatient AMBREEN_FAR NCHOP [place] [id number] [place] 11:46:00 11:46:00 HANA 0625 [facility] 2020-08-16 2020-08-16 June [place] - [id number] M [place] 00:00:00 00:00:00 Bucky Chavez da Valeriy, Protestant Ep[employer] p SULFUR CHLORIDE OPERATOR: 1700 HOP - MEHOP al Clemente B[facility] [address] Yolanda am , Ph. ([phone]) --20072020-08-13 2020-08-13 Outpatient AMBREEN_[place]AR [place] [id number] [place] 02:54:00 02:54:00 HANA 0622 [facility] 2020-08-12 2020-08-12 Outpatient AMBREEN_[place]AR [place] [id number] [place] 05:25:00 05:25:00 HANA 0621 [facility] 2020-08-12 2020-08-12 June [place] [id number] [place] 00:00:00 00:00:00 Bucky Chavez da Valeriy, Protestant Ep[employer] p SULFUR CHLORIDE OPERATOR: 1700 [facility] Clemente B.[facility] [address] Yolanda am , Ph. ([phone]) --20072020-08-09 2020-08-09 Outpatient AMBREEN_[place]AR [place] [id number] [place] 12:50:00 12:50:00 HANA 0618 [facility] 2020-08-09 2020-08-09 June [place] - [id number] [place]or 00:00:00 00:00:00 Bucky Chavez da Valeriy, Protestant Ep[employer] p SULFUR CHLORIDE OPERATOR: 1700 [facility] Cornejo B.[facility] [address] Yolanda am , Ph. ([phone]) --20072020-08-05 2020-08-05 Outpatient AMBREEN_[place]AR [place] [id number] [place] 03:47:00 03:47:00 HANA 0614 [facility] 2020-08-05 2020-08-05 Juen [place] - [id number] M [place] 00:00:00 00:00:00 Bucky Chavez da Valeriy, Protestant Ep[employer] SULFUR CHLORIDE OPERATOR: 1700 HOP - MEHOP al Clemente B.[facility] [address] Yolanda am , Ph. ([phone]) --20072020-08-03 2020-08-03 Outpatient AMBREEN_[place]AR [place] [id number] [place] 11:12:00 11:12:00 HANA 0612 [facility] 2020-08-02 2020-08-02 Outpatient AMBREEN_[place] [id number] [place] 04:07:00 04:07:00 HANA 0611 [facility] 2020-08-02 2020-08-02 June ANDERSON [facility] [id number] [place] 00:00:00 00:00:00 Bucky Chavez da Valeriy, Protestant Ep[employer] SULFUR CHLORIDE OPERATOR: 1700 [facility] Clemente B.[facility] [address] Yolanda am , Ph. ([phone]) --20072020-07-29 2020-07-29 Outpatient AMBREEN_[place]AR [place] [id number] [place] 02:43:00 02:43:00 HANA 0607 [facility] 2020-07-29 2020-07-29 June [place] - [id number] [place] 00:00:00 00:00:00 Bucky Chavez da Valeriy, Protestant Ep[employer] p SULFUR CHLORIDE OPERATOR: 1700 [facility] Clemente B.[facility] [address] Yolanda am , Ph. ([phone]) --20072020-07-26 2020-07-26 Outpatient AMBREEN_[place]AR [place] [id number] [place] 01:45:00 01:45:00 HANA 0604 [facility] 2020-07-26 2020-07-26 June [place] - [id number] M [place] 00:00:00 00:00:00 Bucky Chavez da Valeriy, [employer] Ep[employer] p SULFUR CHLORIDE OPERATOR: 1700 HOP - MEHOP al Cornejo B.[facility] [address] [facility] , Ph. ([phone]) --20072020-07-25 2020-07-25 Outpatient AMBREEN_FAR MEHOP [place] [id number] [place] 11:44:00 11:44:00 HANA 0603 [facility] 2020-07-24 2020-07-24 Outpatient AMBREEN_FAR MEHOP [place] [id number] [place] 09:15:00 09:15:00 HANA 0602 [facility] 2020-07-19 2020-07-19 Outpatient AMBREEN_FAR NCHOP [place] [id number] [place] 12:50:00 12:50:00 HANA 0528 [facility] 2020-07-19 2020-07-19 June [place] - [id number] Mildred [place] 00:00:00 00:00:00 Bucky Kelsey, [employer] Ep[employer] p SULFUR CHLORIDE OPERATOR: 1700 [facility] Cornejo B.[facility] [address] Yolanda , Ph. ([phone]) --20072020-07-17 2020-07-17 Outpatient AMBREEN_[place]AR [place] [id number] [place] 10:01:00 10:01:00 HANA 0526 [facility] 2020-07-16 2020-07-16 Outpatient AMBREEN_FAR NCHOP [place] [id number] [place] 03:32:00 03:32:00 HANA 0525 [facility] 2020-07-15 2020-07-15 Outpatient AMBREEN_FAR NCHOP [place] [id number] [place] 12:03:00 12:03:00 HANA 0524 [facility] 2020-07-15 2020-07-15 June [place] - [id number] M [place] 00:00:00 00:00:00 [place] da Valeriy, Protestant Episco p SULFUR CHLORIDE OPERATOR: 1700 HOP - NCHOP ia Cornejo B[facility] [address] Progr am , Ph. (169) 2020-07-12 2020-07-12 Outpatient AMBREEN_FAR MEHOP [place] [id number] [place] 02:59:00 02:59:00 HANA 0521 [facility] 2020-07-12 2020-07-12 June [place] - [id number] M [place] 00:00:00 00:00:00 Bucky Chavez da Valeriy, Protestant Ep[employer] p SULFUR CHLORIDE OPERATOR: 1700 HOP - NCHOP ia [facility] [address] Progr am , Ph. ([phone]) 2020-07-08 2020-07-08 Outpatient AMBREEN_[place] [id number] [place] 03:49:00 03:49:00 HANA 0517 [facility] 2020-07-08 2020-07-08 June [place] - [id number] M [place] 00:00:00 00:00:00 Bucky Chavez da Valeriy, Protestant Ep[employer] p SULFUR CHLORIDE OPERATOR: 1700 HOP - NCGERARDO ia Cornejo [facility] [address] Progr am , Ph. ([phone]) 2020-07-05 2020-07-05 Outpatient AMBREEN_FAR NCHOP [place] [id number] [place] 12:31:00 12:31:00 HANA 0514 [facility] 2020-07-05 2020-07-05 June [place] - [id number] M at[place] 00:00:00 00:00:00 Bucky Chavez da Valeriy, Protestant Ep[employer] p SULFUR CHLORIDE OPERATOR: 1700 HOP - NCHOP ia [facility] [address] Progr am , Ph. ([phone]--20072020-07-01 2020-07-01 Outpatient AMBREEN_FAR NCHOP [place] [id number] [place] 03:25:00 03:25:00 HANA 0510 [facility] 2020-07-01 2020-07-01 June [place] - [id number] at[place]or 00:00:00 00:00:00 Bucky Chavez da Valeriy, Protestant Ep[employer] p SULFUR CHLORIDE OPERATOR: 1700 [facility] Cornejo B.[facility] [address] Progr am , Ph. ([phone]) --20072020-06-28 2020-06-28 Outpatient AMBREEN_[place]AR [place] [id number] [place] 04:23:00 04:23:00 HANA 0507 [facility] 2020-06-28 2020-06-28 June [place] - [id number] [place] 00:00:00 00:00:00 Bucky Chavez da Valeriy, Protestant Ep[employer] p SULFUR CHLORIDE OPERATOR: 1700 [facility] Clemente B.[facility] [address] Progr am , Ph. ([phone]) --20072020-06-21 2020-06-21 Outpatient AMBREEN_[place]AR [place] [id number] [place] 11:42:00 11:42:00 HANA 0430 [facility] 2020-06-21 2020-06-21 June [place] - [id number] at[place]or 00:00:00 00:00:00 Bucky Chavez da Valeriy, Protestant Ep[employer] p SULFUR CHLORIDE OPERATOR: 1700 [facility] Clemente B.[facility] [address] Progr am , Ph. (729) -20072020-06-17 2020-06-17 Outpatient AMBREEN_FAR NCHOP [place] [id number] [place] 11:56:00 11:56:00 HANA 0426 [facility] 2020-06-17 2020-06-17 Outpatient AMBREEN_FAR NCHOP [place] [id number] [place] 11:56:00 11:56:00 HANA 0429 [facility] 2020-06-17 2020-06-17 June [place] - [id number] [place] 00:00:00 00:00:00 Bucky Chavez da Valeriy, Protestant Ep[employer] p SULFUR CHLORIDE OPERATOR: 1700 [facility] Cornejo B.[facility] [address] Progr am , Ph. (109) --20072020-06-14 2020-06-14 Outpatient AMBREEN_[place]AR [place] [id number] [place] 04:12:00 04:12:00 HANA 0423 [facility] 2020-06-14 2020-06-14 June [place] - [id number] at[place]or 00:00:00 00:00:00 Bucky Chavez da Valeriy, Protestant Ep[employer] p SULFUR CHLORIDE OPERATOR: 1700 [facility] Clemente B.[facility] [address] Progr am , Ph. (129) --20072020-06-10 2020-06-10 Outpatient AMBREEN_[place]AR [place] [id number] [place] 12:04:00 12:04:00 HANA 0419 [facility] 2020-06-10 2020-06-10 June [place] - [id number] at[place]or 00:00:00 00:00:00 Bucky Chavez da Valeriy, Protestant Ep[employer] p SULFUR CHLORIDE OPERATOR: 1700 [facility] Cornejo B.[facility] [address] Progr am , Ph. (558) -20072020-05-20 2020-05-20 Outpatient AMBREEN_FAR NCHOP [place] [id number] [place] 12:20:00 12:20:00 HANA 0329 [facility] 2020-05-20 2020-05-20 June [place] - [id number] at[place]or 00:00:00 00:00:00 Bucky Chavez da Valeriy, Protestant Ep[employer] p SULFUR CHLORIDE OPERATOR: 1700 [facility] Cornejo B.[facility] [address] Progr am , Ph. ([phone]) --20072020-05-03 2020-05-03 Outpatient AMBREEN_FAR MEHOP NCHOP [facility] [place] 12:58:00 12:58:00 HANA 0312 [facility] 2020-05-03 2020-05-03 Outpatient AMBREEN_FAR NCHOP [place] [id number] [place] 12:58:00 12:58:00 HANA 0318 [facility] 2020-05-03 2020-05-03 June [place] - [id number] [place] 00:00:00 00:00:00 Bucky Chavez da Valeriy, Protestant [employer] SULFUR CHLORIDE OPERATOR: 1700 [facility] Clemente B.[facility] [address] Progr am , Ph. ([phone]) --20072020-04-19 2020-04-19 Outpatient AMBREEN_FAR NCHOP [place] [id number] [place] 02:21:00 02:21:00 HANA 0226 [facility] 2020-04-19 2020-04-19 June [place] - [id number] at[place]or 00:00:00 00:00:00 Bucky Chavez da Valeriy, Protestant [employer] SULFUR CHLORIDE OPERATOR: 1700 [facility] Clemente B.[facility] [address] Progr am , Ph. ([phone]) --20072020-04-12 2020-04-12 Outpatient AMBREEN_FAR NCHOP [place] [id number] [place] 02:06:00 02:06:00 HANA 0219 [facility] 2020-04-12 2020-04-12 June [place] - [id number] at[place]or 00:00:00 00:00:00 Bucky Chavez da Valeriy, Protestant [employer] SULFUR CHLORIDE OPERATOR: 1700 [facility] Cornejo B.[facility] [address] Progr am , Ph. ([phone]) --20072020-04-05 2020-04-05 Outpatient AMBREEN_[place]AR [place] [id number] [place] 02:37:00 02:37:00 HANA 0212 da [facility] Program 2020-04-05 2020-04-05 June [place] - [id number] [place] 00:00:00 00:00:00 Bucky Chavez da Valeriy, Protestant Ep[employer] p SULFUR CHLORIDE OPERATOR: 1700 [facility] Cornejo B.[facility] [address] Progr am , Ph. ([phone]) --20072020-03-29 2020-03-29 Outpatient AMBREEN_FAR [place] [id number] [place] 03:40:00 03:40:00 HANA 0205 da [facility] Program 2020-03-29 2020-03-29 June [place] - [id number] at[place]or 00:00:00 00:00:00 Bucky Chavez da Valeriy, Protestant [employer] SULFUR CHLORIDE OPERATOR: 1700 [facility] Cornejo B.[facility] [address] Progr am , Ph. ([phone]) -20072020-03-22 2020-03-22 Outpatient AMBREEN_[place]AR [place] [id number] [place] 12:52:00 12:52:00 HANA 0129 [facility] 2020-03-22 2020-03-22 June [place] - [id number] M at[place]or 00:00:00 00:00:00 Bucky Chavez da Valeriy, Protestant [employer] SULFUR CHLORIDE OPERATOR: 1700 HOP - MEGERARDO Mccullough B.[facility] [address] Progr am , Ph. ([phone]) --20072020-03-15 2020-03-15 Outpatient AMBREEN_FAR MEHOP NCHOP 914 [place] 04:34:00 04:34:00 HANA 0122 [facility] 2020-03-15 2020-03-15 June [place] - [id number] M at[place] 00:00:00 00:00:00 Bucky Chavez da Valeriy, Protestant Ep[employer] p SULFUR CHLORIDE OPERATOR: 1700 [facility] [place] [address] Progr am , Ph. ([phone]) --20072020-03-11 2020-03-11 Outpatient AMBREEN_FAR NCHOP [place] [id number] [place] 05:50:00 05:50:00 HANA 0118 [facility] 2020-03-11 2020-03-11 June [place] - [id number] M at[place]or 00:00:00 00:00:00 Bucky Kelsey, Protestant Ep[employer] p SULFUR CHLORIDE OPERATOR: 1700 [facility] JUSTIN Mccullough B.[facility] [address] Progr am , Ph. ([phone]) -20072020-02-13 2020-02-13 Outpatient AMBREEN_FAR NCHOP NCHOP 91 [place] 04:45:00 04:45:00 HANA 1222 [facility] 2020-02-09 2020-02-09 Outpatient AMBREEN_FAR MEHOP NCHOP 914 [place] 02:37:00 02:37:00 HANA 1218 [facility] 2020-02-09 2020-02-09 June [place] - [id number] M at[place]or 00:00:00 00:00:00 Bucky Chavez da Valeriy, Protestant Ep[employer] p SULFUR CHLORIDE OPERATOR: 1700 HOP [facility] ia Clemente Stewart.[facility] [address] Progr am , Ph. ([phone]) --20072020-01-08 2020-01-08 Outpatient AMBREEN_ABHIJIT [place] [id number] [place] 03:29:00 03:29:00 HANA 1116 [facility] Program 2020-01-08 2020-01-08 June [facility] [place] - [id number] M atagor 00:00:00 00:00:00 Bucky Chavez da Valeriy, Protestant Ep[employer] p SULFUR CHLORIDE OPERATOR: 1700 [facility] Cornejo [facility] [address] Progr am , Ph. ([phone]) --20072019-10-24 2019-10-24 Emergency [facility] [id number] [facility] 19:10:00 21:01:00 [place] 350.1.13.10 i ty of [place] 4.2.7.2.686 [facility] [phone] [address] 2019-10-24 2019-10-24 Emergency [facility] [id number] 19:10:00 21:01:00 Day [place] [id number] [place] [id number] [place] [address] [phone] [facility] 2019-10-24 2019-10-24 Emergency [facility] [id number] [facility] 19:10:00 19:10:00 DAY raygoza [facility] 2019-08-29 2019-08-29 Outpatient [place] [address] [place] 03:18:00 03:18:00 HANA 0707 [facility] Program Results Test Description Test Time Test Comments Results Result Comments Source POC glucose 2022-06-10 16:27:00 Test Item Value Reference Range Interpretation Comme nts POC glucose (test code = 121 mg/dL 65-99 H Ope rator Name: Howierob [id number] PrittyDevice ID : [id number] able: RN Notified Lab Interpretation (test code = Abnormal 58856-8) [facility]2023-04-19 16:27:00 Test Item Value Reference Range Interpretation Comments POC glucose (test code 121 mg/dL 65-99 H Opera tor Name: = 89529-0) Toby Morris ID : [id number] able: RN Notified Lab Interpretation Abnormal (test code = 15822-7) [facility]2023-04-19 16:27:00 Test Item Value Reference Range Interpretation Comments POC glucose (test code 121 mg/dL 65-99 H Opera tor Name: = 05716-3) Toby Howellice ID : [id number] able: RN Notified Lab Interpretation Abnormal (test code = 66835-9) [facility]2023-04-19 16:27:00 Test Item Value Reference Range Interpretation Comments POC glucose (test code 121 mg/dL 65-99 H Opera tor Name: = 02210-4) Toby Morris ID : [id number] able: RN Notified Lab Interpretation Abnormal (test code = 52394-6) [facility]2023-04-19 16:27:00 Test Item Value Reference Range Interpretation Comments POC glucose (test code 121 mg/dL 65-99 [facility] Opera tor Name: = 47472-9) Toby Morris ID : [id number] able: RN Notified Lab Interpretation Abnormal (test code = 58141-4) [facility]2023-04-19 16:27:00 Test Item Value Reference Range Interpretation Comments POC glucose (test code 121 mg/dL 65-99 [facility] Opera tor Name: = 95193-7) Toby Howellice ID : [id number] able: RN Notified Lab Interpretation Abnormal (test code = 26167-5) [facility]2023-04-19 16:27:00 Test Item Value Reference Range Interpretation Comments POC glucose (test code 121 mg/dL 65-99 H Opera tor Name: = 59027-2) Toby Howellice ID : [id number] able: RN Notified Lab Interpretation Abnormal (test code = 09791-9) [facility]2023-04-19 16:27:00 Test Item Value Reference Range Interpretation Comments POC glucose (test code 121 mg/dL 65-99 H Opera tor Name: = 57140-9) Toby Morris ID : [id number] able: RN Notified Lab Interpretation Abnormal (test code = 71697-1) [facility]2023-04-19 16:27:00 Test Item Value Reference Range Interpretation Comments POC glucose (test code 121 mg/dL 65-99 H Opera tor Name: = 45892-0) Toby Morris ID : [id number] able: RN Notified Lab Interpretation Abnormal (test code = 00982-3) [facility]2023-04-19 16:27:00 Test Item Value Reference Range Interpretation Comments POC glucose (test code 121 mg/dL 65-99 H Opera tor Name: = 95883-6) Toby Morris ID : [id number] able: RN Notified Lab Interpretation Abnormal (test code = 15546-5) [facility]2023-04-19 16:27:00 Test Item Value Reference Range Interpretation Comments POC glucose (test code 121 mg/dL 65-99 H Opera tor Name: = 74330-8) Toby Morris ID : [id number] able: RN Notified Lab Interpretation Abnormal (test code = 51181-9) [facility]2023-04-19 16:27:00 Test Item Value Reference Range Interpretation Comments POC glucose (test code 121 mg/dL 65-99 H Opera tor Name: = 49778-3) Toby Morris ID : [id number] able: RN Notified Lab Interpretation Abnormal (test code = 13750-2) [facility]
--- NOTE | 2022-09-02 22:13 | RAD REPORT ---
EXAM DESCRIPTION: US - Abdomen Exam Limited - 09/02/2022 9:58 pm CLINICAL HISTORY: ABD PAIN COMPARISON: Abdomen Pelvis W Contrast dated 08/01/2020 FINDINGS: The gallbladder demonstrates small shadowing gallstones No pericholecystic fluid or gallbl adder wall thickening. The common bile duct is normal measuring 4 mm. The liver demonstrates no findings of intrahepatic biliary dilatation. Hepatic steatosis suspected. IMPRESSION: Cholelithiasis without sonographic evidence of acute cholecystitis.
[2022-09-02 23:32] LABS: Absolute Lymphocytes (CBC) 1.6 K/uL (0.7-4.9); Hematocrit 43.6 % (36.0-45.0); Lymphocytes % 17.8 % (15.3-44.8); MCV 88.9 fL (80-100); MPV 8.3 fL (7.6-11.3); RBC Red Blood Cell Count 4.91 M/uL (3.86-4.86)
[2022-09-02] MEDS ORDERED: NA CHLORIDE 0.9% 1,000 ML ONE (23:32)
[2022-09-02] MEDS ORDERED: KETOROLAC 30 MG/ML INJ ONE (23:32)
[2022-09-02] MEDS ORDERED: ONDANSETRON 4 MG/2 ML VIAL ONE (23:32)
[2022-09-02] MEDS ORDERED: MORPHINE 4 MG/ML SYR ONE (23:32)
[2022-09-02 23:42] LABS: Albumin 3.8 g/dL (3.4-5.0); Bilirubin Total 0.5 mg/dL (0.2-1.0); Protein, Total 8.4 g/dL (6.4-8.2); Troponin High Sensitivity 6.2 pg/mL (<58.9)
[2022-09-03] MEDS ORDERED: MORPHINE 4 MG/ML SYR ONE (00:23)
--- NOTE | 2022-09-03 01:25 | EDPHYS ---
Physician Documentation [facility] Name: Deanna Guevara Age: 52 yrs Sex: Female : 1970 Arrival Date: 09/02/2022 Time: 20:58 Bed 18 Private MD: ED Physician Jimenez Huertas HPI: 09/02 21:33 This 52 yrs old Unknown Female presents to ER via Wheelchair with complaints of jmm Vomiting, Abdominal Pain, Chest Pain. 21:33 The patient presents to the emergency department with nausea, vomiting, abdominal pain. jmm Onset: The symptoms/episode began/occurred gradually, 1 day(s) ago. Possible causes: flare up of bowel problem. The symptoms are aggravated by nothing. The symptoms are alleviated by nothing. Is a 52-year-old female with history of diabetes mellitus, hypertension, chronic back pain, asthma the presents emerged department with complaints of right-sided abdominal pain nausea and vomiting beginning yesterday. Patient states she has not been unable to tolerate p.o. since yesterday. Patient has been in the hospital numerous times for similar episodes that she attributes to her gallbladder.. [employer]: 09/03 03:11 LMP N/A - Post-menopause lg3 Historical: - Allergies: 09/02 21:32 No Known Allergies; kl - PMHx: 21:32 Asthma; Diabetes - NIDDM; Hypertension; Chronic back pain; kl - PSHx: 21:32 tubal; laminectomy; kl - Immunization history:: Adult Immunizations not up to date. - Social history:: Smoking status: Patient denies any tobacco usage or history of. ROS: 21:33 Constitutional: Negative for fever, chills, and weight loss, Cardiovascular: Negative jmm for chest pain, palpitations, and edema, Respiratory: Negative for shortness of breath, cough, wheezing, and pleuritic chest pain. 21:33 Abdomen/GI: Positive for abdominal pain, nausea and vomiting. 21:33 All other systems are negative. Exam: 21:33 Constitutional: This is a well developed, well nourished patient who is awake, alert, jmm and in no acute distress. Head/Face: atraumatic. Eyes: EOMI, no conjunctival erythema appreciated ENT: Moist Mucus Membranes Neck: Trachea midline, Supple Chest/axilla: Normal chest wall appearance and motion. Cardiovascular: Regular rate and rhythm. No edema appreciated Respiratory: Normal respirations, no respiratory distress appreciated 21:33 Back: Normal ROM Skin: General appearance color normal MS/ Extremity: Moves all extremities, no obvious deformities appreciated, no edema noted to the lower extremities Neuro: Awake and alert Psych: Behavior is normal, Mood is normal, Patient is cooperative and pleasant 21:33 Abdomen/GI: Inspection: obese Palpation: soft, moderate abdominal tenderness, in the right upper quadrant. Vital Signs: 21:29 BP 146 / 87; Pulse 104; Resp 20; Temp 97.3(TE); Pulse Ox 100% ; Weight 177.35 kg (M); lg3 Height 5 ft. 7 in. ; Pain 9/10; 23:41 BP 155 / 82; Pulse 96; Resp 20 S; Pulse Ox 100% [facility] R/A; [facility] 01:42 BP 158 / 90; Pulse 98; Resp 20 S; Pulse Ox 98% on R/A; [facility] 09/02 21:29 Body Mass Index 61.24 (177.35 kg, 170.18 cm) [facility] 09/02 21:29 Pain Scale: Adult lg3 MDM: 09/02 21:57 Patient medically screened. [facility] 09/03 01:21 Differential diagnosis: cholecystitis. Data reviewed: vital signs, nurses notes, lab [facility] test result(s), radiologic studies, CT scan. Consideration of Admission/Observation Escalation of care including admission/observation considered. Management of patient was discussed with the following: Subway Operator: Dr. Velasquez. I considered the following discharge prescriptions or medication management in the emergency department Medications were administered in the Emergency Department. See MAR. Counseling: I had a detailed discussion with the patient and/or guardian regarding: the historical points, exam findings, and any diagnostic results supporting the discharge/admit diagnosis, lab results, radiology results, the need for outpatient follow up, the need for further work-up and treatment in the hospital. ED course: I discussed the patient with Dr. Velasquez, wants the patient npo. . 09/02 21:33 Order name: CBC with Diff; Complete Time: 23:37 [facility] 09/02 21:33 Order name: CMP; Complete Time: 23:51 [facility] 09/02 21:33 Order name: Lipase; Complete Time: 23:51 [facility] 09/02 21:33 Order name: Urinalysis w/ reflexes; Complete Time: 01:40 [facility] 09/02 21:34 Order name: Troponin High Sensitivity; Complete Time: 23:51 [facility] 09/03 01:51 Order name: Urinalysis w/ reflexes EDMN 09/03 01:51 Order name: CBC with Automated Diff EDMS 09/03 01:51 Order name: CBC with Automated Diff EDMS 09/03 01:51 Order name: CBC with Automated Diff EDMS 09/03 01:51 Order name: Comprehensive Metabolic Panel EDMS 09/03 01:51 Order name: Comprehensive Metabolic Panel EDMS 09/03 01:51 Order name: Comprehensive Metabolic Panel EDMS 09/03 01:51 Order name: Magnesium EDMS 09/03 01:51 Order name: Magnesium EDMS 09/03 01:51 Order name: Magnesium EDMS 09/03 01:51 Order name: Phosphorus EDMS 09/03 01:51 Order name: Phosphorus EDMS 09/03 01:51 Order name: Phosphorus EDMS 09/03 01:51 Order name: Protime (+INR) [facility] 09/03 01:51 Order name: Protime (+INR) [facility] 09/02 21:33 Order name: US Abdomen Limited; Complete Time: 22:17 [facility] 09/03 00:09 Order name: CT Abd/Pelvis - IV Contrast Only [facility] 09/03 01:48 Order name: CONS Physician Consult [facility] 09/03 01:51 Order name: NPO [facility] 09/02 21:33 Order name: IV Saline Lock; Complete Time: 23:14 [facility] 09/02 21:33 Order name: Labs collected and sent; Complete Time: 23:14 [facility] Administered Medications: 09/02 23:38 Drug: NS 0.9% IV 1000 ml Route: IV; Rate: 1 bolus; Site: left antecubital; [facility] 09/03 03:12 Follow up: IV Status: Completed infusion; IV Intake: 1000ml [facility] 09/02 23:38 Drug: TORadol - Ketorolac IVP 15 mg Route: IVP; Site: left antecubital; [facility] 09/03 03:13 Follow up: Response: No adverse reaction; Marked relief of symptoms [facility] 09/02 23:38 Drug: Ondansetron IVP 4 mg Route: IVP; Site: left antecubital; [facility] 09/03 03:12 Follow up: Response: No adverse reaction; Marked relief of symptoms lg3 09/02 23:38 Drug: morphine IVP or IV 4 mg Route: IVP; Infused Over: 4 mins; Site: left antecubital; lg3 09/03 00:12 Follow up: Response: No adverse reaction; No change in condition; Pain is unchanged, 3 physician notified 00:28 Drug: morphine IVP or IV 4 mg Route: IVP; Infused Over: 4 mins; Site: left antecubital; 3 02:06 Follow up: Response: No adverse reaction; Marked relief of symptoms lg3 01:33 Drug: Piperacillin-Tazobactam IVPB 3.375 grams Route: IVPB; Infused Over: 60 mins; lg3 Site: left antecubital; 03:12 Follow up: IV Status: Completed infusion; IV Intake: 100ml lg3 Disposition: 07:05 Co-signature as Attending Physician, Jimenez Huertas MD I agree with the assessment sp4 and plan of care. I reviewed the patient's care provided by the Advanced Practice Provider and agree with the diagnosis and treatment plan. Disposition Summary: 09/03/22 01:24 Hospitalization Ordered Hospitalization Status: Observation [facility] Provider: [facility] Location: Telemetry/[facility] (observation) [facility] Condition: Stable [facility] Problem: new [facility] Symptoms: are unchanged [facility] Bed/Room Type: Standard [facility] Room Assignment: 431(09/03/22 02:32) Diagnosis - Acute cholecystitis [facility] Forms: - Medication Reconciliation Form [facility] - SBAR form [facility] Signatures: Dispatcher [employer] Kelli Elizondo RN Alfredo Irwin PA PA jmm Garcia, Cindy, RN RN cg Gibson, Lacie, RN RN lg3 Potepalov, Sergey, MD MD sp4 Corrections: (The following items were deleted from the chart) 02:32 01:24 [facility] cg
--- NOTE | 2022-09-03 01:25 | ER ---
Nurse's Notes [facility] Name: Deanna Guevara Age: 52 yrs Sex: Female : 1970 Arrival Date: 09/02/2022 Time: 20:58 Bed 18 Private MD: Diagnosis: Acute cholecystitis Presentation: 09/02 21:29 Chief complaint: Patient states: gallbladder pain and emesis x 2 day reports unable to kl eat today. Coronavirus screen: Vaccine status: Patient reports being unvaccinated. Ebola Screen: Patient negative for fever greater than or equal to 101.5 degrees Fahrenheit, and additional compatible Ebola Virus Disease symptoms. Initial Sepsis Screen: Does the patient meet any 2 criteria? No. Patient's initial sepsis screen is negative. Does the patient have a suspected source of infection? No. Patient's initial sepsis screen is negative. Risk Assessment: Do you want to hurt yourself or someone else? Patient reports no desire to harm self or others. Onset of symptoms was September 01, 2022 at 21:00. 21:29 Method Of Arrival: Wheelchair kl 21:29 Acuity: STEPH 3 kl Triage Assessment: 21:33 General: Appears uncomfortable, Behavior is calm, cooperative. Pain: Complains of pain kl in abdomen Pain currently is 9 out of 10 on a pain scale. GI: Reports lower abdominal pain, upper abdominal pain, nausea, vomiting. BALANCE CLERK: 09/03 03:11 LMP N/A - Post-menopause lg3 Historical: - Allergies: 09/02 21:32 No Known Allergies; kl - PMHx: 21:32 Asthma; Diabetes - NIDDM; Hypertension; Chronic back pain; kl - PSHx: 21:32 tubal; laminectomy; kl - Immunization history:: Adult Immunizations not up to date. - Social history:: Smoking status: Patient denies any tobacco usage or history of. Screenin:50 [facility] ED Fall Risk Assessment (Adult) History of falling in the last 3 months, lg3 including since admission No falls in past 3 months (0 pts). Abuse screen: Denies threats or abuse. Denies injuries from another. Nutritional screening: No deficits noted. Tuberculosis screening: No symptoms or risk factors identified. Assessment: 22:50 General: Appears in no apparent distress. uncomfortable, Behavior is calm, cooperative. lg3 Pain: Complains of pain in abdomen Noted to be grimacing, guarding, resistant to movement, Also complains of decreased appetite, nausea. Neuro: No deficits noted. Rodgers Agitation-Sedation Scale (RASS): 0 - Alert and Calm Level of Consciousness is awake, alert, obeys commands, Oriented to person, place, time, situation. Cardiovascular: No deficits noted. Denies chest pain, shortness of breath, Capillary refill < 3 seconds Clubbing of nail beds is absent JVD is absent Patient's skin is warm and dry. Respiratory: No deficits noted. Airway is patent Respiratory effort is even, unlabored, Respiratory pattern is regular, symmetrical. GI: Abdomen is round non-distended, obese, Bowel sounds present X 4 quads. Abd is soft X 4 quads Abdomen is tender to palpation in right upper quadrant and left upper quadrant Reports upper abdominal pain, cramping, epigastric pain, intolerance of fluids, intolerance of food, nausea, vomiting. : No deficits noted. No signs and/or symptoms were reported regarding the genitourinary system. EENT: No deficits noted. No signs and/or symptoms were reported regarding the EENT system. Derm: No deficits noted. No signs and/or symptoms reported regarding the dermatologic system. Skin is intact, is healthy with good turgor, Skin is dry, Skin is normal, Skin temperature is warm. Musculoskeletal: No deficits noted. No signs and/or symptoms reported regarding the musculoskeletal system. Circulation, motion, and sensation intact. Range of motion: intact in all extremities. 09/03 00:35 Reassessment: Patient appears in no apparent distress at this time. No changes from lg3 previously documented assessment. Patient and/or family updated on plan of care and expected duration. Pain level reassessed. Patient is alert, oriented x 3, equal unlabored respirations, skin warm/dry/pink. Patient states symptoms have improved. Vital Signs: 09/02 21:29 BP 146 / 87; Pulse 104; Resp 20; Temp 97.3(TE); Pulse Ox 100% ; Weight 177.35 kg (M); lg3 Height 5 ft. 7 in. ; Pain 9/10; 23:41 BP 155 / 82; Pulse 96; Resp 20 S; Pulse Ox 100% on R/A; lg3 09/03 01:42 BP 158 / 90; Pulse 98; Resp 20 S; Pulse Ox 98% on R/A; 3 09/02 21:29 Body Mass Index 61.24 (177.35 kg, 170.18 cm) [facility] 09/02 21:29 Pain Scale: Adult lg3 ED Course: 09/02 21:01 Patient arrived in ED. im 21:12 Alfredo Carias PA is PHCP. [facility] 21:12 Jimenez Huertas MD is Attending Physician. [facility] 21:32 Triage completed. kl 22:00 US Abdomen Limited In Process Unspecified. EDMS 22:50 Patient has correct armband on for positive identification. Placed in gown. Bed in low lg3 position. Call light in reach. Side rails up X 1. Client placed on continuous cardiac and pulse oximetry monitoring. NIBP monitoring applied. night monitor on. Door closed. Noise minimized. Warm blanket given. Family accompanied patient. 22:50 Arm band placed on right wrist. lg3 23:14 Inserted saline lock: 20 gauge in left antecubital area, using aseptic technique. Blood mc5 collected. 23:19 Rashida Brewer, RN is Primary Nurse. [facility] 09/03 00:46 CT Abd/Pelvis - IV Contrast Only In Process Unspecified. EDMS 01:24 [facility] is Hospitalizing Provider. [facility] 02:06 Urinalysis w/ reflexes Sent. 3 03:10 No provider procedures requiring assistance completed. Patient admitted, IV remains in lg3 place. intact, No redness/swelling at site. Administered Medications: 09/02 23:38 Drug: NS 0.9% IV 1000 ml Route: IV; Rate: 1 bolus; Site: left antecubital; [facility] 09/03 03:12 Follow up: IV Status: Completed infusion; IV Intake: 1000ml [facility] 09/02 23:38 Drug: TORadol - Ketorolac IVP 15 mg Route: IVP; Site: left antecubital; [facility] 09/03 03:13 Follow up: Response: No adverse reaction; Marked relief of symptoms [facility] 09/02 23:38 Drug: Ondansetron IVP 4 mg Route: IVP; Site: left antecubital; [facility] 09/03 03:12 Follow up: Response: No adverse reaction; Marked relief of symptoms [facility] 09/02 23:38 Drug: morphine IVP or IV 4 mg Route: IVP; Infused Over: 4 mins; Site: left antecubital; 3 09/03 00:12 Follow up: Response: No adverse reaction; No change in condition; Pain is unchanged, 3 physician notified 00:28 Drug: morphine IVP or IV 4 mg Route: IVP; Infused Over: 4 mins; Site: left antecubital; lg3 02:06 Follow up: Response: No adverse reaction; Marked relief of symptoms lg3 01:33 Drug: Piperacillin-Tazobactam IVPB 3.375 grams Route: IVPB; Infused Over: 60 mins; lg3 Site: left antecubital; 03:12 Follow up: IV Status: Completed infusion; IV Intake: 100ml 3 Medication: 03:11 VIS not applicable for this client. lg3 Intake: 03:12 IV: 100ml; Total: 100ml. 3 03:12 IV: 1000ml; Total: 1100ml. 3 Outcome: 01:24 Decision to Hospitalize by Provider. melodie 03:10 Admitted to Med/surg accompanied by tech, via wheelchair, room 431, Report called to [facility] jozef 03:10 Condition: stable 03:10 Instructed on the need for admit, Demonstrated understanding of instructions. 03:13 Patient left the ED. 3 Signatures: Dispatcher [employer] Kelli Elizondo, Alfredo Irwin RN, PA PA jmm Gibson, Lacie, RN RN [facility] Radha Kolb Moriah 5 Corrections: (The following items were deleted from the chart) 00:32 09/02 21:29 BP 146 / 87; Pulse 104bpm; Resp 20bpm; Pulse Ox 100%; Temp 97.3F Temporal; lg3 171.46 kg; Height 5 ft. 7 in.; BMI: 59.2; Pain 9/10, Adult; mavis 09/03 01:42 07 23:41 BP 145 / 82; Pulse 96bpm; Resp 20bpm; Spontaneous; Pulse Ox 100% RA; 3 lg3
[2022-09-03] MEDS ORDERED: PIPERACIL/TAZO 3.375 GM VIAL IV ONE (01:38)
[2022-09-03] MEDS ORDERED: NA CHLORIDE 0.9% 100 ML ONE (01:38)
[2022-09-03 01:39] LABS: Specific Gravity > 1.030 (1.005-1.030); Urine Bacteria None Seen /HPF (<20); Urine Bilirubin NEGATIVE (Negative); Urine Blood Negative (Negative); Urine Clarity Clear (Clear); Urine Color Yellow (Yellow); Urine Glucose 3+ (Negative); Urine Mucus Slight /HPF (None Seen); Urine Protein TRACE (Negative); Urine RBC None Seen /HPF (None Seen); Urine Urobilinogen Normal (Normal); Urine pH 5.5 (5.0-7.0)
--- NOTE | 2022-09-03 01:44 | P.HP ---
Certification for Inpatient Patient admitted to: Observation With expected LOS: <2 Midnights Patient will require the following post-hospital care: None Practitioner: I am a practitioner with admitting privileges, knowledge of patient current condition, hospital course, and medical plan of care. Services: Services provided to patient in accordance with Admission requirements found in Title 42 Section 412.3 of the Code of Federal Regulations Patient History Date of Service: 09/03/22 Reason for admission: abdominal pain History of Present Illness: 52-year-old female with a past medical history of asthma, diabetes, dzk-ojuqvio-eoqtmxxma diabetes, chronic back pain, presents to the emergency room with nausea vomiting, abdominal pain. She reports symptoms started 1 day ago. She reports symptoms worse with p.o. intake, she reports right-sided abdominal pain, she reports history of previous hospital visits secondary to abdominal pain with gallbladder. She denies fever, chills, cough, shortness of breath, chest pain, edema, dizziness, syncope. Laboratory evaluation Acute kidney injury BUN 21 creatinine 1.21, GFR 54, glucose 117, WBC no leukoc ytosis WBCs 9.1, H&H stable 14 1, 43.6, UA pending CT of the abdomen pelvis ordered Ultrasound of the abdomen IMPRESSION: FINDINGS: The gallbladder demonstrates small shadowing gallstones No pericholecystic fluid or gallbladder wall thickening. The common bile duct is normal measuring 4 mm. The liver demonstrates no findings of intrahepatic biliary dilatation. Hepatic steatosis suspected Cholelithiasis without sonographic evidence of acute cholecystitis Allergies amoxicillin Allergy (Verified 01/14/19 00:09) Anaphylaxis Home Medications: Alprazolam 2 mg PO TID 01/14/19 Butalb/Acetaminophen/Caffeine [Ekkbdq-Mhsrotzq-Opqf 50-325-40] 1 each PO PRN 01/14/19 Gabapentin 800 mg PO TID 01/14/19 Losartan Potassium [Cozaar] 100 mg PO DAILY #30 tablet 01/14/19 Metformin HCl [Glucophage*] 500 mg PO PRN 01/14/19 Promethazine HCl 25 mg PO BIDP PRN 01/14/19 Tizanidine [Zanaflex*] 8 mg PO TID 01/14/19 Dapagliflozin Propanediol [Farxiga] 03/26/21 Furosemide [Lasix] 03/26/21 Hydrocodone Bit/Acetaminophen [[place] 10-325 Tablet] 10 mg TID 03/26/21 Semaglutide [Ozempic] 03/26/21 - Past Medical/Surgical History Diabetic: Yes -: HTN -: NIDDM -: GERD -: Obesity -: fibromyalgia -: chronic back pain -: anxiety -: pneumonia in 2005 -: migraines -: claustrophobia -: seasonal allergies -: muscle spasms -: laminectomy -: tubal ligation Psychosocial/ Personal History: Patient is disabled, lives at home with her children - Family History Mother -: Other (see notes) Notes: anxiety. fibromyalgia Father -: Diabetes - Social History Alcohol use: No CD- Drugs: No Caffeine use: Yes Review of Systems 10-point ROS is otherwise unremarkable Physical Examination - Studies Laboratory Data (last 24 hrs) 09/02/22 23:12: Sodium 136, Potassium 4.0, BUN 31 H, Creatinine 1.21 H, Glucose 117 H, Total Bilirubin 0.5, AST 15, ALT 26, Alkaline Phosphatase 192 H, Lipase 27 09/02/22 23:12: WBC 9.10, Hgb 14.1, Hct 43.6, Plt Count 287 Assessment and Plan - Plan Assessment plan Abdominal pain nausea vomiting Cholelithiasis Hepatic steatosis Essential hypertension Hyperlipidemia DVT prophylaxis Assessment plan -Abdominal pain nausea vomiting-as needed antiemetics, analgesics -Cholelithiasis-n.p.o., IV fluids, IV antibiotics, surgery consult CT of the abdomen,CT of the abdomen pelvis ordered Ultrasound of the abdomen IMPRESSION: FINDINGS: The gallbladder demonstrates small shadowing gallstones No pericholecystic fluid or gallbladder wall thickening. The common bile duct is normal measuring 4 mm. The liver demonstrates no findings of intrahepatic biliary dilatation. Hepatic steatosis suspected Cholelithiasis without sonographic evidence of acute cholecystitis -Hepatic steatosis-educated on a low-fat diet -Essential hypertension-resume appropriate medications -Hyperlipidemia Full code DVT prophylaxis SCDs Diet n.p.o. Discharge Plan: Home Plan to discharge in: 48 Hours - Advance Directives Does patient have a Living Will: No Does patient have a Durable POA for Healthcare: No - Code Status/Comfort Care Code Status: Full Code Physician Review: Patient Assessed, Agree with Above Assessment and Plan Critical Care: No Time Spent Managing Pts Care (In Minutes): 55
[2022-09-03] MEDS: NA CHLORIDE 0.9% 1,000 ML IV SCH ×3 (04:06→23:33)
[2022-09-03] MEDS: MORPHINE 4 MG/ML SYR IV PRN ×4 (04:10→23:28)
[2022-09-03] MEDS: ONDANSETRON 4 MG/2 ML VIAL IV PRN ×2 (04:10→23:32)
[2022-09-03 07:13] LABS: Absolute Lymphocytes (CBC) 1.6 K/uL (0.7-4.9); Hematocrit 38.9 % (36.0-45.0); MPV 8.6 fL (7.6-11.3); RBC Red Blood Cell Count 4.37 M/uL (3.86-4.86)
[2022-09-03 07:43] LABS: Albumin 3.2 g/dL (3.4-5.0); Bilirubin Total 0.5 mg/dL (0.2-1.0); Magnesium 2.1 mg/dL (1.6-2.4); Phosphorus 2.8 mg/dL (2.5-4.9); Potassium 3.8 mEq/L (3.5-5.1); Protein, Total 6.7 g/dL (6.4-8.2)
[2022-09-03] MEDS ORDERED: POTASSIUM CL SA 10 MEQ TAB PO ONE (07:55)
[2022-09-03 07:56] LABS: Protime INR 1.05
[2022-09-03] MEDS: PIPER TAZO 3.375 GM in NA CHLORIDE 0.9% 100 ML IV SCH ×3 (09:12→23:28)
--- NOTE | 2022-09-03 20:29 | RAD REPORT ---
EXAM DESCRIPTION: CT - Abdomen Pelvis W Contrast - 09/03/2022 4:26 am CLINICAL HISTORY: The patient is 52 years old and is Female; right sided abdominal pain TECHNIQUE: Axial computed tomography images of the abdomen and pelvis with intravenous contrast. S agittal and coronal reformatted images were created and reviewed. This CT exam was performed using one or more of the following dose reduction techniques: automated exposure control, adjustment of t he mA and/or kV according to patient size, and/or use of iterative reconstruction technique. COMPARISON: CT abdomen pelvis August 01, 2020 FINDINGS: LUNG BASES: Unremarkable. No mass. No consolidation. ABDOMEN: LIVER: Unremarkable. No mass. GALLBLADDER AND BILE DUCTS: The gallbladder is distended. No calcified gallstones or ductal dilat ation is seen. PANCREAS: Extensive fatty infiltration of pancreas is noted. SPLEEN: Unremarkable. ADRENALS: Unremarkable. No mass. KIDNEYS AND URETERS: Parapelvic renal cysts are present. No follow-up imaging is recommended. The kidneys enhance symmetrically and are without hydronephrosis or hydroureter. STOMACH AND BOWEL: The stomach is distended with fluid and air. The small bowel is normal in yovany sita. A moderate amount stool is present throughout colon. There is no mucosal thickening or evidence of obstruction. PELVIS: APPENDIX: No findings to suggest acute appendicitis. BLADDER: Unremarkable. No mass. REPRODUCTIVE: Unremarkable as visualized. ABDOMEN and PELVIS: INTRAPERITONEAL SPACE: Unremarkable. No free air. No significant fluid collection. BONES/JOINTS: Minimal degenerative change at L5-S1 is present. There is no acute fracture. SOFT TISSUES: The soft tissues are normal. VASCULATURE: Calcified phleboliths are present within the pelvis. No abdominal aortic aneurysm. LYMPH NODES: Unremarkable. No enlarged lymph nodes. IMPRESSION: Distended gallbladder. No calcified gallstones. If there is clinical concern for acute g allbladder pathology, findings could be further evaluated with ultrasound or HIDA scan. Electronically signed by: Anahi Motley MD 09/03/2022 1:15 AM CDT Due to temporary technical issues with the PACS/Fluency reporting system, reports are being signed by the in house radiologists without review as a courtesy to insure prompt reporting. The interpreting radiologist is fully responsible for the content of the report.
[2022-09-04 04:49] LABS: Absolute Lymphocytes (CBC) 1.7 K/uL (0.7-4.9); Hematocrit 38.6 % (36.0-45.0); Lymphocytes % 25.6 % (15.3-44.8); MCV 89.5 fL (80-100); MPV 8.3 fL (7.6-11.3); RBC Red Blood Cell Count 4.31 M/uL (3.86-4.86)
[2022-09-04 05:04] LABS: Albumin 3.2 g/dL (3.4-5.0); Bilirubin Total 0.5 mg/dL (0.2-1.0); Magnesium 2.2 mg/dL (1.6-2.4); Phosphorus 2.9 mg/dL (2.5-4.9); Potassium 4.4 mEq/L (3.5-5.1); Protein, Total 6.9 g/dL (6.4-8.2)
[2022-09-04] MEDS: NA CHLORIDE 0.9% 1,000 ML IV SCH ×2 (08:00→17:56)
[2022-09-04] MEDS: ONDANSETRON 4 MG/2 ML VIAL IV PRN ×2 (08:15→22:55)
[2022-09-04] MEDS: MORPHINE 4 MG/ML SYR IV PRN ×2 (08:15→22:52)
[2022-09-04] MEDS: PIPER TAZO 3.375 GM in NA CHLORIDE 0.9% 100 ML IV SCH ×2 (08:16→17:49)
--- NOTE | 2022-09-04 10:53 | P.PN ---
Date of Service: 09/03/22 Subjective Patient's doing well no new complaints. Scheduled for lap nico in the morning. Recent cardiac catheterization with completely normal coronaries. Patient denies any chest pain or significant shortness of breath. Patient is low risk for any cardiopulmonary complications. Physical Examination - Vitals Reviewed - Physical exam Cardiovascular: Regular rate rhythm no murmurs Pulmonary: Clear bilaterally Abdomen: Soft; tender in the right upper quadrant; nondistended bowel sounds positive Neuro: No focal deficits Extremities: No clubbing, cyanosis, or edema Assessment and Plan - Assessment Assessment Abdominal pain; nausea/vomiting Cholelithiasis Hepatic steatosis Essential hypertension Hyperlipidemia - Plan Plan 1. Spoke to general surgery patient scheduled for lap nico in the morning 2. Recent cardiac catheterization with no significant abnormality 3. Strict blood pressure control 4. GI DVT prophylaxis Discharge Plan: Home Plan to discharge in: 48 Hours - Advance Directives Does patient have a Living Will: No Does patient have a Durable POA for Healthcare: No - Code Status/Comfort Care Code Status: Full Code Physician Review: Patient Assessed, Agree with Above Assessment and Plan Critical Care: No Time Spent Managing Pts Care (In Minutes): 35
[2022-09-04] MEDS ORDERED: propofoL 200 MG/20 ML VIAL IV ONE (13:49)
[2022-09-04] MEDS ORDERED: LIDOCAINE 2% MPF 5 ML VIAL ONE (13:50)
[2022-09-04] MEDS ORDERED: ROCURONIUM 50 MG/5 ML VIAL IV ONE ×2 (13:50→14:35)
[2022-09-04] MEDS ORDERED: MIDAZOLAM HCL 2 MG/2 ML INJ ONE (13:50)
[2022-09-04] MEDS ORDERED: FENTANYL CITR 100 MCG/2 ML ONE ×2 (13:50→14:48)
[2022-09-04] MEDS ORDERED: ONDANSETRON 4 MG/2 ML VIAL ONE ×2 (13:51→16:00)
--- NOTE | 2022-09-04 14:13 | P.CNS ---
Date of Consult: 09/04/22 PC: I was asked to see this 52-year-old female in regards to right upper quadrant abdominal pain for diagnosis and treatment. HPC: Patient has been experiencing right upper quadrant abdominal pain, radiating to her back, for the last few months. She has had other hospital visits, but her surgery has always been declined until she was told to lose some weight. PSHx: NAD PMHx: Diabetes, sleep apnea, morbid obesity Social Hx: No known allergies Sys R: No cough, wheeze, shortness of breath. No chest pain or palpitations. Denies any urinary complaints O/E: Awake alert vital signs are stable HEENT: Not jaundiced Chest: Chest movement equal bilaterally Abd: Tender in the right upper quadrant [place]: Intact Data: Has documented gallstones Impression: Cholecystitis with cholelithiasis Plan: I will take this patient to the operating room for laparoscopic possible open cholecystectomy. The risks of this procedure have been discussed. The possibility of bleeding, infection, injury to bile ducts blood vessels and intestines has been described. The possible need for an open and or further surgeries and discussed. The fact that she is morbidly obese, it may require more trocar placement were explained. She is understands and wants to proceed.
[2022-09-04] MEDS ORDERED: GLYCOPYRROLATE 0.2 MG/ML SYR ONE ×2 (15:23→15:25)
[2022-09-04] MEDS ORDERED: NEOSTIGMINE 1 MG/ML -10 ML VIAL ONE (15:25)
[2022-09-04] MEDS ORDERED: KETOROLAC 30 MG/ML INJ ONE (15:26)
[2022-09-04] MEDS ORDERED: NA CHLORIDE 0.9% 1,000 ML ONE (15:30)
[2022-09-04] MEDS: MORPHINE 4 MG/ML SYR ONE ×4 (15:53→16:08)
[2022-09-04] MEDS ORDERED: MORPHINE 4 MG/ML SYR ONE (16:23)
[2022-09-04] MEDS: MEPERIDINE HCL 25 MG/ML SYR ONE ×4 (16:24→16:40)
[2022-09-04] MEDS ORDERED: PROMETHAZINE INJ 25 MG/ML AMP ONE (16:29)
--- NOTE | 2022-09-04 16:30 | P.OP ---
Preoperative diagnosis: Cholecystitis with cholelithiasis Postoperative diagnosis: The same Primary procedure: Laparoscopic cholecystectomy Secondary procedure: Cholangiogram Other procedure(s): Tap block Anesthesia: General Estimated blood loss: Less than 20 cc Specimen: Gallbladder and contents Operative Technique: Patient brought the operating room placed supine on the table. After the induction of adequate general endotracheal anesthesia, there the abdomen was prepped with a DuraPrep solution, she was draped in the usual aseptic manner. A subumbilical incision was made. This was brought down through the skin and subcutaneous tissue. The Visiport was used to enter the peritoneal cavity and created pneumoperitoneum to approximately 12 mmHg. Under direct vision a 5 mm trocar was placed in the upper midline. Two 5 mm trocars were placed on the right lateral side of the abdomen. This patient is a large woman the patient was placed in reverse Trendelenburg, and the table was rolled to the left. We could see a large distended gallbladder. It was aspirated with a needle so we could place a grasper upon it. Applying lateral traction we were finally able to dissect out and expose both the cystic duct and artery. Having obtained the critical view, a clip was placed into the gallbladder and the cystic duct. The cystic duct was quite generous in size. We could see obvious valves inside there. An opening was made into the cystic duct through which we obtained a normal intraoperative cholangiogram the clips were placed on the distal portion of the cystic duct. The cystic duct was then fully transected. The cystic artery was clipped and divided in the usual manner. The gallbladder was now dissected free from the liver bed, placed into an Endo Catch, and brought out through the umbilical trocar site. In the area of the abdomen was now inspected to ensure adequate hemostasis. The irrigating fluid was aspirated from the pe ritoneal cavity. A tap block was used using 0.25% Marcaine. At this point attention was turned back towards the umbilicus. This area was closed with 2 absorbable sutures placed using the Endo Close. Good closure of the fascia having been obtained, the pneumoperitoneum was now collapsed, the trocars removed, and edward applied to the skin. The most lateral trocar on the right- hand side showed we had a superficial skin bleeder. The edward were removed, the wound was opened, and we were able to ligate the offending vessel with a stick tie. Hemostasis having been ensured the edward were reapplied, 0.25% Marcaine was injected around our trocar sites, and sterile dressings applied. At the end of the procedure she was in a stable condition was sent to the recovery room. Needle sponge instrument count were correct. No drains were placed.
[2022-09-04] MEDS: HYDROMORPHONE HCL 2 MG/ML inj ONE ×5 (16:55→17:10)
[2022-09-04 17:25] VITALS: O2SAT 96
--- NOTE | 2022-09-04 17:53 | RAD REPORT ---
EXAM DESCRIPTION: RAD - Cholangiogram Oper-Xray Or - 09/04/2022 4:37 pm CLINICAL HISTORY: LAP PETR W/ IOC COMPARISON: Abdomen Pelvis W Contrast dated 09/03/2022; Abdomen Exam Limited dated 09/02/2022 FINDINGS/IMPRESSION: Three intraoperative fluoroscopic images demonstrating a cholangiogram. Common bile duct is normal caliber. Cumulative dose: 13.1 mGy Fluoro time: 0.2 minutes
[2022-09-04] MEDS: HYDROCODONE/APAP 7.5/325 MG TAB PO PRN (19:35)
[2022-09-04] MEDS: DIPHENHYDRAMINE 25 MG TAB/CAP PO PRN (22:03)
[2022-09-04] MEDS: ALPRAZOLAM 1 MG TABLET PO PRN (22:03)
[2022-09-05] MEDS: PIPER TAZO 3.375 GM in NA CHLORIDE 0.9% 100 ML IV SCH ×2 (02:00→07:29)
[2022-09-05] MEDS: HYDROCODONE/APAP 7.5/325 MG TAB PO PRN ×3 (02:38→12:32)
[2022-09-05] MEDS: MORPHINE 4 MG/ML SYR IV PRN (03:35)
[2022-09-05] MEDS: NA CHLORIDE 0.9% 1,000 ML IV SCH (04:00)
[2022-09-05 04:29] VITALS: BMI 61.2
[2022-09-05 09:06] VITALS: TEMP 97.6
[2022-09-05] MEDS: DIPHENHYDRAMINE 25 MG TAB/CAP PO PRN ×2 (09:20→14:38)
[2022-09-05] MEDS: ALPRAZOLAM 1 MG TABLET PO PRN (09:20)
[2022-09-05 12:30] VITALS: BP 100/67
== END 2022-09-05 15:09 | disposition home or self-care (01) | DRG 418 ==
LOC: ER 20:58 → ERHOLD 09-03 01:45 → 4TH 09-03 02:44 → OBSVTOIN 09-04 18:40
PROVIDERS: ADMIT Hospitalist; ATTEND Hospitalist
PROC: BF121ZZ Fluoroscopy of Gallbladder using Low Osmolar Contrast (ICD-10-PCS; 2022-09-04)
PROC: 0FT44ZZ Resection of Gallbladder, Percutaneous Endoscopic Approach (ICD-10-PCS; principal; 2022-09-04 12:30)
DX: K80.00 Calculus of gallbladder with acute cholecystitis without obstruction (principal); N17.9 Acute kidney failure, unspecified; Z68.44 Body mass index [BMI] 60.0-69.9, adult; E66.01 Morbid (severe) obesity due to excess calories; I10 Essential (primary) hypertension; E11.9 Type 2 diabetes mellitus without complications; G89.29 Other chronic pain; M54.9 Dorsalgia, unspecified; M79.7 Fibromyalgia; K76.0 Fatty (change of) liver, not elsewhere classified; E78.5 Hyperlipidemia, unspecified; K21.9 Gastro-esophageal reflux disease without esophagitis; J45.909 Unspecified asthma, uncomplicated; Z88.1 Allergy status to other antibiotic agents; Z98.51 Tubal ligation status; Z79.84 Long term (current) use of oral hypoglycemic drugs; Z79.899 Other long term (current) drug therapy
CPT/HCPCS: 36415; 74177; 74300; 76705; 80053; 81001; 82947; 83690; 83735; 84100; 84132; 84484; 85025; 85610; 88304; 94010; 96361; 96365; 96366; 96375; 99285; J1170; J2001; J2175; J2250; J2405; J2543; J2550; J2704; J2710; J3010; J7030; Q9967

== ENCOUNTER 2024-04-27 13:47 | Emergency (ER) | payer OTHER ==
--- NOTE | 2024-04-27 15:40 | RAD REPORT ---
EXAMINATION: CT Abdomen Pelvis Wo Contrast CLINICAL INDICATION: Female, 53 years old. FLANK PAIN TECHNIQUE: CT abdomen and pelvis was performed, without IV contrast, as per department protocol. Axia l, sagittal and coronal reconstructions were obtained. One or more of the following dose reduction techniques were used: Automated exposure control, adjustment of the mA and kV according to the patien t size, and iterative reconstruction. Unless otherwise specified, incidental findings do not require dedicated imaging follow-up. COMPARISON: 09/03/2022 FINDINGS: The lack of intravenous contrast limits the sensitivity of this exam for evaluation of solid visceral organs, vascular structures, and retroperitoneum. LOWER CHEST: The visualized lung bases are clear. LIVER: Normal in size and contour. No focal lesion. BILIARY SYSTEM: Status post cholecystectomy. SPLEEN: Normal size. No focal lesion. PANCREAS: Fatty infiltration again seen. No mass, ductal dilation, or meera-pancreatic fluid. ADRENALS: Normal; no mass. KIDNEYS AND URETERS: 1-2 mm right lower pole calculi. Normal size and contour. No hydronephrosis. URINARY BLADDER: Suboptimally distended limiting evaluation. GASTROINTESTINAL TRACT: No evidence of bowel obstruction, significant free fluid, free air or abscess . APPENDIX: Appendix not visualized, but no inflammatory changes in region of appendix. LYMPH NODES: No lymphadenopathy. MUSCULOSKELETAL: No acute or suspicious osseous abnormality. ADDITIONAL FINDINGS: Small umbilical hernia containing fat. IMPRESSION: 1-2 mm right lower pole calculi. No other acute or concerning abnormalities in the abdomen or pelvis, with evaluation limited by lack of IV contrast. Other incidental findings as above.
[2024-04-27 15:58] LABS: Sqamous Epithelial <5 /HPF (None Seen); Urine Bacteria None Seen /HPF (<20); Urine Crystals Unidentified Few /HPF (None Seen); Urine Culture Reflex Order NOT NEEDED; Urine Micro Reflex YN NO BILL MICROSCOPIC; Urine Mucus Slight /HPF (None Seen); Urine RBC <5 /HPF (None Seen); Urine WBC <5 /HPF (<5); Urine Yeast (Budding) Trace /HPF (None Seen)
[2024-04-27] MEDS ORDERED: NA CHLORIDE 0.9% 1,000 ML ONE (16:27)
[2024-04-27] MEDS ORDERED: KETOROLAC 30 MG/ML INJ ONE (16:27)
[2024-04-27 16:32] LABS: Absolute Eosinophils 0.1 K/uL (0-0.5); Absolute Lymphocytes (CBC) 1.6 K/uL (0.7-4.9); Absolute Monocytes 0.5 K/uL (0.1-1.3); Absolute Neutrophil 3.3 K/uL (1.8-8.0); Basophils % 0.8 % (0-1.3); Hematocrit 38.1 % (36.0-45.0); Hemoglobin 12.5 g/dL (12.0-15.0); Lymphocytes % 29.4 % (15.3-44.8); MCH 29.6 pg (27.0-35.0); MCHC 32.9 g/dL (32.0-36.0); MCV 90.1 fL (80-100); MPV 8.4 fL (7.6-11.3); Monocytes % 8.6 % (3.3-12.3); Neutrophils % 59.2 % (41.7-73.7); Platelets 216 thou/uL (152-406); RBC Red Blood Cell Count 4.23 M/uL (3.86-4.86); Red Cell Distribution Width 12.7 % (12.1-15.2)
[2024-04-27 16:49] LABS: ALT/SGPT 21 U/L (13-56); AST/SGOT < 10 U/L (15-37); Albumin 3.3 g/dL (3.4-5.0); Albumin/Globulin Ratio 0.8 (1.1-1.8); Alkaline Phosphatase 156 U/L (45-117); BUN Blood Urea Nitrogen 23 mg/dL (7-18); Bicarbonate 29 mEq/L (21-32); Bilirubin Total 0.3 mg/dL (0.2-1.0); Glomerular Filtration Rate 76 ml/min (=/>90); Glucose Level 119 mg/dL (74-106); Lipase 21 U/L (13-75); Protein, Total 7.3 g/dL (6.4-8.2); Sodium Level 141 mEq/L (136-145); Troponin High Sensitivity 5.1 pg/mL (<58.9)
--- NOTE | 2024-04-27 17:41 | EDPHYS ---
Physician Documentation [facility] Name: Deanna Guevara Age: 53 yrs Sex: Female : 1970 Arrival Date: 04/27/2024 Time: 13:47 Bed 18 Private MD: ED Physician Gilbert Christy HPI: 04/27 15:09 This 53 yrs old Unknown Female presents to ER via Ambulatory with complaints of rt Possible Kidney Stone, Urinary Problem. 15:09 Patient presents to the ED with 1 week of left flank pain as well as dysuria. On rt Wednesday, she was seen at [place], where she was diagnosed with a kidney infection, was prescribed antibiotics reportedly. The next day, she was seen at [place] where she was told that she had a kidney stone. States that she continue on with antibiotics but states that the pain has persisted. She denies other pain, other acute complaints, symptoms are moderate in severity, no other aggravating or alleviating factors.. Historical: - Allergies: 14: No Known Allergies; hb - PMHx: 14: Asthma; chronic back pain; Diabetes - NIDDM; Hypertension; hb - PSHx: 14: laminectomy; tubal; hb - Immunization history:: Adult Immunizations up to date. - Infectious Disease History:: Denies. - Social history:: Smoking status: Patient denies any tobacco usage or history of. - Family history:: not pertinent. ROS: 15:09 Constitutional: Negative for fever, chills, and weight loss, Cardiovascular: Negative rt for chest pain, palpitations, and edema, Respiratory: Negative for shortness of breath, cough, wheezing, and pleuritic chest pain, Abdomen/GI: Negative for abdominal pain, nausea, vomiting, diarrhea, and constipation, Skin: Negative for injury, rash, and discoloration, Neuro: Negative for headache, weakness, numbness, tingling, and seizure, 15:09 Back: Positive for flank pain, Negative for injury or acute deformity, 15:09 : Positive for burning with urination, Negative for hematuria, Exam: 15:09 Constitutional: This is a well developed, well nourished patient who is awake, alert, rt and in no acute distress. Head/Face: Normocephalic, atraumatic. Chest/axilla: Normal chest wall appearance and motion. Nontender with no deformity. No lesions are appreciated. Cardiovascular: Regular rate and rhythm with a normal S1 and S2. No gallops, murmurs, or rubs. Normal PMI, no JVD. No pulse deficits. Respiratory: Lungs have equal breath sounds bilaterally, clear to auscultation and percussion. No rales, rhonchi or wheezes noted. No increased work of breathing, no retractions or nasal flaring. Abdomen/GI: Soft, non-tender, with normal bowel sounds. No distension or tympany. No guarding or rebound. No evidence of tenderness throughout. Skin: Warm, dry with normal turgor. Normal color with no rashes, no lesions, and no evidence of cellulitis. MS/ Extremity: Pulses equal, no cyanosis. Neurovascular intact. Full, normal range of motion. Neuro: Awake and alert, GCS 15, oriented to person, place, time, and situation. Cranial nerves II-XII grossly intact. Motor strength 5/5 in all extremities. Sensory grossly intact. Cerebellar exam normal. Normal gait. 16:52 ECG was reviewed by the Attending Physician. rt Vital Signs: 14:02 BP 132 / 90; Pulse 65; Resp 16; Temp 98.1; Pulse Ox 96% on R/A; Weight 157.85 kg; hb Height 5 ft. 7 in. ; Pain 8/10; 17:00 BP 169 / 100; Pulse 72; Resp 18 S; Pulse Ox 100% on R/A; aa5 18:30 BP 177 / 100; Pulse 79; Resp 19 S; Pulse Ox 100% on R/A; aa5 19:00 BP 152 / 77; Pulse 77; Resp 18 S; Pulse Ox 100% on R/A; aa5 14:02 Body Mass Index 54.50 (157.85 kg, 170.18 cm) hb 14:02 Pain Scale: Adult hb MDM: 14:00 Medical Screening Exam initiated rt 17:49 Differential Diagnosis Mechanical back pain, pyelonephritis, ureterolithiasis. Data rt reviewed: vital signs, nurses notes, lab test result(s), radiologic studies. I considered the following discharge prescriptions or medication management in the emergency department Medications were administered in the Emergency Department. See MAR. Independent interpretation of the following test(s) in the Emergency Department CT Scan: My interpretation is No ureteral stones and no interpretation of CT scan images. Care significantly affected by the following chronic conditions: Diabetes. Counseling: I had a detailed discussion with the patient and/or guardian regarding the historical points, exam findings, and any diagnostic results supporting the discharge/admit diagnosis, lab results, radiology results, the need for outpatient follow up. Response to treatment: the patient's symptoms have mildly improved after treatment. 04/27 14:11 Order name: CBC with Diff; Complete Time: 16:51 rt 04/27 14:11 Order name: CMP; Complete Time: 16:51 rt 04/27 14:11 Order name: Lipase; Complete Time: 16:51 rt 04/27 14:11 Order name: Troponin High Sensitivity; Complete Time: 16:51 rt 04/27 15:54 Order name: Urine Microscopic Only; Complete Time: 16:51 EDMS 04/27 14:11 Order name: CT Abd/Pelvis - Without Contrast; Complete Time: 15:45 rt 04/27 14:11 Order name: EKG; Complete Time: 14:12 rt 04/27 14:11 Order name: IV Saline Lock; Complete Time: 17:14 rt 04/27 14:11 Order name: Labs collected and sent; Complete Time: 17:14 rt 04/27 14:11 Order name: EKG - Nurse/Tech; Complete Time: 17:14 rt EC:52 Rate is 60 beats/min. Rhythm is regular, 1st Degree Block with No ectopy. QRS Jasper is rt Normal. ID interval is normal. QRS interval is normal. QT interval is normal. No Q waves. T waves are Normal. No ST changes noted. Interpreted by me. Administered Medications: 16:30 Drug: TORadol - Ketorolac IVP 15 mg IVP once Route: IVP; Site: left antecubital; aa5 16:35 Follow up: Response: No adverse reaction aa5 16:30 Drug: NS 0.9% IV 1000 ml IV at 1 bolus Per protocol; to be given as a bolus over 60 aa5 minutes Route: IV; Rate: 1 bolus; Site: left antecubital; 17:30 Follow up: IV Status: Completed infusion; IV Intake: 1000ml aa5 18:36 CANCELLED (Physician Discretion): clonidine0.1 mg PO once aa5 18:40 Drug: morphine IVP or IV 4 mg IVP once over 4 mins Route: IVP; Infused Over: 4 mins; aa5 Site: left antecubital; 19:00 Follow up: Response: No adverse reaction; Pain is decreased aa5 Disposition Summary: 04/27/24 17:40 Discharge Ordered Notes: Location: Home rt Problem: new rt Symptoms: are unchanged rt Condition: Stable rt Diagnosis - Acute back pain rt Followup: rt - With: Private Physician - When: 2 - 3 days - Reason: Discharge Instructions: - Discharge Summary Sheet rt - Acute Back Pain, Adult rt Forms: - Medication Reconciliation Form rt - Antibiotic Education rt - Prescription Opioid Use rt - Patient Portal Instructions rt - Leadership Thank You Letter rt Signatures: Dispatcher [employer] Erin Fontana RN RN aa5 Sendy Barahona RN RN Gilbert Christy MD MD rt Corrections: (The following items were deleted from the chart) 14:12 14:12 CBC+H.LAB.BRZ ordered. EDMS EDMS 14:12 14:12 COMPREHENSIVE METABOLIC PANEL+C.LAB.BRZ ordered. EDMS EDMS 14:12 14:12 LIPASE+C.LAB.BRZ ordered. EDMS EDMS 14:12 14:12 Troponin High Sensitivity+C.LAB.BRZ ordered. EDMS EDMS 15:52 14:12 Urinalysis+U.LAB.BRZ ordered. EDMS EDMS 18:36 18:34 cloNIDine PO 0.1 mg PO once ordered. rt aa5
--- NOTE | 2024-04-27 17:41 | ER ---
Nurse's Notes [facility] Name: Deanna Guevara Age: 53 yrs Sex: Female : 1970 Arrival Date: 04/27/2024 Time: 13:47 Bed 18 Private MD: Diagnosis: Acute back pain Presentation: 04/27 14:00 Chief complaint: Low back pain that radiates to lower abdomen and dysuria x 1 week. hb 14:02 Coronavirus screen: At this time, the client does not indicate any symptoms associated hb with coronavirus-19. Ebola Screen: No symptoms or risks identified at this time. Initial Sepsis Screen: Does the patient meet any 2 criteria? No. Patient's initial sepsis screen is negative. Does the patient have a suspected source of infection? No. Patient's initial sepsis screen is negative. Risk Assessment: Do you want to hurt yourself or someone else? Patient reports no desire to harm self or others. Onset of symptoms was April 20, 2024. 14:02 Method Of Arrival: Ambulatory hb 14:02 Acuity: STEPH 3 hb Historical: - Allergies: 14:01 No Known Allergies; hb - PMHx: 14:01 Asthma; chronic back pain; Diabetes - NIDDM; Hypertension; hb - PSHx: 14:01 laminectomy; tubal; hb - Immunization history:: Adult Immunizations up to date. - Infectious Disease History:: Denies. - Social history:: Smoking status: Patient denies any tobacco usage or history of. - Family history:: not pertinent. Screenin:20 [facility] ED Fall Risk Assessment (Adult) History of falling in the last 3 months, aa5 including since admission No falls in past 3 months (0 pts) Confusion or Disorientation No (0 pts) Intoxicated or Sedated No (0 pts) Impaired Gait No (0 pts) Mobility Assist Device Used No (0 pt) Altered Elimination No (0 pt) Score/Fall Risk Level 0 - 2 = Low Risk Oriented to surroundings, Maintained a safe environment, Educated pt \\T\\ family on fall prevention, incl call for assistance when getting out of bed, Assessed \\T\\ reinforced patient's understanding of fall precautions. Abuse screen: Denies threats or abuse. Nutritional screening: No deficits noted. Tuberculosis screening: No symptoms or risk factors identified. Assessment: 16:20 General: Appears uncomfortable, Behavior is calm, cooperative. Pain: Complains of pain aa5 in lumbar area, left low back and right low back Pain radiates to right lower quadrant and left lower quadrant Pain currently is 8 out of 10 on a pain scale. Quality of pain is described as sharp, shooting, Is continuous. Neuro: Level of Consciousness is awake, alert, obeys commands, Oriented to person, place, time, situation. Cardiovascular: Patient's skin is warm and dry. Respiratory: Airway is patent Respiratory effort is even, unlabored, Respiratory pattern is regular, symmetrical. GI: Abdomen is obese, Bowel sounds present X 4 quads. Abd is soft and non tender X 4 quads. : Reports pain with urination. EENT: No signs and/or symptoms were reported regarding the EENT system. Derm: Skin is pink, warm \\T\\ dry. Musculoskeletal: Range of motion: intact in all extremities. 17:00 Reassessment: Patient is alert, oriented x 3, equal unlabored respirations, skin aa5 warm/dry/pink. Patient states symptoms have not improved. MD was notified. . 18:30 Reassessment: Patient is alert, oriented x 3, equal unlabored respirations, skin aa5 warm/dry/pink. To bedside to d/c pt home, BP increased, pt states "they took me off my blood pressure medicine about a year ago because I lost 100lbs and it dropped my blood pressure too low, my blood pressure has been 110/70 since then, haven't had any issues". MD was notified. . 19:00 Reassessment: Patient is alert, oriented x 3, equal unlabored respirations, skin aa5 warm/dry/pink. Patient states feeling better. Vital Signs: 14:02 BP 132 / 90; Pulse 65; Resp 16; Temp 98.1; Pulse Ox 96% on R/A; Weight 157.85 kg; hb Height 5 ft. 7 in. ; Pain 8/10; 17:00 BP 169 / 100; Pulse 72; Resp 18 S; Pulse Ox 100% on R/A; aa5 18:30 BP 177 / 100; Pulse 79; Resp 19 S; Pulse Ox 100% on R/A; aa5 19:00 BP 152 / 77; Pulse 77; Resp 18 S; Pulse Ox 100% on R/A; aa5 14:02 Body Mass Index 54.50 (157.85 kg, 170.18 cm) hb 14:02 Pain Scale: Adult hb ED Course: 13:53 Patient arrived in ED. al6 13:53 Gilbert Christy MD is Attending Physician. rt 14:01 Arm band placed on. hb 14:08 Triage completed. hb 14:31 CT Abd/Pelvis - Without Contrast In Process Unspecified. EDMS 15:39 Erin Phelan, RN is Primary Nurse. aa5 16:20 Patient has correct armband on for positive identification. Bed in low position. Call aa5 light in reach. Side rails up X 1. Pulse ox on. NIBP on. 16:25 Initial lab(s) drawn, by me, sent to lab. Inserted saline lock: 20 gauge in left aa5 antecubital area, using aseptic technique. Blood collected. Flushed with 10 mL NS. 16:35 EKG done, by ED staff, reviewed by Gilbert Christy MD. aa5 19:00 No provider procedures requiring assistance completed. IV discontinued, intact, aa5 bleeding controlled, No redness/swelling at site. Pressure dressing applied. Administered Medications: 16:30 Drug: TORadol - Ketorolac IVP 15 mg IVP once Route: IVP; Site: left antecubital; aa5 16:35 Follow up: Response: No adverse reaction aa5 16:30 Drug: NS 0.9% IV 1000 ml IV at 1 bolus Per protocol; to be given as a bolus over 60 aa5 minutes Route: IV; Rate: 1 bolus; Site: left antecubital; 17:30 Follow up: IV Status: Completed infusion; IV Intake: 1000ml aa5 18:36 CANCELLED (Physician Discretion): clonidine0.1 mg PO once aa5 18:40 Drug: morphine IVP or IV 4 mg IVP once over 4 mins Route: IVP; Infused Over: 4 mins; aa5 Site: left antecubital; 19:00 Follow up: Response: No adverse reaction; Pain is decreased aa5 Medication: 16:20 VIS not applicable for this client. aa5 Intake: 17:30 IV: 1000ml; Total: 1000ml. aa5 Outcome: 17:40 Discharge ordered by MD. rt 19:10 Discharged to home via wheelchair, aa5 19:10 Condition: improved 19:10 Discharge instructions given to patient, Instructed on discharge instructions, follow up and referral plans. Demonstrated understanding of instructions, follow-up care, Pt instructed to keep BP reading log at home and follow up with PCP. 19:18 Patient left the ED. aa5 Signatures: Dispatcher [employer] Erin Fontana RN RN aa5 Sendy Barahona RN RN Gilbert Martinez MD MD rt Pily Flores6 Corrections: (The following items were deleted from the chart) 14:10 14:02 BP 132 / 90; Pulse 65bpm; Resp 16bpm; Pulse Ox 96% RA; Temp 98.1F; hb hb
[2024-04-27] MEDS ORDERED: MORPHINE 4 MG/ML SYR ONE (18:35)
[2024-04-27 19:32] VITALS: TEMP 98.1
[2024-04-27 19:38] VITALS: O2SAT 100
[2024-04-27 19:49] VITALS: BP 152/77
== END 2024-04-27 19:18 | disposition home or self-care (01) ==
LOC: ER 13:47
DX: M54.9 Dorsalgia, unspecified (principal); R30.0 Dysuria
CPT/HCPCS: 96361; 93005; 85025; 36415; 81015; 84484; 83690; 80053; 74176; 96375; 96374; 99284; J7030

== ENCOUNTER 2024-06-08 09:59 | Emergency (ER) | payer OTHER ==
--- NOTE | 2024-06-08 10:42 | EDPHYS ---
Physician Documentation [facility] Name: Deanna Guevara Age: 53 yrs Sex: Female : 1970 Arrival Date: 06/08/2024 Time: 09:59 Bed DX1 Private MD: ED Physician Garrick Soriano HPI: 06/08 10:35 This 53 yrs old Female presents to ER via Wheelchair with complaints of Rash, Pain All sp3 Over. 10:35 53-year-old female with history of chronic back pain, diabetes, hypertension, asthma sp3 presents to the ED with chief complaint rash on bilateral lower extremities and feelings of bodyaches. She denies any fever, headache, neck pain, chest pain, shortness of breath, abdominal pain, vomit, diarrhea, syncope, known sick contacts, travel history, or any other signs or symptoms on ROS at this time.. Historical: - Allergies: 10:28 No Known Allergies; aa5 - PMHx: 10:28 Asthma; chronic back pain; Diabetes - NIDDM; Hypertension; aa5 - PSHx: 10:28 laminectomy; tubal; aa5 - Immunization history:: Adult Immunizations unknown. - Infectious Disease History:: Denies. - Social history:: Smoking status: Patient denies any tobacco usage or history of. ROS: 10:36 Constitutional: Negative for fever, chills, and weight loss, Eyes: Negative for injury, sp3 pain, redness, and discharge, ENT: Negative for injury, pain, and discharge, Neck: Negative for injury, pain, and swelling, Cardiovascular: Negative for chest pain, palpitations, and edema, Respiratory: Negative for shortness of breath, cough, wheezing, and pleuritic chest pain, Abdomen/GI: Negative for abdominal pain, nausea, vomiting, diarrhea, and constipation, Back: Negative for injury and pain, : Negative for injury, bleeding, discharge, and swelling, Neuro: Negative for headache, weakness, numbness, tingling, and seizure, Psych: Negative for depression, anxiety, suicide ideation, homicidal ideation, and hallucinations, Allergy/Immunology: Negative for hives, rash, and allergies, 10:36 All other systems are negative, Exam: 10:37 Constitutional: This is a well developed, well nourished patient who is awake, alert, sp3 and in no acute distress. Head/Face: Normocephalic, atraumatic. Eyes: Pupils equal round and reactive to light, extra-ocular motions intact. Lids and lashes normal. Conjunctiva and sclera are non-icteric and not injected. Cornea within normal limits. Periorbital areas with no swelling, redness, or edema. Neck: Trachea midline, no thyromegaly or masses palpated, and no cervical lymphadenopathy. Supple, full range of motion without nuchal rigidity, or vertebral point tenderness. No Meningismus. Chest/axilla: Normal chest wall appearance and motion. Nontender with no deformity. No lesions are appreciated. Cardiovascular: Regular rate and rhythm with a normal S1 and S2. No gallops, murmurs, or rubs. Normal PMI, no JVD. No pulse deficits. Respiratory: Lungs have equal breath sounds bilaterally, clear to auscultation and percussion. No rales, rhonchi or wheezes noted. No increased work of breathing, no retractions or nasal flaring. Abdomen/GI: Soft, non-tender, with normal bowel sounds. No distension or tympany. No guarding or rebound. No evidence of tenderness throughout. Back: No spinal tenderness. No costovertebral tenderness. Full range of motion. MS/ Extremity: Pulses equal, no cyanosis. Neurovascular intact. Full, normal range of motion. Neuro: Awake and alert, GCS 15, oriented to person, place, time, and situation. Cranial nerves II-XII grossly intact. Motor strength 5/5 in all extremities. Sensory grossly intact. Cerebellar exam normal. Normal gait. Psych: Awake, alert, with orientation to person, place and time. Behavior, mood, and affect are within normal limits. 10:37 Musculoskeletal/extremity: 4 cm x 4 cm area bilaterally in the posterior aspect of the upper arm on the triceps erythematous rash. Rash is not consistent with cellulitis or urticaria. Nonblanching in nature. Also on right forearm. Patient has no rash on any other part of her body. No swollen lymph nodes noted.. Vital Signs: 10:26 BP 113 / 53; Pulse 84; Resp 16 S; Temp 98.8(O); Pulse Ox 100% on R/A; Weight 157.85 kg aa5 (R); Height 5 ft. 7 in. (R); 10:26 Body Mass Index 54.50 (157.85 kg, 170.18 cm) aa5 MDM: 10:28 Medical Screening Exam initiated sp3 10:38 Data reviewed: vital signs, nurses notes. ED course: 53-year-old female with rash and sp3 bodyaches. Differential diagnosis includes viral illness and clinically have ruled out cellulitis, allergic reaction, sepsis, shock or any other critical process. Vital signs are normal. Will give patient Solu-Medrol 125 mg IM and discharged on Medrol Dosepak with PCP follow-up. Patient already has [place] for her chronic back pain.. Administered Medications: 10:58 Drug: MethylPREDNISolone Sodium Succinate IM 125 mg IM once Route: IM; Site: right aa5 deltoid; 11:06 Follow up: Response: No adverse reaction aa5 Disposition Summary: 06/08/24 10:42 Discharge Ordered Notes: Location: Home sp3 Condition: Stable sp3 Diagnosis - Viral rash, viral syndrome sp3 Followup: sp3 - With: Private Physician - When: Upon discharge from the Emergency Department - Reason: Continuance of care Discharge Instructions: - Discharge Summary Sheet sp3 - Rash, Adult sp3 Forms: - Medication Reconciliation Form sp3 - Antibiotic Education sp3 - Prescription Opioid Use sp3 - Patient Portal Instructions sp3 - Leadership Thank You Letter sp3 Prescriptions: - Medrol (Jam) 4 mg Oral Tablets, Dose Pack - take 1 tablet ORAL route as directed - follow package instructions; 1 packet; sp3 Refills: 0, Product Selection Permitted Signatures: Erin Phelan RN RN aa5 Garrick Soriano MD MD sp3
--- NOTE | 2024-06-08 10:42 | ER ---
Nurse's Notes [facility] Name: Deanna Guevara Age: 53 yrs Sex: Female : 1970 Arrival Date: 06/08/2024 Time: 09:59 Bed DX1 Private MD: Diagnosis: Viral rash, viral syndrome Presentation: 06/08 10:26 Chief complaint: Patient states: Pt states "I have all these red castanon on my arms that aa5 showed up yesterday". Pt also reports body aches that began this morning, pt states "It was hard for me to get out of bed this morning because of the pain". Coronavirus screen: muscle pain. Ebola Screen: Patient denies travel to an Ebola-affected area in the 21 days before illness onset. Initial Sepsis Screen: Does the patient meet any 2 criteria? No. Patient's initial sepsis screen is negative. Does the patient have a suspected source of infection? No. Patient's initial sepsis screen is negative. Risk Assessment: Do you want to hurt yourself or someone else? Patient reports no desire to harm self or others. Onset of symptoms was May 2024. 10:26 Acuity: STEPH 3 aa5 10:26 Method Of Arrival: Wheelchair aa5 Historical: - Allergies: 10:28 No Known Allergies; aa5 - PMHx: 10:28 Asthma; chronic back pain; Diabetes - NIDDM; Hypertension; aa5 - PSHx: 10:28 laminectomy; tubal; aa5 - Immunization history:: Adult Immunizations unknown. - Infectious Disease History:: Denies. - Social history:: Smoking status: Patient denies any tobacco usage or history of. Screenin:26 Abuse screen: Denies threats or abuse. Nutritional screening: No deficits noted. aa5 Tuberculosis screening: No symptoms or risk factors identified. 10:26 [facility] ED Fall Risk Assessment (Adult) History of falling in the last 3 months, aa5 including since admission No falls in past 3 months (0 pts) Confusion or Disorientation No (0 pts) Intoxicated or Sedated No (0 pts) Impaired Gait No (0 pts) Mobility Assist Device Used No (0 pt) Altered Elimination No (0 pt) Score/Fall Risk Level 0 - 2 = Low Risk Oriented to surroundings, Maintained a safe environment, Educated pt \\T\\ family on fall prevention, incl call for assistance when getting out of bed, Assessed \\T\\ reinforced patient's understanding of fall precautions. Assessment: 10:26 General: Appears comfortable, Behavior is calm, cooperative. Pain: Complains of pain in aa5 whole body Quality of pain is described as aching, Is continuous, Aggravated by movement. Neuro: Level of Consciousness is awake, alert, obeys commands, Oriented to person, place, time, situation. Cardiovascular: Patient's skin is warm and dry. Respiratory: Airway is patent Respiratory effort is even, unlabored, Respiratory pattern is regular, symmetrical. GI: No signs and/or symptoms were reported involving the gastrointestinal system. : No signs and/or symptoms were reported regarding the genitourinary system. EENT: No signs and/or symptoms were reported regarding the EENT system. Derm: Skin is pink, warm \\T\\ dry. Rash that is red and raised noted to sergio axillae and to right FA noted. Musculoskeletal: Range of motion: intact in all extremities. 10:59 Reassessment: Pt requesting to speak to MD, pt appears upset, pt states "I don't feel aa5 good, I am hurting and I am concerned about being discharged home". MD notified and currently speaking to pt. . 11:06 Reassessment: Patient is alert, oriented x 3, equal unlabored respirations, skin aa5 warm/dry/pink. Vital Signs: 10:26 BP 113 / 53; Pulse 84; Resp 16 S; Temp 98.8(O); Pulse Ox 100% on R/A; Weight 157.85 kg aa5 (R); Height 5 ft. 7 in. (R); 10:26 Body Mass Index 54.50 (157.85 kg, 170.18 cm) aa5 ED Course: 10:03 Patient arrived in ED. im 10:13 Garrick Soriano MD is Attending Physician. sp3 10:26 Arm band placed on. aa5 10:26 Patient has correct armband on for positive identification. aa5 10:28 Triage completed. aa5 10:43 Erin Phelan, YOHANA is Primary Nurse. aa5 11:06 No provider procedures requiring assistance completed. Patient did not have IV access aa5 during this emergency room visit. Administered Medications: 10:58 Drug: MethylPREDNISolone Sodium Succinate IM 125 mg IM once Route: IM; Site: right aa5 deltoid; 11:06 Follow up: Response: No adverse reaction aa5 Medication: 10:58 VIS not applicable for this client. aa5 Outcome: 10:42 Discharge ordered by . sp3 11:06 Discharged to home via wheelchair, aa5 11:06 Condition: stable 11:06 Discharge instructions given to patient, Instructed on discharge instructions, follow up and referral plans. medication usage, Demonstrated understanding of instructions, follow-up care, medications, Prescriptions given X 1, 11:07 Patient left the ED. aa5 Signatures: Erin Phelan RN RN aa5 Garrick Soriano MD MD sp3 Radha Kolb im Corrections: (The following items were deleted from the chart) 10:29 10:26 BP 113 / 53; Pulse 84bpm; Resp 16bpm; Spontaneous; Pulse Ox 100% RA; Temp 98.8F aa5 Oral; aa5 10:58 10:58 MethylPREDNISolone Sodium Succinate IM 125 mg IM in right gluteus aa5 aa5
[2024-06-08] MEDS ORDERED: METHYLPREDNISOLONE 125 MG INJ ONE (10:49)
[2024-06-08 11:21] VITALS: BP 113/53; TEMP 98.8; O2SAT 100
== END 2024-06-08 11:07 | disposition home or self-care (01) ==
LOC: ER 09:59
DX: B34.9 Viral infection, unspecified (principal)
CPT/HCPCS: J2919

== ENCOUNTER 2024-11-17 12:50 | Emergency (ER) | payer OTHER ==
[2024-11-17] MEDS ORDERED: MORPHINE 4 MG/ML SYR ONE (14:08)
[2024-11-17] MEDS ORDERED: NA CHLORIDE 0.9% 1,000 ML ONE (14:08)
[2024-11-17] MEDS ORDERED: PROMETHAZINE INJ 25 MG/ML AMP ONE (14:08)
[2024-11-17 14:25] LABS: Absolute Lymphocytes (CBC) 1.6 K/uL (0.7-4.9); Hematocrit 41.1 % (36.0-45.0); Hemoglobin 13.4 g/dL (12.0-15.0); MCH 29.2 pg (27.0-35.0); MCHC 32.7 g/dL (32.0-36.0); MCV 89.4 fL (80-100); MPV 8.7 fL (7.6-11.3); Nucleated RBC Absolute Count 0.0 (0-0); Nucleated Red Blood Cells % 0.1 % (0-0); RBC Red Blood Cell Count 4.60 M/uL (3.86-4.86); White Blood Count 7.10 thou/uL (4.3-10.9)
[2024-11-17 14:45] LABS: ALT/SGPT 31.0 U/L (13-56); AST/SGOT 11.0 U/L (15-37); Albumin 3.6 g/dL (3.4-5.0); Albumin/Globulin Ratio 0.9 (1.1-1.8); Alkaline Phosphatase 158.0 U/L (45-117); Anion Gap 12.0 mEq/L (5.0-15.0); BUN Blood Urea Nitrogen 23.0 mg/dL (7-18); Globulin 4.0 g/dL (2.3-3.5); Glucose Level 219.0 mg/dL (74-106); Lipase 19.0 U/L (13-75); Potassium 4.0 mEq/L (3.5-5.1)
[2024-11-17 15:24] LABS: Urine Microscopic Reflex YN NO UMIC
--- NOTE | 2024-11-17 16:02 | RAD REPORT ---
EXAMINATION: CT ABDOMEN AND PELVIS WITH CONTRAST CLINICAL INDICATION: Abdominal pain TECHNIQUE: CT abdomen and pelvis was performed, after the administration of 100 cc Isovue-300.. Sagit randi and coronal reconstructions were obtained. One or more of the following dose reduction techniques were used: Automated exposure control, adjustment of the mA and kV according to patient si ze, and iterative reconstruction. Unless otherwise specified, incidental findings do not require dedicated imaging follow-up. [id number]. Oral contrast was not given which limits evaluation of bowel and appendix. COMPARISON: .April 2024 FINDINGS: Cholecystectomy. Liver, spleen and adrenals unremarkable. Atrophic pancreas. Small nonobstructing right renal calculus. Extrarenal pelves are present. Parapelvic cysts suspected. No adnexal mass. No evidence of diverticulitis. No adnexal mass : IMPRESSION: No acute abnormality displayed
[2024-11-17] MEDS ORDERED: DIPHENHYDRAMINE 50 MG/ML VIAL ONE (16:27)
--- NOTE | 2024-11-17 18:17 | EDPHYS ---
Physician Documentation [facility] Name: Deanna Guevara Age: 54 yrs Sex: Female : 1970 Arrival Date: 11/17/2024 Time: 12:50 Bed 12 Private MD: ED Physician Markos Duffy HPI: 11/17 16:13 This 54 yrs old Female presents to ER via Wheelchair with complaints of Diarrhea, sb4 Dizziness. 16:13 Patient reports diarrhea for 8 days now. She initially was taken to [facility] via EMS the sb4 day at all began, was admitted for C. difficile. States that she has been taking oral vancomycin but has still been having a lot of pain, diarrhea, and vomiting. Came in today because of the symptoms and because she was feeling very weak. IP [place]: 12:59 LMP N/A - Post-menopause, Not db Historical: - Allergies: 12:58 No Known Allergies; db - PMHx: 12:58 Asthma; Diabetes - NIDDM; chronic back pain; Hypertension; db 13:00 STROKE; db - PSHx: 12:58 laminectomy; tubal; db 12:58 Cholecystectomy; db - Immunization history:: Adult Immunizations unknown. - Infectious Disease History:: Denies. - Social history:: Smoking status: Patient denies any tobacco usage or history of. ROS: 16:13 Constitutional: Negative for fever, chills, and weight loss, sb4 16:13 Abdomen/GI: Positive for abdominal pain, nausea, vomiting, and diarrhea, 16:13 Neuro: Positive for dizziness, weakness, 16:13 All other systems are negative, Exam: 16:13 Head/Face: Normocephalic, atraumatic. Eyes: Extra-ocular motions intact. Periorbital sb4 areas with no swelling, redness, or edema. Cardiovascular: Regular rate and rhythm with a normal S1 and S2. Respiratory: No increased work of breathing, no retractions or nasal flaring. Abdomen/GI: Soft, non-tender, no distension. Skin: Warm, dry with normal turgor. Normal color with no rashes, no lesions, and no evidence of cellulitis. 16:13 Constitutional: The patient appears alert, awake, obese, Vital Signs: 12:56 BP 176 / 69; Pulse 93; Resp 16; Temp 98.3; Pulse Ox 96% ; Weight 158.76 kg; Height 5 db ft. 7 in. ; 14:00 BP 165 / 70; Pulse 88; Resp 18; Pulse Ox 100% ; rg5 16:00 BP 161 / 70; Pulse 87; Resp 18; Pulse Ox 100% ; rg5 18:00 BP 160 / 69; Pulse 89; Resp 18; Pulse Ox 99% ; rg5 12:56 Body Mass Index 54.82 (158.76 kg, 170.18 cm) db MDM: 12:52 Medical Screening Exam initiated sb4 16:50 Differential diagnosis: sepsis, colitis, dehydration, SHERITA, hypokalemia. Data reviewed: sb4 vital signs, nurses notes, lab test result(s), radiologic studies. Consideration of Admission/Observation Escalation of care including admission/observation considered. 17:14 External Records Reviewed: [facility] aware reviewed -has active 30-day prescriptions sb4 for Fioricet, [place] tens, and alprazolam 2 mg. Care significantly affected by the following chronic conditions: Diabetes, Hypertension, Obesity. 11/17 13:55 Order name: CBC with Diff; Complete Time: 14:28 sb4 11/17 13:55 Order name: CMP; Complete Time: 14:56 sb4 11/17 13:55 Order name: Lipase; Complete Time: 14:56 sb4 11/17 15:11 Order name: UA Rfx [place] Cult if indicated; Complete Time: 15:27 sb4 11/17 14:56 Order name: CT Abd/Pelvis - IV Contrast Only; Complete Time: 16:03 sb4 11/17 13:55 Order name: IV Saline Lock; Complete Time: 14:16 sb4 11/17 13:55 Order name: Labs collected and sent; Complete Time: 14:16 sb4 Administered Medications: 14:16 Drug: NS 0.9% IV 1000 ml IV at 1 bolus Per protocol; to be given as a bolus over 60 rg5 minutes Route: IV; Rate: 1 bolus; Site: right antecubital; 16:37 Follow up: IV Status: Completed infusion; IV Intake: 1000ml rg5 14:16 Drug: morphine IVP or IV 4 mg IVP once over 4 mins Route: IVP; Infused Over: 4 mins; rg5 Site: right antecubital; 14:53 Follow up: Response: No adverse reaction; Pain is decreased rg5 14:16 Drug: Promethazine IM 25 mg IM once Route: IM; Site: left deltoid; rg5 14:53 Follow up: Response: No adverse reaction rg5 16:36 Drug: Droperidol IVP 2.5 mg IVP once Route: IVP; Site: right antecubital; rg5 18:11 Follow up: Response: No adverse reaction rg5 16:36 Drug: diphenhydrAMINE IVP 25 mg IVP once Route: IVP; Site: right antecubital; rg5 18:11 Follow up: Response: No adverse reaction rg5 Disposition Summary: 11/17/24 18:17 Discharge Ordered Notes: Location: Home sb4 Problem: new sb4 Symptoms: have improved sb4 Condition: Stable sb4 Diagnosis - Enterocolitis due to Clostridium difficile sb4 Followup: sb4 - With: Emergency Department - When: As needed - Reason: Trouble breathing, Worsening of condition Discharge Instructions: - Discharge Summary Sheet sb4 - Abdominal Pain, Adult, [id number] sb4 - Clostridioides Difficile Infection, [id number] sb4 Forms: - Patient Portal Instructions sb4 - Leadership Thank You Letter sb4 Prescriptions: - promethazine 25 mg Oral tablet - take 1 tablet ORAL route every 6 hours As needed; 20 tablet; Refills: 0, sb4 Product Selection Permitted Signatures: Dispatcher [employer] Dena [place], RN RN Jenn Smith, PATrayC PA-C sb4 Killian Castañeda RN RN rg5 Corrections: (The following items were deleted from the chart) 15:12 15:12 UA Rfx [place] Cult if indicated+U.LAB.BRZ ordered. EDMS EDMS
--- NOTE | 2024-11-17 18:17 | ER ---
Nurse's Notes [facility] Name: Deanna Guevara Age: 54 yrs Sex: Female : 1970 Arrival Date: 11/17/2024 Time: 12:50 Bed 12 Private MD: Diagnosis: Enterocolitis due to Clostridium difficile Presentation: 11/17 12:56 Chief complaint: Patient states: STATES HAS DIARRHEA X 2 DAYS. RECENTLY DIAGNOSED WITH db C-DIFF. TAKING VANCOMYCIN SINCE WEDNESDAY. COMPLAINS OF DIZZINESS TODAY. Coronavirus screen: Client denies travel out of the [place] in the last 14 days. At this time, the client does not indicate any symptoms associated with coronavirus-19. Ebola Screen: Patient negative for fever greater than or equal to 101.5 degrees Fahrenheit, and additional compatible Ebola Virus Disease symptoms Patient denies exposure to infectious person. Patient denies travel to an Ebola-affected area in the 21 days before illness onset. No symptoms or risks identified at this time. Initial Sepsis Screen: Does the patient meet any 2 criteria? No. Patient's initial sepsis screen is negative. Does the patient have a suspected source of infection? No. Patient's initial sepsis screen is negative. Risk Assessment: Do you want to hurt yourself or someone else? Patient reports no desire to harm self or others. Onset of symptoms was November 15, 2024. 12:56 Method Of Arrival: Wheelchair db 12:56 Acuity: STEPH 3 db Triage Assessment: 12:58 General: Appears in no apparent distress. comfortable, Behavior is calm, cooperative. db Pain: Denies pain. Neuro: Level of Consciousness is awake, alert, obeys commands, Oriented to person, place, time, situation. Respiratory: Airway is patent Respiratory effort is even, unlabored, Respiratory pattern is regular, symmetrical. GI: Reports diarrhea. 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 - Infectious Disease History:: Denies. - Social history:: Smoking status: Patient denies any tobacco usage or history of. Screenin:30 [facility] ED Fall Risk Assessment (Adult) History of falling in the last 3 months, rg5 including since admission No falls in past 3 months (0 pts) Confusion or Disorientation No (0 pts) Intoxicated or Sedated No (0 pts) Impaired Gait No (0 pts) Mobility Assist Device Used No (0 pt) Altered Elimination No (0 pt) Score/Fall Risk Level 0 - 2 = Low Risk Oriented to surroundings, Maintained a safe environment. Abuse screen: Denies threats or abuse. Nutritional screening: No deficits noted. Tuberculosis screening: No symptoms or risk factors identified. Assessment: 14:30 Reassessment:. General: Appears in no apparent distress. comfortable, Behavior is calm, rg5 cooperative, appropriate for age. Pain: Complains of pain in abdomen. Neuro: Level of Consciousness is awake, alert, obeys commands, Oriented to person, place, time, situation. Neuro: Reports dizziness. Cardiovascular: Denies chest pain, Patient's skin is warm and dry. Respiratory: Airway is patent Respiratory effort is even, unlabored. GI: Abdomen is round obese, Reports cramping, diarrhea, nausea. : No signs and/or symptoms were reported regarding the genitourinary system. EENT: No signs and/or symptoms were reported regarding the EENT system. Derm: Skin is intact, Skin is dry, Skin is normal, Skin temperature is warm. Musculoskeletal: Circulation, motion, and sensation intact. Range of motion: intact in all extremities. 18:00 Reassessment: Patient is alert, oriented x 3, equal unlabored respirations, skin rg5 warm/dry/pink. Patient states feeling better. Patient states symptoms have improved. Vital Signs: 12:56 BP 176 / 69; Pulse 93; Resp 16; Temp 98.3; Pulse Ox 96% ; Weight 158.76 kg; Height 5 db ft. 7 in. ; 14:00 BP 165 / 70; Pulse 88; Resp 18; Pulse Ox 100% ; rg5 16:00 BP 161 / 70; Pulse 87; Resp 18; Pulse Ox 100% ; rg5 18:00 BP 160 / 69; Pulse 89; Resp 18; Pulse Ox 99% ; rg5 12:56 Body Mass Index 54.82 (158.76 kg, 170.18 cm) db ED Course: 12:51 Patient arrived in ED. al6 12:52 Jenn Laughlin [facility] sb4 12:52 Markos Duffy MD is Attending Physician. sb4 12:58 Triage completed. db 12:59 Arm band placed on Patient placed. db 13:43 Killian Castañeda, YOHANA is Primary Nurse. rg5 14:30 Patient has correct armband on for positive identification. Bed in low position. Call rg5 light in reach. Side rails up X 1. Door closed. Noise minimized. Warm blanket given. 14:30 No provider procedures requiring assistance completed. Inserted saline lock: 20 gauge rg5 in right antecubital area, using aseptic technique. Blood collected. Flushed with 10 mL NS. 15:30 CT Abd/Pelvis - IV Contrast Only In Process Unspecified. EDMS 18:00 IV discontinued, bleeding controlled, No redness/swelling at site. Pressure dressing rg5 applied. Administered Medications: 14:16 Drug: NS 0.9% IV 1000 ml IV at 1 bolus Per protocol; to be given as a bolus over 60 rg5 minutes Route: IV; Rate: 1 bolus; Site: right antecubital; 16:37 Follow up: IV Status: Completed infusion; IV Intake: 1000ml rg5 14:16 Drug: morphine IVP or IV 4 mg IVP once over 4 mins Route: IVP; Infused Over: 4 mins; rg5 Site: right antecubital; 14:53 Follow up: Response: No adverse reaction; Pain is decreased rg5 14:16 Drug: Promethazine IM 25 mg IM once Route: IM; Site: left deltoid; rg5 14:53 Follow up: Response: No adverse reaction rg5 16:36 Drug: Droperidol IVP 2.5 mg IVP once Route: IVP; Site: right antecubital; rg5 18:11 Follow up: Response: No adverse reaction rg5 16:36 Drug: diphenhydrAMINE IVP 25 mg IVP once Route: IVP; Site: right antecubital; rg5 18:11 Follow up: Response: No adverse reaction rg5 Medication: 14:30 VIS not applicable for this client. rg5 Intake: 16:37 IV: 1000ml; Total: 1000ml. rg5 Outcome: 18:17 Discharge ordered by . sb4 18:30 Discharged to home via wheelchair, rg5 18:30 Condition: stable rg5 18:30 Discharge instructions given to patient, Instructed on discharge instructions, Demonstrated understanding of instructions, Prescriptions given X 1, 18:30 Patient left the ED. rg5 Signatures: Dispatcher [employer] Dena Park RN RN db Jenn Laughlin PA-C PA-C sb4 Killian Castañeda RN RN rg5 Pily Flores6 Corrections: (The following items were deleted from the chart) 12:59 12:56 Chief complaint: Patient states: STATES HAS DIARRHEA X 2 DAYS. RECENTLY DIAGNOSED db WITH C-DIFF. TAKING VANCOMYCIN SINCE WEDNESDAY db
[2024-11-17 18:40] VITALS: BP 176/69; TEMP 98.3; O2SAT 96
== END 2024-11-17 18:30 | disposition home or self-care (01) ==
LOC: ER 12:50
DX: A04.72 Enterocolitis due to Clostridium difficile, not specified as recurrent (principal)
CPT/HCPCS: 96361; 85025; 36415; 81003; 83690; 80053; 74177; 96375; 96372; 96374; 99284; Q9967; J2550; J1200; J1790; J7030

== ENCOUNTER 2024-11-28 14:48 | Observation (INO) | payer OTHER ==
--- NOTE | 2024-11-28 16:08 | RAD REPORT ---
EXAM: Chest Single View HISTORY: 54 years Female CHEST PAIN COMPARISON: 03/25/2021 FINDINGS: LUNGS/PLEURA: Pulmonary vascular congestion. CARDIAC/MEDIASTINUM: Stable enlargement. UPPER ABDOMEN: No significant abnormality. BONES: No acute abnormality. LINES/TUBES/OTHER: N/A IMPRESSION: No evidence of acute cardiopulmonary disease.
[2024-11-28 16:24] LABS: Absolute Lymphocytes (CBC) 1.5 K/uL (0.7-4.9); Hematocrit 42.4 % (36.0-45.0); Hemoglobin 14.1 g/dL (12.0-15.0); MCH 29.6 pg (27.0-35.0); MCHC 33.3 g/dL (32.0-36.0); MCV 89.1 fL (80-100); MPV 8.7 fL (7.6-11.3); Nucleated RBC Absolute Count 0.0 (0-0); Nucleated Red Blood Cells % 0.2 % (0-0); RBC Red Blood Cell Count 4.76 M/uL (3.86-4.86); White Blood Count 7.30 thou/uL (4.3-10.9)
[2024-11-28 16:26] LABS: Urine Microscopic Reflex YN NO UMIC
[2024-11-28 16:28] LABS: PT Prothrombin Time 12.8 SECONDS (10-13.0); Protime INR 1.14
[2024-11-28 16:42] LABS: ALT/SGPT 39 U/L (13-56); Albumin 3.8 g/dL (3.4-5.0); Albumin/Globulin Ratio 0.8 (1.1-1.8); Alkaline Phosphatase 176 U/L (45-117); Anion Gap 9.7 mEq/L (5.0-15.0); BUN Blood Urea Nitrogen 30 mg/dL (7-18); Globulin 4.5 g/dL (2.3-3.5); Glucose Level 196 mg/dL (74-106); NT PRO-BNP 178 pg/mL (<125); Troponin High Sensitivity 6.3 pg/mL (<58.9)
[2024-11-28 16:43] LABS: AST/SGOT 34 U/L (15-37); Bilirubin Indirect, Calculated 0.2 mg/dL (0.2-0.8); Magnesium 1.9 mg/dL (1.6-2.4); Potassium 4.7 mEq/L (3.5-5.1)
[2024-11-28] MEDS ORDERED: ONDANSETRON 4 MG/2 ML VIAL ONE (16:53)
[2024-11-28] MEDS ORDERED: MORPHINE 4 MG/ML SYR ONE (16:53)
--- NOTE | 2024-11-28 17:24 | RAD REPORT ---
EXAM: Chest Abdomen Pelvis W Cont CLINICAL INDICATION: Female, 54 years abd pain;Chest pain TECHNIQUE: CT chest, abdomen and pelvis was performed, with IV contrast, as per department protocol. Axial, sagittal and coronal reconstructions were obtained. One or more of the following dose reduction techniques were used: Automated exposure control, adjustment of the mA and/or kV according to the patient size, and/or iterative reconstruction. Unless otherwise specified, incidental findings do not require dedicated imaging follow-up. [id number]. COMPARISON: CT 11/17/2024 FINDINGS: ---THORAX--- LOWER NECK AND CHEST WALL: Visualized thyroid gland and soft tissues are normal. MEDIASTINUM AND LYMPH NODES: No mediastinal mass or fluid collection. Normal size mediastinal, hilar, and axillary lymph nodes. Mild distal esophageal thickening. THORACIC AORTA: No thoracic aortic aneurysm. PULMONARY ARTERIES: Caliber is within normal limits. Unable to evaluate for pulmonary emboli due to e ither protocol or lack of contrast. HEART: Normal heart size. No coronary calcifications. No significant pericardial effusion. LUNGS AND AIRWAYS: Airways are clear. No evidence of airspace or interstitial process. No suspicious and/or stable pulmonary nodules. PLEURA: No pleural effusion. No pneumothorax. ---ABDOMEN/PELVIS--- UPPER GI: No significant abnormality. LIVER: Hepatic steatosis, but otherwise unremarkable. GALLBLADDER/BILE DUCTS: No biliary ductal dilatation.? PANCREAS: Severe pancreatic atrophy. SPLEEN: Unremarkable. ADRENALS: No adrenal masses. KIDNEYS AND URETERS: No hydronephrosis.No suspicious renal mass.Nonobstructing renal calculi. No uret eral calculi. Right renal sinus cysts. ABDOMINAL AORTA AND OTHER VESSELS: Normal caliber aorta and IVC. PERITONEUM: No abnormal free fluid. No free air. LYMPH NODES: No pathologic lymphadenopathy. ABDOMINAL WALL: Unremarkable SMALL BOWEL/COLON: Small bowel has normal course and caliber. No colonic wall thickening or pericolon ic inflammatory changes. Moderate formed stool burden. URINARY BLADDER: Underdistended but grossly unremarkable. REPRODUCTIVE ORGANS: No pathologic process. ---COMBINED--- MUSCULOSKELETAL: No acute or suspicious osseous abnormality. ADDITIONAL FINDINGS: None. IMPRESSION: No acute findings within the chest, abdomen, or pelvis. Incidental findings as noted above,
[2024-11-28] MEDS ORDERED: NA CHLORIDE 0.9% 1,000 ML ONE (17:38)
--- NOTE | 2024-11-28 19:11 | ER ---
Nurse's Notes [facility] Name: Deanna Guevara Age: 54 yrs Sex: Female : 1970 Arrival Date: 11/28/2024 Time: 14:48 Bed 15 Private MD: Diagnosis: Chest pain, unspecified Presentation: 11/28 14:54 Chief complaint: Patient states: reports chest pain that is midsternal 11/01, me1 "squeezing", lower back pain and RLQ, LLQ. Coronavirus screen: Vaccine status: Patient reports being unvaccinated. Ebola Screen: No symptoms or risks identified at this time. Initial Sepsis Screen: Does the patient meet any 2 criteria? HR > 90 bpm. Does the patient have a suspected source of infection? No. Patient's initial sepsis screen is negative. Risk Assessment: Do you want to hurt yourself or someone else? Patient reports no desire to harm self or others. Onset of symptoms was November 28, 2024. 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 - Infectious Disease History:: Denies. - Social history:: Smoking status: Patient denies any tobacco usage or history of. Screenin:00 [facility] ED Fall Risk Assessment (Adult) History of falling in the last 3 months, rg5 including since admission No falls in past 3 months (0 pts) Confusion or Disorientation No (0 pts) Intoxicated or Sedated No (0 pts) Impaired Gait Yes (1 pt) Mobility Assist Device Used Yes (1 pt) Altered Elimination No (0 pt) Score/Fall Risk Level 3 or more points = High Risk Oriented to surroundings, Maintained a safe environment, Hourly rounding (assess needs \\T\\ fall precautionary measures) done. Abuse screen: Denies threats or abuse. Nutritional screening: No deficits noted. Tuberculosis screening: No symptoms or risk factors identified. Assessment: 16:00 General: Appears uncomfortable, Behavior is calm, cooperative, appropriate for age. rg5 Pain: Complains of pain in back, chest and abdomen Pain radiates to back Quality of pain is described as aching, Pain began gradually. Neuro: Level of Consciousness is awake, alert, obeys commands, Oriented to person, place, time, situation. Cardiovascular: Rhythm is sinus rhythm. Respiratory: Airway is patent Trachea midline. GI: Abdomen is obese. : No signs and/or symptoms were reported regarding the genitourinary system. EENT: No signs and/or symptoms were reported regarding the EENT system. Derm: Skin is intact, Skin is dry, Skin is normal, Skin temperature is warm. Musculoskeletal: Circulation, motion, and sensation intact. Range of motion: intact in all extremities. 17:00 Reassessment: No changes from previously documented assessment. Patient and/or family rg5 updated on plan of care and expected duration. Pain level reassessed. Patient is alert, oriented x 3, equal unlabored respirations, skin warm/dry/pink. 18:00 Reassessment: No changes from previously documented assessment. Patient and/or family rg5 updated on plan of care and expected duration. Pain level reassessed. Patient is alert, oriented x 3, equal unlabored respirations, skin warm/dry/pink. 19:00 Reassessment: No changes from previously documented assessment. Patient and/or family rg5 updated on plan of care and expected duration. Pain level reassessed. Patient is alert, oriented x 3, equal unlabored respirations, skin warm/dry/pink. 20:00 Reassessment: Patient and/or family updated on plan of care and expected duration. Pain rg5 level reassessed. Patient is alert, oriented x 3, equal unlabored respirations, skin warm/dry/pink. 21:18 Reassessment: Patient and/or family updated on plan of care and expected duration. Pain rg5 level reassessed. Patient is alert, oriented x 3, equal unlabored respirations, skin warm/dry/pink. Vital Signs: 14:54 BP 163 / 91; Pulse 100; Resp 20; Temp 98.6; Pulse Ox 100% ; Weight 158.76 kg; Height 5 me1 ft. 6 in. ; Pain 9/10; 18:00 BP 168 / 62; Pulse 84; Resp 18; Pulse Ox 100% on R/A; rg5 19:00 BP 160 / 92; Pulse 94; Resp 18; Pulse Ox 99% ; rg5 20:18 BP 155 / 89; Pulse 92; Resp 18; Pulse Ox 99% on R/A; rg5 14:54 Body Mass Index 56.49 (158.76 kg, 167.64 cm) me1 14:54 Pain Scale: Adult sc1 ED Course: 14:50 Patient arrived in ED. mr 14:51 [facility] sb4 14:51 Garrick Soriano MD is Attending Physician. sb4 14:56 Triage completed. me1 14:57 Arm band placed on Patient placed in waiting room. me1 15:38 Radiology exam delayed due to lab results not completed at this time. (BUN/Creatinine) nj IV insertion attempt and/or patient not having appropriate IV at this time. 16:00 Patient has correct armband on for positive identification. Bed in low position. Client rg5 placed on continuous cardiac and pulse oximetry monitoring. NIBP monitoring applied. threat monitoring analyst on. Pulse ox on. NIBP on. 16:00 No provider procedures requiring assistance completed. Patient maintains SpO2 rg5 saturation greater than 95% on room air. 16:02 XRAY Chest (1 view) In Process Unspecified. EDMS 16:09 EKG done, by ED staff, reviewed by Jenn Laughlin PA-C. me1 16:09 Initial lab(s) drawn, by laborer pie bak[employer], sent to lab. Inserted saline lock: 18 gauge in right ts3 antecubital area, using aseptic technique. Blood collected. Flushed with 10 mL NS. 16:09 Urine collected: clean catch specimen, SENT TO LAB. ts3 16:35 Killian Castañeda, YOHANA is Primary Nurse. rg5 17:09 CT Chest, Abdomen, Pelvis - W/Contrast In Process Unspecified. EDMS 19:10 Siddharth Drake MD is Hospitalizing Provider. sb4 21:18 Patient admitted, IV remains in place. intact. rg5 Administered Medications: 17:18 Drug: morphine IVP or IV 4 mg IVP once over 4 mins Route: IVP; Infused Over: 4 mins; rg5 Site: right antecubital; 17:49 Follow up: Response: No adverse reaction; Pain is decreased rg5 17:18 Drug: Ondansetron IVP 4 mg IVP once; over 2 minutes Route: IVP; Site: right antecubital;rg5 17:49 Follow up: Response: No adverse reaction rg5 17:49 Drug: NS 0.9% IV 1000 ml IV at 1000 ml once; to be given as a bolus over 60 minutes rg5 Route: IV; Rate: 1000 ml; Site: right antecubital; 20:14 Follow up: IV Status: Completed infusion; IV Intake: 1000ml rg5 19:40 Drug: Droperidol IVP 2.5 mg IVP once Route: IVP; Site: right antecubital; rg5 20:14 Follow up: Response: No adverse reaction rg5 20:14 Drug: Acetaminophen PO 1000 mg PO once Route: PO; rg5 Medication: 16:00 VIS not applicable for this client. rg5 Intake: 20:14 IV: 1000ml; Total: 1000ml. rg5 Outcome: 19:10 Decision to Hospitalize by Provider. sb4 21:18 Admitted to Med/surg accompanied by tech, via wheelchair, rg5 21:18 Condition: stable 21:18 Instructed on the need for admit, 21:50 Patient left the ED. rg5 Signatures: Dispatcher [employer] EDMS Debbie Gonzáles, Dieter Roth Sophia, PA-C PAHetal sb4 Shaista Nation, RN RN me1 Killian Castañeda RN RN rg5 Debi Griffith 3
--- NOTE | 2024-11-28 19:11 | EDPHYS ---
Physician Documentation [facility] Name: Deanna Guevara Age: 54 yrs Sex: Female : 1970 Arrival Date: 11/28/2024 Time: 14:48 Bed 15 Private MD: ED Physician Garrick Soriano HPI: 11/28 14:58 This 54 yrs old Female presents to ER via Wheelchair with complaints of Chest Pain, sb4 Abdominal Pain, Back Pain. 14:58 Patient presents with complaints of low back pain, lower abdominal pain, and headache sb4 for 3 days. States that today she developed chest pain that is a squeezing sensation. Denies any radiation of the pain. Denies any shortness of breath, nausea, dizziness. Is recently getting over treatment for C. difficile. Also thinks that she may have a yeast infection. 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 - Infectious Disease History:: Denies. - Social history:: Smoking status: Patient denies any tobacco usage or history of. ROS: 14:58 Constitutional: Negative for fever, chills, and weight loss, sb4 14:58 Cardiovascular: Positive for chest pain, 14:58 Abdomen/GI: Positive for abdominal pain, 14:58 Back: Positive for pain at rest, 14:58 Neuro: Positive for headache, 14:58 All other systems are negative, Exam: 14:58 Head/Face: Normocephalic, atraumatic. Eyes: Extra-ocular motions intact. Periorbital sb4 areas with no swelling, redness, or edema. ENT: Mucous membranes moist. Cardiovascular: Regular rate and rhythm with a normal S1 and S2. Respiratory: No increased work of breathing, no retractions or nasal flaring. Abdomen/GI: Soft, non-tender, no distension. Skin: Warm, dry with normal turgor. Normal color with no rashes, no lesions, and no evidence of cellulitis. 14:58 Constitutional: The patient appears in no acute distress, alert, awake, obese, 14:58 Abdomen/GI: Inspection: obese Vital Signs: 14:54 BP 163 / 91; Pulse 100; Resp 20; Temp 98.6; Pulse Ox 100% ; Weight 158.76 kg; Height 5 me1 ft. 6 in. ; Pain 9/10; 18:00 BP 168 / 62; Pulse 84; Resp 18; Pulse Ox 100% on R/A; rg5 19:00 BP 160 / 92; Pulse 94; Resp 18; Pulse Ox 99% ; rg5 20:18 BP 155 / 89; Pulse 92; Resp 18; Pulse Ox 99% on R/A; rg5 14:54 Body Mass Index 56.49 (158.76 kg, 167.64 cm) me1 14:54 Pain Scale: Adult me1 MDM: 14:51 Medical Screening Exam initiated sb4 19:10 Data reviewed: vital signs, nurses notes, lab test result(s), EKG, radiologic studies, sb4 and as a result, I will admit patient. Consideration of Admission/Observation Patient was admitted/placed on observation. Care significantly affected by the following chronic conditions: Diabetes, Hypertension, Obesity. Scoring Tools HEART Score: History: ECG: Age: Risk Factors: > or = 3 Risk factors for atherosclerotic disease (2), Troponin: Total Score = 4. Counseling: I had a detailed discussion with the patient and/or guardian regarding the historical points, exam findings, and any diagnostic results supporting the discharge/admit diagnosis, the presence of at least one elevated blood pressure reading (>120/80) during this emergency department visit, lab results, radiology results, the need for further work-up and treatment in the hospital. 19:19 Differential diagnosis: ACS, pneumonia, UTI, pancreatitis. sb4 11/28 14:56 Order name: Basic Metabolic Panel; Complete Time: 16:45 sb4 11/28 14:56 Order name: CBC with Diff; Complete Time: 16:31 sb4 11/28 14:56 Order name: LFT's; Complete Time: 16:45 sb4 11/28 14:56 Order name: Magnesium; Complete Time: 16:45 sb4 11/28 14:56 Order name: NT PRO-BNP; Complete Time: 16:45 sb4 11/28 14:56 Order name: PT-INR; Complete Time: 16:31 sb4 11/28 14:56 Order name: Troponin HS; Complete Time: 16:45 sb4 11/28 14:56 Order name: UA Rfx [place] Cult if indicated; Complete Time: 16:31 sb4 11/28 17:29 Order name: Troponin High Sensitivity; Complete Time: 18:58 sb4 11/28 19:56 Order name: CBC with Automated Diff EDMS 11/28 19:56 Order name: CBC with Automated Diff EDMS 11/28 19:56 Order name: Comprehensive Metabolic Panel EDMS 11/28 19:56 Order name: Comprehensive Metabolic Panel EDMS 11/28 19:56 Order name: Troponin High Sensitivity EDMS 11/28 19:56 Order name: Troponin High Sensitivity EDMS 11/28 19:56 Order name: Troponin High Sensitivity EDMS 11/28 19:56 Order name: Troponin High Sensitivity EDMS 11/28 14:56 Order name: XRAY Chest (1 view); Complete Time: 16:10 sb4 11/28 14:58 Order name: CT Chest, Abdomen, Pelvis - W/Contrast; Complete Time: 17:25 sb4 11/28 14:56 Order name: Cardiac monitoring; Complete Time: 17:03 sb4 11/28 14:56 Order name: EKG - Nurse/Tech; Complete Time: 16:09 sb4 11/28 14:56 Order name: IV Saline Lock; Complete Time: 16:09 sb4 11/28 14:56 Order name: Labs collected and sent; Complete Time: 16:09 sb4 11/28 14:56 Order name: O2 Per Protocol; Complete Time: 17:03 sb4 11/28 14:56 Order name: O2 Sat Monitoring; Complete Time: 17:03 sb4 11/28 17:29 Order name: PO challenge; Complete Time: 18:27 sb4 EC:06 Rate is 86 beats/min. Rhythm is regular, Normal Sinus Rhythm. DC interval is normal at sb4 170 msec. QRS interval is normal at 90 msec. QT interval is normal at 376 msec. No Q waves. T waves are Normal. No ST changes noted. Clinical impression: Normal ECG. Interpreted by me. Reviewed by me. Administered Medications: 17:18 Drug: morphine IVP or IV 4 mg IVP once over 4 mins Route: IVP; Infused Over: 4 mins; rg5 Site: right antecubital; 17:49 Follow up: Response: No adverse reaction; Pain is decreased rg5 17:18 Drug: Ondansetron IVP 4 mg IVP once; over 2 minutes Route: IVP; Site: right antecubital;rg5 17:49 Follow up: Response: No adverse reaction rg5 17:49 Drug: NS 0.9% IV 1000 ml IV at 1000 ml once; to be given as a bolus over 60 minutes rg5 Route: IV; Rate: 1000 ml; Site: right antecubital; 20:14 Follow up: IV Status: Completed infusion; IV Intake: 1000ml rg5 19:40 Drug: Droperidol IVP 2.5 mg IVP once Route: IVP; Site: right antecubital; rg5 20:14 Follow up: Response: No adverse reaction rg5 20:14 Drug: Acetaminophen PO 1000 mg PO once Route: PO; rg5 Disposition Summary: 11/28/24 19:10 Hospitalization Ordered Notes: Hospitalization Status: Observation sb4 Provider: Siddharth Drake sb4 Location: Telemetry/MedSur (observation) sb4 Condition: Stable sb4 Problem: new sb4 Symptoms: are unchanged sb4 Bed/Room Type: Standard sb4 Room Assignment: 210(11/28/24 20:06) [facility] Diagnosis - Chest pain, unspecified sb4 Forms: - Medication Reconciliation Form sb4 - SBAR form sb4 - Leadership Thank You Letter sb4 Signatures: Dispatcher [employer] Jenn Vega PA-C PAHetal sb4 Shaista Nation RN RN tn1 Kiana Reina f Killian Castañeda RN RN rg5 Corrections: (The following items were deleted from the chart) 14:57 14:56 Chest Single View+RAD.RAD.BRZ ordered. EDNJ EDNJ 20:06 19:10 sb4 [facility]
[2024-11-28] MEDS ORDERED: ONDANSETRON 4 MG/2 ML VIAL IV PRN (19:51)
[2024-11-28] MEDS ORDERED: ACETAMINOPHEN 325 MG TABLET PO PRN (19:51)
--- NOTE | 2024-11-28 19:51 | P.HP ---
Certification for Inpatient Patient admitted to: Observation With expected LOS: <2 Midnights Practitioner: I am a practitioner with admitting privileges, knowledge of patient current condition, hospital course, and medical plan of care. Services: Services provided to patient in accordance with Admission requirements found in Title 42 Section 412.3 of the Code of Federal Regulations Patient History Date of Service: 11/28/24 Reason for admission: Cp History of Present Illness: 54 yrs old Female with past medical history of diabetes, hypertension, chronic back pain, asthma, CHF, stroke, history of cholecystectomy and laminectomy was brought to the ER because of chest pain , Abdominal Pain, Back Pain. Patient presents with complaints of low back pain, lower abdominal pain, and headache for 3 days. States that today she developed chest pain that is a squeezing sensation. Denies any radiation of the pain. Denies any shortness of breath, nausea, dizziness. No previous history of CAD. Pain is retrosternal, pressure- like feeling. Patient was assessed in the ER and is admitted for further management of chest pain rule out ACS Allergies No Known Allergies Allergy (Unverified 09/04/22 16:26) Home medications list reviewed: Yes Home Medications: Alprazolam 2 mg PO TID 01/14/19 Butalb/Acetaminophen/Caffeine [Afmgrn-Itmancvc-Dgxj 50-325-40] 1 each PO TID PRN 01/14/19 Gabapentin 800 mg PO TID 01/14/19 Losartan Potassium [Cozaar] 100 mg PO DAILY #30 tablet 01/14/19 Promethazine HCl 50 mg PO BIDP PRN 01/14/19 Tizanidine [Zanaflex*] 8 mg PO TID 01/14/19 Dapagliflozin Propanediol [Farxiga] 10 mg PO DAILY 03/26/21 Hydrocodone Bit/Acetaminophen [Thermal 10-325 Tablet] 10 mg PO QID 03/26/21 Semaglutide [Ozempic] 2 mg ID SEECOM 03/26/21 Metoclopramide [Reglan*] 5 mg PO TID 09/03/22 Omeprazole [Prilosec] 40 mg PO DAILY 09/03/22 Ropinirole HCl 1 tab PO BID 09/03/22 Topiramate 50 mg PO BEDTIME 09/03/22 glyBURIDE [Glyburide] 5 mg PO BID 09/03/22 Cefdinir [Cefdinir*] 300 mg PO BID #10 cap 09/05/22 Hydrocodone 10/APAP 325 [Thermal 10/325] 1 tab PO Q6H PRN #30 tab 09/05/22 metroNIDAZOLE [Flagyl] 500 mg PO Q12H #10 tab 09/05/22 - Past Medical/Surgical History Diabetic: Yes Past Medical History: Reviewed- Non-Contributory -: HTN -: NIDDM -: GERD -: Obesity -: fibromyalgia -: chronic back pain -: anxiety -: pneumonia in 2005 -: migraines -: claustrophobia -: seasonal allergies -: muscle spasms Past Surgical History: Reviewed- Non-Contributory -: laminectomy -: tubal ligation Psychosocial/ Personal History: Patient is disabled, lives at home with her children - Family History Mother -: Other (see notes) Notes: anxiety. fibromyalgia Father -: Diabetes - Social History Smoking Status: Never smoker Alcohol use: No CD- Drugs: No Caffeine use: Yes Review of Systems 10-point ROS is otherwise unremarkable Physical Examination - Vital Signs Temperature: 98.4 F Blood Pressure: 138/76 Pulse: 78 Respirations: 18 Pulse Ox (%): 94 - Physical Exam General: Alert, Oriented x3, Obese HEENT: Atraumatic, Normocephalic Neck: Supple Respiratory: Clear to auscultation bilaterally, Normal air movement Cardiovascular: Regular rate/rhythm, Normal S1 S2 Capillary refill: <2 Seconds Gastrointestinal: Soft and benign, W/out hepatosplenomegaly Musculoskeletal: No clubbing Integumentary: No rashes Neurological: Other (Alert awake nonfocal) Lymphatics: No axilla or inguinal lymphadenopathy - Studies Laboratory Data (last 24 hrs) 11/28/24 11/28/24 11/28/24 16:03 16:03 16:03 WBC 7.30 Hgb 14.1 Hct 42.4 Plt Count 230 PT 12.8 INR 1.14 Sodium 138 Potassium 4.7 BUN 30 H Creatinine 0.99 Glucose 196 H Magnesium 1.9 Total Bilirubin 0.4 AST 34 ALT 39 Alkaline Phosphatase 176 H Assessment and Plan - Plan Chest pain to rule out ACS Will trend cardiac enzymes Will monitor telemetry Started on aspirin and statin EKG did not show any acute changes suggestive of ischemia Will get an echocardiogram Cardiology consult Hypertension Antihypertensives titrated Continue home medications and titrate as needed Hyperlipidemia Continue statin Diabetes Insulin sliding scale Accu-Chek before every meal and at bedtime Obesity Advise lifestyle modification GI/DVT prophylaxis Advanced directive full code Discharge Plan: Home Plan to discharge in: 48 Hours - Advance Directives Does patient have a Living Will: No Does patient have a Durable POA for Healthcare: No - Code Status/Comfort Care Code Status: Full Code Time Spent Managing Pts Care (In Minutes): 48
[2024-11-28] MEDS ORDERED: HYDROCODONE/APAP 5/325 MG TAB PO PRN (19:54)
[2024-11-28] MEDS ORDERED: ACETAMINOPHEN 500 MG TAB ONE (20:00)
[2024-11-28] MEDS ORDERED: D10W 125 ML IV PRN (21:49)
[2024-11-28] MEDS ORDERED: GLUCAGON 1 MG/VIAL IM PRN (21:49)
[2024-11-28 22:17] VITALS: BMI 57.3
[2024-11-28] MEDS: INSULIN REGULAR (HUMAN) 100 UNIT/ML SQ SCH (22:51)
[2024-11-28] MEDS: MORPHINE 2 MG/ML SYR IV PRN (22:52)
[2024-11-29 06:40] LABS: Absolute Lymphocytes (CBC) 1.5 K/uL (0.7-4.9); Hematocrit 37.5 % (36.0-45.0); Hemoglobin 12.4 g/dL (12.0-15.0); MCH 29.6 pg (27.0-35.0); MCHC 33.0 g/dL (32.0-36.0); MCV 89.9 fL (80-100); MPV 8.7 fL (7.6-11.3); Nucleated RBC Absolute Count 0.0 (0-0); Nucleated Red Blood Cells % 0.0 % (0-0); RBC Red Blood Cell Count 4.17 M/uL (3.86-4.86); White Blood Count 5.30 thou/uL (4.3-10.9)
[2024-11-29 07:01] LABS: ALT/SGPT 33.0 U/L (13-56); AST/SGOT 15.0 U/L (15-37); Albumin 3.1 g/dL (3.4-5.0); Albumin/Globulin Ratio 0.9 (1.1-1.8); Alkaline Phosphatase 144.0 U/L (45-117); Anion Gap 9.3 mEq/L (5.0-15.0); BUN Blood Urea Nitrogen 24.0 mg/dL (7-18); Globulin 3.4 g/dL (2.3-3.5); Glucose Level 236.0 mg/dL (74-106); Potassium 4.3 mEq/L (3.5-5.1); Troponin High Sensitivity 11.4 pg/mL (<58.9)
[2024-11-29] MEDS: ENOXAPARIN 40 MG/0.4 ML SQ SCH (08:47)
--- NOTE | 2024-11-29 14:28 | P.CNS ---
Date of Consult: 11/29/24 Reason for Consult: Chest pain Requesting Physician: Adama Drake Chief Complaint: Cp History of Present Illness: 54-year-old female with PMH obesity, asthma, DM, HTN, HLD, "CHF", CVA who presents with constellation of symptoms including chest pain, back pain, and abdominal pain. Chest pain is described as left-sided, lasting all day yesterday, and may have been worse with walking. Patient reports that she had a cardiac catheterization 2 years ago, which was reported as normal. Also had a echocardiogram in June 2024, which showed a "large valve". Recent stress test 5 yrs ago was normal. She follows up with a diesel dinkey engineer at [facility] (Dr. Gregorio Clemens). ECG shows SR with no ischemic changes. High-sensitivity cardiac troponins negative. NT proBNP 178. CT chest/abd/pel was negative. Allergies No Known Allergies Allergy (Verified 11/28/24 22:33) Home medications list reviewed: Yes Home Medications: Alprazolam 2 mg PO TID 01/14/19 Butalb/Acetaminophen/Caffeine [Sqgknu-Tfiwydgf-Gedb 50-325-40] 1 each PO TID PRN 01/14/19 Gabapentin 800 mg PO TID 01/14/19 Tizanidine [Zanaflex*] 4 mg PO QID 01/14/19 Omeprazole [Prilosec] 40 mg PO DAILY 09/03/22 Ropinirole HCl 1 tab PO BID 09/03/22 Topiramate 50 mg PO BEDTIME 09/03/22 Hydrocodone 10/APAP 325 [[place] 10/325] 1 tab PO Q6H PRN #30 tab 09/05/22 - Past Medical/Surgical History Diabetic: Yes -: HTN -: NIDDM -: GERD -: Obesity -: fibromyalgia -: chronic back pain -: anxiety -: pneumonia in 2005 -: migraines -: claustrophobia -: seasonal allergies -: muscle spasms -: laminectomy -: tubal ligation Psychosocial/ Personal History: Patient is disabled, lives at home with her children - Family History Mother Medical History: Other (see notes) Notes: anxiety. fibromyalgia Father Medical History: Diabetes - Social History Smoking Status: Unknown if ever smoked Alcohol use: No CD- Drugs: No Caffeine use: Yes Place of Residence: Home Physical Examination Temp Pulse Resp BP Pulse Ox 98.3 F 87 16 184/95 H 96 11/29/24 12:00 11/29/24 12:00 11/29/24 12:00 11/29/24 12:00 11/29/24 12:00 General: In no apparent distress, Oriented x3, Obese HEENT: Atraumatic, Normocephalic Neck: 2+ carotid pulse no bruit Respiratory: Clear to auscultation bilaterally, Diminished Cardiovascular: Normal S1 S2, No murmurs, Edema Capillary refill: <2 Seconds Gastrointestinal: Other (Obese), Distended Musculoskeletal: No swelling Integumentary: No rashes Neurological: Normal speech Laboratory Data (last 24 hrs) 11/28/24 11/28/24 11/28/24 16:03 16:03 16:03 WBC 7.30 Hgb 14.1 Hct 42.4 Plt Count 230 PT 12.8 INR 1.14 Sodium 138 Potassium 4.7 BUN 30 H Creatinine 0.99 Glucose 196 H Magnesium 1.9 Total Bilirubin 0.4 AST 34 ALT 39 Alkaline Phosphatase 176 H Imagings Data: ECG and imaging reviewed - Problems (1) Chest pain Current Visit: Yes Status: Acute Plan: Not ACS. [facility] 03/27/2021 normal. Given patient's risk factors, recommend ischemia-guided approach with nuclear stress testing. Follow-up echocardiogram. If NST and TTE is normal, patient may follow-up with her diesel dinkey engineer (Dr Gregorio Clemens) at [facility]. Qualifiers: Chest pain type: unspecified Qualified Code(s): R07.9 - Chest pain, unspecified (2) HTN (hypertension) Current Visit: Yes Status: Chronic Plan: BP suboptimal. BP goal < 130/80. Qualifiers: Hypertension type: primary hypertension Qualified Code(s): I10 - Essential (primary) hypertension (3) Morbid obesity with BMI of 50.0-59.9, adult Current Visit: Yes Status: Chronic Plan: Encourage weight loss, healthy eating, and exercise. (4) Diabetes Current Visit: Yes Status: Chronic Plan: Reinforce glycemic control. SSI. Follw-up a1c and lipid profile. 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
[2024-11-29] MEDS: METOPROLOL TARTRATE 5 MG/5 ML INJ IV ONE (16:09)
[2024-11-29] MEDS: METOPROLOL TARTRATE 5 MG/5 ML INJ IV SCH (16:14)
[2024-11-29] MEDS: METOPROLOL TAR 25 MG TAB PO SCH (18:00)
[2024-11-30] MEDS ORDERED: MORPHINE 2 MG/ML SYR ONE (00:41)
[2024-11-30 01:05] VITALS: O2SAT 98
--- NOTE | 2024-11-30 10:46 | P.PN ---
Subjective Date of Service: 11/30/24 Chief Complaint: Cp Doing well. No acute events overnight. Echo unremarkable yesterday, albeit poor image quality. Unable to perform stress test due to patient above weight limit for table. Physical Examination - Vital Signs Temperature: 97.7 F Blood Pressure: 136/66 Pulse: 68 Respirations: 17 Pulse Ox (%): 99 - Physical Exam General: Alert, In no apparent distress, Oriented x3, Obese HEENT: Atraumatic, Normocephalic, EOMI Neck: JVD not distended Respiratory: Clear to auscultation bilaterally Cardiovascular: Regular rate/rhythm, Normal S1 S2, Edema Capillary refill: <2 Seconds Gastrointestinal: Normal bowel sounds, Other (Based) Musculoskeletal: No clubbing Integumentary: No rashes Neurological: Normal speech - Studies Reviewed Imagings Data: Reviewed Medications List Reviewed: Yes Assessment And Plan - Current Problems (Diagnosis) (1) Chest pain Current Visit: Yes Status: Acute Plan: Not ACS. [facility] 03/27/2021 normal. Patient is above weight limit for nuclear camera table. Echocardiogram unremarkable, albeit poor image quality.. Patient may follow-up with her supervisor blood donor recruiters (Dr Gregorio Clemens) at [facility] for further workup and possible stress testing in the future. Qualifiers: Chest pain type: unspecified Qualified Code(s): R07.9 - Chest pain, unspecified (2) HTN (hypertension) Current Visit: Yes Status: Chronic Plan: BP well-controlled. BP goal < 130/80. Qualifiers: Hypertension type: primary hypertension Qualified Code(s): I10 - Essential (primary) hypertension (3) Morbid obesity with BMI of 50.0-59.9, adult Current Visit: Yes Status: Chronic Plan: Encourage weight loss, healthy eating, and exercise. (4) Diabetes Current Visit: Yes Status: Chronic Plan: Reinforce glycemic control. SSI. Follw-up a1c and lipid profile. Qualifiers: Diabetes mellitus type: type 2 Diabetes mellitus retirement insulin use: without retirement use Diabetes mellitus complication status: without complication Qualified Code(s): E11.9 - Type 2 diabetes mellitus without complications - [facility] will sign off for now. Thank you for the consultation. Please call with any questions.
[2024-11-30] MEDS: MORPHINE 4 MG/ML SYR IV PRN (11:13)
[2024-11-30 12:10] VITALS: BP 184/84; TEMP 97.9
== END 2024-11-30 15:10 | disposition home or self-care (01) ==
LOC: ER 14:48 → ERHOLD 19:51 → 2ND 20:20
PROVIDERS: ADMIT Family Medicine; ATTEND Hospitalist
DX: R07.9 Chest pain, unspecified (principal); E11.9 Type 2 diabetes mellitus without complications; I10 Essential (primary) hypertension; G89.29 Other chronic pain; M54.9 Dorsalgia, unspecified; J45.909 Unspecified asthma, uncomplicated; I50.9 Heart failure, unspecified; Z86.73 Personal history of transient ischemic attack (TIA), and cerebral infarction without residual deficits; R51.9 Headache, unspecified; E78.5 Hyperlipidemia, unspecified; E66.9 Obesity, unspecified; Z68.43 Body mass index [BMI] 50.0-59.9, adult
CPT/HCPCS: 96361; 93005; 93306; 85025 ×2; 80048; 36415; 83735; 85610; 82947 ×7; 80076; 81003; 84484 ×4; 80053; 83880; 71260; 74177; 71045; 96375; 96374; 99285; Q9967; J1650 ×2; J2270 ×4; J2405; J1790; J1815 ×6; J7030; G0378